=== PATIENT | female | born 1970 | race Hispanic/Latino ===

== ENCOUNTER 2016-11-26 23:21 | Emergency (ER) | payer MEDICAID ==
[2016-11-26 23:21] VITALS: BMI 26.4
[2016-11-26 23:39] VITALS: RESP 20; TEMP 98
[2016-11-27 00:55] LABS: RBC URINE 12 /hpf (0-3); URINE BILIRUBIN NEGATIVE (NEGATIVE); URINE BLOOD 2+ (NEGATIVE); URINE COLOR Amber (YELLOW); URINE GLUCOSE (UA) NORMAL (Normal); URINE KETONE NEGATIVE (NEGATIVE); URINE LEUKOCYTE ESTERASE NEG Leu/uL (Negative); URINE PROTEIN NEGATIVE (NEGATIVE); WBC URINE 2 /hpf (0-5)
--- NOTE | 2016-11-27 01:11 | C.PDOC ---
History Of Present Illness Pt c/o diffuse itchy rash. Time Seen by Provider: 11/26/16 23:53 Chief Complaint (Nursing): Abnormal Skin Integrity History Per: Patient Onset/Duration Of Symptoms: Days (about 2-3 weeks) Current Symptoms Are (Timing): Still Present Quality Of Symptoms: Itching Severity: Moderate Additional History Per: Prior Records Past Medical History Reviewed: Historical Data, Nursing Documentation, Vital Signs Vital Signs: Last Vital Signs Temp 98 F 11/26/16 23:34 Pulse 78 11/26/16 23:34 Resp 20 11/26/16 23:34 BP 128/68 11/26/16 23:34 Pulse Ox 100 11/26/16 23:34 - Medical History PMH: Anxiety, COPD (Emphysema), Depression, Emphysema, Fractures (rt foot), Hepatitis (HEP-C) Surgical History: Appendectomy (1989) Other Surgeries: Right BKA - [facility] Procedures BELOW KNEE AMPUTAT NEC (02/19/15) DETOXIFICATION SERVICES FOR SUBSTANCE ABUSE TREATMENT (08/01/16) DRAINAGE OF LEFT LOWER LEG SKIN, EXTERNAL APPROACH (09/11/16) GROUP INVESTIGATIONS CONSULTANT FOR SUBSTANCE ABUSE TREATMENT, PSYCHOEDUCATION (08/01/16) GROUP PSYCHOTHERAPY (12/16/15) IMMOBILIZ/WOUND ATTN NEC (10/07/12) INDIV PSYCHOTHERAPY FOR SUBSTANCE ABUSE TREATMENT, SUPPORT (09/11/16) INDIV PSYCHOTHERAPY FOR SUBSTANCE ABUSE, PSYCHOEDUCATION (09/11/16) INFLUENZA VACCINATION (05/13/13) NONEXCIS DEBRID OF WOUND, INFECT, OR BURN (05/13/13) PART OSTECT-METATAR/TAR (05/13/13) PARTIAL OSTECTOMY NEC (05/13/13) Family History: States: Unknown Family Hx - Social History Hx Tobacco Use: Yes Hx Alcohol Use: Yes (alcohol detox(08/01/16)) Hx Substance Use: Yes (opiate detox(08/01/16)) - Immunization History Hx Tetanus Toxoid Vaccination: Yes Hx Influenza Vaccination: No Hx Pneumococcal Vaccination: No Review Of Systems Except As Marked, All Systems Reviewed And Found Negative. Constitutional: Negative for: Fever, Weakness ENT: Negative for: Mouth Pain, Mouth Swelling, Throat Pain, Throat Swelling Respiratory: Negative for: Cough, Shortness of Breath Gastrointestinal: Negative for: Vomiting, Abdominal Pain Genitourinary: Positive for: Dysuria Musculoskeletal: Negative for: Neck Pain Skin: Positive for: Rash, Lesions Neurological: Negative for: Weakness, Numbness, Seizures, Altered Mental Status Physical Exam - Physical Exam Appears: Non-toxic, No Acute Distress Skin: Warm, Dry, Rash (dry skin with excoriations) Head: Atraumatic, Normacephalic Eye(s): bilateral: PERRL, EOMI Oral Mucosa: Moist, No Drooling, No Trismus Tongue: Normal Appearing Throat: Normal Neck: Normal ROM, Supple Lymphatic: No Adenopathy Cardiovascular: Rhythm Regular Respiratory: Normal Breath Sounds, No Accessory Muscle Use Gastrointestinal/Abdominal: Soft, No Tenderness Back: No CVA Tenderness Extremity: Normal ROM, Other (Right BKA) Neurological/Psych: Oriented x3, Normal Motor, Normal Sensation ED Course And Treatment - Laboratory Results Urine POC: Negative O2 Sat by Pulse Oximetry: 100 Pulse Ox Interpretation: Normal Reassessment Condition: Improved Disposition Counseled Patient/Family Regarding: Studies Performed, Diagnosis, Need For Followup, Rx Given - Disposition Referrals: Cuauhtemoc Noriega MD [Staff Provider] - Disposition: HOME/ ROUTINE Disposition Time: 01:11 Condition: STABLE Additional Instructions: Follow up with your doctor and with a Grounds/Maintenance Specialist for further evaluation and treatment. Return to the ER if you develop fever, mouth sores, trouble breathing , worsening of symptoms or if you have any other concerns. Prescriptions: DiphenhydrAMINE [Benadryl] 25 mg PO Q4 PRN #30 cap PRN Reason: Itching / Pruritus Mupirocin 2% Cream [Bactroban Cream] 1 applic EXT BID #1 tube Sulfamethoxazole/Trimethoprim [Bactrim DS 800 mg-160 mg] 1 tab PO BID #14 tab Instructions: Dermatitis (ED) - Clinical Impression Clinical Impression: Pruritic rash
[2016-11-27 01:32] VITALS: BP 123/81; PULSE 79; O2SAT 95
== END 2016-11-27 01:31 | disposition home or self-care (01) ==
LOC: C.ER 23:21
DX: L29.8 Other pruritus (principal)

== ENCOUNTER 2016-12-21 12:46 | Inpatient (IN) | payer MEDICAID, OTHER ==
[2016-12-21 12:55] VITALS: BMI 26.6
--- NOTE | 2016-12-21 13:10 | C.PDOC ---
History Of Present Illness Pt is here requesting detox from alcohol and opiate pain pills. Time Seen by Provider: 12/21/16 13:03 Chief Complaint (Nursing): Substance Abuse History Per: Patient Onset/Duration Of Symptoms: Days Current Symptoms Are (Timing): Still Present Suicide/Self Injury Attempted (Context): None Modifying Factor(s): Alcohol, Narcotics Severity: Moderate Associated Symptoms: denies: Suicidal Thoughts, Suicidal Plan Additional History Per: Prior Records Past Medical History Vital Signs: Last Vital Signs Temp 98.3 F 12/21/16 12:55 Pulse 82 12/21/16 12:55 Resp 18 12/21/16 12:55 BP 113/70 12/21/16 12:55 Pulse Ox 99 12/21/16 13:11 - Medical History PMH: Anxiety, COPD (Emphysema), Depression, Emphysema, Fractures (rt foot), Hepatitis (HEP-C) Surgical History: Appendectomy (1989) Other Surgeries: Right BKA - [facility] Procedures BELOW KNEE AMPUTAT NEC (02/19/15) DETOXIFICATION SERVICES FOR SUBSTANCE ABUSE TREATMENT (08/01/16) DRAINAGE OF LEFT LOWER LEG SKIN, EXTERNAL APPROACH (09/11/16) GROUP BILLET DRILLER FOR SUBSTANCE ABUSE TREATMENT, PSYCHOEDUCATION (08/01/16) GROUP PSYCHOTHERAPY (12/16/15) IMMOBILIZ/WOUND ATTN NEC (10/07/12) INDIV PSYCHOTHERAPY FOR SUBSTANCE ABUSE TREATMENT, SUPPORT (09/11/16) INDIV PSYCHOTHERAPY FOR SUBSTANCE ABUSE, PSYCHOEDUCATION (09/11/16) INFLUENZA VACCINATION (05/13/13) NONEXCIS DEBRID OF WOUND, INFECT, OR BURN (05/13/13) PART OSTECT-METATAR/TAR (05/13/13) PARTIAL OSTECTOMY NEC (05/13/13) Family History: States: Unknown Family Hx - Social History Hx Tobacco Use: Yes Hx Alcohol Use: Yes (alcohol detox(08/01/16)) Hx Substance Use: Yes (roxicodone) - Immunization History Hx Tetanus Toxoid Vaccination: Yes Hx Influenza Vaccination: No Hx Pneumococcal Vaccination: No Review Of Systems Except As Marked, All Systems Reviewed And Found Negative. Constitutional: Negative for: Fever Cardiovascular: Negative for: Chest Pain Respiratory: Negative for: Shortness of Breath Gastrointestinal: Positive for: Abdominal Pain Musculoskeletal: Negative for: Neck Pain, Back Pain Neurological: Negative for: Weakness, Numbness, Seizures, Headache Physical Exam - Physical Exam Appears: Non-toxic, No Acute Distress Skin: Normal Color, Warm, Dry Head: Atraumatic, Normacephalic Eye(s): bilateral: PERRL, EOMI Neck: Normal ROM, Supple Cardiovascular: Rhythm Regular Respiratory: Normal Breath Sounds, No Accessory Muscle Use Gastrointestinal/Abdominal: Soft, No Guarding, No Rebound Back: No CVA Tenderness Extremity: Normal ROM Neurological/Psych: Oriented x3, Normal Motor, Normal Sensation ED Course And Treatment - Laboratory Results Result Diagrams: 12/21/16 13:39 12/21/16 13:39 Interpretation Of Abnormal: Probable UTI. Urine POC: Negative O2 Sat by Pulse Oximetry: 99 Pulse Ox Interpretation: Normal Progress Note: Pt is medically stable for detox admission. I started treatment for UTI with Cipro. Please continue and f/up urine culture. Disposition Counseled Patient/Family Regarding: Studies Performed, Diagnosis, Smoking Cessation - Disposition Disposition: HOSPITALIZED Disposition Time: 15:20 Condition: STABLE - Clinical Impression Clinical Impression: Alcohol dependence, Opiate dependence, UTI (urinary tract infection) Decision To Admit - Pt Status Changed To: Hospital Disposition Of: Inpatient - Admit Certification Admit to Inpatient:: After my assessment, the patient will require hospitalization for at least two midnights. This is because of the severity of symptoms shown, intensity of services needed, and/or the medical risk in this patient being treated as an outpatient. - InPatient: Physician Admission Certification: I certify that this patient requires 2 or more midnights of care for the following reason:: Detox. - . Bed Request Type: Detox Admitting Physician: Vadim López Patient Diagnosis: Alcohol dependence, Opiate dependence
[2016-12-21 13:42] LABS: BASO % 0.7 % (0.0-2.0); EOS # 0.1 K/uL (0.0-0.7); EOS % 1.5 % (0.0-4.0); HEMATOCRIT 38.5 % (34.0-47.0); LYMPH # 1.1 K/uL (1.0-4.3); LYMPH % 22.6 % (20.0-40.0); MEAN CELL VOLUME 90.8 fL (81.0-99.0); MEAN CORPUSCULAR HGB CONC 34.1 g/dL (33.0-37.0); MEAN PLATELET VOLUME 10.1 fL (7.2-11.7); MONO # 0.4 K/uL (0.0-0.8); MONO % 7.8 % (0.0-10.0); NRBC % 0.1 % (0.0-2.0); RED CELL DISTRIBUTION WIDTH 14.7 % (11.5-14.5)
[2016-12-21 13:50] LABS: CHLORIDE 103 mmol/L (98-107); POTASSIUM 4.1 mmol/L (3.6-5.2); SODIUM 137 mmol/L (132-148)
[2016-12-21 13:52] LABS: AST/SGOT 133 U/L (14-36); CARBON DIOXIDE 22 mmol/L (22-30); GFR AFRICAN-AMERICAN > 60; TOTAL PROTEIN 8.4 g/dL (6.3-8.3)
[2016-12-21 13:53] LABS: ALB/GLOB RATIO 0.8 (1.0-2.1); ALKALINE PHOSPHATASE 58 U/L (38-126); ALT/SGPT 56 U/L (9-52); BLOOD UREA NITROGEN 13 mg/dL (7-17); CALCIUM 8.1 mg/dl (8.6-10.4); GLUCOSE,RANDOM 124 mg/dL (65-105)
[2016-12-21 13:54] LABS: ALCOHOL SERUM 118 mg/dl (0-10)
[2016-12-21 13:58] LABS: RBC URINE 30 /hpf (0-3); URINE BACTERIA MANY (<OCC); URINE BILIRUBIN NEGATIVE (NEGATIVE); URINE BLOOD 2+ (NEGATIVE); URINE CALCIUM OXALATE CRYSTALS OCC /hpf (<OCC); URINE COLOR Amber (YELLOW); URINE GLUCOSE (UA) NORMAL (Normal); URINE KETONE NEGATIVE (NEGATIVE); URINE LEUKOCYTE ESTERASE 3+ Leu/uL (Negative); URINE PROTEIN NEGATIVE (NEGATIVE); WBC URINE 10 /hpf (0-5)
[2016-12-21 17:01] VITALS: RESP 18
[2016-12-22] MEDS: Multiple Vitamins Tab PO SCH (09:19)
--- NOTE | 2016-12-22 12:56 | PCM.PSYCH ---
Initial Psychiatric Evaluation - Initial Psychiatric Evaluation Type of Admission: Voluntary Legal Status: Capacity Chief Complaint (in patient's own words): I need treatment for my substance use History of Present Illness and Precipitating Events: Patient is a 45 years old female currently unemployed on SSD and living with boyfriend, with a history of alcohol use disorder, opioid use disorder and sedative/hypnotic use disorder and medical history of right below- knee amputation presented to the ED for detox. Patient also reported that time she feels depressed with decreased sleep and decrease appetite but no weight change. Denied any suicidal homicidal ideations or suicidal attempts. Denied any psychotic manic or anxiety symptoms. Patient reported that his PCP started her on Lexapro and Prozac at different times but she stopped taking because of weight gain. Doesn't want to take any medications at this time. Reported she has been consuming increasing amount of alcohol since age of 13, but opioid pain medications and benzos for more than a year. Reported she had a compartment syndrome and had below-knee amputation last year, since then she is consuming increasing amount of opioid pain medication and benzos. Alcohol: Reported she started using alcohol at the age of 13, increased gradually, currently she was drinking 3-4 pints of vodka daily for last 3 months, last use was yesterday morning. Reported history of 2 detox and no rehabs in the past. Opiates: Patient reported she started using heroine at the age of 22 years. In the beginning she was using one bag snorting which she stopped but later she started using opiate pain medicine. Reported she was using OxyContin more than prescribed and later she started buying from [facility]. Patient also reported that she was also taking Suboxone, buying from [facility] and was taking half of it but 2 mg tablet to 3 times per week. Klonopin: Patient reported she hadn't that she was taking Klonopin for last 5 years from her PCP who was giving her Klonopin 2 mg 3 times a day but according to history patient was abusing benzos. Patient reported that yesterday she drank 3-4 pints of vodka and also she took 4 mg of Klonopin before coming to ER yesterday. She also smokes one pack of cigarettes daily and is requesting for nicotine patch. Patient was born in [place], has 10th grade of education, not working for last 14 years, on disability, lives with boyfriend, never and has 2 children 27 years old daughter and 11 years old son. Her 11-year-old son lives with his father. Her height is 5 feet 6 inches and weight is 165 pounds. Current Medications: Active Medications Generic Name Dose Route Start Last Admin Trade Name Freq PRN Reason Stop Dose Admin Ciprofloxacin 500 mg 12/22/16 10:15 12/22/16 10:47 Cipro PO 12/26/16 23:59 500 mg BID MARGARET Administration Folic Acid 1 mg 12/22/16 10:00 12/22/16 09:19 Folic Acid PO 1 mg DAILY MARGARET Administration Gabapentin 300 mg 12/22/16 14:00 Neurontin PO TID MARGARET Lorazepam 1 mg 12/21/16 16:58 12/21/16 18:33 Ativan PO 1 mg Q4H PRN Administration Symptoms of alcohol withdrawl Lorazepam 2 mg 12/21/16 17:00 12/22/16 12:41 Ativan PO 12/26/16 16:59 2 mg Q4 MARGARET Administration Taper Multivitamins 1 tab 12/22/16 10:00 12/22/16 09:19 Hexavitamin PO 1 tab DAILY MARGARET Administration Mupirocin 0 gm 12/22/16 10:15 12/22/16 10:48 Bactroban Ointment TOP 1 applic BID MARGARET Administration Nicotine 1 patch 12/22/16 10:15 12/22/16 10:47 Nicoderm Cq TD 1 patch DAILY MARGARET Administration Thiamine HCl 100 mg 12/22/16 10:00 12/22/16 09:19 Vitamin B1 Tab PO 100 mg DAILY MARGARET Administration Trazodone HCl 50 mg 12/21/16 16:58 12/21/16 22:10 Desyrel PO 50 mg HS PRN Administration Insomnia Past Psychiatric History - Past Psychiatric History Previous Treatment History: Inpatient Prior Professional Help: [facility]patient detox [facility]: [facility] History of Abuse: None reported History of ETOH/Drug Use: See HPI History of Family Illness: None reported Pertinent Medical Hx (Current Medical&Sleep Prob, Allergies): Allergies Allergy/AdvReac Type Severity Reaction Status Date / Time No Known Allergies Allergy Verified 12/21/16 12:54 Klonopin 2 mg PO TID 03/30/16 Gabapentin [Neurontin] 300 mg PO TID #90 cap 08/04/16 Oxycodone HCl [Roxicodone] 30 mg PO QID 09/10/16 Hepatitis C Review of Systems - Psychiatric Psychiatric: Depression Mental Status Examination - Personal Presentation Personal Presentation: Looks stated age - Affect Affect: Depressed - Motor Activity Motor Activity: Calm - Reliability in Providing Information Reliability in Providing Information: Fair - Speech Speech: Organized - Mood Mood: Depressed - Formal Thought Process Formal Thought Process: No Impairment - Hallucinations/Delusions Hallucinations: Other (None reported) Delusions: Other - Obsessions/Compulsions Obsessions: None Compulsions: None - Cognitive Functions Orientation: Person, Place, Situation, Time Sensorium: Alert Attention/Concentration: Attentive Abstract Thinking: [place] Estimate of Intelligence: Average Judgement: Intact, as evidence by: Insight regarding need for hospitalization Memory: Recent intact, as evidence by: 3/3 object recall, Remote intact, as evidenced by: Ability to recall historical events - Risk Risk: Withdrawal, Diminished functioning - Strength & Assets Inventory Strength & Assets Inventory: Cooperative - Limitations Limitations: Other DSM 5 DX - DSM 5 DSM 5 Diagnosis: Alcohol use disorder severe Alcohol withdrawal Opiate use disorder Anxiolytics use disorder - Recommended/Plan of Treatment Treatment Recommendations and Plan of Treatment: Patient education Supportive therapy We'll start Ativan detox protocol for alcohol withdrawal and anxiolytics withdrawal Patient reported no withdrawal symptoms from opiate, will observe, if develop any withdrawal symptoms we'll continue treatment accordingly. Other when necessary medications Projected ELOS: 4-5 days - Smoking Cessation Smoking Cessation Initiated: Yes
[2016-12-23 06:51] VITALS: O2SAT 100
[2016-12-23] MEDS: Multiple Vitamins Tab PO SCH (09:36)
[2016-12-23 11:16] VITALS: BP 122/81; PULSE 69; TEMP 97.7
--- NOTE | 2016-12-23 15:24 | PCM.PYCHDC ---
Mental Status Examination - Mental Status Examination Orientation: Person, Place, Situation, Time Memory: Intact Mood: Neutral Affect: Other (Appropriate) Speech: Soft Attention: WNL Concentration: WNL Association: WNL Fund of Knowledge: WNL Formal Thought Process: No Impairment Description of patient's judgement and insight: Poor Psychotic Thoughts and Behaviors: None Suicidal Ideation: No Current Homicidal Ideation?: No Discharge Summary - Discharge Note Reason for Hospitalization: Alcohol use disorder Alcohol withdrawal Opiate use disorder Opiate withdrawal Anxiolytics use disorder Anxiolytics withdrawal Laboratory Data: Reviewed Consultations:: List each consultation separately and include: 1. Reason for request. 2. Findings. 3. Follow-up Summary of Hospital Course include:: 1. Description of specific treatment plan utilized for patients during their course of treatmen. 2. Summarize the time- course for resolution of acute symptoms and/or regressed behaviors. 3. Describe issues identified and worked on during hospitalization. 4. Describe medication utilized. 5. Describe medical problems identified and treated. 6. Reassessment of suicide risk Summary of Hospital Course: Patient is a 45 years old female currently unemployed on SSD and living with boyfriend, with a history of alcohol use disorder, opioid use disorder and sedative/hypnotic use disorder and medical history of right below- knee amputation presented to the ED for detox. Patient also reported that time she feels depressed with decreased sleep and decrease appetite but no weight change. Denied any suicidal homicidal ideations or suicidal attempts. Denied any psychotic manic or anxiety symptoms. Patient reported that his PCP started her on Lexapro and Prozac at different times but she stopped taking because of weight gain. Doesn't want to take any medications at this time. Reported she has been consuming increasing amount of alcohol since age of 13, but opioid pain medications and benzos for more than a year. Reported she had a compartment syndrome and had below-knee amputation last year, since then she is consuming increasing amount of opioid pain medication and benzos. Alcohol: Reported she started using alcohol at the age of 13, increased gradually, currently she was drinking 3-4 pints of vodka daily for last 3 months, last use was yesterday morning. Reported history of 2 detox and no rehabs in the past. Opiates: Patient reported she started using heroine at the age of 22 years. In the beginning she was using one bag snorting which she stopped but later she started using opiate pain medicine. Reported she was using OxyContin more than prescribed and later she started buying from [facility]. Patient also reported that she was also taking Suboxone, buying from [facility] and was taking half of it but 2 mg tablet to 3 times per week. Klonopin: Patient reported she hadn't that she was taking Klonopin for last 5 years from her PCP who was giving her Klonopin 2 mg 3 times a day but according to history patient was abusing benzos. Patient reported that yesterday she drank 3-4 pints of vodka and also she took 4 mg of Klonopin before coming to ER yesterday. She also smokes one pack of cigarettes daily and is requesting for nicotine patch. Patient was born in [place], has 10th grade of education, not working for last 14 years, on disability, lives with boyfriend, never and has 2 children 27 years old daughter and 11 years old son. Her 11-year-old son lives with his father. Her height is 5 feet 6 inches and weight is 165 pounds. Patient was started on Ativan protocol, for alcohol withdrawal symptoms. Patient did not score for opiate withdrawal. Patient was also started on other when necessary medications. One urinalysis was found to have UTI. Was started on ciprofloxacin. Patient understood and agreed with above. Today patient reported she is feeling much better and wants to leave. Education provided the patient about completion of detox. Patient reported no withdrawal symptoms. Refused to stay. Patient was educated that in case of any adverse he wants including withdrawal, decompensation, overdose or even of the patient, patient will be responsible for her actions. Patient understood and agreed but still refused to stay and left the unit AMA. At the time of evaluation and discharge, patient was awake alert oriented 3, had no delusions, no auditory or visual hallucinations, no suicidal ideations or homicidal ideations. Patient was discharged in a stable condition. - Final Diagnosis (DSM 5) Condition upon Discharge: STABLE Disposition: AGAINST MEDICAL ADVICE - Smoking Cessation Smoking Cessation Medication prescribed: Yes - Antipsychotic Medications Pt discharged on 2 or more routine antipsychotic medications: No
== END 2016-12-23 09:55 | disposition left against medical advice (07) | DRG 743 ==
LOC: C.ER 12:46 → C.7D 16:01
PROC: HZ2ZZZZ Detoxification Services for Substance Abuse Treatment (ICD-10-PCS; principal; 2016-12-21)
PROC: HZ59ZZZ Individual Psychotherapy for Substance Abuse Treatment, Supportive (ICD-10-PCS; 2016-12-21)
DX: F10.230 Alcohol dependence with withdrawal, uncomplicated (principal); J43.9 Emphysema, unspecified; B19.20 Unspecified viral hepatitis C without hepatic coma; N39.0 Urinary tract infection, site not specified; F11.23 Opioid dependence with withdrawal; F13.230 Sedative, hypnotic or anxiolytic dependence with withdrawal, uncomplicated; F41.9 Anxiety disorder, unspecified; F32.9 Major depressive disorder, single episode, unspecified; Z89.519 Acquired absence of unspecified leg below knee; F17.210 Nicotine dependence, cigarettes, uncomplicated; Y90.5 Blood alcohol level of 100-119 mg/100 ml

== ENCOUNTER 2017-02-05 12:29 | Emergency (ER) | payer MEDICAID ==
[2017-02-05 12:30] VITALS: BMI 26.6
[2017-02-05 12:43] VITALS: RESP 16; TEMP 97.5
[2017-02-05] MEDS ORDERED: Sodium Chloride 0.9% 1,000 ML IV ONE (12:49)
--- NOTE | 2017-02-05 12:58 | C.PDOC ---
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 Patient states she is currently taking Antivert and was drinking when she passed out while alone at home. Patient reports she drinks everyday and smokes. Patient denies visual changes, trauma, fever, chills, nausea, vomiting or any other complaints at this time. Time Seen by Provider: 02/05/17 12:31 Chief Complaint (Nursing): Syncope History Per: Patient History/Exam Limitations: no limitations Onset/Duration Of Symptoms: Hrs Current Symptoms Are (Timing): Gone Past Medical History Reviewed: Historical Data, Nursing Documentation, Vital Signs Vital Signs: Last Vital Signs Temp 97.5 F L 02/05/17 14:05 Pulse 64 02/05/17 14:05 Resp 16 02/05/17 14:05 BP 91/50 L 02/05/17 14:05 Pulse Ox 95 02/05/17 15:19 - Medical History PMH: Anxiety, Bipolar Disorder, Depression, Emphysema, Fractures (rt foot), Hepatitis (HEP-C) Comment Only: COPD (Emphysema) Surgical History: Appendectomy (1989) - [facility] Procedures BELOW KNEE AMPUTAT NEC (02/19/15) DETOXIFICATION SERVICES FOR SUBSTANCE ABUSE TREATMENT (12/21/16) DRAINAGE OF LEFT LOWER LEG SKIN, EXTERNAL APPROACH (09/11/16) GROUP DECONTAMINATION WORKER FOR SUBSTANCE ABUSE TREATMENT, PSYCHOEDUCATION (08/01/16) GROUP PSYCHOTHERAPY (12/16/15) IMMOBILIZ/WOUND ATTN NEC (10/07/12) INDIV PSYCHOTHERAPY FOR SUBSTANCE ABUSE TREATMENT, SUPPORT (12/21/16) INDIV PSYCHOTHERAPY FOR SUBSTANCE ABUSE, PSYCHOEDUCATION (09/11/16) INFLUENZA VACCINATION (05/13/13) NONEXCIS DEBRID OF WOUND, INFECT, OR BURN (05/13/13) PART OSTECT-METATAR/TAR (05/13/13) PARTIAL OSTECTOMY NEC (05/13/13) Family History: States: Unknown Family Hx - Social History Hx Tobacco Use: Yes Hx Alcohol Use: Yes Hx Substance Use: Yes - Immunization History Hx Tetanus Toxoid Vaccination: Yes Hx Influenza Vaccination: No Hx Pneumococcal Vaccination: No Review Of Systems Except As Marked, All Systems Reviewed And Found Negative. Constitutional: Negative for: Weakness Eyes: Negative for: Vision Change Gastrointestinal: Negative for: Nausea, Vomiting, Diarrhea Neurological: Negative for: Headache, Dizziness Physical Exam - Physical Exam Appears: No Acute Distress, Other (Sleepy) Skin: Normal Color, Warm Head: Atraumatic, Normacephalic Eye(s): bilateral: Normal Inspection, PERRL Oral Mucosa: Moist Cardiovascular: Rhythm Regular, No Murmur Respiratory: Normal Breath Sounds, No Rales, No Rhonchi, No Wheezing Gastrointestinal/Abdominal: Soft, No Tenderness, No Guarding, No Rebound Extremity: Normal ROM, Capillary Refill (<2 seconds) Neurological/Psych: Oriented x3, Normal Speech, Normal Cognition, Normal Motor, Normal Sensation, Normal Reflexes ED Course And Treatment - Laboratory Results Result Diagrams: 02/05/17 13:30 02/05/17 13:30 Lab Interpretation: Normal ECG Rhythm: Sinus Rhythm Rate From EC (bpm) O2 Sat by Pulse Oximetry: 95 (RA) Pulse Ox Interpretation: Normal Progress Note: Treated with IVF NSS. On re-evaluation alert and awake in on distress, ambulating with steady gait, neuro intact. Patient requests dischage Reassessment Condition: Improved Medical Decision Making Medical Decision Making: Plan: Blood work Patient reports history of alcohol abuse and currently on antibuse. Patient states she was drinking this am and passes out Disposition Counseled Patient/Family Regarding: Studies Performed, Diagnosis, Need For Followup - Disposition Referrals: [facility] [Outside] [facility] [Outside] Disposition: HOME/ ROUTINE Disposition Time: 15:30 Condition: STABLE Additional Instructions: Follow up with your pPMD for further evaluation Stop drinking alcohol Instructions: Syncope (ED), Abuse of Alcohol (ED) - POA Present On Arrival: None - Clinical Impression Clinical Impression: Syncope, Alcohol abuse - Scribe Statement The provider has reviewed the documentation as recorded by the Hamiblana Noriega All medical record entries made by the Hamibe were at my direction and personally dictated by me. I have reviewed the chart and agree that the record accurately reflects my personal performance of the history, physical exam, medical decision making, and the department course for this patient. I have also personally directed, reviewed, and agree with the discharge instructions and disposition.
[2017-02-05] MEDS ORDERED: Sodium Chloride 0.9% 1,000 ML ONE (13:03)
[2017-02-05 13:41] LABS: ALBUMIN 3.2 g/dL (3.5-5.0)
[2017-02-05 13:43] LABS: BASO % 0.6 % (0.0-2.0); EOS # 0.1 K/uL (0.0-0.7); EOS % 1.4 % (0.0-4.0); LYMPH # 0.8 K/uL (1.0-4.3); LYMPH % 22.9 % (20.0-40.0); MEAN CELL VOLUME 90.5 fL (81.0-99.0); MEAN CORPUSCULAR HEMOGLOBIN 30.2 pg (27.0-31.0); MEAN CORPUSCULAR HGB CONC 33.4 g/dL (33.0-37.0); MEAN PLATELET VOLUME 10.2 fL (7.2-11.7); MONO # 0.3 K/uL (0.0-0.8); MONO % 8.3 % (0.0-10.0); NEUT # 2.4 K/uL (1.8-7.0); NEUT % 66.8 % (50.0-75.0); NRBC % 0.1 % (0.0-2.0); RBC 3.63 Mil/uL (3.80-5.20); RED CELL DISTRIBUTION WIDTH 14.8 % (11.5-14.5); WHITE BLOOD COUNT 3.6 K/uL (4.8-10.8)
[2017-02-05 13:44] LABS: AST/SGOT 34 U/L (14-36); GFR AFRICAN-AMERICAN > 60; GFR NON-AFRICAN AMERICAN > 60
[2017-02-05 13:45] LABS: ALB/GLOB RATIO 0.8 (1.0-2.1); ALT/SGPT 29 U/L (9-52); BLOOD UREA NITROGEN 14 mg/dL (7-17); CALCIUM 7.7 mg/dl (8.6-10.4)
[2017-02-05 14:07] VITALS: BP 91/50; PULSE 64
[2017-02-05 15:16] VITALS: O2SAT 95
[2017-02-05 15:39] LABS: SQUAMOUS EPITHIAL 15 /hpf (0-5); URINE BACTERIA RARE (<OCC); URINE BILIRUBIN NEGATIVE (NEGATIVE); URINE BLOOD 1+ (NEGATIVE); URINE CLARITY Hazy (Clear); URINE COLOR Yellow (YELLOW); URINE GLUCOSE (UA) NORMAL (Normal); URINE LEUKOCYTE ESTERASE 1+ Leu/uL (Negative); URINE NITRATE NEGATIVE (NEGATIVE); URINE PROTEIN NEGATIVE (NEGATIVE); URINE UROBILINOGEN NORMAL mg/dL (0.2-1.0)
[2017-02-05 15:55] LABS: BARBITURATES, UR NEGATIVE (NEGATIVE)
[2017-02-05 15:58] LABS: OPIATES, UR POSITIVE (NEGATIVE)
[2017-02-05 15:59] LABS: PHENCYCLIDINE, UR NEGATIVE (NEGATIVE)
[2017-02-05 16:10] LABS: BENZODIAZEPINES, UR POSITIVE (NEGATIVE)
--- NOTE | 2017-02-07 00:35 | CARD ---
APPROVED REPORT EKG Measurement Heart [id number] <Conclusion> Normal sinus rhythm Cannot rule out Anterior infarct, age undetermined Abnormal ECG
== END 2017-02-05 15:38 | disposition home or self-care (01) ==
LOC: C.ER 12:29
DX: R55 Syncope and collapse (principal); F10.10 Alcohol abuse, uncomplicated; Y90.3 Blood alcohol level of 60-79 mg/100 ml
CPT/HCPCS: 80053; 80320; 80324; 80345; 80346; 80349; 80353; 80358; 80361; 81001; 83992; 84484; 85025; 93005; 96360; 99285; J7040

== ENCOUNTER 2017-03-07 18:04 | Inpatient (IN) | payer MEDICAID ==
[2017-03-07 18:05] VITALS: BMI 26.6
--- NOTE | 2017-03-07 19:08 | C.PDOC ---
History Of Present Illness Patient presents to the emergency department with complaints of redness and tenderness to wound above the right BKA stump with purulent drainage. Patient denies fever, chills, nausea, or vomiting. Time Seen by Provider: 03/07/17 18:13 Chief Complaint (Nursing): Abnormal Skin Integrity History Per: Patient History/Exam Limitations: no limitations Onset/Duration Of Symptoms: Hrs Current Symptoms Are (Timing): Still Present Location Of Injury: Right: Leg (wound above BKA stump ) Quality Of Symptoms: Draining Severity: Moderate Pain Scale Rating Of: 4 Recent travel outside of the [place]: No Additional History Per: Prior Records Past Medical History Reviewed: Historical Data, Nursing Documentation, Vital Signs Vital Signs: Last Vital Signs Temp 98.2 F 03/07/17 18:13 Pulse 64 03/07/17 18:13 Resp 18 03/07/17 18:13 BP 131/79 03/07/17 18:13 Pulse Ox 97 03/07/17 21:34 - Medical History PMH: Anxiety, Bipolar Disorder, Depression, Emphysema, Fractures (rt foot), Hepatitis (HEP-C) Comment Only: COPD (Emphysema) Surgical History: Appendectomy (1989) - [facility] BELOW KNEE AMPUTAT NEC (02/19/15) DETOXIFICATION SERVICES FOR SUBSTANCE ABUSE TREATMENT (12/21/16) DRAINAGE OF LEFT LOWER LEG SKIN, EXTERNAL APPROACH (09/11/16) GROUP SPOT CHECKER FOR SUBSTANCE ABUSE TREATMENT, PSYCHOEDUCATION (08/01/16) GROUP PSYCHOTHERAPY (12/16/15) IMMOBILIZ/WOUND ATTN NEC (10/07/12) INDIV PSYCHOTHERAPY FOR SUBSTANCE ABUSE TREATMENT, SUPPORT (12/21/16) INDIV PSYCHOTHERAPY FOR SUBSTANCE ABUSE, PSYCHOEDUCATION (09/11/16) INFLUENZA VACCINATION (05/13/13) NONEXCIS DEBRID OF WOUND, INFECT, OR BURN (05/13/13) PART OSTECT-METATAR/TAR (05/13/13) PARTIAL OSTECTOMY NEC (05/13/13) Family History: States: Unknown Family Hx - Social History Hx Tobacco Use: Yes Hx Alcohol Use: Yes Hx Substance Use: Yes - Immunization History Hx Tetanus Toxoid Vaccination: Yes Hx Influenza Vaccination: No Hx Pneumococcal Vaccination: No Review Of Systems Constitutional: Negative for: Fever, Chills Cardiovascular: Negative for: Chest Pain, Palpitations Respiratory: Negative for: Cough, Shortness of Breath Gastrointestinal: Negative for: Nausea, Vomiting, Abdominal Pain Musculoskeletal: Positive for: Leg Pain (erythema and tenderness to area above BKA of right leg) Physical Exam - Physical Exam Appears: Non-toxic, No Acute Distress Skin: Warm, Dry Head: Normacephalic Eye(s): bilateral: Normal Inspection, PERRL, EOMI Oral Mucosa: Moist Neck: Supple Chest: Symmetrical Cardiovascular: Rhythm Regular Respiratory: No Rales, No Rhonchi, No Wheezing Back: No CVA Tenderness Extremity: Tenderness (mild tenderness to 3 x 5 cm area of erythema with no streaking above right leg BKA stump ), No Swelling Extremity: Right: Other (bka) Pulses: Left Dorsalis Pedis: Normal Neurological/Psych: Oriented x3, Normal Speech, Normal Cognition Gait: Steady ED Course And Treatment - Laboratory Results Result Diagrams: 03/07/17 19:58 03/07/17 19:58 O2 Sat by Pulse Oximetry: 97 (room air ) Pulse Ox Interpretation: Normal Disposition Discussed With DrRamón: Sruthi Harrison Comment: accepted the pt on his service qand took over the care at 9:32 PM Doctor Will See Patient In The: Hospital Counseled Patient/Family Regarding: Studies Performed, Diagnosis - Disposition Disposition: HOSPITALIZED Disposition Time: 19:08 Condition: FAIR Forms: [facility] ([place]an) - Clinical Impression Clinical Impression: Cellulitis - Scribe Statement The provider has reviewed the documentation as recorded by the Scribe Marjorie Salgado All medical record entries made by the Hamibe were at my direction and personally dictated by me. I have reviewed the chart and agree that the record accurately reflects my personal performance of the history, physical exam, medical decision making, and the department course for this patient. I have also personally directed, reviewed, and agree with the discharge instructions and disposition. Decision To Admit - Pt Status Changed To: Hospital Disposition Of: Inpatient - Admit Certification Admit to Inpatient:: After my assessment, the patient will require hospitalization for at least two midnights. This is because of the severity of symptoms shown, intensity of services needed, and/or the medical risk in this patient being treated as an outpatient. - InPatient: Physician Admission Certification: I certify that this patient requires 2 or more midnights of care for the following reason:: After my assessment, the patient will require hospitalization for at least two midnights. This is because of the severity of symptoms shown, intensity of services needed, and/or the medical risk in this patient being treated as an outpatient. - . Bed Request Type: Regular Admitting Physician: Sruthi Harrison Patient Diagnosis: Cellulitis
[2017-03-07 20:04] LABS: VENOUS BLOOD GAS BASE EXCESS 5.6 mmol/L (0.0-2.0); VENOUS BLOOD GAS PCO2 58 mmHg (40-60); VENOUS BLOOD PH 7.36 (7.32-7.43)
[2017-03-07 20:04] LABS: BASO % 0.1 % (0.0-2.0); EOS % 0.1 % (0.0-4.0); HEMATOCRIT 34.5 % (34.0-47.0); LYMPH # 0.3 K/uL (1.0-4.3); LYMPH % 7.7 % (20.0-40.0); MEAN CELL VOLUME 93.8 fL (81.0-99.0); MEAN CORPUSCULAR HEMOGLOBIN 32.5 pg (27.0-31.0); MEAN CORPUSCULAR HGB CONC 34.6 g/dL (33.0-37.0); MEAN PLATELET VOLUME 9.7 fL (7.2-11.7); MONO # 0.1 K/uL (0.0-0.8); MONO % 2.7 % (0.0-10.0); NRBC % 0.1 % (0.0-2.0); PLATELET COUNT 97 K/uL (130-400); WHITE BLOOD COUNT 4.5 K/uL (4.8-10.8)
[2017-03-07 20:10] LABS: RBC URINE 28 /hpf (0-3); URINE BILIRUBIN NEGATIVE (NEGATIVE); URINE BLOOD 2+ (NEGATIVE); URINE COLOR Yellow (YELLOW); URINE GLUCOSE (UA) NORMAL (Normal); URINE KETONE NEGATIVE (NEGATIVE); URINE LEUKOCYTE ESTERASE NEG Leu/uL (Negative); URINE PROTEIN NEGATIVE (NEGATIVE); WBC URINE < 1 /hpf (0-5)
[2017-03-07 20:12] LABS: INR 1.1
[2017-03-07 20:15] LABS: CHLORIDE 100 mmol/L (98-107)
[2017-03-07 20:16] LABS: POTASSIUM 5.1 mmol/L (3.6-5.2); SODIUM 135 mmol/L (132-148)
[2017-03-07 20:19] LABS: ALB/GLOB RATIO 0.8 (1.0-2.1); ALKALINE PHOSPHATASE 55 U/L (38-126); ALT/SGPT 39 U/L (9-52); AST/SGOT 59 U/L (14-36); BLOOD UREA NITROGEN 9 mg/dL (7-17); CALCIUM 8.4 mg/dl (8.6-10.4); CARBON DIOXIDE 27 mmol/L (22-30); GFR AFRICAN-AMERICAN > 60; GLUCOSE,RANDOM 144 mg/dL (65-105)
[2017-03-07] MEDS ORDERED: Vancomycin 1 GM 1 GM/250 ML BAG IVPB ONE (21:45)
[2017-03-07 21:47] LABS: NEUTROPHIL 89 % (50-75); TOTAL CELLS COUNTED 100
[2017-03-07] MEDS ORDERED: ceFAZolin 1 gm FROZEN Premix 1 GM/50 ML ML IVPB ONE (23:28)
[2017-03-08] MEDS ORDERED: Vancomycin 1 gm/NS 200 ml 1 GM/200 ML BAG IVPB ONE
[2017-03-08] MEDS: oxyCODONE 30 mg Immediate Release Tab PO PRN ×3 (00:41→12:51)
[2017-03-08] MEDS: Piperacill/Tazo 3.375gm in Dex 3.375 GM/50 ML BAG IVPB SCH ×3 (06:02→21:16)
[2017-03-08] MEDS: Enoxaparin 40 mg Syringe SC SCH (09:23)
[2017-03-08] MEDS: Pantoprazole 40 mg EC Tab PO SCH ×2 (09:23→09:24)
[2017-03-08] MEDS ORDERED: oxyCODONE 30 mg Immediate Release Tab PO SCH (10:00)
--- NOTE | 2017-03-08 11:30 | CP.PCM.HP ---
Past Patient History - Infectious Disease Hx of Infectious Diseases: None - Past Medical History & Family History Past Medical History?: Yes - Past Social History Smoking Status: Heavy Smoker > 10 Cigarettes Daily - CARDIAC Hx Cardiac Disorders: No - PULMONARY Hx Respiratory Disorders: Yes Hx Chronic Obstructive Pulmonary Disease (COPD): Yes (Emphysema) Hx Emphysema: Yes - NEUROLOGICAL Hx Neurological Disorder: No - HEENT Hx HEENT Problems: No - RENAL Hx Chronic Kidney Disease: No - ENDOCRINE/METABOLIC Hx Endocrine Disorders: No - HEMATOLOGICAL/ONCOLOGICAL Hx Blood Disorders: No - INTEGUMENTARY Hx Dermatological Problems: Yes Other/Comment: Multiple rashes on R leg and L arm - MUSCULOSKELETAL/RHEUMATOLOGICAL Hx Musculoskeletal Disorders: Yes Hx Falls: Yes Hx Fractures: Yes (rt foot) - GASTROINTESTINAL Hx Gastrointestinal Disorders: Yes Hx Liver Failure: Yes Other/Comment: Cirrhosis of the Liver - GENITOURINARY/GYNECOLOGICAL Hx Genitourinary Disorders: No - PSYCHIATRIC Hx Psychophysiologic Disorder: Yes Hx Anxiety: Yes Hx Bipolar Disorder: Yes Hx Depression: Yes Hx Substance Use: Yes - SURGICAL HISTORY Hx Surgeries: Yes Hx Appendectomy: Yes (1989) - ANESTHESIA Hx Anesthesia: Yes Hx Anesthesia Reactions: No Hx Malignant Hyperthermia: No Meds Allergies/Adverse Reactions: Allergies Allergy/AdvReac Type Severity Reaction Status Date / Time No Known Allergies Allergy Verified 03/07/17 18:16 Physical Exam - Constitutional Appears: Well - Head Exam Head Exam: ATRAUMATIC, NORMAL INSPECTION, NORMOCEPHALIC - Eye Exam Eye Exam: EOMI, Normal appearance, PERRL Pupil Exam: NORMAL ACCOMODATION, PERRL - ENT Exam ENT Exam: Mucous Membranes Moist, Normal Exam - Neck Exam Neck exam: Positive for: Normal Inspection - Respiratory Exam Respiratory Exam: Decreased Breath Sounds - Cardiovascular Exam Cardiovascular Exam: REGULAR RHYTHM, +S1, +S2 - GI/Abdominal Exam GI & Abdominal Exam: Diminished Bowel Sounds, Soft - Rectal Exam Rectal Exam: Deferred Results - Vital Signs Recent Vital Signs: Last Vital Signs Temp 97.6 F 03/08/17 09:35 Pulse 50 L 03/08/17 09:35 Resp 20 03/08/17 09:35 BP 107/64 03/08/17 09:35 Pulse Ox 98 03/08/17 09:35 - Labs Result Diagrams: 03/07/17 19:58 03/07/17 19:58 Assessment & Plan - Assessment and Plan (Free Text) Plan: ID consultations Vascular surgery consultations iv zosyn Pain medicine Follow-up with the doctors as ordered
--- NOTE | 2017-03-08 18:31 | CP.PCM.CON ---
History of Present Illness - History of Present Illness History of Present Illness: HPI: 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, presents with c/o purulent drainage from right lower extremity stump. Patient admits that about one week ago her prosthesis was bothering her and she noticed two small creases along her patellar region. patient states she went to the swimming pool because she felt the chlorine in it may make it better. Later on in the week on Wednesday 03/07 she went to see her PM&R doctor and she states she had developed redness along patellar and adductor region and was having serosanguinous discharge. According to patient physician prescibed her antibiotics. Later that day patient noticed purulent discharge coming from the wound which prompted her to come to the ED. At time of examination patient states her erythema had improved drastically from earlier in the week. However, patient states since the infection began she's been feeling bone tenderness underneath the site of drainage. Dressing were removed and wound was examined. There is yellow purulent odorless discharge coming from patellar region. Currently denies fever/chills, n/v, chest pain/ SOB. PMHx of Hepatitis C, alcoholism, arthritis, compressed lumbar disks NKDA Meds: Klonopin 2mg PO TID, Gabapentin 300mg PO TID, Oxycodone 30mg PO QID PSHx: R leg compartment syndrome -> R leg BKA (2014); appendectomy; FamHx: denies SocHx: Tobacco 0.5 ppd x30yrs Review of Systems - Review of Systems Review of Systems: 12 pt ROS carried out, unremarkable, except as stated in HPI Past Patient History - Infectious Disease Hx of Infectious Diseases: None - Past Medical History & Family History Past Medical History?: Yes - Past Social History Smoking Status: Heavy Smoker > 10 Cigarettes Daily - CARDIAC Hx Cardiac Disorders: No - PULMONARY Hx Respiratory Disorders: Yes Hx Chronic Obstructive Pulmonary Disease (COPD): Yes (Emphysema) Hx Emphysema: Yes - NEUROLOGICAL Hx Neurological Disorder: No - HEENT Hx HEENT Problems: No - RENAL Hx Chronic Kidney Disease: No - ENDOCRINE/METABOLIC Hx Endocrine Disorders: No - HEMATOLOGICAL/ONCOLOGICAL Hx Blood Disorders: No - INTEGUMENTARY Hx Dermatological Problems: Yes Other/Comment: Multiple rashes on R leg and L arm - MUSCULOSKELETAL/RHEUMATOLOGICAL Hx Musculoskeletal Disorders: Yes Hx Falls: Yes Hx Fractures: Yes (rt foot) - GASTROINTESTINAL Hx Gastrointestinal Disorders: Yes Hx Liver Failure: Yes Other/Comment: Cirrhosis of the Liver - GENITOURINARY/GYNECOLOGICAL Hx Genitourinary Disorders: No - PSYCHIATRIC Hx Psychophysiologic Disorder: Yes Hx Anxiety: Yes Hx Bipolar Disorder: Yes Hx Depression: Yes Hx Substance Use: Yes - SURGICAL HISTORY Hx Surgeries: Yes Hx Appendectomy: Yes (1989) - ANESTHESIA Hx Anesthesia: Yes Hx Anesthesia Reactions: No Hx Malignant Hyperthermia: No Meds Allergies/Adverse Reactions: Allergies Allergy/AdvReac Type Severity Reaction Status Date / Time No Known Allergies Allergy Verified 03/07/17 18:16 - Medications Medications: Current Medications Clonazepam (Klonopin) 2 mg PO TID [facility] Last Admin: 03/08/17 14:12 Dose: 2 mg Enoxaparin Sodium (Lovenox) 40 mg SC DAILY [facility] Last Admin: 03/08/17 09:23 Dose: 40 mg Hydromorphone HCl (Dilaudid) 2 mg IVP Q6H PRN PRN Reason: pain Last Admin: 03/08/17 17:05 Dose: 2 mg Piperacillin Sod/Tazobactam Sod (Zosyn 3.375 Gm Iv Premix) 3.375 gm in 50 mls @ 100 mls/hr IVPB Q8 [facility] Last Admin: 03/08/17 14:13 Dose: 100 mls/hr Pantoprazole Sodium (Protonix Ec Tab) 40 mg PO DAILY [facility] Last Admin: 03/08/17 09:24 Dose: Not Given Physical Exam - Constitutional Appears: No Acute Distress - Head Exam Head Exam: NORMOCEPHALIC - Eye Exam Eye Exam: Normal appearance - ENT Exam ENT Exam: Mucous Membranes Moist - Respiratory Exam Respiratory Exam: NORMAL BREATHING PATTERN - Cardiovascular Exam Cardiovascular Exam: +S1, +S2 - GI/Abdominal Exam GI & Abdominal Exam: Soft. absent: Tenderness - Extremities Exam Extremities exam: Positive for: tenderness Additional comments: tenderness along right patellar region Erythema - Neurological Exam Neurological exam: Alert, Oriented x3 - Psychiatric Exam Psychiatric exam: Normal Mood - Skin Skin Exam: Abrasion, Dry Results - Vital Signs Recent Vital Signs: Last Vital Signs Temp 97.5 F L 03/08/17 15:00 Pulse 50 L 03/08/17 15:00 Resp 20 03/08/17 15:00 BP 103/68 03/08/17 15:00 Pulse Ox 96 03/08/17 15:00 - Labs Result Diagrams: 03/07/17 19:58 03/07/17 19:58 Assessment & Plan - Assessment and Plan (Free Text) Assessment: 46F w/ Right stump infection -C/w Abx per ID -Right lower extremity MRI, r/o osteomyelitis -F/u cultures -Daily dressing changes -Will continue to monitor -Further recs per Dr. Aretha Cortes PGY-2
[2017-03-09] MEDS: Piperacill/Tazo 3.375gm in Dex 3.375 GM/50 ML BAG IVPB SCH ×3 (06:17→22:16)
--- NOTE | 2017-03-09 09:28 | CP.PCM.PN ---
Subjective - Date & Time of Evaluation Date of Evaluation: 03/09/17 Time of Evaluation: 07:35 - Subjective Subjective: Patient seen and examined. Dressings changed. Purulent drainage noted on dressing. No active purulent drainage coming from patellar region. Serosanguinous output noted. No acute events over night. Erythema improving. Objective - Vital Signs/Intake and Output Vital Signs (last 24 hours): Temp Pulse Resp BP Pulse Ox 97 F L 51 L 20 94/54 L 98 03/09/17 08:57 03/09/17 08:57 03/09/17 08:57 03/09/17 08:57 03/09/17 08:57 Intake and Output: 03/09/17 03/09/17 06:59 18:59 Intake Total 640 Output Total 500 Balance 140 - Medications Medications: Current Medications Clonazepam (Klonopin) 2 mg PO TID [facility] Last Admin: 03/08/17 18:46 Dose: Not Given Enoxaparin Sodium (Lovenox) 40 mg SC DAILY [facility] Last Admin: 03/08/17 09:23 Dose: 40 mg Hydromorphone HCl (Dilaudid) 2 mg IVP Q6H PRN PRN Reason: pain Last Admin: 03/09/17 06:17 Dose: 2 mg Piperacillin Sod/Tazobactam Sod (Zosyn 3.375 Gm Iv Premix) 3.375 gm in 50 mls @ 100 mls/hr IVPB Q8 [facility] Last Admin: 03/09/17 06:17 Dose: 100 mls/hr Pantoprazole Sodium (Protonix Ec Tab) 40 mg PO DAILY [facility] Last Admin: 03/08/17 09:24 Dose: Not Given - Labs Labs: PT 12.6 SECONDS (9.7-12.2) H 03/07/17 19:58 INR 1.1 03/07/17 19:58 APTT 33 SECONDS (21-34) 03/07/17 19:58 - Constitutional Appears: No Acute Distress - Head Exam Head Exam: NORMOCEPHALIC - Eye Exam Eye Exam: Normal appearance - ENT Exam ENT Exam: Mucous Membranes Moist - Respiratory Exam Respiratory Exam: NORMAL BREATHING PATTERN - Cardiovascular Exam Cardiovascular Exam: +S1, +S2 - GI/Abdominal Exam GI & Abdominal Exam: Soft - Extremities Exam Extremities Exam: absent: Pedal Edema - Neurological Exam Neurological Exam: Alert, Awake, Oriented x3 - Psychiatric Exam Psychiatric exam: Normal Mood - Skin Skin Exam: Dry, Intact, Warm Assessment and Plan - Assessment and Plan (Free Text) Assessment: 46F w/ Right stump infection -C/w Abx per ID -Right lower extremity MRI, r/o osteomyelitis -F/u cultures -Daily dressing changes -Will continue to monitor -Further recs per Dr. Aretha Cortes PGY-2
--- NOTE | 2017-03-09 09:49 | CP.PCM.PN ---
Subjective - Date & Time of Evaluation Date of Evaluation: 03/09/17 Time of Evaluation: 08:20 - Subjective Subjective: clinically same Objective - Vital Signs/Intake and Output Vital Signs (last 24 hours): Temp Pulse Resp BP Pulse Ox 97 F L 51 L 20 94/54 L 98 03/09/17 08:57 03/09/17 08:57 03/09/17 08:57 03/09/17 08:57 03/09/17 08:57 Intake and Output: 03/09/17 03/09/17 06:59 18:59 Intake Total 640 Output Total 500 Balance 140 - Medications Medications: Current Medications Clonazepam (Klonopin) 2 mg PO TID [facility] Last Admin: 03/08/17 18:46 Dose: Not Given Enoxaparin Sodium (Lovenox) 40 mg SC DAILY [facility] Last Admin: 03/08/17 09:23 Dose: 40 mg Hydromorphone HCl (Dilaudid) 2 mg IVP Q6H PRN PRN Reason: pain Last Admin: 03/09/17 06:17 Dose: 2 mg Piperacillin Sod/Tazobactam Sod (Zosyn 3.375 Gm Iv Premix) 3.375 gm in 50 mls @ 100 mls/hr IVPB Q8 [facility] Last Admin: 03/09/17 06:17 Dose: 100 mls/hr Pantoprazole Sodium (Protonix Ec Tab) 40 mg PO DAILY [facility] Last Admin: 03/08/17 09:24 Dose: Not Given - Labs Labs: PT 12.6 SECONDS (9.7-12.2) H 03/07/17 19:58 INR 1.1 03/07/17 19:58 APTT 33 SECONDS (21-34) 03/07/17 19:58 - Constitutional Appears: Well - Head Exam Head Exam: ATRAUMATIC, NORMAL INSPECTION, NORMOCEPHALIC - Eye Exam Eye Exam: EOMI, Normal appearance, PERRL Pupil Exam: NORMAL ACCOMODATION, PERRL - ENT Exam ENT Exam: Mucous Membranes Moist, Normal Exam - Neck Exam Neck Exam: Full ROM, Normal Inspection. absent: Lymphadenopathy - Respiratory Exam Respiratory Exam: Decreased Breath Sounds - Cardiovascular Exam Cardiovascular Exam: REGULAR RHYTHM, +S1, +S2 - GI/Abdominal Exam GI & Abdominal Exam: Soft, Diminished Bowel Sounds - Rectal Exam Rectal Exam: Deferred
[2017-03-09] MEDS: Pantoprazole 40 mg EC Tab PO SCH (11:11)
[2017-03-09] MEDS: Enoxaparin 40 mg Syringe SC SCH (11:11)
--- NOTE | 2017-03-09 14:07 | CP.PCM.CON ---
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 Patient admits that about one week ago her prosthesis was bothering her and she noticed two small creases along her patellar region. . 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 absent: Chills, Fever - EENT Eyes: absent: As Per HPI, Blind Spots, Blurred Vision, Change in Vision, Decreased Night Vision, Diplopia, Discharge, Dry Eye, Exophthalmos, Floaters, Irritation, Itchy Eyes, Loss of Peripheral Vision, Pain, Photophobia, Requires Corrective Lenses, Sees Flashes, Spots in Vision, Tunnel Vision, Other Visual Disturbances, Loss of Vision, Other Ears: absent: As Per HPI, Decreased Hearing, Ear Discharge, Ear Pain, Tinnitus, Abnormal Hearing, Disequilibrium, Dizziness, Other Nose/Mouth/Throat: absent: As Per HPI, Epistaxis, Nasal Congestion, Nasal Discharge, Nasal Obstruction, Nasal Trauma, Nose Pain, Post Nasal Drip, Sinus Pain, Sinus Pressure, Bleeding Gums, Change in Voice, Dental Pain, Dry Mouth, Dysphagia, Halitosis, Hoarsness, Lip Swelling, Mouth Lesions, Mouth Pain, Odynophagia, Sore Throat, Throat Swelling, Tongue Swelling, Facial Pain, Neck Pain, Neck Mass, Other - Breasts Breasts: absent: As Per HPI, Change in Shape, Mass, Pain, Nipple Discharge, Nipple Inversion, Skin Changes, Swelling, Other - Cardiovascular Cardiovascular: absent: As Per HPI, Acrocyanosis, Chest Pain, Chest Pain at Rest , Chest Pain with Activity, Claudication, Diaphoresis, Dyspnea, Dyspnea on Exertion, Edema, Irregular Heart Rhythm, Pain Radiating to Arm/Neck/Jaw, Leg Edema, Leg Ulcers, Lightheadedness, Orthopnea, Palpitations, Paroxysmal Nocturnal Dyspnea, Pedal Edema, Radiating Pain, Rapid Heart Rate, Slow Heart Rate, Syncope, Other - Respiratory Respiratory: absent: As Per HPI, Cough, Dyspnea, Hemoptysis, Dyspnea on Exertion , Wheezing, Snoring, Stridor, Pain on Inspiration, Chest Congestion, Excessive Mucous Production, Change in Mucous Color, Pain with Coughing, Other - Gastrointestinal Gastrointestinal: absent: As Per HPI, Abdominal Pain, Belching, Bloating, Change in Bowel Habits, Change in Stool Character, Coffee Ground Emesis, Constipation, Cramping, Diarrhea, Dyspepsia, Dysphagia, Early Satiety, Excessive Flatus, Fecal Incontinence, Heartburn, Hematemesis, Hematochezia, Loose Stools, Melena, Nausea, Odynophagia, Temesmus, Vomiting, Other - Genitourinary Genitourinary: absent: As Per HPI, Change in Urinary Stream, Difficulty Urinating, Dysuria, Flank Pain, Hematuria, Pyuria, Nocturia, Urinary Incontinence, Urinary Frequency, Urinary Hesitance, Urinary Urgency, Voiding Freq/Small Amts, Freq UTI, Hx Renal/Bladder Calculi, Hx /Renal Surgery, Bladder Distension, Other - Reproductive: Female Reproductive:Female: absent: As Per HPI, Amenorrhea, Amenorrhea/ Control, Currently Menstual, Cycle <21 Days, Cycle >35 Days, Cycle Variable, Menses 1-7 Days, Menses >/= 8 Days, Menses Variable, Cycle > 4 Weeks Between, No Menses for 6 Months, Heavy Menses, Light Menses, Normal Menses, Spotting Between Cycles , S/P Hysterectomy, Menopausal, Post Menopausal, Premenarche, Abnormal Vaginal Bleeding, Dysmenorrhea, Dyspareunia, Genital Lesions, Genital Pruritis, Pelvic Pain, Prolapse Symptoms, Sexual Dysfunction, Vaginal Discharge, Vaginal Dryness , Vaginal Odor, Vaginal Pruritis, Other - Menstruation Menstruation: absent: As Per HPI, Amenorrhea, Amenorrhea/ Control, Currently Menstual, Cycle <21 Days, Cycle >35 Days, Cycle Variable, Menses 1-7 Days, Menses >/= 8 Days, Menses Variable, Cycle > 4 Weeks Between, No Menses for 6 Months, Heavy Menses, Light Menses, Normal Menses, Spotting Between Cycles , S/P Hysterectomy, Menopausal, Post Menopausal, Premenarche, Abnormal Vaginal Bleeding, Dysmenorrhea, Other - Musculoskeletal Musculoskeletal: As Per HPI - Integumentary Integumentary: As Per HPI, Skin Pain, Wounds - Neurological Neurological: absent: As Per HPI, Abnormal Gait, Abnormal Hearing, Abnormal Movements, Abnormal Speech, Behavioral Changes, Burning Sensations, Confusion, Convulsions, Disequilibrium, Dizziness, Numbness, Focal Weakness, Frequent Falls , Headaches, Lack of Coordination, Loss of Vision, Memory Loss, Paresthesias, Radicular Pain, Restless Legs, Sensory Deficit, Syncope, Tingling, Tremor, Vertigo, Weakness, Other Visual Disturbances, Other - Psychiatric Psychiatric: absent: As Per HPI, Abnormal Sleep Pattern, Anhedonia, Anxiety, Auditory Hallucinations, Behavioral Changes, Change in Appetite, Change in Libido, Confusion, Depression, Difficulty Concentrating, Hallucinations, Homicidal Ideation, Hopelessness, Irritability, Memory Loss, Mood Swings, Panic Attacks, Paranoia, Suicidal Ideation, Visual Hallucinations, Tactile Hallucinations, Other - Endocrine Endocrine: absent: As Per HPI, Change in Body Appearance, Change in Libido, Cold Intolorance, Deepening of Voice, Excessive Sweating, Fatigue, Flushing, Heat Intolorance, Increase in Ring/Shoe/Hat Size, Palpitations, Polydipsia, Polyphagia, Polyuria, Other - Hematologic/Lymphatic Hematologic: absent: As Per HPI, Easy Bleeding, Easy Bruising, Lymphadenopathy, Other Past Patient History - Infectious Disease Hx of Infectious Diseases: None - Past Medical History & Family History Past Medical History?: Yes - Past Social History Smoking Status: Heavy Smoker > 10 Cigarettes Daily - CARDIAC Hx Cardiac Disorders: No - PULMONARY Hx Respiratory Disorders: Yes Hx Chronic Obstructive Pulmonary Disease (COPD): Yes (Emphysema) Hx Emphysema: Yes - NEUROLOGICAL Hx Neurological Disorder: No - HEENT Hx HEENT Problems: No - RENAL Hx Chronic Kidney Disease: No - ENDOCRINE/METABOLIC Hx Endocrine Disorders: No - HEMATOLOGICAL/ONCOLOGICAL Hx Blood Disorders: No - INTEGUMENTARY Hx Dermatological Problems: Yes Other/Comment: Multiple rashes on R leg and L arm - MUSCULOSKELETAL/RHEUMATOLOGICAL Hx Musculoskeletal Disorders: Yes Hx Falls: Yes Hx Fractures: Yes (rt foot) - GASTROINTESTINAL Hx Gastrointestinal Disorders: Yes Hx Liver Failure: Yes Other/Comment: Cirrhosis of the Liver - GENITOURINARY/GYNECOLOGICAL Hx Genitourinary Disorders: No - PSYCHIATRIC Hx Psychophysiologic Disorder: Yes Hx Anxiety: Yes Hx Bipolar Disorder: Yes Hx Depression: Yes Hx Substance Use: Yes - SURGICAL HISTORY Hx Surgeries: Yes Hx Appendectomy: Yes (1989) - ANESTHESIA Hx Anesthesia: Yes Hx Anesthesia Reactions: No Hx Malignant Hyperthermia: No Meds Allergies/Adverse Reactions: Allergies Allergy/AdvReac Type Severity Reaction Status Date / Time No Known Allergies Allergy Verified 03/07/17 18:16 - Medications Medications: Current Medications Clonazepam (Klonopin) 2 mg PO TID [facility] Last Admin: 03/09/17 11:10 Dose: 2 mg Enoxaparin Sodium (Lovenox) 40 mg SC DAILY [facility] Last Admin: 03/09/17 11:11 Dose: 40 mg Hydromorphone HCl (Dilaudid) 2 mg IVP Q6H PRN PRN Reason: pain Last Admin: 03/09/17 12:28 Dose: 2 mg Piperacillin Sod/Tazobactam Sod (Zosyn 3.375 Gm Iv Premix) 3.375 gm in 50 mls @ 100 mls/hr IVPB Q8 [facility] Last Admin: 03/09/17 06:17 Dose: 100 mls/hr Pantoprazole Sodium (Protonix Ec Tab) 40 mg PO DAILY [facility] Last Admin: 03/09/17 11:11 Dose: 40 mg Physical Exam - Constitutional Appears: Non-toxic, Chronically Ill - Head Exam Head Exam: NORMOCEPHALIC - Eye Exam Eye Exam: absent: Scleral icterus - ENT Exam ENT Exam: Mucous Membranes Dry, Normal External Ear Exam - Neck Exam Neck exam: Negative for: Lymphadenopathy - Respiratory Exam Respiratory Exam: Decreased Breath Sounds - Cardiovascular Exam Cardiovascular Exam: REGULAR RHYTHM - GI/Abdominal Exam GI & Abdominal Exam: Diminished Bowel Sounds - Rectal Exam Rectal Exam: Deferred - Exam Exam: NORMAL INSPECTION - Extremities Exam Extremities exam: Negative for: pedal edema Additional comments: ulcer on ant aspect right BKA stump with cellulitis - Back Exam Back exam: absent: CVA tenderness (L), CVA tenderness (R) - Neurological Exam Neurological exam: Alert, CN II-XII Intact, Oriented x3, Reflexes Normal - Psychiatric Exam Psychiatric exam: Anxious - Skin Skin Exam: Erythema Results - Vital Signs Recent Vital Signs: Last Vital Signs Temp 98.3 F 03/09/17 11:30 Pulse 51 L 03/09/17 11:30 Resp 20 03/09/17 11:30 BP 127/70 03/09/17 11:30 Pulse Ox 97 03/09/17 11:30 - Labs Result Diagrams: 03/07/17 19:58 03/07/17 19:58 Assessment & Plan (1) BKA stump complication Status: Acute (2) Right BKA infection Status: Acute (3) Right BKA infection Status: Acute (4) Hx of BKA Status: Acute (5) Hx of BKA Status: Acute (6) Cellulitis Status: Acute (7) Alcohol abuse Status: Acute - Assessment and Plan (Free Text) Assessment: cont wound care and iv antibiotics
[2017-03-10] MEDS: Piperacill/Tazo 3.375gm in Dex 3.375 GM/50 ML BAG IVPB SCH ×3 (05:55→21:31)
--- NOTE | 2017-03-10 09:48 | CP.PCM.CON ---
History of Present Illness - History of Present Illness History of Present Illness: 46 year old female called for presycope. No cp, sob, nausea,leg infected staph dehydrated probably source of symptoms. No ventricular tachycardia or arrhythmias. Review of Systems - Review of Systems Systems not reviewed;Unavailable: Acuity of Condition - Constitutional Constitutional: Malaise - EENT Eyes: absent: Change in Vision Ears: absent: Ear Discharge Nose/Mouth/Throat: absent: Nasal Discharge - Cardiovascular Cardiovascular: absent: Chest Pain - Respiratory Respiratory: Dyspnea - Gastrointestinal Gastrointestinal: absent: Abdominal Pain - Genitourinary Genitourinary: absent: Dysuria - Musculoskeletal Musculoskeletal: absent: Back Pain - Integumentary Integumentary: Dry Skin (leg cellulitis) - Neurological Neurological: absent: Abnormal Movements - Psychiatric Psychiatric: absent: Anxiety - Endocrine Endocrine: Fatigue - Hematologic/Lymphatic Hematologic: absent: Easy Bruising Past Patient History - Infectious Disease Hx of Infectious Diseases: None - Past Medical History & Family History Past Medical History?: Yes - Past Social History Smoking Status: Heavy Smoker > 10 Cigarettes Daily - CARDIAC Hx Cardiac Disorders: No - PULMONARY Hx Respiratory Disorders: Yes Hx Chronic Obstructive Pulmonary Disease (COPD): Yes (Emphysema) Hx Emphysema: Yes - NEUROLOGICAL Hx Neurological Disorder: No - HEENT Hx HEENT Problems: No - RENAL Hx Chronic Kidney Disease: No - ENDOCRINE/METABOLIC Hx Endocrine Disorders: No - HEMATOLOGICAL/ONCOLOGICAL Hx Blood Disorders: No - INTEGUMENTARY Hx Dermatological Problems: Yes Other/Comment: Multiple rashes on R leg and L arm - MUSCULOSKELETAL/RHEUMATOLOGICAL Hx Musculoskeletal Disorders: Yes Hx Falls: Yes Hx Fractures: Yes (rt foot) - GASTROINTESTINAL Hx Gastrointestinal Disorders: Yes Hx Liver Failure: Yes Other/Comment: Cirrhosis of the Liver - GENITOURINARY/GYNECOLOGICAL Hx Genitourinary Disorders: No - PSYCHIATRIC Hx Psychophysiologic Disorder: Yes Hx Anxiety: Yes Hx Bipolar Disorder: Yes Hx Depression: Yes Hx Substance Use: Yes - SURGICAL HISTORY Hx Surgeries: Yes Hx Appendectomy: Yes (1989) - ANESTHESIA Hx Anesthesia: Yes Hx Anesthesia Reactions: No Hx Malignant Hyperthermia: No Meds Home Medications: Home Medication List Medication Instructions Recorded Confirmed Type Clindamycin [Cleocin] 300 mg PO QID #20 cap 03/14/17 Rx Allergies/Adverse Reactions: Allergies Allergy/AdvReac Type Severity Reaction Status Date / Time No Known Allergies Allergy Verified 03/07/17 18:16 - Medications Medications: Current Medications Clonazepam (Klonopin) 2 mg PO TID [facility] Last Admin: 03/09/17 18:26 Dose: 2 mg Enoxaparin Sodium (Lovenox) 40 mg SC DAILY [facility] Last Admin: 03/09/17 11:11 Dose: 40 mg Hydromorphone HCl (Dilaudid) 2 mg IM Q6H PRN PRN Reason: pain Last Admin: 03/10/17 08:39 Dose: 2 mg Piperacillin Sod/Tazobactam Sod (Zosyn 3.375 Gm Iv Premix) 3.375 gm in 50 mls @ 100 mls/hr IVPB Q8 [facility] Last Admin: 03/10/17 05:55 Dose: 100 mls/hr Nicotine (Nicoderm Cq) 1 patch TD Q24H [facility] Last Admin: 03/09/17 18:26 Dose: 1 patch Pantoprazole Sodium (Protonix Ec Tab) 40 mg PO DAILY [facility] Last Admin: 03/09/17 11:11 Dose: 40 mg Physical Exam - Constitutional Appears: Non-toxic - Head Exam Head Exam: ATRAUMATIC - Eye Exam Eye Exam: Normal appearance - ENT Exam ENT Exam: Mucous Membranes Moist - Respiratory Exam Respiratory Exam: Clear to Auscultation Bilateral - Cardiovascular Exam Cardiovascular Exam: REGULAR RHYTHM - GI/Abdominal Exam GI & Abdominal Exam: Normal Bowel Sounds - Extremities Exam Extremities exam: Positive for: pedal edema - Back Exam Back exam: absent: muscle spasm - Neurological Exam Neurological exam: Alert - Psychiatric Exam Psychiatric exam: Normal Mood - Skin Skin Exam: Erythema Results - Vital Signs Recent Vital Signs: Last Vital Signs Temp 98.5 F 03/10/17 08:00 Pulse 58 L 03/10/17 08:00 Resp 20 03/10/17 08:00 BP 131/84 03/10/17 08:00 Pulse Ox 98 03/10/17 08:00 - Labs Result Diagrams: 03/14/17 07:23 03/14/17 07:23 Assessment & Plan (1) Syncope Assessment and Plan: Pt should have echo to evaluate ejection fraction continue antibiotics as per ID encourage IV fluids Status: Acute
--- NOTE | 2017-03-10 09:59 | CP.PCM.PN ---
Subjective - Date & Time of Evaluation Date of Evaluation: 03/10/17 Time of Evaluation: 07:00 - Subjective Subjective: Vascular Surgery- Dr. Carias Pt S&E at bedside this AM. 1x1 erythema around wound w/ little purulent drainage noted. Denies N/V CP/SOB [facility] Objective - Vital Signs/Intake and Output Vital Signs (last 24 hours): Temp Pulse Resp BP Pulse Ox 98.5 F 58 L 20 131/84 98 03/10/17 08:00 03/10/17 08:00 03/10/17 08:00 03/10/17 08:00 03/10/17 08:00 Intake and Output: 03/10/17 03/10/17 06:59 18:59 Intake Total 1020 Output Total 0 Balance 1020 - Medications Medications: Current Medications Clonazepam (Klonopin) 2 mg PO TID [facility] Last Admin: 03/09/17 18:26 Dose: 2 mg Enoxaparin Sodium (Lovenox) 40 mg SC DAILY [facility] Last Admin: 03/09/17 11:11 Dose: 40 mg Hydromorphone HCl (Dilaudid) 2 mg IM Q6H PRN PRN Reason: pain Last Admin: 03/10/17 08:39 Dose: 2 mg Piperacillin Sod/Tazobactam Sod (Zosyn 3.375 Gm Iv Premix) 3.375 gm in 50 mls @ 100 mls/hr IVPB Q8 [facility] Last Admin: 03/10/17 05:55 Dose: 100 mls/hr Nicotine (Nicoderm Cq) 1 patch TD Q24H [facility] Last Admin: 03/09/17 18:26 Dose: 1 patch Pantoprazole Sodium (Protonix Ec Tab) 40 mg PO DAILY [facility] Last Admin: 03/09/17 11:11 Dose: 40 mg - Labs Labs: PT 12.6 SECONDS (9.7-12.2) H 03/07/17 19:58 INR 1.1 03/07/17 19:58 APTT 33 SECONDS (21-34) 03/07/17 19:58 - Constitutional Appears: No Acute Distress - Head Exam Head Exam: ATRAUMATIC - ENT Exam ENT Exam: Mucous Membranes Moist - Respiratory Exam Respiratory Exam: NORMAL BREATHING PATTERN. absent: Accessory Muscle Use, Rhonchi, Wheezes - Cardiovascular Exam Cardiovascular Exam: +S1, +S2 - GI/Abdominal Exam GI & Abdominal Exam: Soft. absent: Distended, Tenderness, Mass - Extremities Exam Additional comments: R. BKA. 1x1cm wound. not actively draining - Neurological Exam Neurological Exam: Alert, Awake, Oriented x3 - Skin Skin Exam: Normal Color Assessment and Plan - Assessment and Plan (Free Text) Assessment: 46F hx R. BKA; w/ right stump infection Plan: - MRI today r/o Osteomyelitis - c/w Abx per ID - qD dressing changes - shailesh recs per Dr. Aretha Yoon PGY1
--- NOTE | 2017-03-10 10:23 | CP.PCM.PN ---
Subjective - Date & Time of Evaluation Date of Evaluation: 03/10/17 Time of Evaluation: 09:00 - Subjective Subjective: c/s + staph- await ID and sens denies fever Objective - Vital Signs/Intake and Output Vital Signs (last 24 hours): Temp Pulse Resp BP Pulse Ox 98.5 F 58 L 20 131/84 98 03/10/17 08:00 03/10/17 08:00 03/10/17 08:00 03/10/17 08:00 03/10/17 08:00 Intake and Output: 03/10/17 03/10/17 06:59 18:59 Intake Total 1020 Output Total 0 Balance 1020 - Medications Medications: Current Medications Clonazepam (Klonopin) 2 mg PO TID [facility] Last Admin: 03/09/17 18:26 Dose: 2 mg Enoxaparin Sodium (Lovenox) 40 mg SC DAILY [facility] Last Admin: 03/09/17 11:11 Dose: 40 mg Hydromorphone HCl (Dilaudid) 2 mg IM Q6H PRN PRN Reason: pain Last Admin: 03/10/17 08:39 Dose: 2 mg Piperacillin Sod/Tazobactam Sod (Zosyn 3.375 Gm Iv Premix) 3.375 gm in 50 mls @ 100 mls/hr IVPB Q8 [facility] Last Admin: 03/10/17 05:55 Dose: 100 mls/hr Nicotine (Nicoderm Cq) 1 patch TD Q24H [facility] Last Admin: 03/09/17 18:26 Dose: 1 patch Pantoprazole Sodium (Protonix Ec Tab) 40 mg PO DAILY [facility] Last Admin: 03/09/17 11:11 Dose: 40 mg - Labs Labs: PT 12.6 SECONDS (9.7-12.2) H 03/07/17 19:58 INR 1.1 03/07/17 19:58 APTT 33 SECONDS (21-34) 03/07/17 19:58 - Constitutional Appears: Non-toxic, Chronically Ill - Head Exam Head Exam: NORMOCEPHALIC - Eye Exam Eye Exam: PERRL - ENT Exam ENT Exam: Mucous Membranes Dry - Neck Exam Neck Exam: absent: Lymphadenopathy - Respiratory Exam Respiratory Exam: Decreased Breath Sounds Assessment and Plan (1) BKA stump complication Status: Acute (2) Right BKA infection Status: Acute (3) Right BKA infection Status: Acute (4) Hx of BKA Status: Acute (5) Hx of BKA Status: Acute (6) Cellulitis Status: Acute (7) Alcohol abuse Status: Acute
[2017-03-10] MEDS: Pantoprazole 40 mg EC Tab PO SCH (12:23)
[2017-03-10] MEDS: Enoxaparin 40 mg Syringe SC SCH (12:24)
--- NOTE | 2017-03-10 12:54 | CP.PCM.PN ---
Subjective - Date & Time of Evaluation Date of Evaluation: 03/10/17 Time of Evaluation: 08:00 - Subjective Subjective: clinically same Objective - Vital Signs/Intake and Output Vital Signs (last 24 hours): Temp Pulse Resp BP Pulse Ox 98.5 F 58 L 20 131/84 98 03/10/17 08:00 03/10/17 08:00 03/10/17 08:00 03/10/17 08:00 03/10/17 08:00 Intake and Output: 03/10/17 03/10/17 06:59 18:59 Intake Total 1020 Output Total 0 Balance 1020 - Medications Medications: Current Medications Clonazepam (Klonopin) 2 mg PO TID [facility] Last Admin: 03/10/17 12:23 Dose: 2 mg Enoxaparin Sodium (Lovenox) 40 mg SC DAILY [facility] Last Admin: 03/10/17 12:24 Dose: 40 mg Hydromorphone HCl (Dilaudid) 2 mg IVP Q6H PRN PRN Reason: pain Piperacillin Sod/Tazobactam Sod (Zosyn 3.375 Gm Iv Premix) 3.375 gm in 50 mls @ 100 mls/hr IVPB Q8 [facility] Last Admin: 03/10/17 05:55 Dose: 100 mls/hr Nicotine (Nicoderm Cq) 1 patch TD Q24H [facility] Last Admin: 03/09/17 18:26 Dose: 1 patch Pantoprazole Sodium (Protonix Ec Tab) 40 mg PO DAILY [facility] Last Admin: 03/10/17 12:23 Dose: 40 mg - Labs Labs: PT 12.6 SECONDS (9.7-12.2) H 03/07/17 19:58 INR 1.1 03/07/17 19:58 APTT 33 SECONDS (21-34) 03/07/17 19:58 - Constitutional Appears: Well - Head Exam Head Exam: ATRAUMATIC, NORMAL INSPECTION, NORMOCEPHALIC - Eye Exam Eye Exam: EOMI, Normal appearance, PERRL Pupil Exam: NORMAL ACCOMODATION, PERRL - ENT Exam ENT Exam: Mucous Membranes Moist, Normal Exam - Neck Exam Neck Exam: Full ROM, Normal Inspection. absent: Lymphadenopathy - Respiratory Exam Respiratory Exam: Decreased Breath Sounds - Cardiovascular Exam Cardiovascular Exam: REGULAR RHYTHM, +S1, +S2 - GI/Abdominal Exam GI & Abdominal Exam: Soft, Diminished Bowel Sounds - Rectal Exam Rectal Exam: Deferred
--- NOTE | 2017-03-10 14:35 | CP.PCM.PN ---
<Kwaku Curry - Last Filed: 03/10/17 14:27> Subjective - Date & Time of Evaluation Date of Evaluation: 03/10/17 Time of Evaluation: 07:55 - Subjective Subjective: Medicine note- Dr. Harrison's service Patient was seen and examined at bedside. Patient reports she has some pain in her right leg stump, which is still draining fluid. Patient reports no acute complaints otherwise. No events overnight, per nursing. Objective - Vital Signs/Intake and Output Vital Signs (last 24 hours): Temp Pulse Resp BP Pulse Ox 98.5 F 58 L 20 131/84 98 03/10/17 08:00 03/10/17 08:00 03/10/17 08:00 03/10/17 08:00 03/10/17 08:00 Intake and Output: 03/10/17 03/10/17 06:59 18:59 Intake Total 1020 Output Total 0 Balance 1020 - Medications Medications: Current Medications Clonazepam (Klonopin) 2 mg PO TID [facility] Last Admin: 03/10/17 12:23 Dose: 2 mg Enoxaparin Sodium (Lovenox) 40 mg SC DAILY [facility] Last Admin: 03/10/17 12:24 Dose: 40 mg Hydromorphone HCl (Dilaudid) 2 mg IVP Q6H PRN PRN Reason: pain Piperacillin Sod/Tazobactam Sod (Zosyn 3.375 Gm Iv Premix) 3.375 gm in 50 mls @ 100 mls/hr IVPB Q8 [facility] Last Admin: 03/10/17 05:55 Dose: 100 mls/hr Nicotine (Nicoderm Cq) 1 patch TD Q24H [facility] Last Admin: 03/09/17 18:26 Dose: 1 patch Pantoprazole Sodium (Protonix Ec Tab) 40 mg PO DAILY [facility] Last Admin: 03/10/17 12:23 Dose: 40 mg - Labs Labs: PT 12.6 SECONDS (9.7-12.2) H 03/07/17 19:58 INR 1.1 03/07/17 19:58 APTT 33 SECONDS (21-34) 03/07/17 19:58 - Constitutional Appears: Non-toxic, No Acute Distress - Head Exam Head Exam: ATRAUMATIC, NORMAL INSPECTION, NORMOCEPHALIC - Eye Exam Pupil Exam: NORMAL ACCOMODATION - ENT Exam ENT Exam: Mucous Membranes Moist - Respiratory Exam Respiratory Exam: Clear to Ausculation Bilateral, NORMAL BREATHING PATTERN. absent: Prolonged Expiratory Phase, Rales, Rhonchi, Wheezes - Cardiovascular Exam Cardiovascular Exam: REGULAR RHYTHM, +S1, +S2 - Extremities Exam Extremities Exam: Normal Capillary Refill Additional comments: R leg stump has erythema and ulceration ~ 1cm diameter. - Neurological Exam Neurological Exam: Alert, Awake, Oriented x3 - Psychiatric Exam Psychiatric exam: Normal Affect, Normal Mood - Skin Skin Exam: Dry, Intact, Normal Color, Warm Assessment and Plan - Assessment and Plan (Free Text) Assessment: Cellulitis of R BKA Consult Gen Surg- Dr. Carias Consult ID- Dr. Anders WBC 4.5 Afebrile f/u MRI of lower extremity to rule out osteomyelitis Continue Zosyn 3.375gm IVPB Q8h Continue Dilaudid 2mg IVP Q6h PRN for pain Depression Klonopin 2mg PO TID [facility] Smoking cessation Nicoderm 1 patch TD Q24h Prophylactic Measure Protonix 40mg PO Daily Lovenox 40mg SC Daily <Sruthi Harrison S - Last Filed: 03/10/17 20:21> Objective - Vital Signs/Intake and Output Vital Signs (last 24 hours): Temp Pulse Resp BP Pulse Ox 98.5 F 58 L 20 131/84 98 03/10/17 08:00 03/10/17 08:00 03/10/17 08:00 03/10/17 08:00 03/10/17 08:00 - Medications Medications: Current Medications Clonazepam (Klonopin) 2 mg PO TID [facility] Last Admin: 03/10/17 18:02 Dose: 2 mg Enoxaparin Sodium (Lovenox) 40 mg SC DAILY [facility] Last Admin: 03/10/17 12:24 Dose: 40 mg Hydromorphone HCl (Dilaudid) 2 mg IVP Q6H PRN PRN Reason: pain Last Admin: 03/10/17 14:30 Dose: 2 mg Piperacillin Sod/Tazobactam Sod (Zosyn 3.375 Gm Iv Premix) 3.375 gm in 50 mls @ 100 mls/hr IVPB Q8 [facility] Last Admin: 03/10/17 14:23 Dose: Not Given Nicotine (Nicoderm Cq) 1 patch TD Q24H [facility] Last Admin: 03/10/17 17:41 Dose: 1 patch Oxycodone HCl (Oxycodone Immediate Release Tab) 30 mg PO Q8H PRN PRN Reason: Pain, severe (8-10) Last Admin: 03/10/17 17:36 Dose: 30 mg Pantoprazole Sodium (Protonix Ec Tab) 40 mg PO DAILY [facility] Last Admin: 03/10/17 12:23 Dose: 40 mg - Labs Labs: PT 12.6 SECONDS (9.7-12.2) H 03/07/17 19:58 INR 1.1 03/07/17 19:58 APTT 33 SECONDS (21-34) 03/07/17 19:58 Assessment and Plan - Assessment and Plan (Free Text) Plan: Case seen and discussed with the staff for the discharge waiting for the MRI once the MRI is done to rule out osteomyelitis will discharge follow-up with Dr. Ramos Follow-up with ID continue as ordered
--- NOTE | 2017-03-10 15:08 | MRI ---
PROCEDURE: MRI Right Knee HISTORY: Pain and swelling in the anterior aspect of the right knee. Evaluate for osteomyelitis. COMPARISON: Comparison is made with the previous x-ray of the right tibia and fibula dated 02/19/2015. TECHNIQUE: Multiecho multiplanar sequences were performed through the right knee. FINDINGS: ANTERIOR CRUCIATE LIGAMENT:: There is abnormal signal and mild widening of the anterior or cruciate ligaments suggestive of [id number] grade 2 sprain POSTERIOR CRUCIATE LIGAMENT:: Intact. MEDIAL MENISCUS:: Intact. LATERAL MENISCUS:: Intact. MEDIAL COLLATERAL LIGAMENT:: Intact. LATERAL COLLATERAL LIGAMENT COMPLEX:: Intact. QUADRICEPS TENDON:: Intact. PATELLAR TENDON:: Intact. CARTILAGE:: Intact. JOINT FLUID:: Intact. OSSEOUS STRUCTURES:: The patient is status post amputation through the proximal right tibia and fibula. There is no evidence of osteomyelitis or acute pathology in the osseous structures. OTHER FINDINGS: There is a subcutaneous inflammatory changes and stranding seen anterior to the patella. There is a small fluid collection measures approximately 3.9 centimeter in the transverse diameter and 0.4 centimeter in the AP diameter. The possibility of abscess is not totally excluded. IMPRESSION: Subcutaneous inflammatory changes at the anterior aspect of the right knee anterior to the patella. Well defined fluid collection measures 3.9 x 0.4 centimeter also seen anterior to the patella. The possibility of abscess formation cannot be totally excluded. The assessment is suboptimal without IV contrast administration. Otherwise no evidence of acute pathology at the right knee.
[2017-03-10] MEDS: oxyCODONE 30 mg Immediate Release Tab PO PRN (17:36)
[2017-03-11] MEDS: oxyCODONE 30 mg Immediate Release Tab PO PRN ×3 (01:25→22:04)
[2017-03-11] MEDS: Piperacill/Tazo 3.375gm in Dex 3.375 GM/50 ML BAG IVPB SCH ×4 (05:00→22:03)
[2017-03-11 08:11] LABS: BASO % 0.5 % (0.0-2.0); EOS # 0.1 K/uL (0.0-0.7); LYMPH # 0.7 K/uL (1.0-4.3); LYMPH % 31.2 % (20.0-40.0); MEAN CELL VOLUME 92.8 fL (81.0-99.0); MEAN CORPUSCULAR HEMOGLOBIN 31.9 pg (27.0-31.0); MEAN CORPUSCULAR HGB CONC 34.4 g/dL (33.0-37.0); MEAN PLATELET VOLUME 9.3 fL (7.2-11.7); MONO # 0.2 K/uL (0.0-0.8); NRBC % 0.2 % (0.0-2.0); RED CELL DISTRIBUTION WIDTH 15.7 % (11.5-14.5); WHITE BLOOD COUNT 2.4 K/uL (4.8-10.8)
[2017-03-11 08:27] LABS: CHLORIDE 99 mmol/L (98-107); POTASSIUM 3.6 mmol/L (3.6-5.2); SODIUM 134 mmol/L (132-148)
[2017-03-11 08:29] LABS: GFR AFRICAN-AMERICAN > 60
[2017-03-11 08:30] LABS: ALB/GLOB RATIO 0.9 (1.0-2.1); ALKALINE PHOSPHATASE 43 U/L (38-126); ALT/SGPT 32 U/L (9-52); AST/SGOT 29 U/L (14-36); BILIRUBIN,TOTAL 0.6 mg/dL (0.2-1.3); BLOOD UREA NITROGEN 16 mg/dL (7-17); CARBON DIOXIDE 27 mmol/L (22-30); GLUCOSE,RANDOM 81 mg/dL (65-105); TOTAL PROTEIN 6.2 g/dL (6.3-8.3)
--- NOTE | 2017-03-11 08:35 | CP.PCM.PN ---
Subjective - Date & Time of Evaluation Date of Evaluation: 03/11/17 Time of Evaluation: 07:00 - Subjective Subjective: General Surgery Note Patient was seen and examined at bedside in no acute distress. Patient denies fever, chills, nausea, vomiting, abdominal pain, diarrhea or urinary symptoms but does admits to very mild intermittent SOB and moderate pain at the right stump. Objective - Vital Signs/Intake and Output Vital Signs (last 24 hours): Temp Pulse Resp BP Pulse Ox 97.7 F 60 20 129/79 98 03/11/17 08:00 03/11/17 08:00 03/11/17 08:00 03/11/17 08:00 03/11/17 08:00 Intake and Output: 03/11/17 03/11/17 06:59 18:59 Intake Total 740 Output Total 0 Balance 740 - Medications Medications: Current Medications Clonazepam (Klonopin) 2 mg PO TID [facility] Last Admin: 03/10/17 18:02 Dose: 2 mg Enoxaparin Sodium (Lovenox) 40 mg SC DAILY [facility] Last Admin: 03/10/17 12:24 Dose: 40 mg Hydromorphone HCl (Dilaudid) 2 mg IVP Q6H PRN PRN Reason: pain Last Admin: 03/11/17 04:51 Dose: 2 mg Piperacillin Sod/Tazobactam Sod (Zosyn 3.375 Gm Iv Premix) 3.375 gm in 50 mls @ 100 mls/hr IVPB Q8 [facility] Last Admin: 03/11/17 05:00 Dose: 100 mls/hr Nicotine (Nicoderm Cq) 1 patch TD Q24H [facility] Last Admin: 03/10/17 17:41 Dose: 1 patch Oxycodone HCl (Oxycodone Immediate Release Tab) 30 mg PO Q8H PRN PRN Reason: Pain, severe (8-10) Last Admin: 03/11/17 01:25 Dose: 30 mg Pantoprazole Sodium (Protonix Ec Tab) 40 mg PO DAILY [facility] Last Admin: 03/10/17 12:23 Dose: 40 mg - Labs Labs: 03/11/17 07:58 03/11/17 07:58 PT 12.6 SECONDS (9.7-12.2) H 03/07/17 19:58 INR 1.1 03/07/17 19:58 APTT 33 SECONDS (21-34) 03/07/17 19:58 - Constitutional Appears: Well, No Acute Distress - Head Exam Head Exam: ATRAUMATIC, NORMAL INSPECTION - Eye Exam Eye Exam: EOMI, Normal appearance - ENT Exam ENT Exam: Mucous Membranes Moist, Normal Exam - Respiratory Exam Respiratory Exam: Clear to Ausculation Bilateral, NORMAL BREATHING PATTERN - Cardiovascular Exam Cardiovascular Exam: REGULAR RHYTHM, +S1, +S2 - GI/Abdominal Exam GI & Abdominal Exam: Soft, Normal Bowel Sounds - Extremities Exam Additional comments: Right BKA. Erythema and warm to touch around the right stump with little purulent drainage noted Wound above the right BKA dressed with adhesive island dressing - Neurological Exam Neurological Exam: Alert, Awake, Oriented x3 - Psychiatric Exam Psychiatric exam: Normal Affect, Normal Mood - Skin Skin Exam: Dry, Normal Color, Warm Assessment and Plan - Assessment and Plan (Free Text) Assessment: 46F with history of right BKA; w/ right stump infection with MRI ruling out Osteomyelitis Plan: - No surgical intervention at this time - Continue antibiotics regimen as per ID - Continue daily dressing changes - Continue pain control -Further recommendation as per Dr. Carias
[2017-03-11] MEDS: Pantoprazole 40 mg EC Tab PO SCH (09:10)
[2017-03-11] MEDS: Enoxaparin 40 mg Syringe SC SCH (09:12)
--- NOTE | 2017-03-11 09:19 | CP.PCM.PN ---
Subjective - Date & Time of Evaluation Date of Evaluation: 03/11/17 Time of Evaluation: 09:19 - Subjective Subjective: Medicine Note for Dr. Harrison's Service Pt seen and examined at bedside. She complains of tolerable pain in the RLE stump, the site of infection. She states that the pain is controlled by her current pain medications. She reports no acute events overnight. The remaining ROS were discussed with her and she denies all acute changes. Objective - Vital Signs/Intake and Output Vital Signs (last 24 hours): Temp Pulse Resp BP Pulse Ox 97.7 F 60 20 129/79 98 03/11/17 08:00 03/11/17 08:00 03/11/17 08:00 03/11/17 08:00 03/11/17 08:00 Intake and Output: 03/11/17 03/11/17 06:59 18:59 Intake Total 740 Output Total 0 Balance 740 - Medications Medications: Current Medications Clonazepam (Klonopin) 2 mg PO TID [facility] Last Admin: 03/11/17 09:10 Dose: 2 mg Enoxaparin Sodium (Lovenox) 40 mg SC DAILY [facility] Last Admin: 03/11/17 09:12 Dose: 40 mg Hydromorphone HCl (Dilaudid) 2 mg IVP Q6H PRN PRN Reason: pain Last Admin: 03/11/17 04:51 Dose: 2 mg Piperacillin Sod/Tazobactam Sod (Zosyn 3.375 Gm Iv Premix) 3.375 gm in 50 mls @ 100 mls/hr IVPB Q8 [facility] Last Admin: 03/11/17 05:00 Dose: 100 mls/hr Nicotine (Nicoderm Cq) 1 patch TD Q24H [facility] Last Admin: 03/10/17 17:41 Dose: 1 patch Oxycodone HCl (Oxycodone Immediate Release Tab) 30 mg PO Q8H PRN PRN Reason: Pain, severe (8-10) Last Admin: 03/11/17 09:10 Dose: 30 mg Pantoprazole Sodium (Protonix Ec Tab) 40 mg PO DAILY [facility] Last Admin: 03/11/17 09:10 Dose: 40 mg - Labs Labs: 03/11/17 07:58 03/11/17 07:58 PT 12.6 SECONDS (9.7-12.2) H 03/07/17 19:58 INR 1.1 03/07/17 19:58 APTT 33 SECONDS (21-34) 03/07/17 19:58 - Constitutional Appears: No Acute Distress - Head Exam Head Exam: ATRAUMATIC, NORMAL INSPECTION - Eye Exam Eye Exam: EOMI, Normal appearance - ENT Exam ENT Exam: Mucous Membranes Moist - Respiratory Exam Respiratory Exam: Clear to Ausculation Bilateral, NORMAL BREATHING PATTERN - Cardiovascular Exam Cardiovascular Exam: REGULAR RHYTHM - GI/Abdominal Exam GI & Abdominal Exam: Soft. absent: Distended, Tenderness - Extremities Exam Additional comments: RLE stump has bandage over wound site that appears C/D/I Removing the bandage and observing the wound, serous discharge and mild erythema at this site can be appreciated - Neurological Exam Neurological Exam: Alert, Awake, Oriented x3 Assessment and Plan - Assessment and Plan (Free Text) Plan: Cellulitis of R BKA Consult Gen Surg- Dr. Carias; recs appreciated No surgical intervention at this time Consult ID- Dr. Anders; recs appreciated awaiting cx sensitivities to re-evaluate abx choice WBC 2.4 Afebrile Wound cx 03/07 MRSA Blood cx 03/07 NGTD MRI of RLE 03/10- no osteomyelitis, +subcutaneous inflammatory changes Continue Zosyn 3.375gm IVPB Q8h Pain control: Dilaudid 2mg IVP Q6h PRN for pain Oxycodone 30mg PO q8hrs prn Depression Klonopin 2mg PO TID [facility] Smoking cessation Nicoderm 1 patch TD Q24h Prophylactic Measure Protonix 40mg PO Daily Lovenox 40mg SC Daily Case discussed with Dr. Harrison. All management as per Dr. Harrison
--- NOTE | 2017-03-11 09:29 | CP.PCM.PN ---
<WAGNER MALIK - Last Filed: 03/11/17 17:34> Subjective - Date & Time of Evaluation Date of Evaluation: 03/11/17 Time of Evaluation: 09:26 - Subjective Subjective: Wagner Malik, PGY1, Progress Note for Dr. Liriano: Pt seen and examined at bedside. No acute events overnight. Pt c/o pain at the right patellar region, better controlled with pain medications. Denies f/c/n/v/d , cp, dizziness, syncope, diaphoresis, palpitations, abdominal pain, dysuria/ frequency/urgency. Objective - Vital Signs/Intake and Output Vital Signs (last 24 hours): Temp Pulse Resp BP Pulse Ox 97.7 F 60 20 129/79 98 03/11/17 08:00 03/11/17 08:00 03/11/17 08:00 03/11/17 08:00 03/11/17 08:00 Intake and Output: 03/11/17 03/11/17 06:59 18:59 Intake Total 740 Output Total 0 Balance 740 - Medications Medications: Current Medications Clonazepam (Klonopin) 2 mg PO TID [facility] Last Admin: 03/11/17 09:10 Dose: 2 mg Enoxaparin Sodium (Lovenox) 40 mg SC DAILY [facility] Last Admin: 03/11/17 09:12 Dose: 40 mg Hydromorphone HCl (Dilaudid) 2 mg IVP Q6H PRN PRN Reason: pain Last Admin: 03/11/17 04:51 Dose: 2 mg Piperacillin Sod/Tazobactam Sod (Zosyn 3.375 Gm Iv Premix) 3.375 gm in 50 mls @ 100 mls/hr IVPB Q8 [facility] Last Admin: 03/11/17 05:00 Dose: 100 mls/hr Nicotine (Nicoderm Cq) 1 patch TD Q24H [facility] Last Admin: 03/10/17 17:41 Dose: 1 patch Oxycodone HCl (Oxycodone Immediate Release Tab) 30 mg PO Q8H PRN PRN Reason: Pain, severe (8-10) Last Admin: 03/11/17 09:10 Dose: 30 mg Pantoprazole Sodium (Protonix Ec Tab) 40 mg PO DAILY [facility] Last Admin: 03/11/17 09:10 Dose: 40 mg - Labs Labs: 03/11/17 07:58 03/11/17 07:58 PT 12.6 SECONDS (9.7-12.2) H 03/07/17 19:58 INR 1.1 03/07/17 19:58 APTT 33 SECONDS (21-34) 03/07/17 19:58 - Constitutional Appears: No Acute Distress - Head Exam Head Exam: ATRAUMATIC, NORMOCEPHALIC - Eye Exam Eye Exam: PERRL - ENT Exam ENT Exam: Mucous Membranes Moist - Respiratory Exam Respiratory Exam: Clear to Ausculation Bilateral - Cardiovascular Exam Cardiovascular Exam: RRR, +S1, +S2. absent: Murmur - GI/Abdominal Exam GI & Abdominal Exam: Soft, Normal Bowel Sounds. absent: Distended, Tenderness - Extremities Exam Extremities Exam: absent: Calf Tenderness, Pedal Edema - Neurological Exam Neurological Exam: Alert, Awake - Psychiatric Exam Psychiatric exam: Normal Mood - Skin Skin Exam: Intact, Warm Additional comments: R patella region covered in dressing, clean, mild drainage noted, no erythema, swelling at the site. Assessment and Plan - Assessment and Plan (Free Text) Assessment: 46F with PMH COPD, R BKA for compartment syndrome, hep C, presents for R anterior patellar cellulitis, currently on IV abx, found to be MRSA. Cardiology consulted for asymptomatic bradycardia, HR in 50's. Plan: Bradycardia: - No hx of HTN, afib, HLD or cardiac dz. - HR 50-57 on admission, Denies syncope, dizziness, sob, cp, diaphoresis. - Currently HR 60-70, denies any cardiac symptoms. - Not on any BB, CCB. - No EKG this admission. EKG 02/05/17 shows HR 64, NSR. - No intervention from cardiology at this time. Please reconsult if symptomatic or worsening bradycardia. R anterior patellar cellulitis: - afebrile, leukopenic since admission - MRI LE 03/10 shows no osteomyelitis. + fluid collection 3.9x0.4 cm anterior to patella, cannot rule out abscess formation. subcut inflmmation anterior patella. - blood cultures 2/2 NTD. Wound culture R knee 03/07 MRSA, S to Vanco, Bactrim and Clinda - Please switch to appropriate IV abx, currently on IV zosyn. received 1 dose of IV Vanco in ED. - Proceed with management as per Primary team and ID. Will discuss with attending, Dr. Liriano. Wagner Malik, PGY1 <Kristian Liriano - Last Filed: 03/13/17 07:50> Objective - Vital Signs/Intake and Output Vital Signs (last 24 hours): Temp Pulse Resp BP Pulse Ox 97.4 F L 58 L 20 101/66 96 03/13/17 00:00 03/13/17 00:00 03/13/17 00:00 03/13/17 00:00 03/13/17 00:00 Intake and Output: 03/13/17 03/13/17 06:59 18:59 Intake Total 0 Balance 0 - Medications Medications: Current Medications Clindamycin HCl (Cleocin) 300 mg PO QID [facility] Last Admin: 03/12/17 21:16 Dose: 300 mg Clonazepam (Klonopin) 2 mg PO TID [facility] Last Admin: 03/12/17 18:02 Dose: 2 mg Enoxaparin Sodium (Lovenox) 40 mg SC DAILY [facility] Last Admin: 03/12/17 10:33 Dose: 40 mg Hydromorphone HCl (Dilaudid) 1 mg IVP Q4H PRN PRN Reason: pain Last Admin: 03/13/17 07:06 Dose: 1 mg Nicotine (Nicoderm Cq) 1 patch TD Q24H [facility] Last Admin: 03/12/17 17:20 Dose: 1 patch Oxycodone HCl (Oxycodone Immediate Release Tab) 30 mg PO Q8H PRN PRN Reason: Pain, severe (8-10) Last Admin: 03/12/17 23:46 Dose: 30 mg Pantoprazole Sodium (Protonix Ec Tab) 40 mg PO DAILY [facility] Last Admin: 03/12/17 12:39 Dose: Not Given - Labs Labs: 03/13/17 05:43 03/13/17 05:43 PT 12.6 SECONDS (9.7-12.2) H 03/07/17 19:58 INR 1.1 03/07/17 19:58 APTT 33 SECONDS (21-34) 03/07/17 19:58 Attending/Attestation - Attestation I have personally seen and examined this patient.: Yes I have fully participated in the care of the patient.: Yes I have reviewed all pertinent clinical information, including history, physical exam and plan: Yes Notes (Text): 03/13/17 07:48 at present no cardiac isues will sign off Thank you
--- NOTE | 2017-03-11 16:44 | CP.PCM.PN ---
Subjective - Date & Time of Evaluation Date of Evaluation: 03/11/17 Time of Evaluation: 07:40 - Subjective Subjective: clinically same Objective - Vital Signs/Intake and Output Vital Signs (last 24 hours): Temp Pulse Resp BP Pulse Ox 98 F 59 L 20 100/63 96 03/11/17 15:59 03/11/17 15:59 03/11/17 15:59 03/11/17 15:59 03/11/17 15:59 Intake and Output: 03/11/17 03/11/17 06:59 18:59 Intake Total 740 Output Total 0 Balance 740 - Medications Medications: Current Medications Clonazepam (Klonopin) 2 mg PO TID [facility] Last Admin: 03/11/17 14:33 Dose: 2 mg Enoxaparin Sodium (Lovenox) 40 mg SC DAILY [facility] Last Admin: 03/11/17 09:12 Dose: 40 mg Hydromorphone HCl (Dilaudid) 1 mg IVP Q4H PRN PRN Reason: pain Last Admin: 03/11/17 16:05 Dose: 1 mg Piperacillin Sod/Tazobactam Sod (Zosyn 3.375 Gm Iv Premix) 3.375 gm in 50 mls @ 100 mls/hr IVPB Q8 [facility] Last Admin: 03/11/17 14:31 Dose: 100 mls/hr Nicotine (Nicoderm Cq) 1 patch TD Q24H [facility] Last Admin: 03/10/17 17:41 Dose: 1 patch Oxycodone HCl (Oxycodone Immediate Release Tab) 30 mg PO Q8H PRN PRN Reason: Pain, severe (8-10) Pantoprazole Sodium (Protonix Ec Tab) 40 mg PO DAILY [facility] Last Admin: 03/11/17 09:10 Dose: 40 mg - Labs Labs: 03/11/17 07:58 03/11/17 07:58 PT 12.6 SECONDS (9.7-12.2) H 03/07/17 19:58 INR 1.1 03/07/17 19:58 APTT 33 SECONDS (21-34) 03/07/17 19:58 - Constitutional Appears: Well - Head Exam Head Exam: ATRAUMATIC, NORMAL INSPECTION, NORMOCEPHALIC - Eye Exam Eye Exam: EOMI, Normal appearance, PERRL Pupil Exam: NORMAL ACCOMODATION, PERRL - ENT Exam ENT Exam: Mucous Membranes Moist, Normal Exam - Neck Exam Neck Exam: Full ROM, Normal Inspection. absent: Lymphadenopathy - Respiratory Exam Respiratory Exam: Decreased Breath Sounds - Cardiovascular Exam Cardiovascular Exam: REGULAR RHYTHM, +S1, +S2 - GI/Abdominal Exam GI & Abdominal Exam: Soft, Diminished Bowel Sounds - Rectal Exam Rectal Exam: Deferred
[2017-03-12] MEDS: HYDROmorphone 1 mg/ml ISec IVP PRN ×6 (00:15→21:17)
[2017-03-12] MEDS: oxyCODONE 30 mg Immediate Release Tab PO PRN ×3 (06:28→23:46)
[2017-03-12] MEDS: Piperacill/Tazo 3.375gm in Dex 3.375 GM/50 ML BAG IVPB SCH ×2 (06:29→13:55)
[2017-03-12 06:45] LABS: ALB/GLOB RATIO 0.8 (1.0-2.1); ALKALINE PHOSPHATASE 45 U/L (38-126); ALT/SGPT 35 U/L (9-52); AST/SGOT 38 U/L (14-36); BILIRUBIN,TOTAL 0.4 mg/dL (0.2-1.3); BLOOD UREA NITROGEN 20 mg/dL (7-17); CALCIUM 8.7 mg/dl (8.6-10.4); CARBON DIOXIDE 27 mmol/L (22-30); CHLORIDE 102 mmol/L (98-107); GFR AFRICAN-AMERICAN > 60; GLUCOSE,RANDOM 83 mg/dL (65-105); POTASSIUM 4.3 mmol/L (3.6-5.2); SODIUM 135 mmol/L (132-148); TOTAL PROTEIN 6.5 g/dL (6.3-8.3)
[2017-03-12 07:20] LABS: BASO % 0.7 % (0.0-2.0); EOS # 0.1 K/uL (0.0-0.7); EOS % 2.7 % (0.0-4.0); HEMATOCRIT 34.9 % (34.0-47.0); LYMPH # 0.8 K/uL (1.0-4.3); LYMPH % 27.6 % (20.0-40.0); MEAN CORPUSCULAR HEMOGLOBIN 31.3 pg (27.0-31.0); MEAN PLATELET VOLUME 8.7 fL (7.2-11.7); MONO # 0.3 K/uL (0.0-0.8); MONO % 9.9 % (0.0-10.0); NRBC % 0.1 % (0.0-2.0); RED CELL DISTRIBUTION WIDTH 15.7 % (11.5-14.5); WHITE BLOOD COUNT 2.9 K/uL (4.8-10.8)
--- NOTE | 2017-03-12 09:47 | CP.PCM.PN ---
Subjective - Date & Time of Evaluation Date of Evaluation: 03/12/17 Time of Evaluation: 07:00 - Subjective Subjective: General Surgery Note Patient was seen and examined at bedside in no acute distress. Patient was resting comfortably in her bed. Patient admits to moderate pain in a right leg stump but denies fever, chills, nausea, vomiting, chest pain, sob and palpitations. Objective - Vital Signs/Intake and Output Vital Signs (last 24 hours): Temp Pulse Resp BP Pulse Ox 98.0 F 52 L 20 133/89 99 03/12/17 08:13 03/12/17 08:13 03/12/17 08:13 03/12/17 08:13 03/12/17 08:13 - Medications Medications: Current Medications Clonazepam (Klonopin) 2 mg PO TID [facility] Last Admin: 03/11/17 18:02 Dose: 2 mg Enoxaparin Sodium (Lovenox) 40 mg SC DAILY [facility] Last Admin: 03/11/17 09:12 Dose: 40 mg Hydromorphone HCl (Dilaudid) 1 mg IVP Q4H PRN PRN Reason: pain Last Admin: 03/12/17 08:25 Dose: 1 mg Piperacillin Sod/Tazobactam Sod (Zosyn 3.375 Gm Iv Premix) 3.375 gm in 50 mls @ 100 mls/hr IVPB Q8 [facility] Last Admin: 03/12/17 06:29 Dose: 100 mls/hr Nicotine (Nicoderm Cq) 1 patch TD Q24H [facility] Last Admin: 03/11/17 18:02 Dose: 1 patch Oxycodone HCl (Oxycodone Immediate Release Tab) 30 mg PO Q8H PRN PRN Reason: Pain, severe (8-10) Last Admin: 03/12/17 06:28 Dose: 30 mg Pantoprazole Sodium (Protonix Ec Tab) 40 mg PO DAILY [facility] Last Admin: 03/11/17 09:10 Dose: 40 mg - Labs Labs: 03/12/17 06:22 03/12/17 06:22 PT 12.6 SECONDS (9.7-12.2) H 03/07/17 19:58 INR 1.1 03/07/17 19:58 APTT 33 SECONDS (21-34) 03/07/17 19:58 - Constitutional Appears: Well, No Acute Distress - Head Exam Head Exam: ATRAUMATIC, NORMAL INSPECTION - Eye Exam Eye Exam: EOMI, Normal appearance - ENT Exam ENT Exam: Mucous Membranes Moist, Normal Exam - Respiratory Exam Respiratory Exam: Clear to Ausculation Bilateral, NORMAL BREATHING PATTERN - Cardiovascular Exam Cardiovascular Exam: REGULAR RHYTHM, +S1, +S2 - GI/Abdominal Exam GI & Abdominal Exam: Soft, Normal Bowel Sounds - Extremities Exam Additional comments: Right BKA. Soft, Erythema, mildly warm to touch, and possible fluid collection around the right stump with very little purulent drainage noted Right stump wound dressed is an adhesive island dressing - Neurological Exam Neurological Exam: Alert, Awake, Oriented x3 - Psychiatric Exam Psychiatric exam: Normal Affect, Normal Mood - Skin Skin Exam: Dry, Normal Color, Warm Assessment and Plan - Assessment and Plan (Free Text) Assessment: 46F with history of right BKA; w/ right stump infection with MRI ruling out Osteomyelitis Plan: -Plan for incision and drainage of right leg stump wound tomorrow -Application of warm compress on the right leg stump wound -Continue antibiotics regimen as per ID -Continue daily dressing changes -Continue pain control -Further recommendation as per Dr. Aretha Emmanuel, PGY-1
[2017-03-12] MEDS: Pantoprazole 40 mg EC Tab PO SCH ×2 (10:32→12:39)
[2017-03-12] MEDS: Enoxaparin 40 mg Syringe SC SCH (10:33)
--- NOTE | 2017-03-12 12:18 | CP.PCM.PN ---
Subjective - Date & Time of Evaluation Date of Evaluation: 03/12/17 Time of Evaluation: 07:35 - Subjective Subjective: PGY-[address] Harrison Patient seen and examined at bedside. No reported acute events overnight. Patient report her pain is managed well with medications. She denies headache, fever, chills, shortness of breath, chest pain, nausea, vomiting, or diarrhea. Objective - Vital Signs/Intake and Output Vital Signs (last 24 hours): Temp Pulse Resp BP Pulse Ox 98.0 F 52 L 20 133/89 99 03/12/17 08:13 03/12/17 08:13 03/12/17 08:13 03/12/17 08:13 03/12/17 08:13 - Medications Medications: Current Medications Clonazepam (Klonopin) 2 mg PO TID [facility] Last Admin: 03/12/17 10:33 Dose: 2 mg Enoxaparin Sodium (Lovenox) 40 mg SC DAILY [facility] Last Admin: 03/12/17 10:33 Dose: 40 mg Hydromorphone HCl (Dilaudid) 1 mg IVP Q4H PRN PRN Reason: pain Last Admin: 03/12/17 08:25 Dose: 1 mg Piperacillin Sod/Tazobactam Sod (Zosyn 3.375 Gm Iv Premix) 3.375 gm in 50 mls @ 100 mls/hr IVPB Q8 [facility] Last Admin: 03/12/17 06:29 Dose: 100 mls/hr Nicotine (Nicoderm Cq) 1 patch TD Q24H [facility] Last Admin: 03/11/17 18:02 Dose: 1 patch Oxycodone HCl (Oxycodone Immediate Release Tab) 30 mg PO Q8H PRN PRN Reason: Pain, severe (8-10) Last Admin: 03/12/17 06:28 Dose: 30 mg Pantoprazole Sodium (Protonix Ec Tab) 40 mg PO DAILY [facility] Last Admin: 03/12/17 10:32 Dose: 40 mg - Labs Labs: 03/12/17 06:22 03/12/17 06:22 PT 12.6 SECONDS (9.7-12.2) H 03/07/17 19:58 INR 1.1 03/07/17 19:58 APTT 33 SECONDS (21-34) 03/07/17 19:58 - Constitutional Appears: Non-toxic, No Acute Distress - Head Exam Head Exam: ATRAUMATIC, NORMAL INSPECTION - Eye Exam Eye Exam: EOMI, Normal appearance - ENT Exam ENT Exam: Mucous Membranes Moist - Respiratory Exam Respiratory Exam: Clear to Ausculation Bilateral, NORMAL BREATHING PATTERN. absent: Respiratory Distress - Cardiovascular Exam Cardiovascular Exam: REGULAR RHYTHM, +S1, +S2. absent: Murmur - GI/Abdominal Exam GI & Abdominal Exam: Soft, Normal Bowel Sounds. absent: Tenderness - Extremities Exam Additional comments: RLE stump has bandage over wound site that appears C/D/I Removing the bandage and observing the wound, serous discharge and mild erythema at this site can be appreciated - Neurological Exam Neurological Exam: Alert, Awake, Oriented x3 - Psychiatric Exam Psychiatric exam: Normal Affect, Normal Mood Assessment and Plan - Assessment and Plan (Free Text) Assessment: Cellulitis of R BKA Consult Gen Surg- Dr. Carias; recs appreciated Schedule for I&D tomorrow in the OR, NPO after midnight Consult ID- Dr. Anders; recs appreciated culture positive for MRSA, will need clindamycin 300mg QID for 7 days WBC 2.9 today Afebrile Wound cx 03/07 MRSA Blood cx 811 NGTD MRI of RLE 03/10- no osteomyelitis, +subcutaneous inflammatory changes Pain control: Dilaudid 2mg IVP Q6h PRN for pain Oxycodone 30mg PO q8hrs prn Depression Klonopin 2mg PO TID [facility] Smoking cessation Nicoderm 1 patch TD Q24h Prophylactic Measure Protonix 40mg PO Daily Lovenox 40mg SC Daily Case discussed with Dr. Harrison. All management as per Dr. Harrison
--- NOTE | 2017-03-12 13:27 | CP.PCM.PN ---
Subjective - Date & Time of Evaluation Date of Evaluation: 03/12/17 Time of Evaluation: 07:20 - Subjective Subjective: clinically same Objective - Vital Signs/Intake and Output Vital Signs (last 24 hours): Temp Pulse Resp BP Pulse Ox 98.0 F 52 L 20 133/89 99 03/12/17 08:13 03/12/17 08:13 03/12/17 08:13 03/12/17 08:13 03/12/17 08:13 - Medications Medications: Current Medications Clonazepam (Klonopin) 2 mg PO TID [facility] Last Admin: 03/12/17 10:39 Dose: Not Given Enoxaparin Sodium (Lovenox) 40 mg SC DAILY [facility] Last Admin: 03/12/17 10:33 Dose: 40 mg Hydromorphone HCl (Dilaudid) 1 mg IVP Q4H PRN PRN Reason: pain Last Admin: 03/12/17 12:32 Dose: 1 mg Piperacillin Sod/Tazobactam Sod (Zosyn 3.375 Gm Iv Premix) 3.375 gm in 50 mls @ 100 mls/hr IVPB Q8 [facility] Last Admin: 03/12/17 06:29 Dose: 100 mls/hr Nicotine (Nicoderm Cq) 1 patch TD Q24H [facility] Last Admin: 03/11/17 18:02 Dose: 1 patch Oxycodone HCl (Oxycodone Immediate Release Tab) 30 mg PO Q8H PRN PRN Reason: Pain, severe (8-10) Last Admin: 03/12/17 06:28 Dose: 30 mg Pantoprazole Sodium (Protonix Ec Tab) 40 mg PO DAILY [facility] Last Admin: 03/12/17 12:39 Dose: Not Given - Labs Labs: 03/12/17 06:22 03/12/17 06:22 PT 12.6 SECONDS (9.7-12.2) H 03/07/17 19:58 INR 1.1 03/07/17 19:58 APTT 33 SECONDS (21-34) 03/07/17 19:58 - Constitutional Appears: Well - Head Exam Head Exam: ATRAUMATIC, NORMAL INSPECTION, NORMOCEPHALIC - Eye Exam Eye Exam: EOMI, Normal appearance, PERRL Pupil Exam: NORMAL ACCOMODATION, PERRL - ENT Exam ENT Exam: Mucous Membranes Moist, Normal Exam - Neck Exam Neck Exam: Full ROM, Normal Inspection. absent: Lymphadenopathy - Respiratory Exam Respiratory Exam: Decreased Breath Sounds - Cardiovascular Exam Cardiovascular Exam: REGULAR RHYTHM, +S1, +S2 - GI/Abdominal Exam GI & Abdominal Exam: Soft, Diminished Bowel Sounds - Rectal Exam Rectal Exam: Deferred
--- NOTE | 2017-03-12 18:55 | CP.PCM.PN ---
Subjective - Date & Time of Evaluation Date of Evaluation: 03/12/17 Time of Evaluation: 09:00 - Subjective Subjective: + MRSA cont rx Objective - Vital Signs/Intake and Output Vital Signs (last 24 hours): Temp Pulse Resp BP Pulse Ox 98 F 63 20 119/72 99 03/12/17 15:00 03/12/17 15:00 03/12/17 15:00 03/12/17 15:00 03/12/17 15:00 - Medications Medications: Current Medications Clindamycin HCl (Cleocin) 300 mg PO QID [facility] Clonazepam (Klonopin) 2 mg PO TID [facility] Last Admin: 03/12/17 18:02 Dose: 2 mg Enoxaparin Sodium (Lovenox) 40 mg SC DAILY [facility] Last Admin: 03/12/17 10:33 Dose: 40 mg Hydromorphone HCl (Dilaudid) 1 mg IVP Q4H PRN PRN Reason: pain Last Admin: 03/12/17 17:14 Dose: 1 mg Nicotine (Nicoderm Cq) 1 patch TD Q24H [facility] Last Admin: 03/12/17 17:20 Dose: 1 patch Oxycodone HCl (Oxycodone Immediate Release Tab) 30 mg PO Q8H PRN PRN Reason: Pain, severe (8-10) Last Admin: 03/12/17 15:09 Dose: 30 mg Pantoprazole Sodium (Protonix Ec Tab) 40 mg PO DAILY [facility] Last Admin: 03/12/17 12:39 Dose: Not Given - Labs Labs: 03/12/17 06:22 03/12/17 06:22 PT 12.6 SECONDS (9.7-12.2) H 03/07/17 19:58 INR 1.1 03/07/17 19:58 APTT 33 SECONDS (21-34) 03/07/17 19:58 Assessment and Plan (1) BKA stump complication Status: Acute (2) Right BKA infection Status: Acute (3) Right BKA infection Status: Acute (4) Hx of BKA Status: Acute (5) Hx of BKA Status: Acute (6) Cellulitis Status: Acute (7) Alcohol abuse Status: Acute
[2017-03-13] MEDS: HYDROmorphone 1 mg/ml ISec IVP PRN ×5 (02:22→20:59)
[2017-03-13 05:52] LABS: BASO % 0.8 % (0.0-2.0); EOS # 0.1 K/uL (0.0-0.7); EOS % 2.7 % (0.0-4.0); HEMATOCRIT 36.2 % (34.0-47.0); LYMPH # 1.1 K/uL (1.0-4.3); MEAN CORPUSCULAR HEMOGLOBIN 32.1 pg (27.0-31.0); MEAN CORPUSCULAR HGB CONC 34.5 g/dL (33.0-37.0); MEAN PLATELET VOLUME 8.7 fL (7.2-11.7); MONO # 0.4 K/uL (0.0-0.8); MONO % 11.1 % (0.0-10.0); NRBC % 0.1 % (0.0-2.0); RED CELL DISTRIBUTION WIDTH 15.9 % (11.5-14.5); WHITE BLOOD COUNT 3.8 K/uL (4.8-10.8)
[2017-03-13 06:02] LABS: CHLORIDE 103 mmol/L (98-107); SODIUM 141 mmol/L (132-148)
[2017-03-13 06:03] LABS: POTASSIUM 4.5 mmol/L (3.6-5.2)
[2017-03-13 06:05] LABS: ALB/GLOB RATIO 0.8 (1.0-2.1); ALKALINE PHOSPHATASE 50 U/L (38-126); ALT/SGPT 31 U/L (9-52); AST/SGOT 37 U/L (14-36); BILIRUBIN,TOTAL 0.5 mg/dL (0.2-1.3); BLOOD UREA NITROGEN 21 mg/dL (7-17); CARBON DIOXIDE 27 mmol/L (22-30); GFR AFRICAN-AMERICAN > 60; TOTAL PROTEIN 7.2 g/dL (6.3-8.3)
[2017-03-13 06:06] LABS: GLUCOSE,RANDOM 84 mg/dL (65-105)
--- NOTE | 2017-03-13 09:13 | CP.PCM.PN ---
<Quincy Lacey S - Last Filed: 03/13/17 14:37> Subjective - Date & Time of Evaluation Date of Evaluation: 03/13/17 Time of Evaluation: 09:11 - Subjective Subjective: Medicine Note for Dr. Harrison's Service Pt seen and examined at bedside. She has been prepped for the OR today and will be going for I+D at 10am today. She states that the changes I made in her pain medications 2 days ago has been helpful and she reports that her pain is much better controlled. The remaining ROS were discussed with her and she denies all acute changes. She is requesting discharge upon completion of her I+D today. Objective - Vital Signs/Intake and Output Vital Signs (last 24 hours): Temp Pulse Resp BP Pulse Ox 97.7 F 50 L 20 115/71 100 03/13/17 07:52 03/13/17 07:52 03/13/17 07:52 03/13/17 07:52 03/13/17 07:52 Intake and Output: 03/13/17 03/13/17 06:59 18:59 Intake Total 0 Balance 0 - Medications Medications: Current Medications Clindamycin HCl (Cleocin) 300 mg PO QID [facility] Last Admin: 03/12/17 21:16 Dose: 300 mg Clonazepam (Klonopin) 2 mg PO TID [facility] Last Admin: 03/12/17 18:02 Dose: 2 mg Enoxaparin Sodium (Lovenox) 40 mg SC DAILY [facility] Last Admin: 03/12/17 10:33 Dose: 40 mg Hydromorphone HCl (Dilaudid) 1 mg IVP Q4H PRN PRN Reason: pain Last Admin: 03/13/17 07:06 Dose: 1 mg Nicotine (Nicoderm Cq) 1 patch TD Q24H [facility] Last Admin: 03/12/17 17:20 Dose: 1 patch Oxycodone HCl (Oxycodone Immediate Release Tab) 30 mg PO Q8H PRN PRN Reason: Pain, severe (8-10) Last Admin: 03/12/17 23:46 Dose: 30 mg Pantoprazole Sodium (Protonix Ec Tab) 40 mg PO DAILY [facility] Last Admin: 03/12/17 12:39 Dose: Not Given - Labs Labs: 03/13/17 05:43 03/13/17 05:43 PT 12.6 SECONDS (9.7-12.2) H 03/07/17 19:58 INR 1.1 03/07/17 19:58 APTT 33 SECONDS (21-34) 03/07/17 19:58 - Constitutional Appears: No Acute Distress - Head Exam Head Exam: ATRAUMATIC, NORMAL INSPECTION - Eye Exam Eye Exam: EOMI, Normal appearance - ENT Exam ENT Exam: Mucous Membranes Moist - Respiratory Exam Respiratory Exam: Clear to Ausculation Bilateral - Cardiovascular Exam Cardiovascular Exam: REGULAR RHYTHM, +S1, +S2 - GI/Abdominal Exam GI & Abdominal Exam: Soft. absent: Tenderness - Neurological Exam Neurological Exam: Alert, Awake, Oriented x3 Assessment and Plan - Assessment and Plan (Free Text) Plan: Cellulitis of R BKA Consult Gen Surg- Dr. Carias; recs appreciated Scheduled for I&D today Follow up surgery recommendations Consult ID- Dr. Anders; recs appreciated culture positive for MRSA, will need clindamycin 300mg QID for 7 days WBC 3.8 today Afebrile Wound cx 03/07 MRSA Blood cx 03/07 NGTD MRI of RLE 03/10- no osteomyelitis, +subcutaneous inflammatory changes Pain control: Dilaudid 2mg IVP Q4h PRN for pain Oxycodone 30mg PO q8hrs prn Depression Klonopin 2mg PO TID [facility] Smoking cessation Nicoderm 1 patch TD Q24h Prophylactic Measure Protonix 40mg PO Daily Lovenox 40mg SC Daily discharge pending surgical clearance to go home and ID recommendation of oral antibiotics for discharge. Case discussed with Dr. Harrison. All management as per Dr. Harrison <Sruthi Harrison - Last Filed: 03/13/17 19:38> Objective - Vital Signs/Intake and Output Vital Signs (last 24 hours): Temp Pulse Resp BP Pulse Ox 98.3 F 61 20 107/63 96 03/13/17 15:00 03/13/17 15:00 03/13/17 15:00 03/13/17 15:00 03/13/17 15:00 - Medications Medications: Current Medications Clindamycin HCl (Cleocin) 300 mg PO QID [facility] Last Admin: 03/13/17 17:54 Dose: 300 mg Clonazepam (Klonopin) 2 mg PO TID [facility] Last Admin: 03/13/17 17:54 Dose: 2 mg Enoxaparin Sodium (Lovenox) 40 mg SC DAILY [facility] Last Admin: 03/12/17 10:33 Dose: 40 mg Hydromorphone HCl (Dilaudid) 1 mg IVP Q4H PRN PRN Reason: pain Last Admin: 03/13/17 17:01 Dose: 1 mg Hydromorphone HCl (Dilaudid) 0.5 mg IVP Q10M PRN PRN Reason: Pain, moderate (4-7) Last Admin: 03/13/17 11:15 Dose: 0.5 mg Nicotine (Nicoderm Cq) 1 patch TD Q24H [facility] Last Admin: 03/12/17 17:20 Dose: 1 patch Ondansetron HCl (Zofran Inj) 4 mg IVP Q4 PRN PRN Reason: Nausea/Vomiting Oxycodone HCl (Oxycodone Immediate Release Tab) 30 mg PO Q8H PRN PRN Reason: Pain, severe (8-10) Last Admin: 03/13/17 14:45 Dose: 30 mg Pantoprazole Sodium (Protonix Ec Tab) 40 mg PO DAILY [facility] Last Admin: 03/13/17 10:37 Dose: Not Given - Labs Labs: 03/13/17 05:43 03/13/17 05:43 PT 12.6 SECONDS (9.7-12.2) H 03/07/17 19:58 INR 1.1 03/07/17 19:58 APTT 33 SECONDS (21-34) 03/07/17 19:58 Attending/Attestation - Attestation I have personally seen and examined this patient.: Yes I have fully participated in the care of the patient.: Yes I have reviewed all pertinent clinical information, including history, physical exam and plan: Yes Notes (Text): case seen and dicussed [facility] staff
[2017-03-13] MEDS ORDERED: Lactated Ringer's 1,000 ML IV ONE (10:00)
[2017-03-13] MEDS ORDERED: Midazolam 2 MG/2 ML VIAL ONE ×2 (10:21→10:25)
[2017-03-13] MEDS ORDERED: Propofol 10 mg/ml Inj (20 ML) ONE (10:30)
[2017-03-13] MEDS: Pantoprazole 40 mg EC Tab PO SCH (10:37)
--- NOTE | 2017-03-13 10:53 | PCM.SURG1 ---
Surgeon's Initial Post Op Note - Surgeon's Notes Surgeon: Dr. Carias Dancing Teacher: PGY1, Thaddeus OMS3 Pre-Operative Diagnosis: Abscess of the right Operative Findings: serous fluid. no purulance Post-Operative Diagnosis: same Operation Performed: incision and drainage of right patella abscess Specimen/Specimens Removed: none Estimated Blood Loss: EBL {In ML}: 5 Date of Surgery/Procedure: 03/13/17 Time of Surgery/Procedure: 10:20
[2017-03-13] MEDS ORDERED: HYDROmorphone 0.5 mg/0.5 ml ISec ONE (10:59)
[2017-03-13] MEDS: HYDROmorphone 0.5 mg/0.5 ml ISec IVP PRN ×2 (11:00→11:15)
[2017-03-13 12:21] VITALS: RESP 20
[2017-03-13] MEDS: oxyCODONE 30 mg Immediate Release Tab PO PRN (14:45)
--- NOTE | 2017-03-13 16:27 | CP.PCM.PN ---
Subjective - Date & Time of Evaluation Date of Evaluation: 03/13/17 Time of Evaluation: 07:20 - Subjective Subjective: clinically same Objective - Vital Signs/Intake and Output Vital Signs (last 24 hours): Temp Pulse Resp BP Pulse Ox 97.4 F L 59 L 20 105/63 97 03/13/17 11:45 03/13/17 11:45 03/13/17 11:45 03/13/17 11:45 03/13/17 11:45 Intake and Output: 03/13/17 03/13/17 06:59 18:59 Intake Total 0 Balance 0 - Medications Medications: Current Medications Clindamycin HCl (Cleocin) 300 mg PO QID [facility] Last Admin: 03/13/17 14:15 Dose: 300 mg Clonazepam (Klonopin) 2 mg PO TID [facility] Last Admin: 03/13/17 14:15 Dose: 2 mg Enoxaparin Sodium (Lovenox) 40 mg SC DAILY [facility] Last Admin: 03/12/17 10:33 Dose: 40 mg Hydromorphone HCl (Dilaudid) 1 mg IVP Q4H PRN PRN Reason: pain Last Admin: 03/13/17 12:44 Dose: 1 mg Hydromorphone HCl (Dilaudid) 0.5 mg IVP Q10M PRN PRN Reason: Pain, moderate (4-7) Last Admin: 03/13/17 11:15 Dose: 0.5 mg Nicotine (Nicoderm Cq) 1 patch TD Q24H [facility] Last Admin: 03/12/17 17:20 Dose: 1 patch Ondansetron HCl (Zofran Inj) 4 mg IVP Q4 PRN PRN Reason: Nausea/Vomiting Oxycodone HCl (Oxycodone Immediate Release Tab) 30 mg PO Q8H PRN PRN Reason: Pain, severe (8-10) Last Admin: 03/13/17 14:45 Dose: 30 mg Pantoprazole Sodium (Protonix Ec Tab) 40 mg PO DAILY [facility] Last Admin: 03/13/17 10:37 Dose: Not Given - Labs Labs: 03/13/17 05:43 03/13/17 05:43 PT 12.6 SECONDS (9.7-12.2) H 03/07/17 19:58 INR 1.1 03/07/17 19:58 APTT 33 SECONDS (21-34) 03/07/17 19:58 - Constitutional Appears: Well - Head Exam Head Exam: ATRAUMATIC, NORMAL INSPECTION, NORMOCEPHALIC - Eye Exam Eye Exam: EOMI, Normal appearance, PERRL Pupil Exam: NORMAL ACCOMODATION, PERRL - ENT Exam ENT Exam: Mucous Membranes Moist, Normal Exam - Neck Exam Neck Exam: Full ROM, Normal Inspection. absent: Lymphadenopathy - Respiratory Exam Respiratory Exam: Decreased Breath Sounds - Cardiovascular Exam Cardiovascular Exam: REGULAR RHYTHM, +S1, +S2 - GI/Abdominal Exam GI & Abdominal Exam: Soft, Diminished Bowel Sounds - Rectal Exam Rectal Exam: Deferred
--- NOTE | 2017-03-13 21:06 | OP ---
PROCEDURE DATE: 03/13/2017 PREOPERATIVE DIAGNOSIS: Abscess, right knee. POSTOPERATIVE DIAGNOSIS: Abscess, right knee. PROCEDURE: Incision and drainage of abscess, right knee. SURGEON: Dr. Carias. LOG CHAIN WORKER: Dr. Yoon. ANESTHESIOLOGIST: Dr. Bourgeois. ESTIMATED BLOOD LOSS: 10 mL. INDICATIONS: The patient is a middle-aged woman with history of right below-knee amputation, stump not at the incision on the right side, but over the patella. Preoperatively, we did ultrasound imaging demonstrating that there was indeed a cavity. OPERATIVE FINDINGS: There was no pus, but there was slightly serous fluid, slightly cloudy that was cultured. The wound was intact to opening. Compressive dressing applied. Foreign Carias Jr., MD
[2017-03-14] MEDS: HYDROmorphone 1 mg/ml ISec IVP PRN ×3 (00:53→10:21)
[2017-03-14 07:42] LABS: BASO % 0.5 % (0.0-2.0); EOS # 0.1 K/uL (0.0-0.7); EOS % 3.1 % (0.0-4.0); HEMATOCRIT 37.6 % (34.0-47.0); LYMPH # 0.9 K/uL (1.0-4.3); LYMPH % 27.2 % (20.0-40.0); MEAN CORPUSCULAR HEMOGLOBIN 31.3 pg (27.0-31.0); MEAN CORPUSCULAR HGB CONC 33.6 g/dL (33.0-37.0); MEAN PLATELET VOLUME 9.2 fL (7.2-11.7); MONO # 0.5 K/uL (0.0-0.8); MONO % 14.2 % (0.0-10.0); NRBC % 0.1 % (0.0-2.0); RED CELL DISTRIBUTION WIDTH 15.6 % (11.5-14.5); WHITE BLOOD COUNT 3.4 K/uL (4.8-10.8)
[2017-03-14 08:00] VITALS: BP 103/48; PULSE 64; TEMP 98.3; O2SAT 95
[2017-03-14 08:07] LABS: CHLORIDE 102 mmol/L (98-107); POTASSIUM 4.1 mmol/L (3.6-5.2); SODIUM 136 mmol/L (132-148)
[2017-03-14 08:09] LABS: AST/SGOT 41 U/L (14-36); BILIRUBIN,TOTAL 0.7 mg/dL (0.2-1.3); CARBON DIOXIDE 27 mmol/L (22-30); GFR AFRICAN-AMERICAN > 60
[2017-03-14 08:10] LABS: ALB/GLOB RATIO 0.8 (1.0-2.1); ALKALINE PHOSPHATASE 47 U/L (38-126); ALT/SGPT 38 U/L (9-52); BLOOD UREA NITROGEN 15 mg/dL (7-17); CALCIUM 8.9 mg/dl (8.6-10.4); GLUCOSE,RANDOM 92 mg/dL (65-105); TOTAL PROTEIN 7.1 g/dL (6.3-8.3)
[2017-03-14] MEDS: oxyCODONE 30 mg Immediate Release Tab PO PRN (08:10)
[2017-03-14] MEDS: Pantoprazole 40 mg EC Tab PO SCH (09:35)
--- NOTE | 2017-03-14 10:36 | CP.PCM.PN ---
Subjective - Date & Time of Evaluation Date of Evaluation: 03/14/17 Time of Evaluation: 07:20 - Subjective Subjective: General Surgery Note Patient was seen and examined at bedside in no acute distress. Patient reports that she is doing well. Patient denies fever, chills, nausea, vomiting but admits to very mild pain at the right stump. Patient has no new complaints. Objective - Vital Signs/Intake and Output Vital Signs (last 24 hours): Temp Pulse Resp BP Pulse Ox 98.3 F 64 20 103/48 L 95 03/14/17 07:58 03/14/17 07:58 03/14/17 07:58 03/14/17 07:58 03/14/17 07:58 Intake and Output: 03/14/17 03/14/17 06:59 18:59 Intake Total 240 Balance 240 - Medications Medications: Current Medications Clindamycin HCl (Cleocin) 300 mg PO QID [facility] Last Admin: 03/14/17 09:35 Dose: 300 mg Clonazepam (Klonopin) 2 mg PO TID [facility] Last Admin: 03/14/17 09:35 Dose: 2 mg Enoxaparin Sodium (Lovenox) 40 mg SC DAILY [facility] Last Admin: 03/12/17 10:33 Dose: 40 mg Hydromorphone HCl (Dilaudid) 1 mg IVP Q4H PRN PRN Reason: pain Last Admin: 03/14/17 10:21 Dose: 1 mg Hydromorphone HCl (Dilaudid) 0.5 mg IVP Q10M PRN PRN Reason: Pain, moderate (4-7) Last Admin: 03/13/17 11:15 Dose: 0.5 mg Nicotine (Nicoderm Cq) 1 patch TD Q24H [facility] Last Admin: 03/13/17 17:00 Dose: 1 patch Ondansetron HCl (Zofran Inj) 4 mg IVP Q4 PRN PRN Reason: Nausea/Vomiting Oxycodone HCl (Oxycodone Immediate Release Tab) 30 mg PO Q8H PRN PRN Reason: Pain, severe (8-10) Last Admin: 03/14/17 08:10 Dose: 30 mg Pantoprazole Sodium (Protonix Ec Tab) 40 mg PO DAILY [facility] Last Admin: 03/14/17 09:35 Dose: 40 mg - Labs Labs: 03/14/17 07:23 08/18/17 07:23 PT 12.6 SECONDS (9.7-12.2) H 03/07/17 19:58 INR 1.1 03/07/17 19:58 APTT 33 SECONDS (21-34) 03/07/17 19:58 - Constitutional Appears: Well, No Acute Distress - Head Exam Head Exam: ATRAUMATIC, NORMAL INSPECTION - Eye Exam Eye Exam: EOMI, Normal appearance - Respiratory Exam Respiratory Exam: Clear to Ausculation Bilateral, NORMAL BREATHING PATTERN - Cardiovascular Exam Cardiovascular Exam: REGULAR RHYTHM, +S1, +S2 - GI/Abdominal Exam GI & Abdominal Exam: Soft, Normal Bowel Sounds - Extremities Exam Additional comments: Right BKA. S/P incision and drainage Dressing clean, intact and dry - Neurological Exam Neurological Exam: Alert, Awake, Oriented x3 - Psychiatric Exam Psychiatric exam: Normal Affect, Normal Mood - Skin Skin Exam: Dry, Normal Color, Warm Assessment and Plan - Assessment and Plan (Free Text) Assessment: 46F with history of right BKA; w/ right stump infection with MRI ruling out Osteomyelitis, Incision and Drainage POD #1 Plan: -Continue with PO antibiotics -Dressing changed -Discussed with patient how to remove and change dressing at home -Stable to be discharge home from surgical standpoint Plans discussed with Dr. Aretha Emmanuel, PGY-1
--- NOTE | 2017-03-14 11:43 | CP.PCM.PN ---
Subjective - Date & Time of Evaluation Date of Evaluation: 03/14/17 Time of Evaluation: 11:00 - Subjective Subjective: PGY-[address] Harrison Patient seen and examined at bedside. No reported acute events overnight. Patient is not complaining of pain. Patient states the surgery team came by and changed her surgery dressing. Patient denies headache, fever, chills, shortness of breath, nausea, vomiting, or diarrhea. Objective - Vital Signs/Intake and Output Vital Signs (last 24 hours): Temp Pulse Resp BP Pulse Ox 98.3 F 64 20 103/48 L 95 03/14/17 07:58 03/14/17 07:58 03/14/17 07:58 03/14/17 07:58 03/14/17 07:58 Intake and Output: 03/14/17 03/14/17 06:59 18:59 Intake Total 240 Balance 240 - Medications Medications: Current Medications Clindamycin HCl (Cleocin) 300 mg PO QID [facility] Last Admin: 03/14/17 09:35 Dose: 300 mg Clonazepam (Klonopin) 2 mg PO TID [facility] Last Admin: 03/14/17 09:35 Dose: 2 mg Enoxaparin Sodium (Lovenox) 40 mg SC DAILY [facility] Last Admin: 03/12/17 10:33 Dose: 40 mg Hydromorphone HCl (Dilaudid) 1 mg IVP Q4H PRN PRN Reason: pain Last Admin: 03/14/17 10:21 Dose: 1 mg Hydromorphone HCl (Dilaudid) 0.5 mg IVP Q10M PRN PRN Reason: Pain, moderate (4-7) Last Admin: 03/13/17 11:15 Dose: 0.5 mg Nicotine (Nicoderm Cq) 1 patch TD Q24H [facility] Last Admin: 03/13/17 17:00 Dose: 1 patch Ondansetron HCl (Zofran Inj) 4 mg IVP Q4 PRN PRN Reason: Nausea/Vomiting Oxycodone HCl (Oxycodone Immediate Release Tab) 30 mg PO Q8H PRN PRN Reason: Pain, severe (8-10) Last Admin: 03/14/17 08:10 Dose: 30 mg Pantoprazole Sodium (Protonix Ec Tab) 40 mg PO DAILY [facility] Last Admin: 03/14/17 09:35 Dose: 40 mg - Labs Labs: 03/14/17 07:23 03/14/17 07:23 PT 12.6 SECONDS (9.7-12.2) H 03/07/17 19:58 INR 1.1 03/07/17 19:58 APTT 33 SECONDS (21-34) 03/07/17 19:58 - Constitutional Appears: Non-toxic, No Acute Distress - Head Exam Head Exam: ATRAUMATIC, NORMAL INSPECTION - Eye Exam Eye Exam: Normal appearance - ENT Exam ENT Exam: Mucous Membranes Moist - Neck Exam Neck Exam: Normal Inspection - Respiratory Exam Respiratory Exam: Clear to Ausculation Bilateral, NORMAL BREATHING PATTERN. absent: Respiratory Distress - Cardiovascular Exam Cardiovascular Exam: REGULAR RHYTHM, +S1, +S2. absent: Murmur - GI/Abdominal Exam GI & Abdominal Exam: Soft, Normal Bowel Sounds. absent: Tenderness - Extremities Exam Additional comments: Right LE stump dressing clean, dry, and intact. No active drainage appreciated. - Neurological Exam Neurological Exam: Alert, Awake, Oriented x3 - Psychiatric Exam Psychiatric exam: Normal Affect, Normal Mood - Skin Skin Exam: Normal Color, Warm Assessment and Plan - Assessment and Plan (Free Text) Assessment: Cellulitis of R BKA Consult Gen Surg- Dr. Carias; recs appreciated s/p I&D POD# 1 Cleared to be discharged by surgery team Consult ID- Dr. Anders; recs appreciated culture positive for MRSA, will need clindamycin 300mg QID for 5 more days Afebrile, no leukocytosis Wound cx 8/ MRSA Blood cx /11 NGTD MRI of RLE 03/10- no osteomyelitis, +subcutaneous inflammatory changes Pain control: Dilaudid 2mg IVP Q4h PRN for pain Oxycodone 30mg PO q8hrs prn Depression Klonopin 2mg PO TID [facility] Smoking cessation Nicoderm 1 patch TD Q24h Prophylactic Measure Protonix 40mg PO Daily Lovenox 40mg SC Daily Discharge home and ID recommendation of oral antibiotics for discharge. Case discussed with Dr. Harrison. All management as per Dr. Harrison
== END 2017-03-14 12:15 | disposition home or self-care (01) | DRG 249 ==
LOC: C.ER 18:04 → C.9E 21:57 → C.3T 22:52
PROVIDERS: ADMIT Internal Medicine Nephrology; ATTEND Internal Medicine Nephrology
PROC: 0H9KXZX Drainage of Right Lower Leg Skin, External Approach, Diagnostic (ICD-10-PCS; principal; 2017-03-13 09:30)
DX: T87.43 Infection of amputation stump, right lower extremity (principal); L03.115 Cellulitis of right lower limb; J44.9 Chronic obstructive pulmonary disease, unspecified; F31.9 Bipolar disorder, unspecified; F10.10 Alcohol abuse, uncomplicated; Z86.14 Personal history of Methicillin resistant Staphylococcus aureus infection; Z89.511 Acquired absence of right leg below knee; F17.210 Nicotine dependence, cigarettes, uncomplicated

== ENCOUNTER 2017-03-27 19:21 | Emergency (ER) | payer MEDICAID, OTHER ==
[2017-03-27 19:21] VITALS: BMI 25.8
[2017-03-27 19:36] VITALS: TEMP 98
--- NOTE | 2017-03-27 20:29 | C.PDOC ---
History Of Present Illness 46 year old female with a Hx of right BKA who presents to the ER with pain and swelling to the right knee. Patient was admitted on 03/07 for cellulitis and had an I&D of the right knee; she was placed on a course of antibiotics which she completed. Patient reports minimal drainage to the area; denies fever or chills. Time Seen by Provider: 03/27/17 19:50 Chief Complaint (Nursing): Lower Extremity Problem/Injury History Per: Patient History/Exam Limitations: no limitations Onset/Duration Of Symptoms: Days Current Symptoms Are (Timing): Still Present Recent travel outside of the [place]: No Past Medical History Reviewed: Historical Data, Nursing Documentation, Vital Signs Vital Signs: Last Vital Signs Temp 98 F 03/27/17 19:33 Pulse 72 03/27/17 20:40 Resp 18 03/27/17 20:40 BP 102/66 03/27/17 20:40 Pulse Ox 97 03/28/17 02:23 - Medical History PMH: Anxiety, Bipolar Disorder, COPD (Emphysema), Depression, Emphysema, Fractures (rt foot), Hepatitis (HEP-C) Surgical History: Appendectomy (1989) - [facility] BELOW KNEE AMPUTAT NEC (02/19/15) DETOXIFICATION SERVICES FOR SUBSTANCE ABUSE TREATMENT (12/21/16) DRAINAGE OF LEFT LOWER LEG SKIN, EXTERNAL APPROACH (09/11/16) DRAINAGE OF RIGHT LOWER LEG SKIN, EXTERNAL APPROACH, DIAGN (03/07/17) 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 FOR SUBSTANCE ABUSE TREATMENT, PSYCHOEDUCATION (08/01/16) GROUP PSYCHOTHERAPY (12/16/15) IMMOBILIZ/WOUND ATTN NEC (10/07/12) INDIV PSYCHOTHERAPY FOR SUBSTANCE ABUSE TREATMENT, SUPPORT (12/21/16) INDIV PSYCHOTHERAPY FOR SUBSTANCE ABUSE, PSYCHOEDUCATION (09/11/16) INFLUENZA VACCINATION (05/13/13) NONEXCIS DEBRID OF WOUND, INFECT, OR BURN (05/13/13) PART OSTECT-METATAR/TAR (05/13/13) PARTIAL OSTECTOMY NEC (05/13/13) Family History: States: Unknown Family Hx - Social History Hx Tobacco Use: Yes Hx Alcohol Use: Yes Hx Substance Use: Yes - Immunization History Hx Tetanus Toxoid Vaccination: Yes Hx Influenza Vaccination: No Hx Pneumococcal Vaccination: No Review Of Systems Constitutional: Negative for: Fever, Chills Musculoskeletal: Positive for: Leg Pain Skin: Positive for: Other (Swelling) Physical Exam - Physical Exam Appears: Non-toxic Skin: Warm, Dry Head: Atraumatic, Normacephalic Oral Mucosa: Moist Extremity: Normal ROM (All extremities), No Tenderness, Other (Rt BKA, Localized area of dry irritated skin to right knee with small healing incision at center, no fluctuance, draining or warmth, right stump otherwise appears well. ) Pulses: Left Dorsalis Pedis: Normal Neurological/Psych: Oriented x3, Normal Speech, Normal Cognition ED Course And Treatment O2 Sat by Pulse Oximetry: 97 (Room air) Pulse Ox Interpretation: Normal Progress Note: Patient advised to continuing using crutches, stay off the prosthetic leg, and to follow up with PMD or Dr Urbina for wound check. Wound care instructions were given. Return precautions were discussed and understood by pt Reassessment Condition: Improved Disposition Counseled Patient/Family Regarding: Diagnosis, Need For Followup - Disposition Disposition: HOME/ ROUTINE Disposition Time: 20:25 Condition: STABLE Additional Instructions: Please follow up with PMD Arm compress to knee Apply bacitracin oint Take abx prescribed Return to ER if worse Prescriptions: Clindamycin [Cleocin] 300 mg PO Q6 #20 cap Instructions: Chronic Wound Care (ED) Forms: [facility] (Maltese), Work Excuse - Clinical Impression Clinical Impression: Visit for wound check, Hx of BKA - Scribe Statement The provider has reviewed the documentation as recorded by the Scriblana Davis All medical record entries made by the Hamiblana were at my direction and personally dictated by me. I have reviewed the chart and agree that the record accurately reflects my personal performance of the history, physical exam, medical decision making, and the department course for this patient. I have also personally directed, reviewed, and agree with the discharge instructions and disposition.
[2017-03-27 21:09] VITALS: BP 102/66; PULSE 72; RESP 18
[2017-03-28 00:57] VITALS: O2SAT 97
== END 2017-03-27 21:09 | disposition home or self-care (01) ==
LOC: C.ER 19:21
DX: Z48.01 Encounter for change or removal of surgical wound dressing (principal); Z89.511 Acquired absence of right leg below knee

== ENCOUNTER 2017-04-16 21:18 | Emergency (ER) | payer MEDICAID ==
[2017-04-16 21:19] VITALS: BMI 25.8
== END 2017-04-16 22:22 | disposition left against medical advice (07) ==
LOC: C.ER 21:18
DX: Z02.89 Encounter for other administrative examinations (principal); F41.9 Anxiety disorder, unspecified

== ENCOUNTER 2017-06-19 18:19 | Emergency (ER) | payer MEDICAID ==
[2017-06-19 18:19] VITALS: BMI 25.8
[2017-06-19 18:31] VITALS: BP 122/86; PULSE 72; RESP 16; TEMP 97.8; O2SAT 100
--- NOTE | 2017-06-19 18:43 | C.PDOC ---
History Of Present Illness sp accid od [employer]. found UNRESPONSIVE BY FAMILY, S/P NARCAN 2 GM [employer] BY EMS. Hx ETOH AND HEROIN abuse, COPD, Hepatitis C, depression and a right BKA. DENIES SUICIDE ATTEMPT. REQUESTING DETOX EXAM NAD PSYCH CALM COOPERATIVE NO ACUTE OVERDOSE. NO SI/SA NO ACUTE PSYCHOSIS Time Seen by Provider: 06/19/17 18:24 Chief Complaint (Nursing): Substance Abuse History Per: Patient, Family History/Exam Limitations: no limitations Onset/Duration Of Symptoms: Sudden Onset ([employer]) Suicide/Self Injury Attempted (Context): None Past Medical History Reviewed: Historical Data, Nursing Documentation, Vital Signs Vital Signs: Last Vital Signs Temp 97.8 F 06/19/17 18:30 Pulse 72 06/19/17 18:30 Resp 16 06/19/17 18:30 BP 122/86 06/19/17 18:30 Pulse Ox 100 06/19/17 18:30 - Medical History PMH: Anxiety, Bipolar Disorder, COPD (Emphysema), Depression, Emphysema, Fractures (rt foot), Hepatitis (HEP-C) Surgical History: Appendectomy (1989) - [facility] Procedures BELOW KNEE AMPUTAT NEC (02/19/15) DETOXIFICATION SERVICES FOR SUBSTANCE ABUSE TREATMENT (12/21/16) DRAINAGE OF LEFT LOWER LEG SKIN, EXTERNAL APPROACH (09/11/16) DRAINAGE OF RIGHT LOWER LEG SKIN, EXTERNAL APPROACH, DIAGN (03/07/17) 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 OPERATOR GAS METAL ARC FOR SUBSTANCE ABUSE TREATMENT, PSYCHOEDUCATION (08/01/16) GROUP PSYCHOTHERAPY (12/16/15) IMMOBILIZ/WOUND ATTN NEC (10/07/12) INDIV PSYCHOTHERAPY FOR SUBSTANCE ABUSE TREATMENT, SUPPORT (12/21/16) INDIV PSYCHOTHERAPY FOR SUBSTANCE ABUSE, PSYCHOEDUCATION (09/11/16) INFLUENZA VACCINATION (05/13/13) NONEXCIS DEBRID OF WOUND, INFECT, OR BURN (05/13/13) PART OSTECT-METATAR/TAR (05/13/13) PARTIAL OSTECTOMY NEC (05/13/13) Family History: States: No Known Family Hx - Social History Hx Tobacco Use: Yes Hx Alcohol Use: Yes Hx Substance Use: Yes - Immunization History Hx Tetanus Toxoid Vaccination: Yes Hx Influenza Vaccination: No Hx Pneumococcal Vaccination: Yes (up tod ate) Review Of Systems Except As Marked, All Systems Reviewed And Found Negative. Cardiovascular: Negative for: Chest Pain Respiratory: Negative for: Shortness of Breath Psych: Negative for: Suicidal ideation Physical Exam - Physical Exam Appears: Non-toxic, No Acute Distress Skin: Warm, Dry, No Rash Head: Atraumatic, Normacephalic Cardiovascular: Rhythm Regular, No Murmur Respiratory: Normal Breath Sounds, No Rales, No Rhonchi, No Stridor, No Wheezing Extremity: Normal ROM, No Swelling Neurological/Psych: Oriented x3, Normal Speech, Other (Calm. Cooperative. No acute overdose. No SI/SA. No acute phychosis.) ED Course And Treatment - Laboratory Results Result Diagrams: 06/19/17 18:58 06/19/17 18:58 Progress - Re-Evaluation Re-evaluation Note: 06/19/17 19:26 VSS NAD EXAM UNCH FROM PRIOR MED CLEAR FOR DETOX. NO REPORTED UTI SX. RECOMMEND FU UCX, MED CONSULT PRN. CRISIS NOTIFIED 06/19/17 19:39 ADVISED BY RN DENISE MATTSON. RN STATES IV WAS REMOVED - Data Reviewed Data Reviewed: Lab, Diagnostic imaging, Old records Medical Decision Making Medical Decision Making: PLAN: * Alcohol Serum * Drug Screen * CBC * CMP * Urinalysis Disposition - Disposition Disposition: ELOPEMENT - ER ONLY Disposition Time: 19:39 Condition: UNKNOWN Forms: [facility] (Bhutanese) - Clinical Impression Clinical Impression: Alcohol abuse, Opiate overdose - Scribe Statement The provider has reviewed the documentation as recorded by the Juliann Kendall Provider Attestation: All medical record entries made by the Hamiblana were at my direction and personally dictated by me. I have reviewed the chart and agree that the record accurately reflects my personal performance of the history, physical exam, medical decision making, and the department course for this patient. I have also personally directed, reviewed, and agree with the discharge instructions and disposition.
[2017-06-19 19:01] LABS: BASO % 0.9 % (0.0-2.0); EOS # 0.1 K/uL (0.0-0.7); HEMATOCRIT 36.8 % (34.0-47.0); LYMPH # 1.2 K/uL (1.0-4.3); LYMPH % 32.7 % (20.0-40.0); MEAN CELL VOLUME 91.7 fL (81.0-99.0); MEAN CORPUSCULAR HEMOGLOBIN 30.6 pg (27.0-31.0); MEAN CORPUSCULAR HGB CONC 33.4 g/dL (33.0-37.0); MEAN PLATELET VOLUME 8.6 fL (7.2-11.7); MONO # 0.2 K/uL (0.0-0.8); MONO % 5.1 % (0.0-10.0); NRBC % 0.1 % (0.0-2.0); RED CELL DISTRIBUTION WIDTH 15.1 % (11.5-14.5); WHITE BLOOD COUNT 3.7 K/uL (4.8-10.8)
[2017-06-19 19:08] LABS: RBC URINE 13 /hpf (0-3); URINE BACTERIA OCC (<OCC); URINE BILIRUBIN NEGATIVE (NEGATIVE); URINE BLOOD 2+ (NEGATIVE); URINE COLOR Straw (YELLOW); URINE GLUCOSE (UA) NORMAL (Normal); URINE KETONE NEGATIVE (NEGATIVE); URINE LEUKOCYTE ESTERASE 2+ Leu/uL (Negative); URINE PROTEIN NEGATIVE (NEGATIVE); URINE UROBILINOGEN NORMAL mg/dL (0.2-1.0); WBC URINE 14 /hpf (0-5)
[2017-06-19 19:14] LABS: ALB/GLOB RATIO 1.2 (1.0-2.1); ALCOHOL SERUM 153 mg/dl (0-10); ALKALINE PHOSPHATASE 54 U/L (38-126); ALT/SGPT 55 U/L (9-52); AST/SGOT 59 U/L (14-36); BILIRUBIN,TOTAL 0.8 mg/dL (0.2-1.3); BLOOD UREA NITROGEN 27 mg/dL (7-17); CALCIUM 7.9 mg/dl (8.6-10.4); CARBON DIOXIDE 27 mmol/L (22-30); CHLORIDE 105 mmol/L (98-107); GFR AFRICAN-AMERICAN > 60; GLUCOSE,RANDOM 86 mg/dL (65-105); POTASSIUM 4.1 mmol/L (3.6-5.2); SODIUM 142 mmol/L (132-148); TOTAL PROTEIN 7.4 g/dL (6.3-8.3)
== END 2017-06-19 19:02 | disposition left against medical advice (07) ==
LOC: C.ER 18:19
DX: T40.1X4A Poisoning by heroin, undetermined, initial encounter (principal); Y92.89 Other specified places as the place of occurrence of the external cause; F10.10 Alcohol abuse, uncomplicated; Y90.6 Blood alcohol level of 120-199 mg/100 ml

== ENCOUNTER 2017-06-21 15:54 | Inpatient (IN) | payer MEDICAID ==
[2017-06-21 15:55] VITALS: BMI 25.8
[2017-06-21 17:41] LABS: BASO % 0.6 % (0.0-2.0); EOS # 0.1 K/uL (0.0-0.7); EOS % 2.5 % (0.0-4.0); HEMATOCRIT 40.3 % (34.0-47.0); LYMPH % 34.9 % (20.0-40.0); MEAN CORPUSCULAR HGB CONC 34.1 g/dL (33.0-37.0); MEAN PLATELET VOLUME 9.2 fL (7.2-11.7); MONO # 0.3 K/uL (0.0-0.8); NRBC % 0.1 % (0.0-2.0); RED CELL DISTRIBUTION WIDTH 15.1 % (11.5-14.5); WHITE BLOOD COUNT 5.7 K/uL (4.8-10.8)
[2017-06-21 17:46] LABS: RBC URINE 4 /hpf (0-3); URINE BILIRUBIN NEGATIVE (NEGATIVE); URINE BLOOD 2+ (NEGATIVE); URINE COLOR Yellow (YELLOW); URINE GLUCOSE (UA) NORMAL (Normal); URINE KETONE NEGATIVE (NEGATIVE); URINE LEUKOCYTE ESTERASE NEG Leu/uL (Negative); URINE PROTEIN NEGATIVE (NEGATIVE); URINE UROBILINOGEN NORMAL mg/dL (0.2-1.0); WBC URINE 1 /hpf (0-5)
[2017-06-21 17:55] LABS: ALB/GLOB RATIO 1.2 (1.0-2.1); CALCIUM 8.4 mg/dl (8.6-10.4); POTASSIUM 3.8 mmol/L (3.6-5.2)
--- NOTE | 2017-06-21 19:03 | C.PDOC ---
History Of Present Illness Pt is here requesting detox from alcohol and heroin. Time Seen by Provider: 06/21/17 16:55 Chief Complaint (Nursing): Substance Abuse History Per: Patient Onset/Duration Of Symptoms: Days Current Symptoms Are (Timing): Still Present Suicide/Self Injury Attempted (Context): None Modifying Factor(s): Alcohol, Narcotics Severity: Moderate Associated Symptoms: denies: Suicidal Thoughts, Suicidal Plan Additional History Per: Prior Records Past Medical History Reviewed: Historical Data, Nursing Documentation, Vital Signs Vital Signs: Last Vital Signs Temp 98.6 F 06/21/17 19:38 Pulse 80 06/21/17 19:38 Resp 20 06/21/17 19:38 BP 101/57 L 06/21/17 19:38 Pulse Ox 95 06/21/17 19:38 - Medical History PMH: Anxiety, Bipolar Disorder, COPD (Emphysema), Depression, Emphysema, Fractures (rt foot) Surgical History: Appendectomy (1989) Other Surgeries: BKA - [facility] Procedures BELOW KNEE AMPUTAT NEC (02/19/15) DETOXIFICATION SERVICES FOR SUBSTANCE ABUSE TREATMENT (12/21/16) DRAINAGE OF LEFT LOWER LEG SKIN, EXTERNAL APPROACH (09/11/16) DRAINAGE OF RIGHT LOWER LEG SKIN, EXTERNAL APPROACH, DIAGN (03/07/17) GROUP COMIC WRITER FOR SUBSTANCE ABUSE TREATMENT, PSYCHOEDUCATION (08/01/16) GROUP PSYCHOTHERAPY (12/16/15) IMMOBILIZ/WOUND ATTN NEC (10/07/12) INDIV PSYCHOTHERAPY FOR SUBSTANCE ABUSE TREATMENT, SUPPORT (12/21/16) INDIV PSYCHOTHERAPY FOR SUBSTANCE ABUSE, PSYCHOEDUCATION (09/11/16) INFLUENZA VACCINATION (05/13/13) NONEXCIS DEBRID OF WOUND, INFECT, OR BURN (05/13/13) PART OSTECT-METATAR/TAR (05/13/13) PARTIAL OSTECTOMY NEC (05/13/13) Family History: States: Unknown Family Hx - Social History Hx Tobacco Use: Yes Hx Alcohol Use: Yes Hx Substance Use: Yes (IVDU Heroin) - Immunization History Hx Tetanus Toxoid Vaccination: Yes Hx Influenza Vaccination: No Hx Pneumococcal Vaccination: Yes Review Of Systems Except As Marked, All Systems Reviewed And Found Negative. Constitutional: Negative for: Fever, Weakness Cardiovascular: Negative for: Chest Pain Respiratory: Negative for: Shortness of Breath Gastrointestinal: Negative for: Vomiting, Abdominal Pain Musculoskeletal: Negative for: Neck Pain Neurological: Negative for: Weakness, Numbness Physical Exam - Physical Exam Appears: Non-toxic, No Acute Distress Skin: Normal Color, Warm, Dry Head: Atraumatic, Normacephalic Eye(s): bilateral: PERRL, EOMI Neck: Normal ROM, Supple Cardiovascular: Rhythm Regular Respiratory: Normal Breath Sounds, No Accessory Muscle Use Gastrointestinal/Abdominal: Soft, No Tenderness Extremity: Normal ROM Neurological/Psych: Oriented x3, Normal Motor, Normal Sensation ED Course And Treatment - Laboratory Results Result Diagrams: 06/21/17 17:36 06/21/17 17:36 O2 Sat by Pulse Oximetry: 96 Pulse Ox Interpretation: Normal Progress Note: Pt is medically stable for detox admission. Disposition Counseled Patient/Family Regarding: Studies Performed, Diagnosis - Disposition Disposition: HOSPITALIZED Disposition Time: 21:40 Condition: STABLE - Clinical Impression Clinical Impression: Alcohol dependence, Opioid abuse Decision To Admit - Pt Status Changed To: Hospital Disposition Of: Inpatient - Admit Certification Admit to Inpatient:: After my assessment, the patient will require hospitalization for at least two midnights. This is because of the severity of symptoms shown, intensity of services needed, and/or the medical risk in this patient being treated as an outpatient. - InPatient: Physician Admission Certification: I certify that this patient requires 2 or more midnights of care for the following reason:: Detox. - . Bed Request Type: Detox Admitting Physician: Jodi Mathis Patient Diagnosis: Alcohol dependence, Opioid abuse
--- NOTE | 2017-06-21 22:19 | PCM.BM ---
<Sera Pugh - Last Filed: 06/21/17 22:18> Treatment Plan Problems - Problems identified on initial assessmt potiential for opiate withdrawal Date Initiated: 06/21/17 Time Initiated: 22:18 Assessment reference: NA Status: Active potiential for autonomic instability related to alcohol abuse Date Initiated: 06/21/17 Time Initiated: 22:19 Assessment reference: NA Status: Active Treatment assets and liabiliti Patient Assests: cooperative, cognitively intact Patient Liabilities: substance abuse, medical problems - Milieu Protocol Maintain good personal hygiene: daily Encourage regular showers, daily Remind patient to perform daily oral care, daily Assist patient to perform ADL's Maintain personal safety: every shift Educate patient to report safety concerns to staff, every shift Monitor environment for contraband/sharps Medication safety: Monitor for expected outcome, potential side effects: every shift, Assess barriers to learning: every shift, Assess readiness for medication education: every shift <Jodi Mathis - Last Filed: 06/22/17 11:22> - Diagnosis (1) Alcohol dependence Status: Acute Interventions: 06/22/17 11:22 * Assess 7x/week regarding severity of withdrawal * Educate regarding risks, benefits, side effects and alternatives of medications * Use Motivational Interviewing for abstinence * Use CBT for relapse prevention * Medication management for withdrawal symptoms * Encourage medication assisted treatment * (2) Opiate dependence Status: Acute Interventions: 06/22/17 11:22 * Assess 7x/week regarding severity of withdrawal * Educate regarding risks, benefits, side effects and alternatives of medications * Use Motivational Interviewing for abstinence * Use CBT for relapse prevention * Medication management for withdrawal symptoms * Encourage medication assisted treatment *
[2017-06-21] MEDS ORDERED: Buprenorphine Hydrochloride 2 mg SL ONE (22:42)
[2017-06-22] MEDS ORDERED: Buprenorphine Hydrochloride 2 mg SL ONE (00:10)
[2017-06-22] MEDS: Multiple Vitamins Tab PO SCH (10:17)
[2017-06-22] MEDS: Buprenorphine Hydrochloride 2 mg SL SCH (10:18)
--- NOTE | 2017-06-22 12:59 | PCM.PSYCH ---
Initial Psychiatric Evaluation - Initial Psychiatric Evaluation Type of Admission: Voluntary Legal Status: Capacity Chief Complaint (in patient's own words): 'I came here to get help.' History of Present Illness and Precipitating Events: Patient is a 47 y/o CF, with history of opioid dependence and alcohol dependence came to the to get help in detox. Pt is well known to . She has been here multiple times. As per the ED notes, she was just seen in [facility] 2 days ago secondary to an overdose. Patient was brought in via EMS and was given Narcan in the field. Patient admits that after she went home she picked up the very next day. When asked why she wants to detox today patient stated, I' m killing myself.' Patient reported the recent passing of her grandmother whom she identifies as her rock. Patient stated 'I need to be a rock.' Patient reports she is drinking 10-12 airline shots a day, last abuse was yesterday, when she abused 10 shots. She also reports of injecting 2-10 bags of heroin, last abused 2 bags yesterday. Patient also admits to seldom cocaine use reporting she smoked 2 days ago. Patient denies any other substance use and reports her drug of choice is alcohol. Patient reports depressed and irritable mood, and reports withdrawal symptoms including nausea, shakes, anxiety, diarrhea, vomiting, headache, and joint pains. However, she denies any AVH or any psychotic symptoms. Patient reports being diagnosed with anxiety and depression in the past and is prescribed Zoloft and Klonopin. Patient is non-compliant with her meds. Patient denies SI/ HI. PMH: h/o Hep C, Left leg BKA (use prosthesis) Current Medications: Active Medications Generic Name Dose Route Start Last Admin Trade Name Freq PRN Reason Stop Dose Admin Buprenorphine HCl 8 mg 06/22/17 10:00 06/22/17 10:18 Subutex SL 06/26/17 09:59 Not Given DAILY MARGARET Taper Chlordiazepoxide 25 mg 06/22/17 00:00 06/22/17 12:38 Librium PO 06/25/17 23:59 25 mg Q6 MARGARET Administration Taper Chlordiazepoxide 25 mg 06/21/17 22:44 06/22/17 10:21 Librium PO 25 mg Q4H PRN Administration Alcohol Withdrawal Folic Acid 1 mg 06/22/17 10:00 06/22/17 10:17 Folic Acid PO 1 mg DAILY MARGARET Administration Multivitamins 1 tab 06/22/17 10:00 06/22/17 10:17 Hexavitamin PO 1 tab DAILY MARGARET Administration Pneumococcal Polyvalent Vaccine 0.5 ml 06/24/17 10:00 Pneumovax 23 Vaccine IM 06/24/17 10:01 .ONCE ONE Thiamine HCl 100 mg 06/22/17 10:00 06/22/17 10:17 Vitamin B1 Tab PO 100 mg DAILY MARGARET Administration Trazodone HCl 50 mg 06/21/17 22:43 06/22/17 00:01 Desyrel PO 50 mg HS PRN Administration insomnia Past Psychiatric History - Past Psychiatric History Previous Treatment History: Inpatient Pertinent Medical Hx (Current Medical&Sleep Prob, Allergies): Allergies Allergy/AdvReac Type Severity Reaction Status Date / Time No Known Allergies Allergy Verified 06/21/17 16:17 No Known Home Med 06/19/17 Review of Systems - Review of Systems All systems: reviewed and no additional remarkable complaints except - Psychiatric Psychiatric: Anxiety, Irritability Mental Status Examination - Personal Presentation Personal Presentation: Looks stated age - Affect Affect: Constricted - Motor Activity Motor Activity: Calm - Reliability in Providing Information Reliability in Providing Information: Good - Speech Speech: Organized - Mood Mood: Anxious - Formal Thought Process Formal Thought Process: No Impairment - Obsessions/Compulsions Obsessions: No Compulsions: No - Cognitive Functions Orientation: Person, Place, Situation, Time Sensorium: Alert Attention/Concentration: Attentive Abstract Thinking: [place] Estimate of Intelligence: Below average Judgement: Imparied, as evidence by: Poor judgement, Intact, as evidence by: Insight regarding need for hospitalization - Risk Risk: Withdrawal, Diminished functioning DSM 5 DX - DSM 5 DSM 5 Diagnosis: Opioid use disorder severe Opioid withdrawal Alcohol use disorder severe Alcohol withdrawal uncomplicated Cocaine use disorder severe - Recommended/Plan of Treatment Treatment Recommendations and Plan of Treatment: Opioid use disorder severe CBT Psychoeducation Supportive therapy, individual therapy Use [place] for abstinence Opioid withdrawal CBT Psychoeducation Supportive therapy, individual therapy Clonidine when necessary Subutax taper PRN meds Alcohol use disorder severe CBT Psychoeducation Supportive therapy, individual therapy Use [place] for abstinence Alcohol withdrawal uncomplicated CBT Psychoeducation Supportive therapy, individual therapy Librium when necessary Librium taper Folic acid/thiamine/multivitamin Cocaine use disorder severe Monitor signs and symptoms Use [place] for abstinence - Smoking Cessation Smoking Cessation Initiated: No
[2017-06-23] MEDS: Multiple Vitamins Tab PO SCH (10:01)
[2017-06-23] MEDS: Buprenorphine Hydrochloride 2 mg SL SCH (10:03)
--- NOTE | 2017-06-23 14:34 | PCM.PYCHPN ---
Psychiatric Progress Note - Psychiatric Progress Note Patient seen today, length of contact: 18 min Patient Chief Complaint: I'm feeling okay" Problems Identified/Issues Discussed: The pt is seen, chart reviewed, case discussed with staff. Pt states that she is feeling okay and "detox is going good" Pt has a positive mindset and is interested in an IOP Her past IOP, [facility], closed unexpectedly so she is interested in [facility] The pt is compliant with medications and reports no side-effects. Symptoms are improving but needs more time to stabilize. After care discussed, support and psychoeducation given. Medication Change: Yes (Subutex Taper) Medical Record Reviewed: Yes Mental Status Examination - Cognitive Function Orientation: Person, Place, Situation, Time Memory: Intact Attention: WNL Concentration: WNL Association: WNL Fund of Knowledge: WNL - Mood Mood: Neutral - Affect Affect: Constricted - Speech Speech: Appropriate - Formal Thought Process Formal Thought Process: No Impairment - Suicidal Ideation Suicidal Ideation: No - Homicidal Ideation Homicidal Ideation: No Goal/Treatment Plan - Goal/Treatment Plan Need for Continued Stay: Discharge may exacerbated symptoms, Severe functional impairment Progress Toward Problem(s) and Goals/Treatment Plan: Subutex detox Librium detox Gabapentin for augmentation As needed medications Attend groups and activities Supportive therapy and psychoeducation [place] for abstinence CBT for relapse prevention Encourage MAT Refer to rehab or IOP, and self-help groups Discuss [facility] or other IOP
[2017-06-23 20:15] VITALS: O2SAT 96
[2017-06-24 06:11] VITALS: RESP 18
[2017-06-24 09:33] VITALS: BP 114/73; PULSE 61; TEMP 97.7
[2017-06-24] MEDS ORDERED: Pneumococcal 23-Valent Vaccine IM ONE (10:00)
--- NOTE | 2017-06-24 10:31 | PCM.PYCHDC ---
Mental Status Examination - Mental Status Examination Orientation: Person, Place, Situation, Time Memory: Intact Mood: Neutral Affect: Constricted Speech: Soft Attention: WNL Concentration: WNL Association: WNL Fund of Knowledge: WNL Formal Thought Process: No Impairment Description of patient's judgement and insight: good, fair Psychotic Thoughts and Behaviors: denies any AVH Suicidal Ideation: No Current Homicidal Ideation?: No Discharge Summary - Discharge Note Reason for Hospitalization: Patient is a 47 y/o CF, with history of opioid dependence and alcohol dependence came to the to get help in detox. Pt is well known to . She has been here multiple times. As per the ED notes, she was just seen in [facility] 2 days ago secondary to an overdose. Patient was brought in via EMS and was given Narcan in the field. Patient admits that after she went home she picked up the very next day. When asked why she wants to detox today patient stated, I' m killing myself.' Patient reported the recent passing of her grandmother whom she identifies as her rock. Patient stated 'I need to be a rock.' Patient reports she is drinking 10-12 airline shots a day, last abuse was yesterday, when she abused 10 shots. She also reports of injecting 2-10 bags of heroin, last abused 2 bags yesterday. Patient also admits to seldom cocaine use reporting she smoked 2 days ago. Patient denies any other substance use and reports her drug of choice is alcohol. Patient reports depressed and irritable mood, and reports withdrawal symptoms including nausea, shakes, anxiety, diarrhea, vomiting, headache, and joint pains. However, she denies any AVH or any psychotic symptoms. Patient reports being diagnosed with anxiety and depression in the past and is prescribed Zoloft and Klonopin. Patient is non-compliant with her meds. Patient denies SI/ HI. Consultations:: List each consultation separately and include: 1. Reason for request. 2. Findings. 3. Follow-up Summary of Hospital Course include:: 1. Description of specific treatment plan utilized for patients during their course of treatmen. 2. Summarize the time- course for resolution of acute symptoms and/or regressed behaviors. 3. Describe issues identified and worked on during hospitalization. 4. Describe medication utilized. 5. Describe medical problems identified and treated. 6. Reassessment of suicide risk Summary of Hospital Course: Patient is a 47 y/o CF, with history of opioid dependence and alcohol dependence came to the to get help in detox. Pt is well known to . She has been here multiple times. As per the ED notes, she was just seen in [facility] 2 days ago secondary to an overdose. Patient was brought in via EMS and was given Narcan in the field. Patient admits that after she went home she picked up the very next day. When asked why she wants to detox today patient stated, I' m killing myself.' Patient reported the recent passing of her grandmother whom she identifies as her rock. Patient stated 'I need to be a rock.' Patient reports she is drinking 10-12 airline shots a day, last abuse was yesterday, when she abused 10 shots. She also reports of injecting 2-10 bags of heroin, last abused 2 bags yesterday. Patient also admits to seldom cocaine use reporting she smoked 2 days ago. Patient denies any other substance use and reports her drug of choice is alcohol. Patient reports depressed and irritable mood, and reports withdrawal symptoms including nausea, shakes, anxiety, diarrhea, vomiting, headache, and joint pains. However, she denies any AVH or any psychotic symptoms. Patient reports being diagnosed with anxiety and depression in the past and is prescribed Zoloft and Klonopin. Patient is non-compliant with her meds. Patient denies SI/ HI. PMH: h/o Hep C, Left leg BKA (use prosthesis) - Final Diagnosis (DSM 5) Condition upon Discharge: STABLE DSM 5: Opioid use disorder severe Opioid withdrawal Alcohol use disorder severe Alcohol withdrawal uncomplicated Cocaine use disorder severe Disposition: HOME/ ROUTINE Follow-up Treatment Plan: Opioid use disorder severe CBT Psychoeducation Supportive therapy, individual therapy Use [place] for abstinence Opioid withdrawal CBT Psychoeducation Supportive therapy, individual therapy Clonidine when necessary Subutax taper PRN meds Alcohol use disorder severe CBT Psychoeducation Supportive therapy, individual therapy Use [place] for abstinence Alcohol withdrawal uncomplicated CBT Psychoeducation Supportive therapy, individual therapy Librium when necessary Librium taper Folic acid/thiamine/multivitamin Cocaine use disorder severe Monitor signs and symptoms Use [place] for abstinence - Smoking Cessation Smoking Cessation Medication prescribed: No - Antipsychotic Medications Pt discharged on 2 or more routine antipsychotic medications: No
[2017-06-24] MEDS: Multiple Vitamins Tab PO SCH (10:34)
[2017-06-24] MEDS: Buprenorphine Hydrochloride 2 mg SL SCH (10:34)
== END 2017-06-24 10:45 | disposition home or self-care (01) | DRG 745 ==
LOC: C.ER 15:54 → C.7D 21:42
PROVIDERS: ADMIT Psychiatry & Neurology Psychiatry; ATTEND Psychiatry & Neurology Psychiatry
PROC: HZ2ZZZZ Detoxification Services for Substance Abuse Treatment (ICD-10-PCS; principal; 2017-06-21)
PROC: GZ56ZZZ Individual Psychotherapy, Supportive (ICD-10-PCS; 2017-06-21)
DX: F11.23 Opioid dependence with withdrawal (principal); F10.120 Alcohol abuse with intoxication, uncomplicated; F14.10 Cocaine abuse, uncomplicated; F41.9 Anxiety disorder, unspecified; Z91.14 Patient's other noncompliance with medication regimen; Z87.891 Personal history of nicotine dependence; Y90.8 Blood alcohol level of 240 mg/100 ml or more

== ENCOUNTER 2017-07-16 14:11 | Inpatient (IN) | payer MEDICAID ==
[2017-07-16 14:12] VITALS: BMI 25.8
--- NOTE | 2017-07-16 15:34 | C.PDOC ---
History Of Present Illness A 47 year old female presents to the ED for evaluation of redness, swelling, purulent discharge to right stump for 3-4 days. Patient reports TM of 102. Patient states she picked on the skin, expressed purulent discharge. Patient has history if right [id number] due to compartment syndrome, MRSA 2014 Dr. Quezada. REDNESS, SWELLING, PURULENT DC R STUMP X 3-4 DAYS. TM 102. DENIES TRAUMA. PS PICKED ON SKIN, +PURULENT DRAINAGE. HO R BKA DUE TO COMPARTMENT SYNDROME, MRSA 2014 DR QUEZADA. STATES LAST OPIATE ETOH USE 2 WEEKS AGO. EXAM NAD NONTOXIC SKIN +CELLULITIS OVER ANTERIOR R KNEE EXTENDING DISTAL ANTERIOR THIGH AND INTO PROX ANTERIOR TIB/FIB. EXT R LE: R BKA. AROM WO DIFF. NONTEND. +MILD SWELL ANT R KNEE. PSYCH CALM COOPERATIVE NO ACUTE INTOX OR WITHDRAWAL REMAINDER NEG Time Seen by Provider: 07/16/17 14:32 Chief Complaint (Nursing): Lower Extremity Problem/Injury History Per: Patient History/Exam Limitations: no limitations Onset/Duration Of Symptoms: Days (3-4) Current Symptoms Are (Timing): Still Present Additional History Per: Patient Past Medical History Reviewed: Historical Data, Nursing Documentation, Vital Signs Vital Signs: Last Vital Signs Temp 97.6 F 07/16/17 17:30 Pulse 65 07/16/17 17:30 Resp 18 07/16/17 17:30 BP 90/55 L 07/16/17 17:30 Pulse Ox 95 07/16/17 17:30 - Medical History PMH: Anxiety, Bipolar Disorder, COPD (Emphysema), Depression, Emphysema, Fractures (rt foot) Denies: Diabetes, Hepatitis, HIV, HTN, Chronic Kidney Disease, Seizures, Sexually Transmitted Disease Surgical History: Appendectomy (1989) - [facility] Procedures BELOW KNEE AMPUTAT NEC (02/19/15) DETOXIFICATION SERVICES FOR SUBSTANCE ABUSE TREATMENT (06/21/17) DRAINAGE OF LEFT LOWER LEG SKIN, EXTERNAL APPROACH (09/11/16) DRAINAGE OF RIGHT LOWER LEG SKIN, EXTERNAL APPROACH, DIAGN (03/07/17) GROUP MASTER OCEAN YACHT FOR SUBSTANCE ABUSE TREATMENT, PSYCHOEDUCATION (08/01/16) GROUP PSYCHOTHERAPY (12/16/15) IMMOBILIZ/WOUND ATTN NEC (10/07/12) INDIV PSYCHOTHERAPY FOR SUBSTANCE ABUSE TREATMENT, SUPPORT (12/21/16) INDIV PSYCHOTHERAPY FOR SUBSTANCE ABUSE, PSYCHOEDUCATION (09/11/16) INDIVIDUAL PSYCHOTHERAPY, SUPPORTIVE (06/21/17) INFLUENZA VACCINATION (05/13/13) NONEXCIS DEBRID OF WOUND, INFECT, OR BURN (05/13/13) PART OSTECT-METATAR/TAR (05/13/13) PARTIAL OSTECTOMY NEC (05/13/13) Family History: States: Unknown Family Hx - Social History Hx Tobacco Use: Yes Hx Alcohol Use: Yes Hx Substance Use: No - Immunization History Hx Tetanus Toxoid Vaccination: No Hx Influenza Vaccination: No Hx Pneumococcal Vaccination: Yes Review Of Systems Skin: Positive for: Other (redness, swelling and purulent discharge to right stump ) Physical Exam - Physical Exam Appears: Non-toxic, No Acute Distress Skin: Warm, Dry, Other (cellulitis over anterior right knee, extending to distal anterior thigh and into proximal anterior tib/fib) Extremity: Normal ROM, No Tenderness, Capillary Refill (less than 2 seconds ), Swelling (mild to anterior aspect of right knee ), Other (right below-knee- amputation ) Neurological/Psych: Oriented x3, Normal Speech, Normal Cognition, Other (calm, cooperative. no acut eintoxication or withdrawal ) Gait: Steady ED Course And Treatment - Laboratory Results Result Diagrams: 07/16/17 16:56 O2 Sat by Pulse Oximetry: 98 (on RA) Pulse Ox Interpretation: Normal Progress Note: Bloodwork and CXR ordered and reviewed. Vancomycin IVP and Toradol IVP administered. Progress - Re-Evaluation Re-evaluation Note: 07/16/17 15:38 D/W DR MITCHELL WILL NOTIFY DR QUEZADA PENDING CALLBACK DR Юлия HARRISON 07/16/17 16:14 D/W DR Юлия HARRISON C/F PMD WILL ADMIT - Data Reviewed Data Reviewed: Lab, Diagnostic imaging, Old records - Continuity of Care Discussed patient case with:: Patient, Covering for PMD Discussed pt. case with talent consultant/specialty: General Surgery Disposition Counseled Patient/Family Regarding: Studies Performed - Disposition Disposition: HOSPITALIZED Disposition Time: 16:14 Condition: STABLE - POA Present On Arrival: None - Clinical Impression Clinical Impression: Cellulitis - Scribe Statement The provider has reviewed the documentation as recorded by the Scribe (Apryl Harrison) Provider Attestation: All medical record entries made by the Scribe were at my direction and personally dictated by me. I have reviewed the chart and agree that the record accurately reflects my personal performance of the history, physical exam, medical decision making, and the department course for this patient. I have also personally directed, reviewed, and agree with the discharge instructions and disposition. Decision To Admit - Pt Status Changed To: Hospital Disposition Of: Inpatient - Admit Certification Admit to Inpatient:: After my assessment, the patient will require hospitalization for at least two midnights. This is because of the severity of symptoms shown, intensity of services needed, and/or the medical risk in this patient being treated as an outpatient. - InPatient: Physician Admission Certification: I certify that this patient requires 2 or more midnights of care for the following reason:: SEE NOTE - . Bed Request Type: Regular Admitting Physician: Sruthi Harrison Patient Diagnosis: Cellulitis
[2017-07-16] MEDS ORDERED: Vancomycin 1 gm/NS 200 ml 1 GM/200 ML BAG IVPB STA (15:42)
[2017-07-16] MEDS ORDERED: ceFAZolin 1 gm FROZEN Premix 1 GM/50 ML ML IVPB ONE (16:28)
--- NOTE | 2017-07-16 16:29 | CP.PCM.CON ---
History of Present Illness - History of Present Illness History of Present Illness: Surgical Consult Note: 47 year old female with past medical history of below the right knee amputation presents to the ED for right knee swelling. She states the swelling began 4 days ago but it began to drain white pus and blood today. She states she had a fever yesterday although she was not able to quantify. She also had chills and night sweats. She states her pain is burning and it is currently a 10/10. Her pain medications she takes daily does help alleviate her pain and her leg prosthesis makes the pain worse. She denies radiation of her pain. However she has been able to wear her prosthesis as she states sometimes she just needs to so she can get around. She also states she had water fill up in her knee a few months ago and she had it drained. She denies any other complaints at this time. PMD: Dr. Posadas Pain Management: unknown - she states she currently does not want him involved in her care during this admission Past Medical History: Denies Past Surgical History: BKA of right knee in 2014; Medications: 40mg Oxycontin QID; Clonipin 20mg TID; Gabapentin 300mg TID; Zoloft 40mg daily; Diclofenac Allergies: NKDA Social History: 4 shots of vodka daily (denies tremors, seizures or withdrawal symptoms); Smokes 1/2 pack per day for 20 years; denies illicit drug use Review of Systems - Constitutional Constitutional: Chills, Fever, Night Sweats. absent: Headache - Cardiovascular Cardiovascular: absent: Chest Pain, Dyspnea, Palpitations - Respiratory Respiratory: absent: Dyspnea - Gastrointestinal Gastrointestinal: absent: Constipation, Diarrhea, Nausea, Vomiting - Genitourinary Genitourinary: absent: Dysuria - Musculoskeletal Musculoskeletal: Joint Swelling Additional comments: Pain and burning in her right knee Past Patient History - Infectious Disease Hx of Infectious Diseases: None - Past Medical History & Family History Past Medical History?: Yes - Past Social History Smoking Status: Light Smoker < 10 Cigarettes Daily - CARDIAC Hx Hypertension: No - PULMONARY Hx Chronic Obstructive Pulmonary Disease (COPD): Yes (Emphysema) Hx Emphysema: Yes - NEUROLOGICAL Hx Seizures: No - HEENT Hx HEENT Problems: No - RENAL Hx Chronic Kidney Disease: No - ENDOCRINE/METABOLIC Hx Endocrine Disorders: No - HEMATOLOGICAL/ONCOLOGICAL Hx Human Immunodeficiency Virus (HIV): No - INTEGUMENTARY Hx Dermatological Problems: Yes Other/Comment: Multiple rashes on R leg and L arm - MUSCULOSKELETAL/RHEUMATOLOGICAL Hx Fractures: Yes (rt foot) - GASTROINTESTINAL Hx Gastrointestinal Disorders: Yes Hx Liver Failure: Yes Other/Comment: Cirrhosis of the Liver - GENITOURINARY/GYNECOLOGICAL Hx Sexually Transmitted Disorders: No - PSYCHIATRIC Hx Anxiety: Yes Hx Bipolar Disorder: Yes Hx Depression: Yes Hx Substance Use: No - SURGICAL HISTORY Hx Appendectomy: Yes (1989) - ANESTHESIA Hx Anesthesia: Yes Hx Anesthesia Reactions: No Hx Malignant Hyperthermia: No Meds Allergies/Adverse Reactions: Allergies Allergy/AdvReac Type Severity Reaction Status Date / Time No Known Allergies Allergy Verified 07/16/17 14:28 - Medications Medications: Current Medications Vancomycin/Sodium Chloride (Vancomycin 1 Gm/Ns 200 Ml) 1 gm in 200 mls @ 133.333 mls/hr IVPB STAT STA Stop: 07/16/17 17:11 Physical Exam - Constitutional Appears: No Acute Distress - Head Exam Head Exam: ATRAUMATIC, NORMAL INSPECTION - Eye Exam Eye Exam: EOMI, Normal appearance - ENT Exam ENT Exam: Mucous Membranes Moist - Respiratory Exam Respiratory Exam: Clear to Auscultation Bilateral, NORMAL BREATHING PATTERN - Cardiovascular Exam Cardiovascular Exam: REGULAR RHYTHM, +S1, +S2 - GI/Abdominal Exam GI & Abdominal Exam: Normal Bowel Sounds, Soft. absent: Tenderness - Extremities Exam Extremities exam: Positive for: joint swelling (right knee), tenderness (right knee) - Neurological Exam Neurological exam: Alert, Oriented x3 - Psychiatric Exam Psychiatric exam: Normal Affect, Normal Mood - Skin Skin Exam: Erythema (right knee ) Results - Vital Signs Recent Vital Signs: Last Vital Signs Temp 97.4 F L 07/16/17 14:24 Pulse 71 07/16/17 14:24 Resp 18 07/16/17 14:24 BP 94/63 L 07/16/17 14:24 Pulse Ox 98 07/16/17 16:14 Assessment & Plan - Assessment and Plan (Free Text) Assessment: 47 year old female with past medical history of below the right knee amputation presents to the ED for right knee swelling. 1.) Right knee swelling secondary to abscess vs. septic knee joint - Cefazolin 500mg q8h - Vancomycin 1g q24h - Continue warm compress - Possible I & D tomorrow Case discussed with Dr. Aretha Hardy PGY-1
[2017-07-16 16:59] LABS: BASO % 0.9 % (0.0-2.0); EOS # 0.1 K/uL (0.0-0.7); EOS % 2.3 % (0.0-4.0); HEMATOCRIT 33.2 % (34.0-47.0); LYMPH # 0.8 K/uL (1.0-4.3); LYMPH % 17.1 % (20.0-40.0); MEAN CELL VOLUME 92.1 fL (81.0-99.0); MEAN CORPUSCULAR HEMOGLOBIN 32.5 pg (27.0-31.0); MEAN CORPUSCULAR HGB CONC 35.3 g/dL (33.0-37.0); MEAN PLATELET VOLUME 10.2 fL (7.2-11.7); MONO # 0.3 K/uL (0.0-0.8); NRBC % 0.3 % (0.0-2.0); RED CELL DISTRIBUTION WIDTH 16.6 % (11.5-14.5); WHITE BLOOD COUNT 4.8 K/uL (4.8-10.8)
--- NOTE | 2017-07-16 17:06 | RAD ---
PROCEDURE: CHEST RADIOGRAPH, 1 VIEW HISTORY: MED CLEAR COMPARISON: 02/27/2015 FINDINGS: LUNGS: Clear. PLEURA: No pneumothorax or pleural fluid seen. CARDIOVASCULAR: Normal. OSSEOUS STRUCTURES: No significant abnormalities. VISUALIZED UPPER ABDOMEN: Normal. OTHER FINDINGS: Prior PICC line removed IMPRESSION: No interval pathology noted
[2017-07-16 17:36] LABS: ALCOHOL SERUM 163 mg/dl (0-10); BLOOD UREA NITROGEN 16 mg/dL (7-17); CALCIUM 7.6 mg/dl (8.6-10.4); CARBON DIOXIDE 22 mmol/L (22-30); CHLORIDE 104 mmol/L (98-107); GFR AFRICAN-AMERICAN > 60; GLUCOSE,RANDOM 113 mg/dL (65-105); POTASSIUM 4.1 mmol/L (3.6-5.2); SODIUM 135 mmol/L (132-148)
[2017-07-16] MEDS ORDERED: HYDROmorphone 1 mg/ml ISec IVP PRN (19:01)
[2017-07-16] MEDS ORDERED: HYDROmorphone 0.5 mg/0.5 ml ISec ONE (19:07)
--- NOTE | 2017-07-16 20:20 | CP.PCM.HP ---
Past Patient History - Infectious Disease Hx of Infectious Diseases: None - Past Medical History & Family History Past Medical History?: Yes - Past Social History Smoking Status: Light Smoker < 10 Cigarettes Daily - CARDIAC Hx Hypertension: No - PULMONARY Hx Chronic Obstructive Pulmonary Disease (COPD): Yes (Emphysema) Hx Emphysema: Yes - NEUROLOGICAL Hx Seizures: No - HEENT Hx HEENT Problems: No - RENAL Hx Chronic Kidney Disease: No - ENDOCRINE/METABOLIC Hx Endocrine Disorders: No - HEMATOLOGICAL/ONCOLOGICAL Hx Human Immunodeficiency Virus (HIV): No - INTEGUMENTARY Hx Dermatological Problems: Yes Other/Comment: Multiple rashes on R leg and L arm - MUSCULOSKELETAL/RHEUMATOLOGICAL Hx Fractures: Yes (rt foot) - GASTROINTESTINAL Hx Gastrointestinal Disorders: Yes Hx Liver Failure: Yes Other/Comment: Cirrhosis of the Liver - GENITOURINARY/GYNECOLOGICAL Hx Sexually Transmitted Disorders: No - PSYCHIATRIC Hx Anxiety: Yes Hx Bipolar Disorder: Yes Hx Depression: Yes Hx Substance Use: No - SURGICAL HISTORY Hx Appendectomy: Yes (1989) - ANESTHESIA Hx Anesthesia: Yes Hx Anesthesia Reactions: No Hx Malignant Hyperthermia: No Meds Allergies/Adverse Reactions: Allergies Allergy/AdvReac Type Severity Reaction Status Date / Time No Known Allergies Allergy Verified 07/16/17 14:28 Physical Exam - Constitutional Appears: Well - Head Exam Head Exam: ATRAUMATIC, NORMAL INSPECTION, NORMOCEPHALIC - Eye Exam Eye Exam: EOMI, Normal appearance, PERRL Pupil Exam: NORMAL ACCOMODATION, PERRL - ENT Exam ENT Exam: Mucous Membranes Moist, Normal Exam - Neck Exam Neck exam: Positive for: Normal Inspection - Respiratory Exam Respiratory Exam: Decreased Breath Sounds - Cardiovascular Exam Cardiovascular Exam: REGULAR RHYTHM, +S1, +S2 - GI/Abdominal Exam GI & Abdominal Exam: Diminished Bowel Sounds, Soft - Rectal Exam Rectal Exam: Deferred Results - Vital Signs Recent Vital Signs: Last Vital Signs Temp 97.8 F 07/16/17 19:04 Pulse 64 07/16/17 19:04 Resp 18 07/16/17 19:04 BP 108/78 07/16/17 19:13 Pulse Ox 99 07/16/17 19:04 - Labs Result Diagrams: 07/16/17 16:56 07/16/17 16:56 Labs: Laboratory Results - last 24 hr 07/16/17 07/16/17 16:56 16:56 WBC 4.8 RBC 3.61 L Hgb 11.7 D Hct 33.2 L MCV 92.1 MCH 32.5 H MCHC 35.3 RDW 16.6 H Plt Count 69 L D MPV 10.2 Neut % (Auto) 72.7 Lymph % (Auto) 17.1 L Norton % (Auto) 7.0 Eos % (Auto) 2.3 Baso % (Auto) 0.9 Neut # 3.5 Lymph # 0.8 L Norton # 0.3 Eos # 0.1 Baso # 0.0 Differential Comment Sodium 135 Potassium 4.1 Chloride 104 Carbon Dioxide 22 Anion Gap 13 BUN 16 Creatinine 0.8 Est GFR ( Amer) > 60 Est GFR (Non-Af Amer) > 60 Random Glucose 113 H Calcium 7.6 L Alcohol, Quantitative 163 H
[2017-07-16] MEDS ORDERED: oxyCODONE 30 mg Immediate Release Tab ONE (23:35)
[2017-07-16] MEDS: oxyCODONE 30 mg Immediate Release Tab PO SCH (23:36)
[2017-07-17] MEDS: Vancomycin 1 gm/NS 200 ml 1 GM/200 ML BAG IVPB SCH (05:59)
[2017-07-17] MEDS: Pantoprazole 40 mg EC Tab PO SCH (09:27)
--- NOTE | 2017-07-17 09:27 | CP.PCM.PN ---
Subjective - Date & Time of Evaluation Date of Evaluation: 07/17/17 Time of Evaluation: 06:30 - Subjective Subjective: General Surgery Dr. Carias Pt S&E @bedside. NAEO. Pt reports improved pain, swelling, erythema of R knee. Pt denies pain at stump. Pt denies F/C, N/V. tolerating diet. Objective - Vital Signs/Intake and Output Vital Signs (last 24 hours): Temp Pulse Resp BP Pulse Ox 98.8 F 61 18 99/61 L 97 07/17/17 07:30 07/17/17 07:30 07/17/17 07:30 07/17/17 07:30 07/17/17 07:30 Intake and Output: 07/17/17 07/17/17 06:59 18:59 Intake Total 900 Balance 900 - Medications Medications: Current Medications Clonazepam (Klonopin) 2 mg PO TID [facility] Enoxaparin Sodium (Lovenox) 40 mg SC DAILY [facility] Gabapentin (Neurontin) 300 mg PO TID [facility] Hydromorphone HCl (Dilaudid) 0.5 mg SC Q3 PRN PRN Reason: Pain, moderate (4-7) Hydromorphone HCl (Dilaudid) 1 mg IVP Q3 PRN PRN Reason: Pain, severe (8-10) Last Admin: 07/17/17 08:58 Dose: 1 mg Cefazolin Sodium 500 mg/ (Sodium Chloride) 100 mls @ 100 mls/hr IVPB Q8H [facility] Last Admin: 07/17/17 02:03 Dose: 100 mls/hr Vancomycin/Sodium Chloride (Vancomycin 1 Gm/Ns 200 Ml) 1 gm in 200 mls @ 133 mls/hr IVPB Q24H [facility] Stop: 07/22/17 06:01 Last Admin: 07/17/17 05:59 Dose: 133 mls/hr Oxycodone HCl (Oxycodone Immediate Release Tab) 30 mg PO QID [facility] Last Admin: 07/16/17 23:36 Dose: 30 mg Pantoprazole Sodium (Protonix Ec Tab) 40 mg PO DAILY [facility] Pneumococcal Polyvalent Vaccine (Pneumovax 23 Vaccine) 0.5 ml IM .ONCE ONE Stop: 07/20/17 10:01 Sertraline HCl (Zoloft) 50 mg PO DAILY [facility] - Labs Labs: 07/16/17 16:56 07/16/17 16:56 - Constitutional Appears: Non-toxic, No Acute Distress - Head Exam Head Exam: NORMAL INSPECTION - Eye Exam Eye Exam: Normal appearance - ENT Exam ENT Exam: Mucous Membranes Moist - Respiratory Exam Respiratory Exam: NORMAL BREATHING PATTERN. absent: Accessory Muscle Use, Respiratory Distress - Cardiovascular Exam Cardiovascular Exam: absent: Bradycardia, Tachycardia - Extremities Exam Additional comments: TTP R knee and joint (+) erythema, warmth, minimal fluctuance no induration - Neurological Exam Neurological Exam: Alert, Awake, Oriented x3 - Psychiatric Exam Psychiatric exam: Normal Affect, Normal Mood - Skin Skin Exam: Dry, Warm Assessment and Plan - Assessment and Plan (Free Text) Assessment: 47 y/o F R knee pain s/p R BKA - septic joint vs abscess - cont IV Abx - warm compress Q1 - pain management - I&D if collection forms - cont medical management Pt discussed w/Dr. Aretha Crawford DO PGY2
[2017-07-17] MEDS: Enoxaparin 40 mg Syringe SC SCH (09:28)
[2017-07-17] MEDS: oxyCODONE 30 mg Immediate Release Tab PO SCH ×4 (10:15→22:16)
--- NOTE | 2017-07-17 10:51 | CP.PCM.PN ---
Subjective - Date & Time of Evaluation Date of Evaluation: 07/17/17 Time of Evaluation: 10:47 - Subjective Subjective: Progress Note for Dr. Harrison's Service This is a 47 y/o F w/ pmhx of BKA on the right. She presented to the ED for right knee swelling that began 4 days ago. She noted purulent drainage with blood mixed into it. She admits to subjective fevers and chills at home prior to admission. Pt was seen and examined at bedside this morning. She continues to have pain in this extremity but states that the pain medications are taking the edge off. She denies any fevers or chills since admission. No CP/SOB/N/V/D/C. The surgical team saw her this morning and collected a wound cx. PMD: Dr. Posadas Pain Management: unknown - she states she currently does not want him involved in her care during this admission Past Medical History: Denies Past Surgical History: BKA of right knee in 2014; Medications: 40mg Oxycontin QID; Clonipin 20mg TID; Gabapentin 300mg TID; Zoloft 40mg daily; Diclofenac Allergies: NKDA Social History: 4 shots of vodka daily (denies tremors, seizures or withdrawal symptoms); Smokes 1/2 pack per day for 20 years; denies illicit drug use Objective - Vital Signs/Intake and Output Vital Signs (last 24 hours): Temp Pulse Resp BP Pulse Ox 98.8 F 61 18 99/61 L 97 07/17/17 07:30 07/17/17 07:30 07/17/17 07:30 07/17/17 07:30 07/17/17 07:30 Intake and Output: 07/17/17 07/17/17 06:59 18:59 Intake Total 900 Balance 900 - Medications Medications: Current Medications Clonazepam (Klonopin) 2 mg PO TID [facility] Last Admin: 07/17/17 09:27 Dose: 2 mg Enoxaparin Sodium (Lovenox) 40 mg SC DAILY [facility] Last Admin: 07/17/17 09:28 Dose: 40 mg Gabapentin (Neurontin) 300 mg PO TID [facility] Last Admin: 07/17/17 09:27 Dose: 300 mg Hydromorphone HCl (Dilaudid) 0.5 mg SC Q3 PRN PRN Reason: Pain, moderate (4-7) Hydromorphone HCl (Dilaudid) 1 mg IVP Q3 PRN PRN Reason: Pain, severe (8-10) Last Admin: 07/17/17 08:58 Dose: 1 mg Cefazolin Sodium 500 mg/ (Sodium Chloride) 100 mls @ 100 mls/hr IVPB Q8H [facility] Last Admin: 07/17/17 09:28 Dose: 100 mls/hr Vancomycin/Sodium Chloride (Vancomycin 1 Gm/Ns 200 Ml) 1 gm in 200 mls @ 133 mls/hr IVPB Q24H [facility] Stop: 07/22/17 06:01 Last Admin: 07/17/17 05:59 Dose: 133 mls/hr Oxycodone HCl (Oxycodone Immediate Release Tab) 30 mg PO QID [facility] Last Admin: 07/17/17 10:15 Dose: 30 mg Pantoprazole Sodium (Protonix Ec Tab) 40 mg PO DAILY [facility] Last Admin: 07/17/17 09:27 Dose: 40 mg Pneumococcal Polyvalent Vaccine (Pneumovax 23 Vaccine) 0.5 ml IM .ONCE ONE Stop: 07/20/17 10:01 Sertraline HCl (Zoloft) 50 mg PO DAILY [facility] Last Admin: 07/17/17 09:27 Dose: 50 mg - Labs Labs: 07/16/17 16:56 07/16/17 16:56 - Constitutional Appears: No Acute Distress - Head Exam Head Exam: ATRAUMATIC, NORMAL INSPECTION - Eye Exam Eye Exam: EOMI - ENT Exam ENT Exam: Mucous Membranes Moist - Respiratory Exam Respiratory Exam: Clear to Ausculation Bilateral, NORMAL BREATHING PATTERN - Cardiovascular Exam Cardiovascular Exam: REGULAR RHYTHM, +S1, +S2 - GI/Abdominal Exam GI & Abdominal Exam: Soft. absent: Tenderness - Extremities Exam Additional comments: s/p BKA on the right. Serosanguineous discharge with minimal purulence. Mild erythema and swelling of stump. - Neurological Exam Neurological Exam: Alert, Awake, Oriented x3 - Skin Skin Exam: Intact Additional comments: as noted in extremity Assessment and Plan - Assessment and Plan (Free Text) Plan: Cellulitis of R BKA Consult Gen Surg- Dr. Carias; recs appreciated Wound cx collected- follow up results Follow up surgery recommendations Consult ID- Dr. Anders; recs appreciated Cefazolin- 500mg IV q8hrs Vancomycin- 1g IV daily Gabapentin- 300mg PO TID WBC 4.8 today Afebrile currently; Tmax overnight was 101.1 Previous admission wound cx (03/07/17) MRSA Pain control: Dilaudid 1mg IVP Q3h PRN for pain Oxycodone 30mg PO q6hrs for pain PT ordered Depression Klonopin 2mg PO TID [facility] Zoloft 50 mg PO daily Smoking cessation Nicoderm 1 patch TD Q24h Prophylactic Measure Protonix 40mg PO Daily Lovenox 40mg SC Daily Case discussed with Dr. Harrison All management as per Dr. Harrison
--- NOTE | 2017-07-17 16:54 | CP.PCM.PN ---
Subjective - Date & Time of Evaluation Date of Evaluation: 07/17/17 Time of Evaluation: 10:20 - Subjective Subjective: clinically same Objective - Vital Signs/Intake and Output Vital Signs (last 24 hours): Temp Pulse Resp BP Pulse Ox 98.8 F 62 18 105/67 96 07/17/17 16:14 07/17/17 16:14 07/17/17 16:14 07/17/17 16:14 07/17/17 16:14 Intake and Output: 07/17/17 07/17/17 06:59 18:59 Intake Total 900 Balance 900 - Medications Medications: Current Medications Clonazepam (Klonopin) 2 mg PO TID [facility] Last Admin: 07/17/17 14:46 Dose: 2 mg Enoxaparin Sodium (Lovenox) 40 mg SC DAILY [facility] Last Admin: 07/17/17 09:28 Dose: 40 mg Gabapentin (Neurontin) 300 mg PO TID [facility] Last Admin: 07/17/17 14:47 Dose: 300 mg Hydromorphone HCl (Dilaudid) 0.5 mg SC Q3 PRN PRN Reason: Pain, moderate (4-7) Hydromorphone HCl (Dilaudid) 1 mg IVP Q3 PRN PRN Reason: Pain, severe (8-10) Last Admin: 07/17/17 16:33 Dose: 1 mg Cefazolin Sodium 500 mg/ (Sodium Chloride) 100 mls @ 100 mls/hr IVPB Q8H [facility] Last Admin: 07/17/17 09:28 Dose: 100 mls/hr Vancomycin/Sodium Chloride (Vancomycin 1 Gm/Ns 200 Ml) 1 gm in 200 mls @ 133 mls/hr IVPB Q24H [facility] Stop: 07/22/17 06:01 Last Admin: 07/17/17 05:59 Dose: 133 mls/hr Nicotine (Nicoderm Cq) 1 patch TD DAILY [facility] Oxycodone HCl (Oxycodone Immediate Release Tab) 30 mg PO QID [facility] Last Admin: 07/17/17 14:01 Dose: Not Given Pantoprazole Sodium (Protonix Ec Tab) 40 mg PO DAILY [facility] Last Admin: 07/17/17 09:27 Dose: 40 mg Pneumococcal Polyvalent Vaccine (Pneumovax 23 Vaccine) 0.5 ml IM .ONCE ONE Stop: 07/20/17 10:01 Sertraline HCl (Zoloft) 50 mg PO DAILY [facility] Last Admin: 07/17/17 09:27 Dose: 50 mg - Labs Labs: 07/16/17 16:56 07/16/17 16:56 - Constitutional Appears: Well - Head Exam Head Exam: ATRAUMATIC, NORMAL INSPECTION, NORMOCEPHALIC - Eye Exam Eye Exam: EOMI, Normal appearance, PERRL Pupil Exam: NORMAL ACCOMODATION, PERRL - ENT Exam ENT Exam: Mucous Membranes Moist, Normal Exam - Neck Exam Neck Exam: Full ROM, Normal Inspection. absent: Lymphadenopathy - Respiratory Exam Respiratory Exam: Decreased Breath Sounds - Cardiovascular Exam Cardiovascular Exam: REGULAR RHYTHM, +S1, +S2 - GI/Abdominal Exam GI & Abdominal Exam: Soft, Diminished Bowel Sounds - Rectal Exam Rectal Exam: Deferred
--- NOTE | 2017-07-17 19:10 | CP.PCM.CON ---
History of Present Illness - History of Present Illness History of Present Illness: 47 year old female presents to the ED for right knee swelling. She states the swelling began 4 days ago but it began to drain white pus and blood today. She states she had a fever yesterday although she was not able to quantify. She also had chills and night sweats. She has multiple stump infections in the past BKA over 1 yr ago Past Medical History: COPD, HepC ? 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, Past Surgical History: BKA of right knee in 2015; Medications: 40mg Oxycontin QID; Clonipin 20mg TID; Gabapentin 300mg TID; Zoloft 40mg daily; Diclofenac Allergies: NKDA Social History: 4 shots of vodka daily (denies tremors, seizures or withdrawal symptoms); Smokes 1/2 pack per day for 20 years; denies illicit drug use Review of Systems - Review of Systems All systems: reviewed and no additional remarkable complaints except - Constitutional Constitutional: As Per HPI - EENT Eyes: absent: As Per HPI, Blind Spots, Blurred Vision, Change in Vision, Decreased Night Vision, Diplopia, Discharge, Dry Eye, Exophthalmos, Floaters, Irritation, Itchy Eyes, Loss of Peripheral Vision, Pain, Photophobia, Requires Corrective Lenses, Sees Flashes, Spots in Vision, Tunnel Vision, Other Visual Disturbances, Loss of Vision, Other Ears: absent: As Per HPI, Decreased Hearing, Ear Discharge, Ear Pain, Tinnitus, Abnormal Hearing, Disequilibrium, Dizziness, Other Nose/Mouth/Throat: absent: As Per HPI, Epistaxis, Nasal Congestion, Nasal Discharge, Nasal Obstruction, Nasal Trauma, Nose Pain, Post Nasal Drip, Sinus Pain, Sinus Pressure, Bleeding Gums, Change in Voice, Dental Pain, Dry Mouth, Dysphagia, Halitosis, Hoarsness, Lip Swelling, Mouth Lesions, Mouth Pain, Odynophagia, Sore Throat, Throat Swelling, Tongue Swelling, Facial Pain, Neck Pain, Neck Mass, Other - Breasts Breasts: absent: As Per HPI, Change in Shape, Mass, Pain, Nipple Discharge, Nipple Inversion, Skin Changes, Swelling, Other - Cardiovascular Cardiovascular: absent: As Per HPI, Acrocyanosis, Chest Pain, Chest Pain at Rest , Chest Pain with Activity, Claudication, Diaphoresis, Dyspnea, Dyspnea on Exertion, Edema, Irregular Heart Rhythm, Pain Radiating to Arm/Neck/Jaw, Leg Edema, Leg Ulcers, Lightheadedness, Orthopnea, Palpitations, Paroxysmal Nocturnal Dyspnea, Pedal Edema, Radiating Pain, Rapid Heart Rate, Slow Heart Rate, Syncope, Other - Respiratory Respiratory: As Per HPI - Gastrointestinal Gastrointestinal: absent: As Per HPI, Abdominal Pain, Belching, Bloating, Change in Bowel Habits, Change in Stool Character, Coffee Ground Emesis, Constipation, Cramping, Diarrhea, Dyspepsia, Dysphagia, Early Satiety, Excessive Flatus, Fecal Incontinence, Heartburn, Hematemesis, Hematochezia, Loose Stools, Melena, Nausea, Odynophagia, Temesmus, Vomiting, Other - Genitourinary Genitourinary: absent: As Per HPI, Change in Urinary Stream, Difficulty Urinating, Dysuria, Flank Pain, Hematuria, Pyuria, Nocturia, Urinary Incontinence, Urinary Frequency, Urinary Hesitance, Urinary Urgency, Voiding Freq/Small Amts, Freq UTI, Hx Renal/Bladder Calculi, Hx /Renal Surgery, Bladder Distension, Other - Reproductive: Female Reproductive:Female: absent: As Per HPI, Amenorrhea, Amenorrhea/ Control, Currently Menstual, Cycle <21 Days, Cycle >35 Days, Cycle Variable, Menses 1-7 Days, Menses >/= 8 Days, Menses Variable, Cycle > 4 Weeks Between, No Menses for 6 Months, Heavy Menses, Light Menses, Normal Menses, Spotting Between Cycles , S/P Hysterectomy, Menopausal, Post Menopausal, Premenarche, Abnormal Vaginal Bleeding, Dysmenorrhea, Dyspareunia, Genital Lesions, Genital Pruritis, Pelvic Pain, Prolapse Symptoms, Sexual Dysfunction, Vaginal Discharge, Vaginal Dryness , Vaginal Odor, Vaginal Pruritis, Other - Menstruation Menstruation: absent: As Per HPI, Amenorrhea, Amenorrhea/ Control, Currently Menstual, Cycle <21 Days, Cycle >35 Days, Cycle Variable, Menses 1-7 Days, Menses >/= 8 Days, Menses Variable, Cycle > 4 Weeks Between, No Menses for 6 Months, Heavy Menses, Light Menses, Normal Menses, Spotting Between Cycles , S/P Hysterectomy, Menopausal, Post Menopausal, Premenarche, Abnormal Vaginal Bleeding, Dysmenorrhea, Other - Musculoskeletal Musculoskeletal: As Per HPI - Integumentary Integumentary: As Per HPI - Neurological Neurological: As Per HPI - Psychiatric Psychiatric: absent: As Per HPI, Abnormal Sleep Pattern, Anhedonia, Anxiety, Auditory Hallucinations, Behavioral Changes, Change in Appetite, Change in Libido, Confusion, Depression, Difficulty Concentrating, Hallucinations, Homicidal Ideation, Hopelessness, Irritability, Memory Loss, Mood Swings, Panic Attacks, Paranoia, Suicidal Ideation, Visual Hallucinations, Tactile Hallucinations, Other - Endocrine Endocrine: absent: As Per HPI, Change in Body Appearance, Change in Libido, Cold Intolorance, Deepening of Voice, Excessive Sweating, Fatigue, Flushing, Heat Intolorance, Increase in Ring/Shoe/Hat Size, Palpitations, Polydipsia, Polyphagia, Polyuria, Other - Hematologic/Lymphatic Hematologic: absent: As Per HPI, Easy Bleeding, Easy Bruising, Lymphadenopathy, Other Past Patient History - Infectious Disease Hx of Infectious Diseases: None - Past Medical History & Family History Past Medical History?: Yes - Past Social History Smoking Status: Light Smoker < 10 Cigarettes Daily - CARDIAC Hx Cardiac Disorders: No Hx Hypertension: No - PULMONARY Hx Chronic Obstructive Pulmonary Disease (COPD): Yes (Emphysema) - NEUROLOGICAL Hx Neurological Disorder: No Hx Seizures: No - HEENT Hx HEENT Problems: No - RENAL Hx Chronic Kidney Disease: No - ENDOCRINE/METABOLIC Hx Endocrine Disorders: No - HEMATOLOGICAL/ONCOLOGICAL Hx Blood Disorders: No Hx Human Immunodeficiency Virus (HIV): No - INTEGUMENTARY Hx Dermatological Problems: No - MUSCULOSKELETAL/RHEUMATOLOGICAL Hx Musculoskeletal Disorders: Yes Hx Falls: No Hx Fractures: Yes (rt foot) - GASTROINTESTINAL Hx Gastrointestinal Disorders: Yes Hx Liver Failure: Yes Other/Comment: Cirrhosis of the Liver - GENITOURINARY/GYNECOLOGICAL Hx Genitourinary Disorders: No Hx Sexually Transmitted Disorders: No - PSYCHIATRIC Hx Psychophysiologic Disorder: Yes Hx Anxiety: Yes Hx Bipolar Disorder: Yes Hx Depression: Yes Hx Substance Use: No - SURGICAL HISTORY Hx Surgeries: Yes Hx Amputation: Yes (February 2016, R BKA) Hx Appendectomy: Yes (1989) - ANESTHESIA Hx Anesthesia: Yes Hx Anesthesia Reactions: No Hx Malignant Hyperthermia: No Meds Allergies/Adverse Reactions: Allergies Allergy/AdvReac Type Severity Reaction Status Date / Time No Known Allergies Allergy Verified 07/16/17 14:28 - Medications Medications: Current Medications Clonazepam (Klonopin) 2 mg PO TID [facility] Last Admin: 07/17/17 18:13 Dose: 2 mg Enoxaparin Sodium (Lovenox) 40 mg SC DAILY [facility] Last Admin: 07/17/17 09:28 Dose: 40 mg Gabapentin (Neurontin) 300 mg PO TID [facility] Last Admin: 07/17/17 18:13 Dose: 300 mg Hydromorphone HCl (Dilaudid) 0.5 mg SC Q3 PRN PRN Reason: Pain, moderate (4-7) Hydromorphone HCl (Dilaudid) 1 mg IVP Q3 PRN PRN Reason: Pain, severe (8-10) Last Admin: 07/17/17 16:33 Dose: 1 mg Cefazolin Sodium 500 mg/ (Sodium Chloride) 100 mls @ 100 mls/hr IVPB Q8H [facility] Last Admin: 07/17/17 18:11 Dose: 100 mls/hr Vancomycin/Sodium Chloride (Vancomycin 1 Gm/Ns 200 Ml) 1 gm in 200 mls @ 133 mls/hr IVPB Q24H [facility] Stop: 07/22/17 06:01 Last Admin: 07/17/17 05:59 Dose: 133 mls/hr Nicotine (Nicoderm Cq) 1 patch TD DAILY [facility] Oxycodone HCl (Oxycodone Immediate Release Tab) 30 mg PO QID [facility] Last Admin: 07/17/17 18:13 Dose: 30 mg Pantoprazole Sodium (Protonix Ec Tab) 40 mg PO DAILY [facility] Last Admin: 07/17/17 09:27 Dose: 40 mg Pneumococcal Polyvalent Vaccine (Pneumovax 23 Vaccine) 0.5 ml IM .ONCE ONE Stop: 07/20/17 10:01 Sertraline HCl (Zoloft) 50 mg PO DAILY [facility] Last Admin: 07/17/17 09:27 Dose: 50 mg Physical Exam - Constitutional Appears: Non-toxic, Chronically Ill - Head Exam Head Exam: NORMOCEPHALIC - Eye Exam Eye Exam: PERRL. absent: Scleral icterus - ENT Exam ENT Exam: Mucous Membranes Dry, Normal External Ear Exam, Normal Oropharynx - Neck Exam Neck exam: Negative for: Lymphadenopathy, Thyromegaly - Respiratory Exam Respiratory Exam: Decreased Breath Sounds, Rhonchi - Cardiovascular Exam Cardiovascular Exam: REGULAR RHYTHM, +S1, +S2 - GI/Abdominal Exam GI & Abdominal Exam: Diminished Bowel Sounds, Distended, Soft. absent: Tenderness - Rectal Exam Rectal Exam: Deferred - Exam Exam: NORMAL INSPECTION - Extremities Exam Extremities exam: Negative for: calf tenderness, pedal edema Additional comments: awelling right BKA stump anteriorly drainage right BKA stump - Back Exam Back exam: absent: CVA tenderness (L), CVA tenderness (R) - Neurological Exam Neurological exam: Alert, CN II-XII Intact, Oriented x3, Reflexes Normal - Psychiatric Exam Psychiatric exam: Depressed - Skin Skin Exam: Dry Results - Vital Signs Recent Vital Signs: Last Vital Signs Temp 98.8 F 07/17/17 16:14 Pulse 62 07/17/17 16:14 Resp 18 07/17/17 16:14 BP 105/67 07/17/17 16:14 Pulse Ox 96 07/17/17 16:14 - Labs Result Diagrams: 07/16/17 16:56 07/16/17 16:56 Labs: Laboratory Results - last 24 hr 07/16/17 16:56 Differential Comment Assessment & Plan (1) Cellulitis Status: Acute (2) BKA stump complication Status: Acute (3) Cellulitis Status: Acute - Assessment and Plan (Free Text) Assessment: consider MRI stump to r/o OM cont IV Vanco wound care
[2017-07-18 04:57] LABS: EOS % 2.5 % (0.0-4.0); HEMATOCRIT 31.2 % (34.0-47.0); LYMPH # 0.5 K/uL (1.0-4.3); LYMPH % 29.5 % (20.0-40.0); MEAN CORPUSCULAR HEMOGLOBIN 32.4 pg (27.0-31.0); MEAN CORPUSCULAR HGB CONC 35.2 g/dL (33.0-37.0); MEAN PLATELET VOLUME 9.2 fL (7.2-11.7); MONO # 0.2 K/uL (0.0-0.8); MONO % 11.3 % (0.0-10.0); NRBC % 0.3 % (0.0-2.0); RED CELL DISTRIBUTION WIDTH 16.6 % (11.5-14.5)
[2017-07-18 04:59] LABS: WHITE BLOOD COUNT 1.8 K/uL (4.8-10.8)
[2017-07-18] MEDS: Vancomycin 1 gm/NS 200 ml 1 GM/200 ML BAG IVPB SCH (06:37)
[2017-07-18 06:58] LABS: ALB/GLOB RATIO 0.7 (1.0-2.1); ALKALINE PHOSPHATASE 84 U/L (38-126); ALT/SGPT 34 U/L (9-52); AST/SGOT 52 U/L (14-36); BILIRUBIN,TOTAL 0.6 mg/dL (0.2-1.3); BLOOD UREA NITROGEN 14 mg/dL (7-17); CALCIUM 7.9 mg/dl (8.6-10.4); CARBON DIOXIDE 29 mmol/L (22-30); CHLORIDE 103 mmol/L (98-107); GFR AFRICAN-AMERICAN > 60; GLUCOSE,RANDOM 110 mg/dL (65-105); POTASSIUM 4.3 mmol/L (3.6-5.2); SODIUM 134 mmol/L (132-148); TOTAL PROTEIN 7.5 g/dL (6.3-8.3)
--- NOTE | 2017-07-18 08:00 | CP.PCM.PN ---
Subjective - Date & Time of Evaluation Date of Evaluation: 07/18/17 Time of Evaluation: 07:58 - Subjective Subjective: Surgery Progress note. Dr. Carias Pt seen and examined at bedside. No acute events overnight. No F/C. Pain tolerable. No new complaints. Objective - Vital Signs/Intake and Output Vital Signs (last 24 hours): Temp Pulse Resp BP Pulse Ox 97.8 F 56 L 20 123/79 98 07/17/17 23:05 07/17/17 23:05 07/17/17 23:05 07/17/17 23:05 07/17/17 23:05 Intake and Output: 07/18/17 07/18/17 06:59 18:59 Intake Total 620 Output Total 400 Balance 220 - Medications Medications: Current Medications Clonazepam (Klonopin) 2 mg PO TID [facility] Last Admin: 07/17/17 18:13 Dose: 2 mg Enoxaparin Sodium (Lovenox) 40 mg SC DAILY [facility] Last Admin: 07/17/17 09:28 Dose: 40 mg Gabapentin (Neurontin) 300 mg PO TID [facility] Last Admin: 07/17/17 18:13 Dose: 300 mg Hydromorphone HCl (Dilaudid) 0.5 mg SC Q3 PRN PRN Reason: Pain, moderate (4-7) Hydromorphone HCl (Dilaudid) 1 mg IVP Q3 PRN PRN Reason: Pain, severe (8-10) Last Admin: 07/18/17 04:16 Dose: 1 mg Cefazolin Sodium 500 mg/ (Sodium Chloride) 100 mls @ 100 mls/hr IVPB Q8H [facility] Last Admin: 07/18/17 01:16 Dose: 100 mls/hr Vancomycin/Sodium Chloride (Vancomycin 1 Gm/Ns 200 Ml) 1 gm in 200 mls @ 133 mls/hr IVPB Q24H [facility] Stop: 07/22/17 06:01 Last Admin: 07/18/17 06:37 Dose: 133 mls/hr Nicotine (Nicoderm Cq) 1 patch TD DAILY [facility] Last Admin: 07/17/17 16:00 Dose: 1 patch Oxycodone HCl (Oxycodone Immediate Release Tab) 30 mg PO QID [facility] Last Admin: 07/17/17 22:16 Dose: 30 mg Pantoprazole Sodium (Protonix Ec Tab) 40 mg PO DAILY [facility] Last Admin: 07/17/17 09:27 Dose: 40 mg Pneumococcal Polyvalent Vaccine (Pneumovax 23 Vaccine) 0.5 ml IM .ONCE ONE Stop: 07/20/17 10:01 Sertraline HCl (Zoloft) 50 mg PO DAILY [facility] Last Admin: 07/17/17 09:27 Dose: 50 mg - Labs Labs: 07/18/17 04:51 07/18/17 04:51 - Constitutional Appears: Well, Non-toxic, No Acute Distress - Head Exam Head Exam: ATRAUMATIC, NORMAL INSPECTION, NORMOCEPHALIC - Eye Exam Eye Exam: EOMI - ENT Exam ENT Exam: Mucous Membranes Moist - Respiratory Exam Respiratory Exam: NORMAL BREATHING PATTERN. absent: Accessory Muscle Use, Respiratory Distress - Cardiovascular Exam Cardiovascular Exam: absent: JVD - GI/Abdominal Exam GI & Abdominal Exam: Soft. absent: Guarding, Rigid, Tenderness - Extremities Exam Additional comments: Right Knee erythema improving. Swelling improving. BKA incision site scar intact with no discharge or erythema. - Neurological Exam Neurological Exam: Alert, Awake, Oriented x3 Assessment and Plan - Assessment and Plan (Free Text) Assessment: 47yo F with Right Knee pain s/p R BKA - Continue Abx as per ID. f/u ID recs - Continue warm compresses - Pain management - f/u R knee aspirate Culture Further recs as per Dr. Aretha Nagy PGY1 surgery pager: [phone]
--- NOTE | 2017-07-18 09:48 | CP.PCM.PN ---
Subjective - Date & Time of Evaluation Date of Evaluation: 07/18/17 Time of Evaluation: 09:47 - Subjective Subjective: PGY2 medicine progress note for Dr. Harrison's service Patient seen and examined. Patient reports that right knee swelling is slightly improved compared to yesterday and that the joint feels less warm. She denies further drainage from the knee. She reports poor appetite but denies nausea or vomiting. Objective - Vital Signs/Intake and Output Vital Signs (last 24 hours): Temp Pulse Resp BP Pulse Ox 98.3 F 57 L 18 123/73 95 07/18/17 07:35 07/18/17 07:35 07/18/17 07:35 07/18/17 07:35 07/18/17 07:35 Intake and Output: 07/18/17 07/18/17 06:59 18:59 Intake Total 620 Output Total 400 Balance 220 - Medications Medications: Current Medications Clonazepam (Klonopin) 2 mg PO TID [facility] Last Admin: 07/17/17 18:13 Dose: 2 mg Enoxaparin Sodium (Lovenox) 40 mg SC DAILY [facility] Last Admin: 07/17/17 09:28 Dose: 40 mg Gabapentin (Neurontin) 300 mg PO TID [facility] Last Admin: 07/17/17 18:13 Dose: 300 mg Hydromorphone HCl (Dilaudid) 0.5 mg SC Q3 PRN PRN Reason: Pain, moderate (4-7) Hydromorphone HCl (Dilaudid) 1 mg IVP Q3 PRN PRN Reason: Pain, severe (8-10) Last Admin: 07/18/17 08:50 Dose: 1 mg Cefazolin Sodium 500 mg/ (Sodium Chloride) 100 mls @ 100 mls/hr IVPB Q8H [facility] Last Admin: 07/18/17 01:16 Dose: 100 mls/hr Vancomycin/Sodium Chloride (Vancomycin 1 Gm/Ns 200 Ml) 1 gm in 200 mls @ 133 mls/hr IVPB Q24H [facility] Stop: 07/22/17 06:01 Last Admin: 07/18/17 06:37 Dose: 133 mls/hr Nicotine (Nicoderm Cq) 1 patch TD DAILY [facility] Last Admin: 07/17/17 16:00 Dose: 1 patch Oxycodone HCl (Oxycodone Immediate Release Tab) 30 mg PO QID [facility] Last Admin: 07/17/17 22:16 Dose: 30 mg Pantoprazole Sodium (Protonix Ec Tab) 40 mg PO DAILY [facility] Last Admin: 07/17/17 09:27 Dose: 40 mg Pneumococcal Polyvalent Vaccine (Pneumovax 23 Vaccine) 0.5 ml IM .ONCE ONE Stop: 07/20/17 10:01 Sertraline HCl (Zoloft) 50 mg PO DAILY [facility] Last Admin: 07/17/17 09:27 Dose: 50 mg - Labs Labs: 07/18/17 04:51 07/18/17 04:51 - Constitutional Appears: No Acute Distress - Head Exam Head Exam: ATRAUMATIC, NORMOCEPHALIC - Eye Exam Eye Exam: EOMI - ENT Exam ENT Exam: Mucous Membranes Moist - Respiratory Exam Respiratory Exam: Clear to Ausculation Bilateral - Cardiovascular Exam Cardiovascular Exam: +S1, +S2 - GI/Abdominal Exam GI & Abdominal Exam: Soft, Normal Bowel Sounds. absent: Tenderness - Extremities Exam Additional comments: Right BKA, right knee warm to touch, mildly erythematous, pre-patellar swelling - Neurological Exam Neurological Exam: Alert, Awake - Psychiatric Exam Psychiatric exam: Normal Affect - Skin Skin Exam: Warm Assessment and Plan - Assessment and Plan (Free Text) Assessment: Cellulitis of R Knee history right BKA Consult Gen Surg- Dr. Cairas; recs appreciated Wound cx collected- gram stain with many PMNs, no organisms; culture pending Follow up surgery recommendations Consult ID- Dr. Anders; rec MRI to r/o osteomyelitis- ordered today Cefazolin- 500mg IV q8hrs Vancomycin- 1g IV daily Gabapentin- 300mg PO TID WBC 1.8 today Afebrile 24h Previous admission wound cx (03/07/17) MRSA Pain control: Dilaudid 1mg IVP Q3h PRN for pain Oxycodone 30mg PO q6hrs for pain PT ordered Leukopenia WBC count 1.8, Platelet count 65 Dr. Malone, heme-onc consulted, help appreciated Depression Klonopin 2mg PO TID [facility] Zoloft 50 mg PO daily Smoking cessation Nicoderm 1 patch TD Q24h Prophylactic Measure Protonix 40mg PO Daily Lovenox 40mg SC Daily Case discussed with Dr. Harrison All management as per Dr. Harrison
[2017-07-18] MEDS: Enoxaparin 40 mg Syringe SC SCH (10:54)
[2017-07-18] MEDS: Pantoprazole 40 mg EC Tab PO SCH (10:55)
[2017-07-18] MEDS: oxyCODONE 30 mg Immediate Release Tab PO SCH ×4 (10:55→21:12)
--- NOTE | 2017-07-18 21:29 | CP.PCM.PN ---
Subjective - Date & Time of Evaluation Date of Evaluation: 07/18/17 Time of Evaluation: 10:40 - Subjective Subjective: clinically same Objective - Vital Signs/Intake and Output Vital Signs (last 24 hours): Temp Pulse Resp BP Pulse Ox 97.9 F 63 18 95/61 L 97 07/18/17 15:17 07/18/17 15:17 07/18/17 15:17 07/18/17 15:17 07/18/17 15:17 Intake and Output: 07/18/17 07/19/17 18:59 06:59 Intake Total 700 Output Total 400 Balance 300 - Medications Medications: Current Medications Clonazepam (Klonopin) 2 mg PO TID [facility] Last Admin: 07/18/17 17:47 Dose: 2 mg Enoxaparin Sodium (Lovenox) 40 mg SC DAILY [facility] Last Admin: 07/18/17 10:54 Dose: 40 mg Gabapentin (Neurontin) 300 mg PO TID [facility] Last Admin: 07/18/17 19:00 Dose: 300 mg Hydromorphone HCl (Dilaudid) 0.5 mg SC Q3 PRN PRN Reason: Pain, moderate (4-7) Hydromorphone HCl (Dilaudid) 1 mg IVP Q3 PRN PRN Reason: Pain, severe (8-10) Last Admin: 07/18/17 19:26 Dose: 1 mg Cefazolin Sodium 500 mg/ (Sodium Chloride) 100 mls @ 100 mls/hr IVPB Q8H [facility] Last Admin: 07/18/17 17:47 Dose: 100 mls/hr Vancomycin HCl 1,000 mg/ (Sodium Chloride) 250 mls @ 166.6 mls/hr IVPB Q12H [facility] Last Admin: 07/18/17 19:36 Dose: 166.6 mls/hr Nicotine (Nicoderm Cq) 1 patch TD DAILY [facility] Last Admin: 07/18/17 10:55 Dose: 1 patch Oxycodone HCl (Oxycodone Immediate Release Tab) 30 mg PO QID [facility] Last Admin: 07/18/17 21:12 Dose: 30 mg Pantoprazole Sodium (Protonix Ec Tab) 40 mg PO DAILY [facility] Last Admin: 07/18/17 10:55 Dose: 40 mg Pneumococcal Polyvalent Vaccine (Pneumovax 23 Vaccine) 0.5 ml IM .ONCE ONE Stop: 07/20/17 10:01 Sertraline HCl (Zoloft) 50 mg PO DAILY [facility] Last Admin: 07/18/17 10:57 Dose: 50 mg - Labs Labs: 07/18/17 04:51 07/18/17 04:51
[2017-07-19 01:46] VITALS: RESP 20
--- NOTE | 2017-07-19 06:39 | CP.PCM.PN ---
Subjective - Date & Time of Evaluation Date of Evaluation: 07/19/17 Time of Evaluation: 06:38 - Subjective Subjective: General Surgery Dr. Carias Pt S&E @bedside. Pt sleeping on rounds. NAEO. Per nursing, pt medicated for pain overnight but otherwise no issues. Tolerating regular diet. Objective - Vital Signs/Intake and Output Vital Signs (last 24 hours): Temp Pulse Resp BP Pulse Ox 97.4 F L 57 L 20 102/66 97 07/18/17 23:05 07/18/17 23:05 07/18/17 23:05 07/18/17 23:05 07/18/17 23:05 Intake and Output: 07/18/17 07/19/17 18:59 06:59 Intake Total 700 Output Total 400 Balance 300 - Medications Medications: Current Medications Clonazepam (Klonopin) 2 mg PO TID [facility] Last Admin: 07/18/17 17:47 Dose: 2 mg Enoxaparin Sodium (Lovenox) 40 mg SC DAILY [facility] Last Admin: 07/18/17 10:54 Dose: 40 mg Gabapentin (Neurontin) 300 mg PO TID [facility] Last Admin: 07/18/17 19:00 Dose: 300 mg Hydromorphone HCl (Dilaudid) 0.5 mg SC Q3 PRN PRN Reason: Pain, moderate (4-7) Hydromorphone HCl (Dilaudid) 1 mg IVP Q3 PRN PRN Reason: Pain, severe (8-10) Last Admin: 07/19/17 04:30 Dose: 1 mg Cefazolin Sodium 500 mg/ (Sodium Chloride) 100 mls @ 100 mls/hr IVPB Q8H [facility] Last Admin: 07/19/17 01:36 Dose: 100 mls/hr Vancomycin HCl 1,000 mg/ (Sodium Chloride) 250 mls @ 166.6 mls/hr IVPB Q12H [facility] Last Admin: 07/18/17 19:36 Dose: 166.6 mls/hr Nicotine (Nicoderm Cq) 1 patch TD DAILY [facility] Last Admin: 07/18/17 10:55 Dose: 1 patch Oxycodone HCl (Oxycodone Immediate Release Tab) 30 mg PO QID [facility] Last Admin: 07/18/17 21:12 Dose: 30 mg Pantoprazole Sodium (Protonix Ec Tab) 40 mg PO DAILY [facility] Last Admin: 07/18/17 10:55 Dose: 40 mg Pneumococcal Polyvalent Vaccine (Pneumovax 23 Vaccine) 0.5 ml IM .ONCE ONE Stop: 07/20/17 10:01 Sertraline HCl (Zoloft) 50 mg PO DAILY [facility] Last Admin: 07/18/17 10:57 Dose: 50 mg - Labs Labs: 07/18/17 04:51 07/18/17 04:51 - Constitutional Appears: Non-toxic, No Acute Distress - Head Exam Head Exam: NORMAL INSPECTION - ENT Exam ENT Exam: Mucous Membranes Moist - Respiratory Exam Respiratory Exam: NORMAL BREATHING PATTERN. absent: Accessory Muscle Use, Respiratory Distress - Cardiovascular Exam Cardiovascular Exam: absent: Bradycardia, Tachycardia - Extremities Exam Extremities Exam: Joint Swelling (R knee) Additional comments: R BKA - Neurological Exam Neurological Exam: absent: Awake (sleeping) - Skin Skin Exam: Dry, Intact, Warm Assessment and Plan - Assessment and Plan (Free Text) Assessment: 47 y/o F w/ R knee swelling 2/2 bursitis vs septic joint - wound Cx growing Staph, awaiting sensitivities - cont IV ABx per ID - f/u MRI results - cont pain management - No surgical intervention at this time Pt discussed w/ Dr. Aretha Crawford DO PGY2
[2017-07-19 08:25] LABS: BASO % 0.5 % (0.0-2.0); EOS # 0.1 K/uL (0.0-0.7); EOS % 2.5 % (0.0-4.0); HEMATOCRIT 35.1 % (34.0-47.0); LYMPH # 0.8 K/uL (1.0-4.3); LYMPH % 33.8 % (20.0-40.0); MEAN CELL VOLUME 92.2 fL (81.0-99.0); MEAN CORPUSCULAR HEMOGLOBIN 32.2 pg (27.0-31.0); MEAN PLATELET VOLUME 9.1 fL (7.2-11.7); MONO # 0.2 K/uL (0.0-0.8); MONO % 10.7 % (0.0-10.0); NRBC % 0.2 % (0.0-2.0); RED CELL DISTRIBUTION WIDTH 16.8 % (11.5-14.5); WHITE BLOOD COUNT 2.3 K/uL (4.8-10.8)
[2017-07-19 09:48] LABS: ALB/GLOB RATIO 0.7 (1.0-2.1); ALKALINE PHOSPHATASE 96 U/L (38-126); ALT/SGPT 31 U/L (9-52); AST/SGOT 47 U/L (14-36); BILIRUBIN,TOTAL 0.7 mg/dL (0.2-1.3); BLOOD UREA NITROGEN 12 mg/dL (7-17); CALCIUM 8.5 mg/dl (8.6-10.4); CARBON DIOXIDE 28 mmol/L (22-30); CHLORIDE 101 mmol/L (98-107); GFR AFRICAN-AMERICAN > 60; GLUCOSE,RANDOM 106 mg/dL (65-105); POTASSIUM 4.8 mmol/L (3.6-5.2); SODIUM 134 mmol/L (132-148); TOTAL PROTEIN 8.5 g/dL (6.3-8.3)
[2017-07-19] MEDS ORDERED: Influenza Vaccine 60 mcg/0.5 mL SYR (4YR UP) IM ONE (10:00)
[2017-07-19] MEDS ORDERED: Gadodiamide 287 MG/ML VIAL (15ML) IV ONE (10:24)
[2017-07-19] MEDS: Pantoprazole 40 mg EC Tab PO SCH (11:08)
[2017-07-19] MEDS: Enoxaparin 40 mg Syringe SC SCH (11:08)
[2017-07-19] MEDS: oxyCODONE 30 mg Immediate Release Tab PO SCH ×4 (12:03→22:41)
--- NOTE | 2017-07-19 15:40 | CP.PCM.PN ---
Subjective - Date & Time of Evaluation Date of Evaluation: 07/19/17 Time of Evaluation: 11:20 - Subjective Subjective: clinically same Objective - Vital Signs/Intake and Output Vital Signs (last 24 hours): Temp Pulse Resp BP Pulse Ox 98.0 F 80 20 120/66 96 07/19/17 09:37 07/19/17 09:37 07/19/17 09:37 07/19/17 09:37 07/19/17 09:37 Intake and Output: 07/19/17 07/19/17 06:59 18:59 Intake Total 200 Output Total 400 Balance -200 - Medications Medications: Current Medications Clonazepam (Klonopin) 2 mg PO TID [facility] Last Admin: 07/19/17 14:00 Dose: 2 mg Enoxaparin Sodium (Lovenox) 40 mg SC DAILY [facility] Last Admin: 07/19/17 11:08 Dose: 40 mg Gabapentin (Neurontin) 300 mg PO TID [facility] Last Admin: 07/19/17 14:00 Dose: 300 mg Hydromorphone HCl (Dilaudid) 0.5 mg SC Q3 PRN PRN Reason: Pain, moderate (4-7) Hydromorphone HCl (Dilaudid) 1 mg IVP Q3 PRN PRN Reason: Pain, severe (8-10) Last Admin: 07/19/17 14:00 Dose: 1 mg Cefazolin Sodium 500 mg/ (Sodium Chloride) 100 mls @ 100 mls/hr IVPB Q8H [facility] Last Admin: 07/19/17 13:08 Dose: 100 mls/hr Vancomycin HCl 1,000 mg/ (Sodium Chloride) 250 mls @ 166.6 mls/hr IVPB Q12H [facility] Last Admin: 07/19/17 09:12 Dose: 166.6 mls/hr Nicotine (Nicoderm Cq) 1 patch TD DAILY [facility] Last Admin: 07/19/17 11:08 Dose: 1 patch Oxycodone HCl (Oxycodone Immediate Release Tab) 30 mg PO QID [facility] Last Admin: 07/19/17 14:58 Dose: 30 mg Pantoprazole Sodium (Protonix Ec Tab) 40 mg PO DAILY [facility] Last Admin: 07/19/17 11:08 Dose: 40 mg Pneumococcal Polyvalent Vaccine (Pneumovax 23 Vaccine) 0.5 ml IM .ONCE ONE Stop: 07/20/17 10:01 Sertraline HCl (Zoloft) 50 mg PO DAILY [facility] Last Admin: 07/19/17 11:08 Dose: 50 mg - Labs Labs: 07/19/17 08:13 07/19/17 08:13 - Constitutional Appears: Well - Head Exam Head Exam: ATRAUMATIC, NORMAL INSPECTION, NORMOCEPHALIC - Eye Exam Eye Exam: EOMI, Normal appearance, PERRL Pupil Exam: NORMAL ACCOMODATION, PERRL - ENT Exam ENT Exam: Mucous Membranes Moist, Normal Exam - Neck Exam Neck Exam: Full ROM, Normal Inspection. absent: Lymphadenopathy - Respiratory Exam Respiratory Exam: Decreased Breath Sounds - Cardiovascular Exam Cardiovascular Exam: REGULAR RHYTHM, +S1, +S2 - GI/Abdominal Exam GI & Abdominal Exam: Soft, Diminished Bowel Sounds - Rectal Exam Rectal Exam: Deferred
--- NOTE | 2017-07-19 20:10 | CP.PCM.CON ---
History of Present Illness - History of Present Illness History of Present Illness: 47 year old female with a history of tobacco abuse, COPD/emphysema, chronic pain , admitted with left knee/stump infection, with pancytopenia. The patient notes to swelling and pus drainage for about 4 days which prompted her to come to the ER. She is s/p drainage and antibitiocs and reports to feeling better. She is unaware of having blood problems in the past. She denies abnormal bleeding and bruising. She does admit to 6 daily "air plane" bottles of vodka. Past medical history: tobacco, abuse, COPD/emphysema, chronic pain. Past surgical history: Right BKA, , appendectomy Family history: Father had bone cancer Social history: 1/2ppd, 6 airplane bottle of vodka daily, denies illicit drug use. Allergies: NKA Review of systems: All remaining review of systems including HEENT, cardiovascular, respiratory, gastrointestinal, genitourinary, musculoskeletal, dermatologic, neurologic, and psychiatric are negative unless mentioned in the HPI. Past Patient History - Infectious Disease Hx of Infectious Diseases: None - Past Medical History & Family History Past Medical History?: Yes - Past Social History Smoking Status: Light Smoker < 10 Cigarettes Daily - CARDIAC Hx Cardiac Disorders: No Hx Hypertension: No - PULMONARY Hx Chronic Obstructive Pulmonary Disease (COPD): Yes (Emphysema) - NEUROLOGICAL Hx Neurological Disorder: No Hx Seizures: No - HEENT Hx HEENT Problems: No - RENAL Hx Chronic Kidney Disease: No - ENDOCRINE/METABOLIC Hx Endocrine Disorders: No - HEMATOLOGICAL/ONCOLOGICAL Hx Blood Disorders: No Hx Human Immunodeficiency Virus (HIV): No - INTEGUMENTARY Hx Dermatological Problems: No - MUSCULOSKELETAL/RHEUMATOLOGICAL Hx Musculoskeletal Disorders: Yes Hx Falls: No Hx Fractures: Yes (rt foot) - GASTROINTESTINAL Hx Gastrointestinal Disorders: Yes Hx Liver Failure: Yes Other/Comment: Cirrhosis of the Liver - GENITOURINARY/GYNECOLOGICAL Hx Genitourinary Disorders: No Hx Sexually Transmitted Disorders: No - PSYCHIATRIC Hx Psychophysiologic Disorder: Yes Hx Anxiety: Yes Hx Bipolar Disorder: Yes Hx Depression: Yes Hx Substance Use: No - SURGICAL HISTORY Hx Surgeries: Yes Hx Amputation: Yes (February 2016, R BKA) Hx Appendectomy: Yes (1989) - ANESTHESIA Hx Anesthesia: Yes Hx Anesthesia Reactions: No Hx Malignant Hyperthermia: No Meds Allergies/Adverse Reactions: Allergies Allergy/AdvReac Type Severity Reaction Status Date / Time No Known Allergies Allergy Verified 07/16/17 14:28 - Medications Medications: Current Medications Clonazepam (Klonopin) 2 mg PO TID [facility] Last Admin: 07/19/17 17:05 Dose: 2 mg Gabapentin (Neurontin) 300 mg PO TID [facility] Last Admin: 07/19/17 17:05 Dose: 300 mg Hydromorphone HCl (Dilaudid) 0.5 mg SC Q3 PRN PRN Reason: Pain, moderate (4-7) Hydromorphone HCl (Dilaudid) 1 mg IVP Q3 PRN PRN Reason: Pain, severe (8-10) Last Admin: 07/19/17 17:05 Dose: 1 mg Cefazolin Sodium 500 mg/ (Sodium Chloride) 100 mls @ 100 mls/hr IVPB Q8H [facility] Last Admin: 07/19/17 17:05 Dose: 100 mls/hr Vancomycin HCl 1,000 mg/ (Sodium Chloride) 250 mls @ 166.6 mls/hr IVPB Q12H [facility] Last Admin: 07/19/17 19:32 Dose: 166.6 mls/hr Nicotine (Nicoderm Cq) 1 patch TD DAILY [facility] Last Admin: 07/19/17 11:08 Dose: 1 patch Oxycodone HCl (Oxycodone Immediate Release Tab) 30 mg PO QID [facility] Last Admin: 07/19/17 18:36 Dose: 30 mg Pantoprazole Sodium (Protonix Ec Tab) 40 mg PO DAILY [facility] Last Admin: 07/19/17 11:08 Dose: 40 mg Pneumococcal Polyvalent Vaccine (Pneumovax 23 Vaccine) 0.5 ml IM .ONCE ONE Stop: 07/20/17 10:01 Sertraline HCl (Zoloft) 50 mg PO DAILY [facility] Last Admin: 07/19/17 11:08 Dose: 50 mg Physical Exam - Head Exam Head Exam: ATRAUMATIC - Eye Exam Eye Exam: Normal appearance - ENT Exam ENT Exam: Mucous Membranes Dry - Respiratory Exam Respiratory Exam: NORMAL BREATHING PATTERN - Cardiovascular Exam Cardiovascular Exam: +S1, +S2 - GI/Abdominal Exam GI & Abdominal Exam: Normal Bowel Sounds - Extremities Exam Additional comments: Right BKA - Neurological Exam Neurological exam: Oriented x3 - Psychiatric Exam Psychiatric exam: Normal Affect, Normal Mood - Skin Skin Exam: Warm Results - Vital Signs Recent Vital Signs: Last Vital Signs Temp 98.1 F 07/19/17 15:00 Pulse 60 07/19/17 15:00 Resp 20 07/19/17 15:00 BP 103/61 07/19/17 15:00 Pulse Ox 95 07/19/17 15:00 - Labs Result Diagrams: 07/19/17 08:13 07/19/17 08:13 Labs: Laboratory Results - last 24 hr 07/19/17 07/19/17 07/19/17 08:13 08:13 08:13 WBC 2.3 L RBC 3.81 Hgb 12.3 Hct 35.1 MCV 92.2 MCH 32.2 H MCHC 35.0 RDW 16.8 H Plt Count 93 L D MPV 9.1 Neut % (Auto) 52.5 Lymph % (Auto) 33.8 Braxton % (Auto) 10.7 H Eos % (Auto) 2.5 Baso % (Auto) 0.5 Neut # 1.2 L Lymph # 0.8 L Braxton # 0.2 Eos # 0.1 Baso # 0.0 Sodium 134 Potassium 4.8 Chloride 101 Carbon Dioxide 28 Anion Gap 10 BUN 12 Creatinine 0.7 Est GFR ( Amer) > 60 Est GFR (Non-Af Amer) > 60 Random Glucose 106 H Calcium 8.5 L Total Bilirubin 0.7 AST 47 H ALT 31 Alkaline Phosphatase 96 Total Protein 8.5 H Albumin 3.4 L Globulin 5.0 H Albumin/Globulin Ratio 0.7 L Vancomycin Trough 10.0 Assessment & Plan (1) Pancytopenia Assessment and Plan: suspect alcohol related bone marrow suppression will check HIVm hepatitis panel, iron, b12, folate stores Status: Acute (2) Elevated serum globulin level Assessment and Plan: rule out monoclonal gammopathy Thank you for this interesting consult. Status: Acute
--- NOTE | 2017-07-20 07:29 | CP.PCM.PN ---
Subjective - Date & Time of Evaluation Date of Evaluation: 07/20/17 Time of Evaluation: 07:27 - Subjective Subjective: Gen Sx: Dr Carias PT S&E. NAEbO. Knee appears to be improving. Cultures returned MRSA +. Pt states her pain has improved and she wants to go home for lino. Explained that may not be possible due to her cultures. Objective - Vital Signs/Intake and Output Vital Signs (last 24 hours): Temp Pulse Resp BP Pulse Ox 97.5 F L 54 L 20 135/86 95 07/19/17 23:00 07/20/17 06:57 07/19/17 23:00 07/20/17 06:57 07/19/17 23:00 Intake and Output: 07/20/17 07/20/17 06:59 18:59 Intake Total 850 Balance 850 - Medications Medications: Current Medications Clonazepam (Klonopin) 2 mg PO TID [facility] Last Admin: 07/19/17 17:05 Dose: 2 mg Gabapentin (Neurontin) 300 mg PO TID [facility] Last Admin: 07/19/17 17:05 Dose: 300 mg Hydromorphone HCl (Dilaudid) 0.5 mg SC Q3 PRN PRN Reason: Pain, moderate (4-7) Hydromorphone HCl (Dilaudid) 1 mg IVP Q3 PRN PRN Reason: Pain, severe (8-10) Last Admin: 07/20/17 06:58 Dose: 1 mg Cefazolin Sodium 500 mg/ (Sodium Chloride) 100 mls @ 100 mls/hr IVPB Q8H [facility] Last Admin: 07/20/17 01:44 Dose: 100 mls/hr Vancomycin HCl 1,000 mg/ (Sodium Chloride) 250 mls @ 166.6 mls/hr IVPB Q12H [facility] Last Admin: 07/19/17 19:32 Dose: 166.6 mls/hr Nicotine (Nicoderm Cq) 1 patch TD DAILY [facility] Last Admin: 07/19/17 11:08 Dose: 1 patch Oxycodone HCl (Oxycodone Immediate Release Tab) 30 mg PO QID [facility] Last Admin: 07/19/17 22:41 Dose: 30 mg Pantoprazole Sodium (Protonix Ec Tab) 40 mg PO DAILY [facility] Last Admin: 07/19/17 11:08 Dose: 40 mg Pneumococcal Polyvalent Vaccine (Pneumovax 23 Vaccine) 0.5 ml IM .ONCE ONE Stop: 07/20/17 10:01 Sertraline HCl (Zoloft) 50 mg PO DAILY [facility] Last Admin: 07/19/17 11:08 Dose: 50 mg - Labs Labs: 07/19/17 08:13 07/19/17 08:13 - Constitutional Appears: Non-toxic, No Acute Distress - Head Exam Head Exam: NORMOCEPHALIC - ENT Exam ENT Exam: Mucous Membranes Moist - Respiratory Exam Respiratory Exam: absent: Respiratory Distress - Cardiovascular Exam Cardiovascular Exam: REGULAR RHYTHM - Extremities Exam Additional comments: right knee still with mild edema, no erythema, no warmth, no signs of septic arthritis Assessment and Plan - Assessment and Plan (Free Text) Assessment: 46F with right knee bursitis; + MRSA infection Plan: cont abx per primary no surgical intervention planned d/w Dr Aretha Diaz, PGY3
[2017-07-20 08:52] VITALS: BP 110/74; PULSE 73; TEMP 97.9; O2SAT 99
[2017-07-20 09:10] LABS: BASO % 0.6 % (0.0-2.0); EOS # 0.1 K/uL (0.0-0.7); EOS % 2.2 % (0.0-4.0); HEMATOCRIT 32.3 % (34.0-47.0); LYMPH # 0.6 K/uL (1.0-4.3); LYMPH % 26.7 % (20.0-40.0); MEAN CELL VOLUME 92.5 fL (81.0-99.0); MEAN CORPUSCULAR HEMOGLOBIN 31.8 pg (27.0-31.0); MEAN CORPUSCULAR HGB CONC 34.4 g/dL (33.0-37.0); MEAN PLATELET VOLUME 9.4 fL (7.2-11.7); MONO # 0.3 K/uL (0.0-0.8); MONO % 14.1 % (0.0-10.0); RED CELL DISTRIBUTION WIDTH 16.6 % (11.5-14.5); WHITE BLOOD COUNT 2.4 K/uL (4.8-10.8)
[2017-07-20 09:17] LABS: NRBC % 0.1 % (0.0-2.0)
[2017-07-20] MEDS: Pantoprazole 40 mg EC Tab PO SCH (09:20)
[2017-07-20] MEDS: oxyCODONE 30 mg Immediate Release Tab PO SCH ×2 (09:20→13:02)
[2017-07-20 09:31] LABS: ALB/GLOB RATIO 0.8 (1.0-2.1); ALKALINE PHOSPHATASE 79 U/L (38-126); ALT/SGPT 36 U/L (9-52); AST/SGOT 39 U/L (14-36); BILIRUBIN,TOTAL 0.4 mg/dL (0.2-1.3); BLOOD UREA NITROGEN 17 mg/dL (7-17); CARBON DIOXIDE 29 mmol/L (22-30); CHLORIDE 102 mmol/L (98-107); GFR AFRICAN-AMERICAN > 60; GLUCOSE,RANDOM 93 mg/dL (65-105); POTASSIUM 4.3 mmol/L (3.6-5.2); SODIUM 134 mmol/L (132-148); TOTAL PROTEIN 6.7 g/dL (6.3-8.3)
[2017-07-20] MEDS ORDERED: Pneumococcal 23-Valent Vaccine IM ONE (10:00)
[2017-07-20 10:16] LABS: FOLATE 9.8 ng/mL
--- NOTE | 2017-07-20 13:07 | CP.PCM.PN ---
Subjective - Date & Time of Evaluation Date of Evaluation: 07/20/17 Time of Evaluation: 08:00 - Subjective Subjective: less drainage MRSA positive need to cont rx consider MRI stump Objective - Vital Signs/Intake and Output Vital Signs (last 24 hours): Temp Pulse Resp BP Pulse Ox 97.9 F 73 20 110/74 99 07/20/17 08:51 07/20/17 08:51 07/20/17 08:51 07/20/17 08:51 07/20/17 08:51 Intake and Output: 07/20/17 07/20/17 06:59 18:59 Intake Total 850 Balance 850 - Medications Medications: Current Medications Clonazepam (Klonopin) 2 mg PO TID [facility] Last Admin: 07/20/17 13:01 Dose: Not Given Gabapentin (Neurontin) 300 mg PO TID [facility] Last Admin: 07/20/17 13:01 Dose: Not Given Hydromorphone HCl (Dilaudid) 0.5 mg SC Q3 PRN PRN Reason: Pain, moderate (4-7) Hydromorphone HCl (Dilaudid) 1 mg IVP Q3 PRN PRN Reason: Pain, severe (8-10) Last Admin: 07/20/17 10:48 Dose: 1 mg Cefazolin Sodium 500 mg/ (Sodium Chloride) 100 mls @ 100 mls/hr IVPB Q8H [facility] Last Admin: 07/20/17 10:50 Dose: 100 mls/hr Vancomycin HCl 1,000 mg/ (Sodium Chloride) 250 mls @ 166.6 mls/hr IVPB Q12H [facility] Last Admin: 07/20/17 09:00 Dose: 166.6 mls/hr Nicotine (Nicoderm Cq) 1 patch TD DAILY [facility] Last Admin: 07/20/17 09:21 Dose: 1 patch Oxycodone HCl (Oxycodone Immediate Release Tab) 30 mg PO QID [facility] Last Admin: 07/20/17 13:02 Dose: Not Given Pantoprazole Sodium (Protonix Ec Tab) 40 mg PO DAILY [facility] Last Admin: 07/20/17 09:20 Dose: 40 mg Sertraline HCl (Zoloft) 50 mg PO DAILY [facility] Last Admin: 07/20/17 09:20 Dose: 50 mg - Labs Labs: 07/20/17 08:24 07/20/17 08:24 - Constitutional Appears: Non-toxic, Chronically Ill - Head Exam Head Exam: NORMOCEPHALIC - Eye Exam Eye Exam: PERRL - ENT Exam ENT Exam: Mucous Membranes Dry - Neck Exam Neck Exam: absent: Lymphadenopathy - Respiratory Exam Respiratory Exam: Decreased Breath Sounds - Cardiovascular Exam Cardiovascular Exam: REGULAR RHYTHM - GI/Abdominal Exam GI & Abdominal Exam: Distended, Soft Assessment and Plan (1) Cellulitis Status: Acute (2) BKA stump complication Status: Acute (3) Cellulitis Status: Acute
--- NOTE | 2017-07-20 15:14 | MRI ---
PROCEDURE: MRI Right Knee HISTORY: Status post below-knee amputation. Evaluate for osteomyelitis. Swollen and erythematous changes in the right knee. COMPARISON: Comparison is made to previous x-ray dated 06/05/2017 TECHNIQUE: Multiecho multiplanar sequences were performed through the right knee. FINDINGS: ANTERIOR CRUCIATE LIGAMENT:: There is high grade sprain and partial-thickness in the anterior cruciate ligament. POSTERIOR CRUCIATE LIGAMENT:: Intact. MEDIAL MENISCUS:: No evidence of significant tear. LATERAL MENISCUS:: There is a small tear involving the posterior horn of the lateral meniscus P MEDIAL COLLATERAL LIGAMENT:: Moderate to high-grade sprain of the medial collateral ligament. LATERAL COLLATERAL LIGAMENT COMPLEX:: Moderate to high-grade sprain of the lateral collateral ligaments. QUADRICEPS TENDON:: Intact. PATELLAR TENDON:: There is focal increased signal at the proximal patella since then consistent with moderate to severe tendinopathy. CARTILAGE:: Diffuse thinning and large defects noted in the articular cartilage of the right knee. JOINT FLUID:: There is a small joint effusion noted. OSSEOUS STRUCTURES:: There is mild bone marrow edema at the anterior aspect of the patella may represent reactive bone marrow changes due to adjacent subcutaneous abscess formation anterior to the patella. The possibility of osteomyelitis is less likely. Soft OTHER FINDINGS: There is a fluid collection with enhancing wall anterior to the patella suspicious for abscess formation measures 2.2 centimeter in the largest longitudinal diameter and 1 centimeter in the AP diameter. IMPRESSION: Subcutaneous abscess formation anterior to the patella. Mild bone marrow edema at the anterior aspect of the patella may represent reactive bone marrow changes. The possibility of osteomyelitis is less likely. Moderate degenerative changes at the right knee. High grade sprain and partial-thickness tear of the anterior cruciate ligament. Small joint effusion.
[2017-07-21 06:11] LABS: TOTAL PROTEIN, SERUM 6.5 g/dL (6.1-8.1)
== END 2017-07-20 13:14 | disposition home or self-care (01) | DRG 249 ==
LOC: C.ER 14:11 → C.9E 16:14 → C.6T 07-17 00:55
PROVIDERS: ADMIT Internal Medicine Nephrology; ATTEND Internal Medicine Nephrology
DX: T87.43 Infection of amputation stump, right lower extremity (principal); J43.9 Emphysema, unspecified; K74.60 Unspecified cirrhosis of liver; L03.115 Cellulitis of right lower limb; Y83.5 Amputation of limb(s) as the cause of abnormal reaction of the patient, or of later complication, without mention of misadventure at the time of the procedure; B95.62 Methicillin resistant Staphylococcus aureus infection as the cause of diseases classified elsewhere; D72.819 Decreased white blood cell count, unspecified; M70.51 Other bursitis of knee, right knee; Z79.899 Other long term (current) drug therapy; Z86.14 Personal history of Methicillin resistant Staphylococcus aureus infection; Z90.49 Acquired absence of other specified parts of digestive tract; F17.210 Nicotine dependence, cigarettes, uncomplicated; F32.9 Major depressive disorder, single episode, unspecified

== ENCOUNTER 2017-07-21 14:46 | Inpatient (IN) | payer MEDICAID ==
[2017-07-21 14:46] VITALS: BMI 25.8
[2017-07-21] MEDS ORDERED: Vancomycin 1 gm/NS 200 ml 1 GM/200 ML BAG IVPB STA (15:30)
[2017-07-21] MEDS ORDERED: HYDROmorphone 0.5 mg/0.5 ml ISec IVP STA (15:32)
--- NOTE | 2017-07-21 15:36 | C.PDOC ---
History Of Present Illness 47 y/o F c PMHx R leg BKA presents for cellulitis over the knee. Patient was admitted here for 5 days on IV antibiotics, signed out AMA yesterday but returns today for continued treatment. Denies new fever, cough, dyspnea, vomiting. Time Seen by Provider: 07/21/17 15:06 Chief Complaint (Nursing): Abnormal Skin Integrity Past Medical History Vital Signs: Last Vital Signs Temp 98.2 F 07/21/17 17:45 Pulse 72 07/21/17 17:45 Resp 20 07/21/17 17:45 BP 107/69 07/21/17 17:45 Pulse Ox 94 L 07/21/17 17:45 - Medical History PMH: Anxiety, Bipolar Disorder, COPD (Emphysema), Depression, Emphysema, Fractures (rt foot) Denies: Diabetes, Hepatitis, HIV, HTN, Chronic Kidney Disease, Seizures, Sexually Transmitted Disease Surgical History: Appendectomy (1989) - [facility] Procedures BELOW KNEE AMPUTAT NEC (02/19/15) DETOXIFICATION SERVICES FOR SUBSTANCE ABUSE TREATMENT (06/21/17) DRAINAGE OF LEFT LOWER LEG SKIN, EXTERNAL APPROACH (09/11/16) DRAINAGE OF RIGHT LOWER LEG SKIN, EXTERNAL APPROACH, DIAGN (03/07/17) GROUP REHAB LIAISON FOR SUBSTANCE ABUSE TREATMENT, PSYCHOEDUCATION (08/01/16) GROUP PSYCHOTHERAPY (12/16/15) IMMOBILIZ/WOUND ATTN NEC (10/07/12) INDIV PSYCHOTHERAPY FOR SUBSTANCE ABUSE TREATMENT, SUPPORT (12/21/16) INDIV PSYCHOTHERAPY FOR SUBSTANCE ABUSE, PSYCHOEDUCATION (09/11/16) INDIVIDUAL PSYCHOTHERAPY, SUPPORTIVE (06/21/17) INFLUENZA VACCINATION (05/13/13) NONEXCIS DEBRID OF WOUND, INFECT, OR BURN (05/13/13) PART OSTECT-METATAR/TAR (05/13/13) PARTIAL OSTECTOMY NEC (05/13/13) Family History: States: Unknown Family Hx - Social History Hx Tobacco Use: Yes Hx Alcohol Use: Yes Hx Substance Use: No - Immunization History Hx Tetanus Toxoid Vaccination: No Hx Influenza Vaccination: No Hx Pneumococcal Vaccination: Yes Review Of Systems Except As Marked, All Systems Reviewed And Found Negative. Constitutional: Negative for: Fever Cardiovascular: Negative for: Chest Pain Physical Exam - Physical Exam Additional Physical Exam Comments: Gen: No acute distress. Head: Normocephalic, atraumatic. Eyes: PERRL. ENT: Moist mucous membranes. Neck: Supple. Chest: No tenderness. CV: Regular rate. Radial pulses 2+ bilaterally. Resp: Clear to auscultation bilaterally. Abd: Soft, nontender, nondistended. Extremities: R BKA. Erythematous, blanching, warm rash to patella. Able to range knee. Skin: As above. Neuro: Alert, no focal deficit. ED Course And Treatment - Laboratory Results Result Diagrams: 07/21/17 17:03 07/21/17 15:55 O2 Sat by Pulse Oximetry: 96 Medical Decision Making Medical Decision Making: Will start back on vancomycin and pain control as before with dilaudid. CXR no acute disease. Will admit patient back to Dr. Юлия Harrison. Disposition - Disposition Disposition: HOSPITALIZED Disposition Time: 16:42 Condition: FAIR - Clinical Impression Clinical Impression: Cellulitis
--- NOTE | 2017-07-21 15:54 | RAD ---
HISTORY: cellulitis COMPARISON: 07/16/2017. FINDINGS: LUNGS: The lungs are well inflated and clear. PLEURA: No significant pleural effusion identified, no pneumothorax apparent. CARDIOVASCULAR: Normal. OSSEOUS STRUCTURES: No significant abnormalities. VISUALIZED UPPER ABDOMEN: Normal. OTHER FINDINGS: None. IMPRESSION: No active pulmonary disease.
[2017-07-21 16:34] LABS: ALB/GLOB RATIO 0.8 (1.0-2.1); ALBUMIN 3.6 g/dL (3.5-5.0); ALT/SGPT 10 U/L (9-52); AST/SGOT 67 U/L (14-36); BLOOD UREA NITROGEN 21 mg/dL (7-17); CALCIUM 7.7 mg/dl (8.6-10.4); GFR AFRICAN-AMERICAN > 60; GFR NON-AFRICAN AMERICAN > 60
--- NOTE | 2017-07-21 16:53 | CP.PCM.HP ---
Past Patient History - Infectious Disease Hx of Infectious Diseases: None - Past Medical History & Family History Past Medical History?: Yes - Past Social History Smoking Status: Light Smoker < 10 Cigarettes Daily - CARDIAC Hx Hypertension: No - PULMONARY Hx Chronic Obstructive Pulmonary Disease (COPD): Yes (Emphysema) Hx Emphysema: Yes - NEUROLOGICAL Hx Seizures: No - HEENT Hx HEENT Problems: No - RENAL Hx Chronic Kidney Disease: No - ENDOCRINE/METABOLIC Hx Endocrine Disorders: No - HEMATOLOGICAL/ONCOLOGICAL Hx Human Immunodeficiency Virus (HIV): No - INTEGUMENTARY Hx Dermatological Problems: No - MUSCULOSKELETAL/RHEUMATOLOGICAL Hx Fractures: Yes (rt foot) - GASTROINTESTINAL Hx Gastrointestinal Disorders: Yes Hx Liver Failure: Yes Other/Comment: Cirrhosis of the Liver - GENITOURINARY/GYNECOLOGICAL Hx Sexually Transmitted Disorders: No - PSYCHIATRIC Hx Anxiety: Yes Hx Bipolar Disorder: Yes Hx Depression: Yes Hx Substance Use: No - SURGICAL HISTORY Hx Appendectomy: Yes (1989) - ANESTHESIA Hx Anesthesia: Yes Hx Anesthesia Reactions: No Hx Malignant Hyperthermia: No Meds Allergies/Adverse Reactions: Allergies Allergy/AdvReac Type Severity Reaction Status Date / Time No Known Allergies Allergy Verified 07/21/17 14:51 Results - Vital Signs Recent Vital Signs: Last Vital Signs Temp 97.4 F L 07/21/17 14:52 Pulse 76 07/21/17 14:52 Resp 20 07/21/17 14:52 BP 93/62 L 07/21/17 14:52 Pulse Ox 96 07/21/17 15:38 - Labs Result Diagrams: 07/21/17 15:55 Labs: Laboratory Results - last 24 hr 07/21/17 15:55 Sodium 138 Potassium 4.9 Chloride 107 Carbon Dioxide 24 Anion Gap 12 BUN 21 H Creatinine 0.7 Est GFR ( Amer) > 60 Est GFR (Non-Af Amer) > 60 Random Glucose 95 Calcium 7.7 L Total Bilirubin 1.6 H AST 67 H D ALT 10 Alkaline Phosphatase 74 Total Protein 7.9 Albumin 3.6 Globulin 4.3 H Albumin/Globulin Ratio 0.8 L
[2017-07-21 17:09] LABS: BASO % 0.6 % (0.0-2.0); EOS # 0.1 K/uL (0.0-0.7); EOS % 2.6 % (0.0-4.0); HEMOGLOBIN 11.4 g/dL (11.0-16.0); LYMPH # 1.3 K/uL (1.0-4.3); LYMPH % 37.3 % (20.0-40.0); MEAN CELL VOLUME 92.5 fL (81.0-99.0); MEAN CORPUSCULAR HEMOGLOBIN 31.9 pg (27.0-31.0); MEAN CORPUSCULAR HGB CONC 34.5 g/dL (33.0-37.0); MONO # 0.4 K/uL (0.0-0.8); MONO % 11.2 % (0.0-10.0); NEUT # 1.7 K/uL (1.8-7.0); NEUT % 48.3 % (50.0-75.0); NRBC % 0.1 % (0.0-2.0); RBC 3.57 Mil/uL (3.80-5.20); RED CELL DISTRIBUTION WIDTH 16.5 % (11.5-14.5); WHITE BLOOD COUNT 3.6 K/uL (4.8-10.8)
[2017-07-21] MEDS: oxyCODONE 30 mg Immediate Release Tab PO SCH ×2 (17:26→22:00)
[2017-07-22 07:51] VITALS: RESP 20
[2017-07-22] MEDS ORDERED: Vancomycin 1 GM in Sodium Chloride 0.9% 200 ML IVPB SCH (09:15)
--- NOTE | 2017-07-22 09:15 | CP.PCM.PN ---
Subjective - Date & Time of Evaluation Date of Evaluation: 07/22/17 Time of Evaluation: 09:11 - Subjective Subjective: Progress Note for Dr. Harrison's Service This is a 47 y/o F w/ pmhx of BKA on the right. She presented to the ED 2016 for right knee swelling that began 4 days prior. She noted purulent drainage with blood mixed into it. She admits to subjective fevers and chills at home prior to admission. Patient left the hospital AMA 07/21/17 for [place] , despite having wound cx that were MRSA positive. She presented for readmission after [facility]. Pt was seen and examined at bedside this morning. She continues to have pain in this extremity but pain medications are providing relief. She denies any fevers or chills since admission. No CP/SOB/N/V/D/C. PMD: Dr. Posadas Pain Management: unknown - she states she currently does not want him involved in her care during this admission Past Medical History: Denies Past Surgical History: BKA of right knee in 2014; Medications: 40mg Oxycontin QID; Clonipin 20mg TID; Gabapentin 300mg TID; Zoloft 40mg daily; Diclofenac Allergies: NKDA Social History: 4 shots of vodka daily (denies tremors, seizures or withdrawal symptoms); Smokes 1/2 pack per day for 20 years; denies illicit drug use Objective - Vital Signs/Intake and Output Vital Signs (last 24 hours): Temp Pulse Resp BP Pulse Ox 97.9 F 66 20 100/64 97 07/22/17 07:48 07/22/17 07:48 07/22/17 07:48 07/22/17 07:48 07/22/17 07:48 - Medications Medications: Current Medications Clonazepam (Klonopin) 2 mg PO TID [facility] Last Admin: 07/21/17 17:26 Dose: 2 mg Enoxaparin Sodium (Lovenox) 40 mg SC DAILY [facility] Gabapentin (Neurontin) 300 mg PO TID [facility] Last Admin: 07/21/17 17:26 Dose: 300 mg Hydromorphone HCl (Dilaudid) 1 mg IVP Q3H PRN PRN Reason: Pain, moderate (4-7) Last Admin: 07/22/17 06:37 Dose: 1 mg Vancomycin HCl 1 gm/ Sodium (Chloride) 200 mls @ 166.7 mls/hr IVPB Q24H [facility] Oxycodone HCl (Oxycodone Immediate Release Tab) 30 mg PO QID [facility] Last Admin: 07/21/17 22:00 Dose: 30 mg Pantoprazole Sodium (Protonix Ec Tab) 40 mg PO DAILY [facility] Sertraline HCl (Zoloft) 50 mg PO DAILY [facility] - Labs Labs: 07/21/17 17:03 07/21/17 15:55 - Constitutional Appears: No Acute Distress - Head Exam Head Exam: ATRAUMATIC, NORMAL INSPECTION - Eye Exam Eye Exam: EOMI, Normal appearance - ENT Exam ENT Exam: Mucous Membranes Moist - Respiratory Exam Respiratory Exam: Clear to Ausculation Bilateral, NORMAL BREATHING PATTERN - Cardiovascular Exam Cardiovascular Exam: REGULAR RHYTHM, +S1, +S2 - GI/Abdominal Exam GI & Abdominal Exam: Soft. absent: Tenderness - Extremities Exam Additional comments: right stump is erythematous with mild swelling; no drainage noted - Neurological Exam Neurological Exam: Alert, Awake, Oriented x3 - Skin Skin Exam: Warm Assessment and Plan - Assessment and Plan (Free Text) Plan: Cellulitis of R Knee history right BKA Consult placed to Gen Surg- Dr. Carias; recs appreciated Wound cx collected- MRSA (+) 07/17 Previous admission wound cx (03/07/17) MRSA Follow up surgery recommendations Consult place to ID- Dr. Anders MRI lower extremity- subcutaneous abscess; osteomyelitis less likely 07/18 Vancomycin- 1g IV daily (restarted 07/22) Gabapentin- 300mg PO TID WBC 3.6 on re-admission Afebrile 24h Pain control: Dilaudid 1mg IVP Q4h PRN for pain Oxycodone 30mg PO q6hrs for pain PT ordered Leukopenia WBC count 3.6, Platelet count 121 Dr. Malone, heme-onc consulted, help appreciated suspect alcohol related bone marrow suppression Will evaluate labs: HIVm hepatitis C- reactive iron b12- 583 folate- 9.8 Elevated serum Gamma Globulin Dr. Malone, heme-onc consulted, help appreciated Depression Klonopin 2mg PO TID [facility] Zoloft 50 mg PO daily Smoking cessation Nicoderm 1 patch TD Q24h Prophylactic Measure Protonix 40mg PO Daily Lovenox 40mg SC Daily Case discussed with Dr. Harrison All management as per Dr. Harrison
[2017-07-22] MEDS: Pantoprazole 40 mg EC Tab PO SCH (09:21)
[2017-07-22] MEDS: oxyCODONE 30 mg Immediate Release Tab PO SCH ×4 (09:22→22:06)
[2017-07-22] MEDS: Enoxaparin 40 mg Syringe SC SCH (10:48)
--- NOTE | 2017-07-22 12:01 | CP.PCM.CON ---
History of Present Illness - History of Present Illness History of Present Illness: Surgical Consult Note: 47 year old female with past medical history of below the right knee amputation returned to the hospital to complete her course of IV antibiotics. She states her right knee has improved. She continues to have burning pain about an 8/10 which is constant. She states she is wearing her prosthesis which does make the pain worse. She states nothing makes the pain better. She denies fever, chills , nausea, vomiting, diarrhea or constipation. PMD: Dr. Posadas Past Medical History: Denies Past Surgical History: BKA of right knee in 2014; Medications: 40mg Oxycontin QID; Clonipin 20mg TID; Gabapentin 300mg TID; Zoloft 40mg daily; Diclofenac Allergies: NKDA Social History: 4 shots of vodka daily (denies tremors, seizures or withdrawal symptoms); Smokes 1/2 pack per day for 20 years; denies illicit drug use Review of Systems - Constitutional Constitutional: absent: Chills, Fever, Headache, Weakness - Cardiovascular Cardiovascular: absent: Chest Pain, Dyspnea - Respiratory Respiratory: absent: Dyspnea - Gastrointestinal Gastrointestinal: absent: Constipation, Diarrhea, Nausea, Vomiting - Genitourinary Genitourinary: absent: Dysuria - Musculoskeletal Musculoskeletal: Other (right knee pain ). absent: Numbness, Tingling Past Patient History - Infectious Disease Hx of Infectious Diseases: None - Past Medical History & Family History Past Medical History?: Yes - Past Social History Smoking Status: Light Smoker < 10 Cigarettes Daily - CARDIAC Hx Hypertension: No - PULMONARY Hx Chronic Obstructive Pulmonary Disease (COPD): Yes (Emphysema) Hx Emphysema: Yes - NEUROLOGICAL Hx Seizures: No - HEENT Hx HEENT Problems: No - RENAL Hx Chronic Kidney Disease: No - ENDOCRINE/METABOLIC Hx Endocrine Disorders: No - HEMATOLOGICAL/ONCOLOGICAL Hx Human Immunodeficiency Virus (HIV): No - INTEGUMENTARY Hx Dermatological Problems: No - MUSCULOSKELETAL/RHEUMATOLOGICAL Hx Fractures: Yes (rt foot) - GASTROINTESTINAL Hx Gastrointestinal Disorders: Yes Hx Liver Failure: Yes Other/Comment: Cirrhosis of the Liver - GENITOURINARY/GYNECOLOGICAL Hx Sexually Transmitted Disorders: No - PSYCHIATRIC Hx Anxiety: Yes Hx Bipolar Disorder: Yes Hx Depression: Yes Hx Substance Use: No - SURGICAL HISTORY Hx Appendectomy: Yes (1989) - ANESTHESIA Hx Anesthesia: Yes Hx Anesthesia Reactions: No Hx Malignant Hyperthermia: No Meds Allergies/Adverse Reactions: Allergies Allergy/AdvReac Type Severity Reaction Status Date / Time No Known Allergies Allergy Verified 07/21/17 14:51 - Medications Medications: Current Medications Clonazepam (Klonopin) 2 mg PO TID [facility] Last Admin: 07/22/17 09:21 Dose: 2 mg Enoxaparin Sodium (Lovenox) 40 mg SC DAILY [facility] Last Admin: 07/22/17 10:48 Dose: 40 mg Gabapentin (Neurontin) 300 mg PO TID [facility] Last Admin: 07/22/17 09:21 Dose: 300 mg Hydromorphone HCl (Dilaudid) 1 mg IVP Q3H PRN PRN Reason: Pain, moderate (4-7) Last Admin: 07/22/17 11:00 Dose: 1 mg Vancomycin HCl 1 gm/ Sodium (Chloride) 200 mls @ 166.7 mls/hr IVPB Q24H [facility] Last Admin: 07/22/17 10:00 Dose: 166.7 mls/hr Oxycodone HCl (Oxycodone Immediate Release Tab) 30 mg PO QID [facility] Last Admin: 07/22/17 09:22 Dose: 30 mg Pantoprazole Sodium (Protonix Ec Tab) 40 mg PO DAILY [facility] Last Admin: 07/22/17 09:21 Dose: 40 mg Sertraline HCl (Zoloft) 50 mg PO DAILY [facility] Last Admin: 07/22/17 09:23 Dose: 50 mg Physical Exam - Constitutional Appears: No Acute Distress - Head Exam Head Exam: ATRAUMATIC, NORMAL INSPECTION - Eye Exam Eye Exam: EOMI, Normal appearance - ENT Exam ENT Exam: Mucous Membranes Moist - Respiratory Exam Respiratory Exam: Clear to Auscultation Bilateral, NORMAL BREATHING PATTERN - Cardiovascular Exam Cardiovascular Exam: REGULAR RHYTHM, +S1, +S2 - GI/Abdominal Exam GI & Abdominal Exam: Normal Bowel Sounds, Soft. absent: Tenderness - Extremities Exam Extremities exam: Negative for: pedal edema, tenderness - Neurological Exam Neurological exam: Alert, Oriented x3 - Psychiatric Exam Psychiatric exam: Normal Affect, Normal Mood - Skin Skin Exam: Dry, Intact, Normal Color, Warm Results - Vital Signs Recent Vital Signs: Last Vital Signs Temp 97.9 F 07/22/17 07:48 Pulse 66 07/22/17 07:48 Resp 20 07/22/17 07:48 BP 100/64 07/22/17 07:48 Pulse Ox 97 07/22/17 07:48 - Labs Result Diagrams: 07/21/17 17:03 07/21/17 15:55 Labs: Laboratory Results - last 24 hr 07/21/17 07/21/17 15:55 17:03 WBC 3.6 L RBC 3.57 L Hgb 11.4 Hct 33.0 L MCV 92.5 MCH 31.9 H MCHC 34.5 RDW 16.5 H Plt Count 121 L D MPV 9.0 Neut % (Auto) 48.3 L Lymph % (Auto) 37.3 [place] % (Auto) 11.2 H Eos % (Auto) 2.6 Baso % (Auto) 0.6 Neut # 1.7 L Lymph # 1.3 [place] # 0.4 Eos # 0.1 Baso # 0.0 Sodium 138 Potassium 4.9 Chloride 107 Carbon Dioxide 24 Anion Gap 12 BUN 21 H Creatinine 0.7 Est GFR ( Amer) > 60 Est GFR (Non-Af Amer) > 60 Random Glucose 95 Calcium 7.7 L Total Bilirubin 1.6 H AST 67 H D ALT 10 Alkaline Phosphatase 74 Total Protein 7.9 Albumin 3.6 Globulin 4.3 H Albumin/Globulin Ratio 0.8 L Assessment & Plan - Assessment and Plan (Free Text) Assessment: 47 year old female with past medical history of below the right knee amputation returned to the hospital to complete her course of IV antibiotics. Continue antibiotics as per primary team No surgical intervention planned Michell Hardy PGY-1
--- NOTE | 2017-07-22 17:10 | CP.PCM.CON ---
History of Present Illness - History of Present Illness History of Present Illness: 47 y/o F c PMHx R leg BKA presents for cellulitis over the knee. Patient was admitted here for 5 days on IV antibiotics, signed out AMA yesterday but returns today for continued treatment. Denies new fever, cough, dyspnea, vomiting. concern for OM - Medical History PMH: Anxiety, Bipolar Disorder, COPD (Emphysema), Depression, Emphysema, Fractures (rt foot) Denies: Diabetes, Hepatitis, HIV, HTN, Chronic Kidney Disease, Seizures, Sexually Transmitted Disease Surgical History: Appendectomy (1989) - [facility] Procedures BELOW KNEE AMPUTAT NEC (02/19/15) DETOXIFICATION SERVICES FOR SUBSTANCE ABUSE TREATMENT (06/21/17) DRAINAGE OF LEFT LOWER LEG SKIN, EXTERNAL APPROACH (09/11/16) DRAINAGE OF RIGHT LOWER LEG SKIN, EXTERNAL APPROACH, DIAGN (03/07/17) GROUP TITLE ATTORNEY FOR SUBSTANCE ABUSE TREATMENT, PSYCHOEDUCATION (08/01/16) GROUP PSYCHOTHERAPY (12/16/15) IMMOBILIZ/WOUND ATTN NEC (10/07/12) INDIV PSYCHOTHERAPY FOR SUBSTANCE ABUSE TREATMENT, SUPPORT (12/21/16) INDIV PSYCHOTHERAPY FOR SUBSTANCE ABUSE, PSYCHOEDUCATION (09/11/16) INDIVIDUAL PSYCHOTHERAPY, SUPPORTIVE (06/21/17) INFLUENZA VACCINATION (05/13/13) NONEXCIS DEBRID OF WOUND, INFECT, OR BURN (05/13/13) PART OSTECT-METATAR/TAR (05/13/13) PARTIAL OSTECTOMY NEC (05/13/13) Review of Systems - Review of Systems All systems: reviewed and no additional remarkable complaints except - Constitutional Constitutional: As Per HPI - EENT Eyes: absent: As Per HPI, Blind Spots, Blurred Vision, Change in Vision, Decreased Night Vision, Diplopia, Discharge, Dry Eye, Exophthalmos, Floaters, Irritation, Itchy Eyes, Loss of Peripheral Vision, Pain, Photophobia, Requires Corrective Lenses, Sees Flashes, Spots in Vision, Tunnel Vision, Other Visual Disturbances, Loss of Vision, Other Ears: absent: As Per HPI, Decreased Hearing, Ear Discharge, Ear Pain, Tinnitus, Abnormal Hearing, Disequilibrium, Dizziness, Other Nose/Mouth/Throat: absent: As Per HPI, Epistaxis, Nasal Congestion, Nasal Discharge, Nasal Obstruction, Nasal Trauma, Nose Pain, Post Nasal Drip, Sinus Pain, Sinus Pressure, Bleeding Gums, Change in Voice, Dental Pain, Dry Mouth, Dysphagia, Halitosis, Hoarsness, Lip Swelling, Mouth Lesions, Mouth Pain, Odynophagia, Sore Throat, Throat Swelling, Tongue Swelling, Facial Pain, Neck Pain, Neck Mass, Other - Breasts Breasts: absent: As Per HPI, Change in Shape, Mass, Pain, Nipple Discharge, Nipple Inversion, Skin Changes, Swelling, Other - Cardiovascular Cardiovascular: absent: As Per HPI, Acrocyanosis, Chest Pain, Chest Pain at Rest , Chest Pain with Activity, Claudication, Diaphoresis, Dyspnea, Dyspnea on Exertion, Edema, Irregular Heart Rhythm, Pain Radiating to Arm/Neck/Jaw, Leg Edema, Leg Ulcers, Lightheadedness, Orthopnea, Palpitations, Paroxysmal Nocturnal Dyspnea, Pedal Edema, Radiating Pain, Rapid Heart Rate, Slow Heart Rate, Syncope, Other - Respiratory Respiratory: absent: As Per HPI, Cough, Dyspnea, Hemoptysis, Dyspnea on Exertion , Wheezing, Snoring, Stridor, Pain on Inspiration, Chest Congestion, Excessive Mucous Production, Change in Mucous Color, Pain with Coughing, Other - Gastrointestinal Gastrointestinal: absent: As Per HPI, Abdominal Pain, Belching, Bloating, Change in Bowel Habits, Change in Stool Character, Coffee Ground Emesis, Constipation, Cramping, Diarrhea, Dyspepsia, Dysphagia, Early Satiety, Excessive Flatus, Fecal Incontinence, Heartburn, Hematemesis, Hematochezia, Loose Stools, Melena, Nausea, Odynophagia, Temesmus, Vomiting, Other - Genitourinary Genitourinary: absent: As Per HPI, Change in Urinary Stream, Difficulty Urinating, Dysuria, Flank Pain, Hematuria, Pyuria, Nocturia, Urinary Incontinence, Urinary Frequency, Urinary Hesitance, Urinary Urgency, Voiding Freq/Small Amts, Freq UTI, Hx Renal/Bladder Calculi, Hx /Renal Surgery, Bladder Distension, Other - Reproductive: Female Reproductive:Female: absent: As Per HPI, Amenorrhea, Amenorrhea/ Control, Currently Menstual, Cycle <21 Days, Cycle >35 Days, Cycle Variable, Menses 1-7 Days, Menses >/= 8 Days, Menses Variable, Cycle > 4 Weeks Between, No Menses for 6 Months, Heavy Menses, Light Menses, Normal Menses, Spotting Between Cycles , S/P Hysterectomy, Menopausal, Post Menopausal, Premenarche, Abnormal Vaginal Bleeding, Dysmenorrhea, Dyspareunia, Genital Lesions, Genital Pruritis, Pelvic Pain, Prolapse Symptoms, Sexual Dysfunction, Vaginal Discharge, Vaginal Dryness , Vaginal Odor, Vaginal Pruritis, Other - Menstruation Menstruation: absent: As Per HPI, Amenorrhea, Amenorrhea/ Control, Currently Menstual, Cycle <21 Days, Cycle >35 Days, Cycle Variable, Menses 1-7 Days, Menses >/= 8 Days, Menses Variable, Cycle > 4 Weeks Between, No Menses for 6 Months, Heavy Menses, Light Menses, Normal Menses, Spotting Between Cycles , S/P Hysterectomy, Menopausal, Post Menopausal, Premenarche, Abnormal Vaginal Bleeding, Dysmenorrhea, Other - Integumentary Integumentary: As Per HPI - Neurological Neurological: absent: As Per HPI, Abnormal Gait, Abnormal Hearing, Abnormal Movements, Abnormal Speech, Behavioral Changes, Burning Sensations, Confusion, Convulsions, Disequilibrium, Dizziness, Numbness, Focal Weakness, Frequent Falls , Headaches, Lack of Coordination, Loss of Vision, Memory Loss, Paresthesias, Radicular Pain, Restless Legs, Sensory Deficit, Syncope, Tingling, Tremor, Vertigo, Weakness, Other Visual Disturbances, Other - Psychiatric Psychiatric: absent: As Per HPI, Abnormal Sleep Pattern, Anhedonia, Anxiety, Auditory Hallucinations, Behavioral Changes, Change in Appetite, Change in Libido, Confusion, Depression, Difficulty Concentrating, Hallucinations, Homicidal Ideation, Hopelessness, Irritability, Memory Loss, Mood Swings, Panic Attacks, Paranoia, Suicidal Ideation, Visual Hallucinations, Tactile Hallucinations, Other - Endocrine Endocrine: absent: As Per HPI, Change in Body Appearance, Change in Libido, Cold Intolorance, Deepening of Voice, Excessive Sweating, Fatigue, Flushing, Heat Intolorance, Increase in Ring/Shoe/Hat Size, Palpitations, Polydipsia, Polyphagia, Polyuria, Other - Hematologic/Lymphatic Hematologic: absent: As Per HPI, Easy Bleeding, Easy Bruising, Lymphadenopathy, Other Past Patient History - Infectious Disease Hx of Infectious Diseases: None - Past Medical History & Family History Past Medical History?: Yes - Past Social History Smoking Status: Light Smoker < 10 Cigarettes Daily - CARDIAC Hx Hypertension: No - PULMONARY Hx Chronic Obstructive Pulmonary Disease (COPD): Yes (Emphysema) Hx Emphysema: Yes - NEUROLOGICAL Hx Seizures: No - HEENT Hx HEENT Problems: No - RENAL Hx Chronic Kidney Disease: No - ENDOCRINE/METABOLIC Hx Endocrine Disorders: No - HEMATOLOGICAL/ONCOLOGICAL Hx Human Immunodeficiency Virus (HIV): No - INTEGUMENTARY Hx Dermatological Problems: No - MUSCULOSKELETAL/RHEUMATOLOGICAL Hx Fractures: Yes (rt foot) - GASTROINTESTINAL Hx Gastrointestinal Disorders: Yes Hx Liver Failure: Yes Other/Comment: Cirrhosis of the Liver - GENITOURINARY/GYNECOLOGICAL Hx Sexually Transmitted Disorders: No - PSYCHIATRIC Hx Anxiety: Yes Hx Bipolar Disorder: Yes Hx Depression: Yes Hx Substance Use: No - SURGICAL HISTORY Hx Appendectomy: Yes (1989) - ANESTHESIA Hx Anesthesia: Yes Hx Anesthesia Reactions: No Hx Malignant Hyperthermia: No Meds Allergies/Adverse Reactions: Allergies Allergy/AdvReac Type Severity Reaction Status Date / Time No Known Allergies Allergy Verified 07/21/17 14:51 - Medications Medications: Current Medications Clonazepam (Klonopin) 2 mg PO TID [facility] Last Admin: 07/22/17 13:20 Dose: 2 mg Enoxaparin Sodium (Lovenox) 40 mg SC DAILY [facility] Last Admin: 07/22/17 10:48 Dose: 40 mg Gabapentin (Neurontin) 300 mg PO TID [facility] Last Admin: 07/22/17 13:21 Dose: 300 mg Hydromorphone HCl (Dilaudid) 1 mg IVP Q3H PRN PRN Reason: Pain, moderate (4-7) Last Admin: 07/22/17 14:25 Dose: 1 mg Vancomycin HCl 1 gm/ Sodium (Chloride) 200 mls @ 166.7 mls/hr IVPB Q24H [facility] Last Admin: 07/22/17 10:00 Dose: 166.7 mls/hr Oxycodone HCl (Oxycodone Immediate Release Tab) 30 mg PO QID [facility] Last Admin: 07/22/17 13:21 Dose: 30 mg Pantoprazole Sodium (Protonix Ec Tab) 40 mg PO DAILY [facility] Last Admin: 07/22/17 09:21 Dose: 40 mg Sertraline HCl (Zoloft) 50 mg PO DAILY [facility] Last Admin: 07/22/17 09:23 Dose: 50 mg Physical Exam - Constitutional Appears: Non-toxic, Chronically Ill - Head Exam Head Exam: NORMOCEPHALIC - Eye Exam Eye Exam: PERRL - ENT Exam ENT Exam: Mucous Membranes Dry - Neck Exam Neck exam: Negative for: Lymphadenopathy - Respiratory Exam Respiratory Exam: Decreased Breath Sounds - Cardiovascular Exam Cardiovascular Exam: REGULAR RHYTHM - GI/Abdominal Exam GI & Abdominal Exam: Diminished Bowel Sounds - Rectal Exam Rectal Exam: Deferred - Exam Exam: NORMAL INSPECTION - Extremities Exam Extremities exam: Negative for: calf tenderness Additional comments: right bka with swelling above knee - Back Exam Back exam: absent: CVA tenderness (L), CVA tenderness (R) - Neurological Exam Neurological exam: Alert, CN II-XII Intact, Oriented x3 - Psychiatric Exam Psychiatric exam: Depressed, Normal Mood - Skin Skin Exam: Dry Results - Vital Signs Recent Vital Signs: Last Vital Signs Temp 98.2 F 07/22/17 15:00 Pulse 61 07/22/17 15:00 Resp 20 07/22/17 15:00 BP 115/74 07/22/17 15:00 Pulse Ox 96 07/22/17 15:00 - Labs Result Diagrams: 07/23/17 06:08 07/23/17 06:08 Labs: Laboratory Results - last 24 hr 07/21/17 17:03 WBC 3.6 L RBC 3.57 L Hgb 11.4 Hct 33.0 L MCV 92.5 MCH 31.9 H MCHC 34.5 RDW 16.5 H Plt Count 121 L D MPV 9.0 Neut % (Auto) 48.3 L Lymph % (Auto) 37.3 [place] % (Auto) 11.2 H Eos % (Auto) 2.6 Baso % (Auto) 0.6 Neut # 1.7 L Lymph # 1.3 [place] # 0.4 Eos # 0.1 Baso # 0.0 Assessment & Plan (1) Cellulitis Status: Acute (2) Alcohol abuse Status: Acute (3) BKA stump complication Status: Acute
--- NOTE | 2017-07-22 17:38 | CP.PCM.PN ---
Subjective - Date & Time of Evaluation Date of Evaluation: 07/22/17 Time of Evaluation: 08:20 - Subjective Subjective: clinically same Objective - Vital Signs/Intake and Output Vital Signs (last 24 hours): Temp Pulse Resp BP Pulse Ox 98.2 F 61 20 115/74 96 07/22/17 15:00 07/22/17 15:00 07/22/17 15:00 07/22/17 15:00 07/22/17 15:00 - Medications Medications: Current Medications Clonazepam (Klonopin) 2 mg PO TID [facility] Last Admin: 07/22/17 17:36 Dose: 2 mg Enoxaparin Sodium (Lovenox) 40 mg SC DAILY [facility] Last Admin: 07/22/17 10:48 Dose: 40 mg Gabapentin (Neurontin) 300 mg PO TID [facility] Last Admin: 07/22/17 17:36 Dose: 300 mg Hydromorphone HCl (Dilaudid) 1 mg IVP Q3H PRN PRN Reason: Pain, moderate (4-7) Last Admin: 07/22/17 14:25 Dose: 1 mg Vancomycin HCl 1 gm/ Sodium (Chloride) 200 mls @ 133 mls/hr IVPB Q12H [facility] Oxycodone HCl (Oxycodone Immediate Release Tab) 30 mg PO QID [facility] Last Admin: 07/22/17 13:21 Dose: 30 mg Pantoprazole Sodium (Protonix Ec Tab) 40 mg PO DAILY [facility] Last Admin: 07/22/17 09:21 Dose: 40 mg Sertraline HCl (Zoloft) 50 mg PO DAILY [facility] Last Admin: 07/22/17 09:23 Dose: 50 mg - Labs Labs: 07/21/17 17:03 07/21/17 15:55 - Constitutional Appears: Well - Head Exam Head Exam: ATRAUMATIC, NORMAL INSPECTION, NORMOCEPHALIC - Eye Exam Eye Exam: EOMI, Normal appearance, PERRL Pupil Exam: NORMAL ACCOMODATION, PERRL - ENT Exam ENT Exam: Mucous Membranes Moist, Normal Exam - Neck Exam Neck Exam: Full ROM, Normal Inspection. absent: Lymphadenopathy - Respiratory Exam Respiratory Exam: Decreased Breath Sounds - Cardiovascular Exam Cardiovascular Exam: REGULAR RHYTHM, +S1, +S2 - GI/Abdominal Exam GI & Abdominal Exam: Soft, Diminished Bowel Sounds - Rectal Exam Rectal Exam: Deferred
[2017-07-22] MEDS: Vancomycin 1 GM in Sodium Chloride 0.9% 200 ML IVPB SCH (18:00)
--- NOTE | 2017-07-22 18:28 | CP.PCM.CON ---
History of Present Illness - History of Present Illness History of Present Illness: 47 year old female with a history of tobacco abuse, COPD/emphysema, chronic pain , admitted with left knee/stump infection, on antibiotics, recently signed out AMA but returned to resume antibiotics. She was being seen by me for pancytopenia which was felt to be related to alcohol induced bone marrow suppression She does admit to 6 daily "air plane" bottles of vodka. Past medical history: tobacco, abuse, COPD/emphysema, chronic pain. Past surgical history: Right BKA, , appendectomy Family history: Father had bone cancer Social history: 1/2ppd, 6 airplane bottle of vodka daily, denies illicit drug use. Allergies: NKA Review of systems: All remaining review of systems including HEENT, cardiovascular, respiratory, gastrointestinal, genitourinary, musculoskeletal, dermatologic, neurologic, and psychiatric are negative unless mentioned in the HPI. Past Patient History - Infectious Disease Hx of Infectious Diseases: None - Past Medical History & Family History Past Medical History?: Yes - Past Social History Smoking Status: Light Smoker < 10 Cigarettes Daily - CARDIAC Hx Hypertension: No - PULMONARY Hx Chronic Obstructive Pulmonary Disease (COPD): Yes (Emphysema) Hx Emphysema: Yes - NEUROLOGICAL Hx Seizures: No - HEENT Hx HEENT Problems: No - RENAL Hx Chronic Kidney Disease: No - ENDOCRINE/METABOLIC Hx Endocrine Disorders: No - HEMATOLOGICAL/ONCOLOGICAL Hx Human Immunodeficiency Virus (HIV): No - INTEGUMENTARY Hx Dermatological Problems: No - MUSCULOSKELETAL/RHEUMATOLOGICAL Hx Fractures: Yes (rt foot) - GASTROINTESTINAL Hx Gastrointestinal Disorders: Yes Hx Liver Failure: Yes Other/Comment: Cirrhosis of the Liver - GENITOURINARY/GYNECOLOGICAL Hx Sexually Transmitted Disorders: No - PSYCHIATRIC Hx Anxiety: Yes Hx Bipolar Disorder: Yes Hx Depression: Yes Hx Substance Use: No - SURGICAL HISTORY Hx Appendectomy: Yes (1989) - ANESTHESIA Hx Anesthesia: Yes Hx Anesthesia Reactions: No Hx Malignant Hyperthermia: No Meds Allergies/Adverse Reactions: Allergies Allergy/AdvReac Type Severity Reaction Status Date / Time No Known Allergies Allergy Verified 07/21/17 14:51 - Medications Medications: Current Medications Clonazepam (Klonopin) 2 mg PO TID [facility] Last Admin: 07/22/17 17:36 Dose: 2 mg Enoxaparin Sodium (Lovenox) 40 mg SC DAILY [facility] Last Admin: 07/22/17 10:48 Dose: 40 mg Gabapentin (Neurontin) 300 mg PO TID [facility] Last Admin: 07/22/17 17:36 Dose: 300 mg Hydromorphone HCl (Dilaudid) 1 mg IVP Q3H PRN PRN Reason: Pain, moderate (4-7) Last Admin: 07/22/17 17:44 Dose: 1 mg Vancomycin HCl 1 gm/ Sodium (Chloride) 200 mls @ 133 mls/hr IVPB Q12H [facility] Oxycodone HCl (Oxycodone Immediate Release Tab) 30 mg PO QID [facility] Last Admin: 07/22/17 17:37 Dose: 30 mg Pantoprazole Sodium (Protonix Ec Tab) 40 mg PO DAILY [facility] Last Admin: 07/22/17 09:21 Dose: 40 mg Sertraline HCl (Zoloft) 50 mg PO DAILY [facility] Last Admin: 07/22/17 09:23 Dose: 50 mg Physical Exam - Head Exam Head Exam: ATRAUMATIC - Eye Exam Eye Exam: Normal appearance - ENT Exam ENT Exam: Mucous Membranes Dry - Respiratory Exam Respiratory Exam: NORMAL BREATHING PATTERN - Cardiovascular Exam Cardiovascular Exam: +S1, +S2 - GI/Abdominal Exam GI & Abdominal Exam: Normal Bowel Sounds - Extremities Exam Additional comments: Right BKA Results - Vital Signs Recent Vital Signs: Last Vital Signs Temp 98.2 F 07/22/17 15:00 Pulse 61 07/22/17 15:00 Resp 20 07/22/17 15:00 BP 115/74 07/22/17 15:00 Pulse Ox 96 07/22/17 15:00 - Labs Result Diagrams: 07/21/17 17:03 07/21/17 15:55 Assessment & Plan (1) Pancytopenia Assessment and Plan: alcohol induced bone marrow suppression counts improved hep C positive ? liver disease Status: Acute (2) Elevated serum globulin level Assessment and Plan: monoclonal protein w/u sent ? hep C related Thank you for this interesting consult. Status: Acute
[2017-07-23] MEDS: Vancomycin 1 GM in Sodium Chloride 0.9% 200 ML IVPB SCH ×2 (05:43→17:39)
[2017-07-23 06:19] LABS: BASO % 1.1 % (0.0-2.0); EOS # 0.1 K/uL (0.0-0.7); EOS % 3.3 % (0.0-4.0); HEMOGLOBIN 11.2 g/dL (11.0-16.0); LYMPH # 0.7 K/uL (1.0-4.3); LYMPH % 31.4 % (20.0-40.0); MEAN CELL VOLUME 93.4 fL (81.0-99.0); MEAN CORPUSCULAR HEMOGLOBIN 31.5 pg (27.0-31.0); MEAN CORPUSCULAR HGB CONC 33.7 g/dL (33.0-37.0); MEAN PLATELET VOLUME 8.9 fL (7.2-11.7); MONO # 0.3 K/uL (0.0-0.8); MONO % 11.3 % (0.0-10.0); NEUT # 1.3 K/uL (1.8-7.0); NEUT % 52.9 % (50.0-75.0); NRBC % 0.1 % (0.0-2.0); RBC 3.56 Mil/uL (3.80-5.20); RED CELL DISTRIBUTION WIDTH 16.5 % (11.5-14.5); WHITE BLOOD COUNT 2.4 K/uL (4.8-10.8)
[2017-07-23 08:26] LABS: ALB/GLOB RATIO 0.8 (1.0-2.1); ALBUMIN 3.2 g/dL (3.5-5.0); ALT/SGPT 29 U/L (9-52); AST/SGOT 31 U/L (14-36); BLOOD UREA NITROGEN 22 mg/dL (7-17); CALCIUM 7.9 mg/dl (8.6-10.4); GFR AFRICAN-AMERICAN > 60; GFR NON-AFRICAN AMERICAN > 60
--- NOTE | 2017-07-23 09:29 | CP.PCM.PN ---
Subjective - Date & Time of Evaluation Date of Evaluation: 07/23/17 Time of Evaluation: : - Subjective Subjective: PGY2 medicine progress note for Dr. Harrison's service Patient seen and examined. Patient states her knee and BKA stump is sore. Patient denies fever and chills. Objective - Vital Signs/Intake and Output Vital Signs (last 24 hours): Temp Pulse Resp BP Pulse Ox 97.8 F 60 20 127/84 96 07/23/17 07:44 07/23/17 07:44 07/23/17 07:44 07/23/17 07:44 07/23/17 07:44 Intake and Output: 07/23/17 07/23/17 06:59 18:59 Intake Total 440 Balance 440 - Medications Medications: Current Medications Clonazepam (Klonopin) 2 mg PO TID [facility] Last Admin: 07/22/17 17:36 Dose: 2 mg Enoxaparin Sodium (Lovenox) 40 mg SC DAILY [facility] Last Admin: 07/22/17 10:48 Dose: 40 mg Gabapentin (Neurontin) 300 mg PO TID [facility] Last Admin: 07/22/17 17:36 Dose: 300 mg Hydromorphone HCl (Dilaudid) 1 mg IVP Q3H PRN PRN Reason: Pain, moderate (4-7) Last Admin: 07/23/17 08:43 Dose: 1 mg Vancomycin HCl 1 gm/ Sodium (Chloride) 200 mls @ 133 mls/hr IVPB Q12H [facility] Last Admin: 07/23/17 05:43 Dose: 133 mls/hr Oxycodone HCl (Oxycodone Immediate Release Tab) 30 mg PO QID [facility] Last Admin: 07/22/17 22:06 Dose: 30 mg Pantoprazole Sodium (Protonix Ec Tab) 40 mg PO DAILY [facility] Last Admin: 07/22/17 09:21 Dose: 40 mg Sertraline HCl (Zoloft) 50 mg PO DAILY [facility] Last Admin: 07/22/17 09:23 Dose: 50 mg - Labs Labs: 07/23/17 06:08 07/23/17 06:08 - Constitutional Appears: Non-toxic, No Acute Distress - Head Exam Head Exam: ATRAUMATIC, NORMOCEPHALIC - Eye Exam Eye Exam: EOMI - ENT Exam ENT Exam: Mucous Membranes Moist - Respiratory Exam Respiratory Exam: Clear to Ausculation Bilateral - Cardiovascular Exam Cardiovascular Exam: +S1, +S2 - GI/Abdominal Exam GI & Abdominal Exam: Soft. absent: Tenderness - Extremities Exam Additional comments: right knee with erythema, warmth, swelling but no fluctuance, mildly tender - Neurological Exam Neurological Exam: Alert, Awake - Psychiatric Exam Psychiatric exam: Normal Affect - Skin Skin Exam: Warm Assessment and Plan - Assessment and Plan (Free Text) Assessment: Cellulitis of R Knee history right BKA Consult placed to Gen Surg- Dr. Carias; recs appreciated suspect likely inflamed pre-patellar bursa rather than subcutaneous abscess Wound cx collected- MRSA (+) 07/17 Previous admission wound cx (03/07/17) MRSA Consult place to ID- Dr. Anders MRI lower extremity 07/18/17- subcutaneous abscess anterior patella; osteomyelitis less likely Vancomycin- 1g IV q12h (restarted 07/22) Gabapentin- 300mg PO TID WBC 2.4 Afebrile Pain control: Dilaudid 1mg IVP Q4h PRN for pain Oxycodone 30mg PO q6hrs for pain PT ordered Leukopenia WBC count 2.4, Platelet count 92 Dr. Malone, heme-onc consulted, help appreciated suspect alcohol related bone marrow suppression Will evaluate labs: HIVm hepatitis C- reactive iron b12- 583 folate- 9.8 Elevated serum Gamma Globulin Dr. Malone, heme-onc consulted, help appreciated monoclonal work up sent Depression/ Anxiety Klonopin 2mg PO TID [facility] Zoloft 50 mg PO daily Smoking cessation Nicoderm 1 patch TD Q24h Prophylactic Measure Protonix 40mg PO Daily Lovenox 40mg SC Daily Case discussed with Dr. Harrison All management as per Dr. Harrison
[2017-07-23] MEDS: oxyCODONE 30 mg Immediate Release Tab PO SCH ×4 (10:20→21:31)
[2017-07-23] MEDS: Pantoprazole 40 mg EC Tab PO SCH (10:21)
[2017-07-23] MEDS: Enoxaparin 40 mg Syringe SC SCH (10:21)
--- NOTE | 2017-07-23 17:57 | CP.PCM.PN ---
Subjective - Date & Time of Evaluation Date of Evaluation: 07/23/17 Time of Evaluation: 08:00 - Subjective Subjective: vanco level hi dose adjusted cont rx cellulitis await mri Objective - Vital Signs/Intake and Output Vital Signs (last 24 hours): Temp Pulse Resp BP Pulse Ox 97.6 F 64 20 101/61 96 07/23/17 15:00 07/23/17 15:00 07/23/17 15:00 07/23/17 15:00 07/23/17 15:00 Intake and Output: 07/23/17 07/23/17 06:59 18:59 Intake Total 440 605 Balance 440 605 - Medications Medications: Current Medications Clonazepam (Klonopin) 2 mg PO TID [facility] Last Admin: 07/23/17 17:39 Dose: 2 mg Enoxaparin Sodium (Lovenox) 40 mg SC DAILY [facility] Last Admin: 07/23/17 10:21 Dose: 40 mg Gabapentin (Neurontin) 300 mg PO TID [facility] Last Admin: 07/23/17 17:39 Dose: 300 mg Hydromorphone HCl (Dilaudid) 1 mg IVP Q3H PRN PRN Reason: Pain, moderate (4-7) Last Admin: 07/23/17 14:51 Dose: 1 mg Vancomycin HCl 1 gm/ Sodium (Chloride) 200 mls @ 133 mls/hr IVPB Q12H [facility] Last Admin: 07/23/17 17:39 Dose: 133 mls/hr Oxycodone HCl (Oxycodone Immediate Release Tab) 30 mg PO QID [facility] Last Admin: 07/23/17 17:39 Dose: 30 mg Pantoprazole Sodium (Protonix Ec Tab) 40 mg PO DAILY [facility] Last Admin: 07/23/17 10:21 Dose: 40 mg Sertraline HCl (Zoloft) 50 mg PO DAILY [facility] Last Admin: 07/23/17 10:21 Dose: 50 mg - Labs Labs: 07/23/17 06:08 07/23/17 06:08 - Constitutional Appears: Non-toxic, Chronically Ill - Head Exam Head Exam: NORMOCEPHALIC - Eye Exam Eye Exam: PERRL - ENT Exam ENT Exam: Mucous Membranes Dry - Neck Exam Neck Exam: absent: Lymphadenopathy - Respiratory Exam Respiratory Exam: Decreased Breath Sounds - Cardiovascular Exam Cardiovascular Exam: REGULAR RHYTHM - GI/Abdominal Exam GI & Abdominal Exam: Distended - Rectal Exam Rectal Exam: Deferred - Exam Exam: NORMAL INSPECTION - Extremities Exam Extremities Exam: absent: Pedal Edema - Back Exam Back Exam: absent: CVA tenderness (L), CVA tenderness (R) - Neurological Exam Neurological Exam: Alert, Awake Assessment and Plan - Assessment and Plan (Free Text) Plan: cellulitis right stump await ortho opinion jazmyn lozano
--- NOTE | 2017-07-23 19:47 | CP.PCM.PN ---
Subjective - Date & Time of Evaluation Date of Evaluation: 07/23/17 Time of Evaluation: 07:40 - Subjective Subjective: clinically same Objective - Vital Signs/Intake and Output Vital Signs (last 24 hours): Temp Pulse Resp BP Pulse Ox 97.6 F 64 20 101/61 96 07/23/17 15:00 07/23/17 15:00 07/23/17 15:00 07/23/17 15:00 07/23/17 15:00 Intake and Output: 07/23/17 07/24/17 18:59 06:59 Intake Total 605 Balance 605 - Medications Medications: Current Medications Clonazepam (Klonopin) 2 mg PO TID [facility] Last Admin: 07/23/17 17:39 Dose: 2 mg Enoxaparin Sodium (Lovenox) 40 mg SC DAILY [facility] Last Admin: 07/23/17 10:21 Dose: 40 mg Gabapentin (Neurontin) 300 mg PO TID [facility] Last Admin: 07/23/17 17:39 Dose: 300 mg Hydromorphone HCl (Dilaudid) 1 mg IVP Q3H PRN PRN Reason: Pain, moderate (4-7) Last Admin: 07/23/17 18:09 Dose: 1 mg Vancomycin HCl 1 gm/ Sodium (Chloride) 200 mls @ 133 mls/hr IVPB Q12H [facility] Last Admin: 07/23/17 17:39 Dose: 133 mls/hr Oxycodone HCl (Oxycodone Immediate Release Tab) 30 mg PO QID [facility] Last Admin: 07/23/17 17:39 Dose: 30 mg Pantoprazole Sodium (Protonix Ec Tab) 40 mg PO DAILY [facility] Last Admin: 07/23/17 10:21 Dose: 40 mg Sertraline HCl (Zoloft) 50 mg PO DAILY [facility] Last Admin: 07/23/17 10:21 Dose: 50 mg - Labs Labs: 07/23/17 06:08 07/23/17 06:08 - Constitutional Appears: Well - Head Exam Head Exam: ATRAUMATIC, NORMAL INSPECTION, NORMOCEPHALIC - Eye Exam Eye Exam: EOMI, Normal appearance, PERRL Pupil Exam: NORMAL ACCOMODATION, PERRL - ENT Exam ENT Exam: Mucous Membranes Moist, Normal Exam - Neck Exam Neck Exam: Full ROM, Normal Inspection. absent: Lymphadenopathy - Respiratory Exam Respiratory Exam: Decreased Breath Sounds - Cardiovascular Exam Cardiovascular Exam: REGULAR RHYTHM, +S1, +S2 - GI/Abdominal Exam GI & Abdominal Exam: Soft, Diminished Bowel Sounds - Rectal Exam Rectal Exam: Deferred
[2017-07-24 07:51] LABS: BASO % 0.8 % (0.0-2.0); EOS # 0.1 K/uL (0.0-0.7); EOS % 2.3 % (0.0-4.0); HEMOGLOBIN 11.3 g/dL (11.0-16.0); LYMPH # 0.7 K/uL (1.0-4.3); LYMPH % 34.1 % (20.0-40.0); MEAN CELL VOLUME 93.5 fL (81.0-99.0); MEAN CORPUSCULAR HEMOGLOBIN 32.1 pg (27.0-31.0); MEAN CORPUSCULAR HGB CONC 34.3 g/dL (33.0-37.0); MEAN PLATELET VOLUME 9.1 fL (7.2-11.7); MONO # 0.2 K/uL (0.0-0.8); NEUT # 1.1 K/uL (1.8-7.0); NEUT % 51.8 % (50.0-75.0); NRBC % 0.1 % (0.0-2.0); RBC 3.52 Mil/uL (3.80-5.20); RED CELL DISTRIBUTION WIDTH 16.8 % (11.5-14.5); WHITE BLOOD COUNT 2.1 K/uL (4.8-10.8)
[2017-07-24 08:56] LABS: ALBUMIN 3.3 g/dL (3.5-5.0); ALT/SGPT 27 U/L (9-52); AST/SGOT 34 U/L (14-36); BLOOD UREA NITROGEN 19 mg/dL (7-17); CALCIUM 7.7 mg/dl (8.6-10.4); GFR AFRICAN-AMERICAN > 60; GFR NON-AFRICAN AMERICAN > 60
[2017-07-24 09:00] LABS: ALB/GLOB RATIO 0.8 (1.0-2.1)
--- NOTE | 2017-07-24 09:00 | CP.PCM.PN ---
Subjective - Date & Time of Evaluation Date of Evaluation: 07/24/17 Time of Evaluation: 08:57 - Subjective Subjective: Progress Note for Dr. Harrison's Service Patient seen and examined. She has pain in her BKA stump but states that the medications do provide relief. Patient denies fever and chills. No acute events overnight as per nursing. Her vancomycin was help yesterday due to supratherapeutic vanc troph level. Objective - Vital Signs/Intake and Output Vital Signs (last 24 hours): Temp Pulse Resp BP Pulse Ox 97.6 F 60 20 129/78 98 07/24/17 08:00 07/24/17 08:00 07/24/17 08:00 07/24/17 08:00 07/24/17 08:00 Intake and Output: 07/24/17 07/24/17 06:59 18:59 Intake Total 900 250 Balance 900 250 - Medications Medications: Current Medications Clonazepam (Klonopin) 2 mg PO TID [facility] Last Admin: 07/23/17 17:39 Dose: 2 mg Enoxaparin Sodium (Lovenox) 40 mg SC DAILY [facility] Last Admin: 07/23/17 10:21 Dose: 40 mg Gabapentin (Neurontin) 300 mg PO TID [facility] Last Admin: 07/23/17 17:39 Dose: 300 mg Hydromorphone HCl (Dilaudid) 1 mg IVP Q3H PRN PRN Reason: Pain, moderate (4-7) Last Admin: 07/24/17 08:36 Dose: 1 mg Vancomycin HCl 1 gm/ Sodium (Chloride) 200 mls @ 133 mls/hr IVPB Q12H [facility] Last Admin: 07/23/17 17:39 Dose: Not Given Oxycodone HCl (Oxycodone Immediate Release Tab) 30 mg PO QID [facility] Last Admin: 07/23/17 21:31 Dose: 30 mg Pantoprazole Sodium (Protonix Ec Tab) 40 mg PO DAILY [facility] Last Admin: 07/23/17 10:21 Dose: 40 mg Sertraline HCl (Zoloft) 50 mg PO DAILY [facility] Last Admin: 07/23/17 10:21 Dose: 50 mg - Labs Labs: 07/24/17 07:29 07/24/17 07:29 - Head Exam Head Exam: ATRAUMATIC, NORMOCEPHALIC - Eye Exam Eye Exam: EOMI, Normal appearance Pupil Exam: PERRL - ENT Exam ENT Exam: Mucous Membranes Moist - Respiratory Exam Respiratory Exam: Clear to Ausculation Bilateral, NORMAL BREATHING PATTERN - Cardiovascular Exam Cardiovascular Exam: REGULAR RHYTHM, +S1, +S2 - GI/Abdominal Exam GI & Abdominal Exam: Soft. absent: Distended, Tenderness - Extremities Exam Additional comments: Right BKA- mild swelling, tender to palpation, no discharge/draining, mild erythema - Neurological Exam Neurological Exam: Alert, Awake, Oriented x3 - Psychiatric Exam Psychiatric exam: Normal Affect, Normal Mood - Skin Skin Exam: Dry, Warm Assessment and Plan - Assessment and Plan (Free Text) Plan: Cellulitis of R Knee history right BKA Consult placed to Gen Surg- Dr. Carias; recs appreciated Suspect likely inflamed pre-patellar bursa rather than subcutaneous abscess MRI results below No surgical intervention at this time- surgery has signed off case Wound cx collected- MRSA (+) 07/17 Previous admission wound cx (03/07/17) MRSA Consult place to ID- Dr. Anders MRI lower extremity 07/18/17- subcutaneous abscess anterior patella; osteomyelitis less likely Vancomycin- 1g IV q12h (restarted 07/22) Dose held on 07/23/17 for supratherapeutic vanc troph Follow up recs Gabapentin- 300mg PO TID WBC 2.1 Afebrile Pain control: Dilaudid 1mg IVP Q3h PRN for pain Oxycodone 30mg PO q6hrs for pain PT ordered Leukopenia WBC count 2.1 Dr. Malone, heme-onc consulted, help appreciated suspect alcohol related bone marrow suppression Will evaluate labs: HIV- negative hepatitis C- reactive Ferritin- 81 b12- 583 folate- 9.8 Elevated serum Gamma Globulin Dr. Malone, heme-onc consulted, help appreciated monoclonal work up sent Depression/ Anxiety Klonopin 2mg PO TID [facility] Zoloft 50 mg PO daily Smoking cessation Nicoderm 1 patch TD Q24h Prophylactic Measure Protonix 40mg PO Daily Lovenox 40mg SC Daily Case discussed with Dr. Harrison All management as per Dr. Harrison
[2017-07-24] MEDS: Enoxaparin 40 mg Syringe SC SCH (09:55)
[2017-07-24] MEDS: Pantoprazole 40 mg EC Tab PO SCH (09:55)
[2017-07-24] MEDS: oxyCODONE 30 mg Immediate Release Tab PO SCH ×4 (09:55→21:14)
--- NOTE | 2017-07-24 13:34 | CP.PCM.PN ---
Subjective - Date & Time of Evaluation Date of Evaluation: 07/23/17 Time of Evaluation: 12:00 - Subjective Subjective: No complaints. Objective - Vital Signs/Intake and Output Vital Signs (last 24 hours): Temp Pulse Resp BP Pulse Ox 97.6 F 60 20 129/78 98 07/24/17 08:00 07/24/17 08:00 07/24/17 08:00 07/24/17 08:00 07/24/17 08:00 Intake and Output: 07/24/17 07/24/17 06:59 18:59 Intake Total 900 250 Balance 900 250 - Medications Medications: Current Medications Clonazepam (Klonopin) 2 mg PO TID [facility] Last Admin: 07/24/17 09:56 Dose: 2 mg Enoxaparin Sodium (Lovenox) 40 mg SC DAILY [facility] Last Admin: 07/24/17 09:55 Dose: 40 mg Gabapentin (Neurontin) 300 mg PO TID [facility] Last Admin: 07/24/17 09:55 Dose: 300 mg Hydromorphone HCl (Dilaudid) 1 mg IVP Q3H PRN PRN Reason: Pain, moderate (4-7) Last Admin: 07/24/17 11:18 Dose: 1 mg Vancomycin HCl 1 gm/ Sodium (Chloride) 200 mls @ 133 mls/hr IVPB Q12H [facility] Last Admin: 07/23/17 17:39 Dose: Not Given Oxycodone HCl (Oxycodone Immediate Release Tab) 30 mg PO QID [facility] Last Admin: 07/24/17 09:55 Dose: 30 mg Pantoprazole Sodium (Protonix Ec Tab) 40 mg PO DAILY [facility] Last Admin: 07/24/17 09:55 Dose: 40 mg Sertraline HCl (Zoloft) 50 mg PO DAILY [facility] Last Admin: 07/24/17 09:55 Dose: 50 mg - Labs Labs: 07/24/17 07:29 07/24/17 07:29 - Head Exam Head Exam: ATRAUMATIC - Eye Exam Eye Exam: Normal appearance - ENT Exam ENT Exam: Mucous Membranes Dry - Respiratory Exam Respiratory Exam: NORMAL BREATHING PATTERN - Cardiovascular Exam Cardiovascular Exam: +S1, +S2 - GI/Abdominal Exam GI & Abdominal Exam: Normal Bowel Sounds Assessment and Plan (1) Pancytopenia Assessment & Plan: alcohol bone marrow suppression ? underlying liver disease Status: Acute (2) Elevated serum globulin level Assessment & Plan: monoclonal protein w/u sent Status: Acute
--- NOTE | 2017-07-24 13:36 | CP.PCM.PN ---
Subjective - Date & Time of Evaluation Date of Evaluation: 07/24/17 Time of Evaluation: 13:00 - Subjective Subjective: No complaints. Objective - Vital Signs/Intake and Output Vital Signs (last 24 hours): Temp Pulse Resp BP Pulse Ox 97.6 F 60 20 129/78 98 07/24/17 08:00 07/24/17 08:00 07/24/17 08:00 07/24/17 08:00 07/24/17 08:00 Intake and Output: 07/24/17 07/24/17 06:59 18:59 Intake Total 900 250 Balance 900 250 - Medications Medications: Current Medications Clonazepam (Klonopin) 2 mg PO TID [facility] Last Admin: 07/24/17 09:56 Dose: 2 mg Enoxaparin Sodium (Lovenox) 40 mg SC DAILY [facility] Last Admin: 07/24/17 09:55 Dose: 40 mg Gabapentin (Neurontin) 300 mg PO TID [facility] Last Admin: 07/24/17 09:55 Dose: 300 mg Hydromorphone HCl (Dilaudid) 1 mg IVP Q3H PRN PRN Reason: Pain, moderate (4-7) Last Admin: 07/24/17 11:18 Dose: 1 mg Vancomycin HCl 1 gm/ Sodium (Chloride) 200 mls @ 133 mls/hr IVPB Q12H [facility] Last Admin: 07/23/17 17:39 Dose: Not Given Oxycodone HCl (Oxycodone Immediate Release Tab) 30 mg PO QID [facility] Last Admin: 07/24/17 09:55 Dose: 30 mg Pantoprazole Sodium (Protonix Ec Tab) 40 mg PO DAILY [facility] Last Admin: 07/24/17 09:55 Dose: 40 mg Sertraline HCl (Zoloft) 50 mg PO DAILY [facility] Last Admin: 07/24/17 09:55 Dose: 50 mg - Labs Labs: 07/24/17 07:29 07/24/17 07:29 - Head Exam Head Exam: ATRAUMATIC - Eye Exam Eye Exam: Normal appearance - ENT Exam ENT Exam: Mucous Membranes Dry - Respiratory Exam Respiratory Exam: NORMAL BREATHING PATTERN - Cardiovascular Exam Cardiovascular Exam: +S1, +S2 - GI/Abdominal Exam GI & Abdominal Exam: Normal Bowel Sounds Assessment and Plan (1) Pancytopenia Assessment & Plan: alcohol induce bone marrow suppression ?underlying liver disease Status: Acute (2) Elevated serum globulin level Assessment & Plan: monoclonal protein w/u sent Status: Acute
--- NOTE | 2017-07-24 17:24 | CP.PCM.PN ---
Subjective - Date & Time of Evaluation Date of Evaluation: 07/24/17 Time of Evaluation: 07:40 - Subjective Subjective: clinically same Objective - Vital Signs/Intake and Output Vital Signs (last 24 hours): Temp Pulse Resp BP Pulse Ox 98.2 F 58 L 20 116/71 96 07/24/17 15:00 07/24/17 15:00 07/24/17 15:00 07/24/17 15:00 07/24/17 15:00 Intake and Output: 07/24/17 07/24/17 06:59 18:59 Intake Total 900 530 Balance 900 530 - Medications Medications: Current Medications Clonazepam (Klonopin) 2 mg PO TID [facility] Last Admin: 07/24/17 13:53 Dose: 2 mg Enoxaparin Sodium (Lovenox) 40 mg SC DAILY [facility] Last Admin: 07/24/17 09:55 Dose: 40 mg Gabapentin (Neurontin) 300 mg PO TID [facility] Last Admin: 07/24/17 13:53 Dose: 300 mg Hydromorphone HCl (Dilaudid) 1 mg IVP Q3H PRN PRN Reason: Pain, moderate (4-7) Last Admin: 07/24/17 14:29 Dose: 1 mg Vancomycin HCl 1 gm/ Sodium (Chloride) 200 mls @ 133 mls/hr IVPB Q12H [facility] Last Admin: 07/23/17 17:39 Dose: Not Given Oxycodone HCl (Oxycodone Immediate Release Tab) 30 mg PO QID [facility] Last Admin: 07/24/17 13:53 Dose: 30 mg Pantoprazole Sodium (Protonix Ec Tab) 40 mg PO DAILY [facility] Last Admin: 07/24/17 09:55 Dose: 40 mg Sertraline HCl (Zoloft) 50 mg PO DAILY [facility] Last Admin: 07/24/17 09:55 Dose: 50 mg - Labs Labs: 07/24/17 07:29 07/24/17 07:29 - Constitutional Appears: Well - Head Exam Head Exam: ATRAUMATIC, NORMAL INSPECTION, NORMOCEPHALIC - Eye Exam Eye Exam: EOMI, Normal appearance, PERRL Pupil Exam: NORMAL ACCOMODATION, PERRL - ENT Exam ENT Exam: Mucous Membranes Moist, Normal Exam - Neck Exam Neck Exam: Full ROM, Normal Inspection. absent: Lymphadenopathy - Respiratory Exam Respiratory Exam: Decreased Breath Sounds - Cardiovascular Exam Cardiovascular Exam: REGULAR RHYTHM, +S1, +S2 - GI/Abdominal Exam GI & Abdominal Exam: Soft, Diminished Bowel Sounds - Rectal Exam Rectal Exam: Deferred
[2017-07-24] MEDS: Vancomycin 1 GM in Sodium Chloride 0.9% 200 ML IVPB SCH (23:36)
[2017-07-25] MEDS: Vancomycin 1 GM in Sodium Chloride 0.9% 200 ML IVPB SCH (05:20)
[2017-07-25 07:57] LABS: ALB/GLOB RATIO 0.8 (1.0-2.1); ALBUMIN 2.9 g/dL (3.5-5.0); ALT/SGPT 23 U/L (9-52); AST/SGOT 35 U/L (14-36); BLOOD UREA NITROGEN 19 mg/dL (7-17); CALCIUM 7.7 mg/dl (8.6-10.4); GFR AFRICAN-AMERICAN > 60; GFR NON-AFRICAN AMERICAN > 60
[2017-07-25 08:09] LABS: BASO % 0.7 % (0.0-2.0); EOS # 0.1 K/uL (0.0-0.7); HEMOGLOBIN 11.5 g/dL (11.0-16.0); LYMPH # 0.7 K/uL (1.0-4.3); LYMPH % 33.6 % (20.0-40.0); MEAN CORPUSCULAR HEMOGLOBIN 32.4 pg (27.0-31.0); MEAN CORPUSCULAR HGB CONC 34.9 g/dL (33.0-37.0); MEAN PLATELET VOLUME 9.3 fL (7.2-11.7); MONO # 0.3 K/uL (0.0-0.8); MONO % 11.6 % (0.0-10.0); NEUT # 1.1 K/uL (1.8-7.0); NEUT % 51.1 % (50.0-75.0); NRBC % 0.5 % (0.0-2.0); RBC 3.55 Mil/uL (3.80-5.20); RED CELL DISTRIBUTION WIDTH 16.3 % (11.5-14.5); WHITE BLOOD COUNT 2.2 K/uL (4.8-10.8)
[2017-07-25] MEDS ORDERED: DALBAVANCIN HCL 1,500 MG in Dextrose 5% In Water 250 ML IV ONE (09:27)
--- NOTE | 2017-07-25 09:28 | CP.PCM.PN ---
Subjective - Date & Time of Evaluation Date of Evaluation: 07/25/17 Time of Evaluation: 09:23 - Subjective Subjective: PGY2 medicine progress note for Dr. Harrison's service Patient seen and examined. Patient complains of mild soreness to BKA. Patient states warmth and swelling has decreased. Objective - Vital Signs/Intake and Output Vital Signs (last 24 hours): Temp Pulse Resp BP Pulse Ox 97.7 F 60 20 122/73 95 07/25/17 07:44 07/25/17 07:44 07/25/17 07:44 07/25/17 07:44 07/25/17 07:44 Intake and Output: 07/25/17 07/25/17 06:59 18:59 Intake Total 1250 Balance 1250 - Medications Medications: Current Medications Clonazepam (Klonopin) 2 mg PO TID [facility] Last Admin: 07/24/17 17:43 Dose: 2 mg Enoxaparin Sodium (Lovenox) 40 mg SC DAILY [facility] Last Admin: 07/24/17 09:55 Dose: 40 mg Gabapentin (Neurontin) 300 mg PO TID [facility] Last Admin: 07/24/17 17:43 Dose: 300 mg Hydromorphone HCl (Dilaudid) 1 mg IVP Q3H PRN PRN Reason: Pain, moderate (4-7) Last Admin: 07/25/17 08:10 Dose: 1 mg Vancomycin HCl 1 gm/ Sodium (Chloride) 200 mls @ 133 mls/hr IVPB Q12H [facility] Last Admin: 07/25/17 05:20 Dose: 133 mls/hr Oxycodone HCl (Oxycodone Immediate Release Tab) 30 mg PO QID [facility] Last Admin: 07/24/17 21:14 Dose: 30 mg Pantoprazole Sodium (Protonix Ec Tab) 40 mg PO DAILY [facility] Last Admin: 07/24/17 09:55 Dose: 40 mg Sertraline HCl (Zoloft) 50 mg PO DAILY [facility] Last Admin: 07/24/17 09:55 Dose: 50 mg - Labs Labs: 07/25/17 07:14 07/25/17 07:14 - Constitutional Appears: No Acute Distress - Head Exam Head Exam: ATRAUMATIC, NORMOCEPHALIC - Eye Exam Eye Exam: EOMI - ENT Exam ENT Exam: Mucous Membranes Moist - Respiratory Exam Respiratory Exam: Clear to Ausculation Bilateral - Cardiovascular Exam Cardiovascular Exam: +S1, +S2 - GI/Abdominal Exam GI & Abdominal Exam: Soft. absent: Tenderness - Extremities Exam Additional comments: right knee with pre-patellar swelling, mild erythema, mild warmth on palpation - Neurological Exam Neurological Exam: Alert, Awake - Psychiatric Exam Psychiatric exam: Normal Affect - Skin Skin Exam: Warm Assessment and Plan - Assessment and Plan (Free Text) Assessment: Cellulitis of R Knee history right BKA Consult placed to Gen Surg- Dr. Carias; recs appreciated suspect likely inflamed pre-patellar bursa rather than subcutaneous abscess Wound cx collected- MRSA (+) 07/17 Previous admission wound cx (03/07/17) MRSA Consult place to ID- Dr. Anders MRI lower extremity 07/18/17- subcutaneous abscess anterior patella; osteomyelitis less likely Vancomycin- 1g IV q12h (restarted 07/22) Gabapentin- 300mg PO TID WBC 2.2 Afebrile Pain control: Dilaudid 1mg IVP Q3h PRN for pain Oxycodone 30mg PO q6hrs for pain PT ordered Leukopenia WBC count 2.2, Platelet count 83 Dr. Malone, heme-onc consulted, help appreciated suspect alcohol related bone marrow suppression Will evaluate labs: HIVm hepatitis C- reactive iron b12- 583 folate- 9.8 Elevated serum Gamma Globulin Dr. Malone, heme-onc consulted, help appreciated monoclonal work up sent, some results still pending decreased albumin Depression/ Anxiety Klonopin 2mg PO TID [facility] Zoloft 50 mg PO daily Smoking cessation Nicoderm 1 patch TD Q24h Prophylactic Measure Protonix 40mg PO Daily Lovenox 40mg SC Daily Case discussed with Dr. Harrison All management as per Dr. Harrison
[2017-07-25] MEDS: oxyCODONE 30 mg Immediate Release Tab PO SCH ×4 (10:18→21:20)
[2017-07-25] MEDS: Pantoprazole 40 mg EC Tab PO SCH (10:19)
[2017-07-25] MEDS: Enoxaparin 40 mg Syringe SC SCH (10:19)
[2017-07-25] MEDS: Vancomycin 1 gm/NS 200 ml 1 GM/200 ML BAG IVPB SCH (17:24)
--- NOTE | 2017-07-25 17:36 | CP.PCM.PN ---
Subjective - Date & Time of Evaluation Date of Evaluation: 07/25/17 Time of Evaluation: 10:00 - Subjective Subjective: discussed on rounds equivocal MRI on IV rx for mrsa stump Objective - Vital Signs/Intake and Output Vital Signs (last 24 hours): Temp Pulse Resp BP Pulse Ox 98.1 F 71 20 110/72 98 07/25/17 15:15 07/25/17 15:15 07/25/17 15:15 07/25/17 15:15 07/25/17 15:15 Intake and Output: 07/25/17 07/25/17 06:59 18:59 Intake Total 1250 Balance 1250 - Medications Medications: Current Medications Clonazepam (Klonopin) 2 mg PO TID [facility] Last Admin: 07/25/17 17:24 Dose: 2 mg Enoxaparin Sodium (Lovenox) 40 mg SC DAILY [facility] Last Admin: 07/25/17 10:19 Dose: 40 mg Gabapentin (Neurontin) 300 mg PO TID [facility] Last Admin: 07/25/17 17:24 Dose: 300 mg Hydromorphone HCl (Dilaudid) 1 mg IVP Q3H PRN PRN Reason: Pain, moderate (4-7) Last Admin: 07/25/17 16:42 Dose: 1 mg Vancomycin/Sodium Chloride (Vancomycin 1 Gm/Ns 200 Ml) 1 gm in 200 mls @ 133 mls/hr IVPB Q12H [facility] 234 B[facility]S [facility] Stop: 07/30/17 17:21 Last Admin: 07/25/17 17:24 Dose: 133 mls/hr Oxycodone HCl (Oxycodone Immediate Release Tab) 30 mg PO QID [facility] Last Admin: 07/25/17 17:24 Dose: 30 mg Pantoprazole Sodium (Protonix Ec Tab) 40 mg PO DAILY [facility] Last Admin: 07/25/17 10:19 Dose: 40 mg Sertraline HCl (Zoloft) 50 mg PO DAILY [facility] Last Admin: 07/25/17 10:19 Dose: 50 mg - Labs Labs: 07/25/17 07:14 07/25/17 07:14 Assessment and Plan (1) Cellulitis Status: Acute (2) Alcohol abuse Status: Acute (3) BKA stump complication Status: Acute
--- NOTE | 2017-07-25 19:30 | CP.PCM.PN ---
Subjective - Date & Time of Evaluation Date of Evaluation: 07/25/17 Time of Evaluation: 07:20 - Subjective Subjective: clinically same Objective - Vital Signs/Intake and Output Vital Signs (last 24 hours): Temp Pulse Resp BP Pulse Ox 98.1 F 71 20 110/72 98 07/25/17 15:15 07/25/17 15:15 07/25/17 15:15 07/25/17 15:15 07/25/17 15:15 - Medications Medications: Current Medications Clonazepam (Klonopin) 2 mg PO TID [facility] Last Admin: 07/25/17 17:24 Dose: 2 mg Enoxaparin Sodium (Lovenox) 40 mg SC DAILY [facility] Last Admin: 07/25/17 10:19 Dose: 40 mg Gabapentin (Neurontin) 300 mg PO TID [facility] Last Admin: 07/25/17 17:24 Dose: 300 mg Hydromorphone HCl (Dilaudid) 1 mg IVP Q3H PRN PRN Reason: Pain, moderate (4-7) Last Admin: 07/25/17 16:42 Dose: 1 mg Vancomycin/Sodium Chloride (Vancomycin 1 Gm/Ns 200 Ml) 1 gm in 200 mls @ 133 mls/hr IVPB Q12H [facility] Stop: 07/30/17 17:21 Last Admin: 07/25/17 17:24 Dose: 133 mls/hr Oxycodone HCl (Oxycodone Immediate Release Tab) 30 mg PO QID [facility] Last Admin: 07/25/17 17:24 Dose: 30 mg Pantoprazole Sodium (Protonix Ec Tab) 40 mg PO DAILY [facility] Last Admin: 07/25/17 10:19 Dose: 40 mg Sertraline HCl (Zoloft) 50 mg PO DAILY [facility] Last Admin: 07/25/17 10:19 Dose: 50 mg - Labs Labs: 07/25/17 07:14 07/25/17 07:14 - Constitutional Appears: Well - Head Exam Head Exam: ATRAUMATIC, NORMAL INSPECTION, NORMOCEPHALIC - Eye Exam Eye Exam: EOMI, Normal appearance, PERRL Pupil Exam: NORMAL ACCOMODATION, PERRL - ENT Exam ENT Exam: Mucous Membranes Moist, Normal Exam - Neck Exam Neck Exam: Full ROM, Normal Inspection. absent: Lymphadenopathy - Respiratory Exam Respiratory Exam: Decreased Breath Sounds - Cardiovascular Exam Cardiovascular Exam: REGULAR RHYTHM, +S1, +S2 - GI/Abdominal Exam GI & Abdominal Exam: Soft, Diminished Bowel Sounds - Rectal Exam Rectal Exam: Deferred
--- NOTE | 2017-07-25 22:32 | CP.PCM.PN ---
Subjective - Date & Time of Evaluation Date of Evaluation: 07/25/17 Time of Evaluation: 13:30 - Subjective Subjective: No complaints. Objective - Vital Signs/Intake and Output Vital Signs (last 24 hours): Temp Pulse Resp BP Pulse Ox 98.1 F 71 20 110/72 98 07/25/17 15:15 07/25/17 15:15 07/25/17 15:15 07/25/17 15:15 07/25/17 15:15 - Medications Medications: Current Medications Clonazepam (Klonopin) 2 mg PO TID [facility] Last Admin: 07/25/17 17:24 Dose: 2 mg Enoxaparin Sodium (Lovenox) 40 mg SC DAILY [facility] Last Admin: 07/25/17 10:19 Dose: 40 mg Gabapentin (Neurontin) 300 mg PO TID [facility] Last Admin: 07/25/17 17:24 Dose: 300 mg Hydromorphone HCl (Dilaudid) 1 mg IVP Q3H PRN PRN Reason: Pain, moderate (4-7) Last Admin: 07/25/17 19:46 Dose: 1 mg Vancomycin/Sodium Chloride (Vancomycin 1 Gm/Ns 200 Ml) 1 gm in 200 mls @ 133 mls/hr IVPB Q12H [facility] Stop: 07/30/17 17:21 Last Admin: 07/25/17 17:24 Dose: 133 mls/hr Oxycodone HCl (Oxycodone Immediate Release Tab) 30 mg PO QID [facility] Last Admin: 07/25/17 21:20 Dose: 30 mg Pantoprazole Sodium (Protonix Ec Tab) 40 mg PO DAILY [facility] Last Admin: 07/25/17 10:19 Dose: 40 mg Sertraline HCl (Zoloft) 50 mg PO DAILY [facility] Last Admin: 07/25/17 10:19 Dose: 50 mg - Labs Labs: 07/25/17 07:14 07/25/17 07:14 - Head Exam Head Exam: ATRAUMATIC - Eye Exam Eye Exam: Normal appearance - ENT Exam ENT Exam: Mucous Membranes Dry - Respiratory Exam Respiratory Exam: NORMAL BREATHING PATTERN - Cardiovascular Exam Cardiovascular Exam: +S1, +S2 - GI/Abdominal Exam GI & Abdominal Exam: Normal Bowel Sounds Assessment and Plan (1) Pancytopenia Assessment & Plan: alcohol induce bone marrow suppression ?underlying liver disease Status: Acute (2) Elevated serum globulin level Assessment & Plan: monoclonal protein w/u sent Status: Acute
[2017-07-26] MEDS: Vancomycin 1 gm/NS 200 ml 1 GM/200 ML BAG IVPB SCH ×2 (05:36→17:40)
[2017-07-26] MEDS: Pantoprazole 40 mg EC Tab PO SCH (10:51)
[2017-07-26] MEDS: oxyCODONE 30 mg Immediate Release Tab PO SCH ×4 (10:51→21:27)
[2017-07-26] MEDS: Enoxaparin 40 mg Syringe SC SCH (10:52)
[2017-07-26 11:53] LABS: BASO % 0.7 % (0.0-2.0); EOS # 0.1 K/uL (0.0-0.7); HEMOGLOBIN 11.9 g/dL (11.0-16.0); MEAN CELL VOLUME 94.1 fL (81.0-99.0); MEAN CORPUSCULAR HEMOGLOBIN 32.1 pg (27.0-31.0); MEAN CORPUSCULAR HGB CONC 34.1 g/dL (33.0-37.0); MEAN PLATELET VOLUME 9.3 fL (7.2-11.7); MONO # 0.3 K/uL (0.0-0.8); MONO % 9.6 % (0.0-10.0); NEUT # 1.7 K/uL (1.8-7.0); NEUT % 54.7 % (50.0-75.0); NRBC % 0.2 % (0.0-2.0); RBC 3.71 Mil/uL (3.80-5.20); RED CELL DISTRIBUTION WIDTH 16.9 % (11.5-14.5); WHITE BLOOD COUNT 3.2 K/uL (4.8-10.8)
--- NOTE | 2017-07-26 12:05 | CP.PCM.PN ---
Subjective - Date & Time of Evaluation Date of Evaluation: 07/26/17 Time of Evaluation: 07:00 - Subjective Subjective: clinically same Objective - Vital Signs/Intake and Output Vital Signs (last 24 hours): Temp Pulse Resp BP Pulse Ox 97.9 F 60 20 112/73 96 07/26/17 08:11 07/26/17 08:11 07/26/17 08:11 07/26/17 08:11 07/26/17 08:11 Intake and Output: 07/26/17 07/26/17 06:59 18:59 Intake Total 400 Balance 400 - Medications Medications: Current Medications Clonazepam (Klonopin) 2 mg PO TID [facility] Last Admin: 07/26/17 10:51 Dose: 2 mg Enoxaparin Sodium (Lovenox) 40 mg SC DAILY [facility] Last Admin: 07/26/17 10:52 Dose: 40 mg Gabapentin (Neurontin) 300 mg PO TID [facility] Last Admin: 07/26/17 10:51 Dose: 300 mg Hydromorphone HCl (Dilaudid) 1 mg IVP Q3H PRN PRN Reason: Pain, moderate (4-7) Last Admin: 07/26/17 09:01 Dose: 1 mg Vancomycin/Sodium Chloride (Vancomycin 1 Gm/Ns 200 Ml) 1 gm in 200 mls @ 133 mls/hr IVPB Q12H [facility] Stop: 07/30/17 17:21 Last Admin: 07/26/17 05:36 Dose: 133 mls/hr Oxycodone HCl (Oxycodone Immediate Release Tab) 30 mg PO QID [facility] Last Admin: 07/26/17 10:51 Dose: 30 mg Pantoprazole Sodium (Protonix Ec Tab) 40 mg PO DAILY [facility] Last Admin: 07/26/17 10:51 Dose: 40 mg Sertraline HCl (Zoloft) 50 mg PO DAILY [facility] Last Admin: 07/26/17 10:51 Dose: 50 mg - Labs Labs: 07/26/17 11:40 07/25/17 07:14 - Constitutional Appears: Well - Head Exam Head Exam: ATRAUMATIC, NORMAL INSPECTION, NORMOCEPHALIC - Eye Exam Eye Exam: EOMI, Normal appearance, PERRL Pupil Exam: NORMAL ACCOMODATION, PERRL - ENT Exam ENT Exam: Mucous Membranes Moist, Normal Exam - Neck Exam Neck Exam: Full ROM, Normal Inspection. absent: Lymphadenopathy - Respiratory Exam Respiratory Exam: Decreased Breath Sounds - Cardiovascular Exam Cardiovascular Exam: REGULAR RHYTHM, +S1, +S2 - GI/Abdominal Exam GI & Abdominal Exam: Soft, Diminished Bowel Sounds - Rectal Exam Rectal Exam: Deferred
[2017-07-26 12:11] LABS: ALB/GLOB RATIO 0.8 (1.0-2.1); ALBUMIN 3.3 g/dL (3.5-5.0); ALT/SGPT 30 U/L (9-52); AST/SGOT 36 U/L (14-36); BLOOD UREA NITROGEN 16 mg/dL (7-17); CALCIUM 8.1 mg/dl (8.6-10.4); GFR AFRICAN-AMERICAN > 60; GFR NON-AFRICAN AMERICAN > 60
--- NOTE | 2017-07-26 20:08 | CP.PCM.PN ---
Subjective - Date & Time of Evaluation Date of Evaluation: 07/26/17 Time of Evaluation: 19:00 - Subjective Subjective: Feeling better Objective - Vital Signs/Intake and Output Vital Signs (last 24 hours): Temp Pulse Resp BP Pulse Ox 98.4 F 62 20 94/61 L 98 07/26/17 16:05 07/26/17 16:05 07/26/17 16:05 07/26/17 16:05 07/26/17 16:05 Intake and Output: 07/26/17 07/27/17 18:59 06:59 Intake Total 480 Balance 480 - Medications Medications: Current Medications Clonazepam (Klonopin) 2 mg PO TID [facility] Last Admin: 07/26/17 15:00 Dose: 2 mg Enoxaparin Sodium (Lovenox) 40 mg SC DAILY [facility] Last Admin: 07/26/17 10:52 Dose: 40 mg Gabapentin (Neurontin) 300 mg PO TID [facility] Last Admin: 07/26/17 17:42 Dose: 300 mg Hydromorphone HCl (Dilaudid) 1 mg IVP Q3H PRN PRN Reason: Pain, moderate (4-7) Last Admin: 07/26/17 16:53 Dose: 1 mg Vancomycin/Sodium Chloride (Vancomycin 1 Gm/Ns 200 Ml) 1 gm in 200 mls @ 133 mls/hr IVPB Q12H [facility] Stop: 07/30/17 17:21 Last Admin: 07/26/17 17:40 Dose: 133 mls/hr Oxycodone HCl (Oxycodone Immediate Release Tab) 30 mg PO QID [facility] Last Admin: 07/26/17 17:42 Dose: 30 mg Pantoprazole Sodium (Protonix Ec Tab) 40 mg PO DAILY [facility] Last Admin: 07/26/17 10:51 Dose: 40 mg Sertraline HCl (Zoloft) 50 mg PO DAILY [facility] Last Admin: 07/26/17 10:51 Dose: 50 mg - Labs Labs: 07/26/17 11:40 07/26/17 11:40 - Head Exam Head Exam: ATRAUMATIC - Eye Exam Eye Exam: Normal appearance - ENT Exam ENT Exam: Mucous Membranes Dry - Respiratory Exam Respiratory Exam: NORMAL BREATHING PATTERN - Cardiovascular Exam Cardiovascular Exam: +S1, +S2 - GI/Abdominal Exam GI & Abdominal Exam: Normal Bowel Sounds Assessment and Plan (1) Pancytopenia Assessment & Plan: alcohol induce bone marrow suppression ?underlying liver disease Status: Acute (2) Elevated serum globulin level Assessment & Plan: monoclonal protein w/u in progress Status: Acute
[2017-07-27 01:31] VITALS: PULSE 60
[2017-07-27] MEDS: Vancomycin 1 gm/NS 200 ml 1 GM/200 ML BAG IVPB SCH (05:30)
[2017-07-27 09:46] VITALS: BP 125/81; TEMP 97.7; O2SAT 98
[2017-07-27] MEDS: oxyCODONE 30 mg Immediate Release Tab PO SCH ×2 (11:00→14:40)
[2017-07-27] MEDS: Enoxaparin 40 mg Syringe SC SCH (11:00)
[2017-07-27] MEDS: Pantoprazole 40 mg EC Tab PO SCH (11:00)
--- NOTE | 2017-07-27 11:47 | CP.PCM.DIS ---
Provider - Provider Date of Admission: 07/23/17 15:54 Attending physician: Gordo Harrison MD Hospital Course - Lab Results Lab Results: Most Recent Lab Values WBC 3.2 K/uL (4.8-10.8) L 07/26/17 11:40 RBC 3.71 Mil/uL (3.80-5.20) L 07/26/17 11:40 Hgb 11.9 g/dL (11.0-16.0) 07/26/17 11:40 Hct 34.9 % (34.0-47.0) 07/26/17 11:40 MCV 94.1 fL (81.0-99.0) 07/26/17 11:40 MCH 32.1 pg (27.0-31.0) H 07/26/17 11:40 MCHC 34.1 g/dL (33.0-37.0) 07/26/17 11:40 RDW 16.9 % (11.5-14.5) H 07/26/17 11:40 Plt Count 106 K/uL (130-400) L D 07/26/17 11:40 MPV 9.3 fL (7.2-11.7) 07/26/17 11:40 Neut % (Auto) 54.7 % (50.0-75.0) 07/26/17 11:40 Lymph % (Auto) 32.0 % (20.0-40.0) 07/26/17 11:40 [place] % (Auto) 9.6 % (0.0-10.0) 07/26/17 11:40 Eos % (Auto) 3.0 % (0.0-4.0) 07/26/17 11:40 Baso % (Auto) 0.7 % (0.0-2.0) 07/26/17 11:40 Neut # 1.7 K/uL (1.8-7.0) L 07/26/17 11:40 Lymph # 1.0 K/uL (1.0-4.3) 07/26/17 11:40 [place] # 0.3 K/uL (0.0-0.8) 07/26/17 11:40 Eos # 0.1 K/uL (0.0-0.7) 07/26/17 11:40 Baso # 0.0 K/uL (0.0-0.2) 07/26/17 11:40 Sodium 136 mmol/L (132-148) 07/26/17 11:40 Potassium 3.7 mmol/L (3.6-5.2) 07/26/17 11:40 Chloride 102 mmol/L (98-107) 07/26/17 11:40 Carbon Dioxide 28 mmol/L (22-30) 07/26/17 11:40 Anion Gap 9 (10-20) L 07/26/17 11:40 BUN 16 mg/dL (7-17) 07/26/17 11:40 Creatinine 0.7 mg/dL (0.7-1.2) 07/26/17 11:40 Est GFR ( Amer) > 60 07/26/17 11:40 Est GFR (Non-Af Amer) > 60 07/26/17 11:40 Random Glucose 130 mg/dL (65-105) H 07/26/17 11:40 Calcium 8.1 mg/dl (8.6-10.4) L 07/26/17 11:40 Total Bilirubin 0.7 mg/dL (0.2-1.3) 07/26/17 11:40 AST 36 U/L (14-36) 07/26/17 11:40 ALT 30 U/L (9-52) 07/26/17 11:40 Alkaline Phosphatase 65 U/L (38-126) 07/26/17 11:40 Total Protein 7.4 g/dL (6.3-8.3) 07/26/17 11:40 Albumin 3.3 g/dL (3.5-5.0) L 07/26/17 11:40 Globulin 4.1 gm/dL (2.2-3.9) H 07/26/17 11:40 Albumin/Globulin Ratio 0.8 (1.0-2.1) L 07/26/17 11:40 Vancomycin Trough 26.4 ug/mL (5.0-10.0) H 07/23/17 16:59 Random Vancomycin 9.53 ug/mL 07/24/17 07:29 Discharge Exam - Head Exam Head Exam: ATRAUMATIC Discharge Plan - Follow Up Plan Condition: FAIR Disposition: HOME/ ROUTINE
== END 2017-07-27 15:55 | disposition home or self-care (01) | DRG 249 ==
LOC: C.ER 14:46 → C.9E 15:36 → C.3T 16:24 → OBSVTOIN 07-23 15:54 → C.3T 07-24 21:36
PROVIDERS: ADMIT Internal Medicine Nephrology; ATTEND Internal Medicine Nephrology
DX: T87.43 Infection of amputation stump, right lower extremity (principal); L03.115 Cellulitis of right lower limb; D61.818 Other pancytopenia; K70.30 Alcoholic cirrhosis of liver without ascites; J43.9 Emphysema, unspecified; B18.2 Chronic viral hepatitis C; F10.10 Alcohol abuse, uncomplicated; F31.9 Bipolar disorder, unspecified; F41.9 Anxiety disorder, unspecified; Z89.511 Acquired absence of right leg below knee; Z90.49 Acquired absence of other specified parts of digestive tract; Z79.899 Other long term (current) drug therapy; Z87.81 Personal history of (healed) traumatic fracture

== ENCOUNTER 2017-08-04 06:02 | Observation (INO) | payer MEDICAID ==
[2017-08-04] MEDS ORDERED: ceFAZolin IV 2 gm in Dextrose 0 GM/0 ML BAG IVPB ONE (07:35)
[2017-08-04] MEDS ORDERED: Bacitracin Ointment 30 GM TUBE ONE (07:35)
[2017-08-04] MEDS ORDERED: Lidocaine 1% Inj (20ml) ONE (07:35)
[2017-08-04] MEDS ORDERED: Midazolam 2 MG/2 ML VIAL ONE (07:51)
[2017-08-04] MEDS ORDERED: Propofol 10 mg/ml Inj (20 ML) ONE (07:51)
[2017-08-04] MEDS ORDERED: Phenylephrine 10 mg/ml Inj ONE (07:54)
[2017-08-04] MEDS ORDERED: Lactated Ringer's 1,000 ML IV ONE (07:54)
[2017-08-04] MEDS ORDERED: ceFAZolin IV 1 gm in Dextrose 1 GM/50 ML BAG IVPB ONE (08:01)
--- NOTE | 2017-08-04 09:26 | PCM.SURG1 ---
Surgeon's Initial Post Op Note - Surgeon's Notes Surgeon: Dr. Carias Drop Forger Helper: Norma GARZAY1, Hunter GOINS Type of Anesthesia: General Mask Pre-Operative Diagnosis: R Knee bursitis Operative Findings: see operative report Post-Operative Diagnosis: R Knee bursitis Operation Performed: Removal of R knee bursa Specimen/Specimens Removed: Bursa with sac Estimated Blood Loss: EBL {In ML}: 20 Blood Products Given: N/A Drains Used: No Drains Post-Op Condition: Good Date of Surgery/Procedure: 08/04/17 Time of Surgery/Procedure: 08:00
[2017-08-04] MEDS: Oxycodone/Acetaminophen 5/325 mg Tab PO PRN ×2 (18:45→22:31)
--- NOTE | 2017-08-04 18:59 | OP ---
PROCEDURE DATE: 08/04/2017 PREOPERATIVE DIAGNOSIS: Infection, right below knee stump, patella bursa. PROCEDURE CARRIED OUT: Revision of right below knee amputation with excision of patella bursa, right side. SURGEON: Foreign Carias Jr., MD. ICU REGISTERED NURSE: . ANESTHESIOLOGIST: Mr. Peres and Greta Roman MD. 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 OPERATIVE FINDINGS: The patella bursa was completely removed and after hemostasis obtained, we closed the wound. Blood loss for the procedure was 20 mL. There were no operative complications. The entire sac was removed, which I was quite happy with. After closure of the wound with 5 nylon sutures, dressings were applied. The procedure was terminated. Operation carried out is revision of right below amputation with excision of patella bursa, right side. Foreign Carias Jr., MD
[2017-08-04] MEDS ORDERED: Clindamycin 300 MG in Sodium Chloride 0.9% 50 ML IVPB SCH (20:00)
[2017-08-04] MEDS ORDERED: Sodium Chloride 0.9% 1,000 ML IV ONE (20:08)
[2017-08-04] MEDS: Clindamycin 300 MG in Sodium Chloride 0.9% 100 ML IVPB SCH (20:09)
[2017-08-04] MEDS: Sodium Chloride 0.9% 1,000 ML IV SCH (20:33)
[2017-08-04 20:36] VITALS: RESP 20
[2017-08-05] MEDS: Clindamycin 300 MG in Sodium Chloride 0.9% 100 ML IVPB SCH (02:52)
[2017-08-05] MEDS: Oxycodone/Acetaminophen 5/325 mg Tab PO PRN (04:42)
[2017-08-05] MEDS: Sodium Chloride 0.9% 1,000 ML IV SCH (06:42)
[2017-08-05 07:31] LABS: BASO % 0.6 % (0.0-2.0); EOS # 0.1 K/uL (0.0-0.7); EOS % 3.3 % (0.0-4.0); HEMOGLOBIN 10.6 g/dL (11.0-16.0); LYMPH # 0.8 K/uL (1.0-4.3); LYMPH % 32.1 % (20.0-40.0); MEAN CELL VOLUME 94.6 fL (81.0-99.0); MEAN CORPUSCULAR HEMOGLOBIN 32.1 pg (27.0-31.0); MEAN CORPUSCULAR HGB CONC 33.9 g/dL (33.0-37.0); MONO # 0.2 K/uL (0.0-0.8); MONO % 6.6 % (0.0-10.0); NEUT # 1.4 K/uL (1.8-7.0); NEUT % 57.4 % (50.0-75.0); NRBC % 0.1 % (0.0-2.0); RBC 3.31 Mil/uL (3.80-5.20); RED CELL DISTRIBUTION WIDTH 15.9 % (11.5-14.5); WHITE BLOOD COUNT 2.4 K/uL (4.8-10.8)
[2017-08-05 09:00] LABS: ALB/GLOB RATIO 0.8 (1.0-2.1); ALT/SGPT 31 U/L (9-52); AST/SGOT 37 U/L (14-36); BLOOD UREA NITROGEN 25 mg/dL (7-17); CALCIUM 7.5 mg/dl (8.6-10.4); GFR AFRICAN-AMERICAN > 60; GFR NON-AFRICAN AMERICAN > 60
[2017-08-05] MEDS ORDERED: oxyCODONE 30 mg Immediate Release Tab PO PRN (09:39)
[2017-08-05] MEDS ORDERED: Pantoprazole 40 mg EC Tab PO SCH (10:00)
[2017-08-05 10:41] VITALS: BP 103/68; PULSE 71; TEMP 98; O2SAT 98
--- NOTE | 2017-08-05 10:49 | CP.PCM.DIS ---
Provider - Provider Date of Admission: 08/04/17 09:52 Attending physician: Foreign Carias Jr, MD Time Spent in preparation of Discharge (in minutes): 40 Hospital Course - Lab Results Lab Results: Most Recent Lab Values WBC 2.4 K/uL (4.8-10.8) L 08/05/17 07:21 RBC 3.31 Mil/uL (3.80-5.20) L 08/05/17 07:21 Hgb 10.6 g/dL (11.0-16.0) L 08/05/17 07:21 Hct 31.3 % (34.0-47.0) L 08/05/17 07:21 MCV 94.6 fL (81.0-99.0) 08/05/17 07:21 MCH 32.1 pg (27.0-31.0) H 08/05/17 07:21 MCHC 33.9 g/dL (33.0-37.0) 08/05/17 07:21 RDW 15.9 % (11.5-14.5) H 08/05/17 07:21 Plt Count 59 K/uL (130-400) L D 08/05/17 07:21 MPV 10.0 fL (7.2-11.7) 08/05/17 07:21 Neut % (Auto) 57.4 % (50.0-75.0) 08/05/17 07:21 Lymph % (Auto) 32.1 % (20.0-40.0) 08/05/17 07:21 [place] % (Auto) 6.6 % (0.0-10.0) 08/05/17 07:21 Eos % (Auto) 3.3 % (0.0-4.0) 08/05/17 07:21 Baso % (Auto) 0.6 % (0.0-2.0) 08/05/17 07:21 Neut # 1.4 K/uL (1.8-7.0) L 08/05/17 07:21 Lymph # 0.8 K/uL (1.0-4.3) L 08/05/17 07:21 [place] # 0.2 K/uL (0.0-0.8) 08/05/17 07:21 Eos # 0.1 K/uL (0.0-0.7) 08/05/17 07:21 Baso # 0.0 K/uL (0.0-0.2) 08/05/17 07:21 Sodium 134 mmol/L (132-148) 08/05/17 07:21 Potassium 4.1 mmol/L (3.6-5.2) 08/05/17 07:21 Chloride 104 mmol/L (98-107) 08/05/17 07:21 Carbon Dioxide 24 mmol/L (22-30) 08/05/17 07:21 Anion Gap 11 (10-20) 08/05/17 07:21 BUN 25 mg/dL (7-17) H 08/05/17 07:21 Creatinine 0.9 mg/dL (0.7-1.2) 08/05/17 07:21 Est GFR ( Amer) > 60 08/05/17 07:21 Est GFR (Non-Af Amer) > 60 08/05/17 07:21 Random Glucose 92 mg/dL (65-105) 08/05/17 07:21 Calcium 7.5 mg/dl (8.6-10.4) L 08/05/17 07:21 Total Bilirubin 1.3 mg/dL (0.2-1.3) 08/05/17 07:21 AST 37 U/L (14-36) H 08/05/17 07:21 ALT 31 U/L (9-52) 08/05/17 07:21 Alkaline Phosphatase 48 U/L (38-126) 08/05/17 07:21 Total Protein 6.7 g/dL (6.3-8.3) 08/05/17 07:21 Albumin 3.0 g/dL (3.5-5.0) L 08/05/17 07:21 Globulin 3.7 gm/dL (2.2-3.9) 08/05/17 07:21 Albumin/Globulin Ratio 0.8 (1.0-2.1) L 08/05/17 07:21 - Hospital Course Hospital Course: Patient underwent a removal of right knee bursa due to right knee bursitis with Dr. Carias. Patient's pain was controlled. Patient denied nausea, vomiting, diarrhea, constipation, shortness of breath, chest pain or fever. Patient stable for discharge per Dr. Carias. Patient to follow up with pain managment tomorrow 08/06/17. Patient to use crutches. Patient to change dressing as needed with 4x4 and curlex dressing. Patient to follow up with Dr. Carias in 1-2 weeks in the office. Patient to return to the emergency room if symptoms return or worsen. Discharge Exam - Head Exam Head Exam: ATRAUMATIC, NORMAL INSPECTION - Eye Exam Eye Exam: EOMI, Normal appearance - ENT Exam ENT Exam: Mucous Membranes Moist - Respiratory Exam Respiratory Exam: Clear to PA & Lateral, NORMAL BREATHING PATTERN - Cardiovascular Exam Cardiovascular Exam: +S1, +S2 - GI/Abdominal Exam GI & Abdominal Exam: Normal Bowel Sounds, Soft. absent: Tenderness - Extremities Exam Extremities exam: tenderness Additional comments: Right knee amputation - Neurological Exam Neurological exam: Alert, Oriented x3 - Skin Skin Exam: Dry, Intact, Normal Color, Warm Additional comments: right knee wound dressing clean dry and intact Discharge Plan - Follow Up Plan Condition: GOOD Disposition: HOME/ ROUTINE
[2017-08-05] MEDS ORDERED: Clindamycin 300 MG in Sodium Chloride 0.9% 100 ML IVPB SCH (12:00)
--- NOTE | 2017-08-05 12:44 | CP.PCM.PN ---
Subjective - Date & Time of Evaluation Date of Evaluation: 08/05/17 Time of Evaluation: 12:43 - Subjective Subjective: oxy 30 #5 prescribed fu with me, pmmichael parisi, and oain management Dr Fox Objective - Vital Signs/Intake and Output Vital Signs (last 24 hours): Temp Pulse Resp BP Pulse Ox 98 F 71 20 103/68 98 08/05/17 10:40 08/05/17 10:40 08/05/17 10:40 08/05/17 10:40 08/05/17 10:40 - Medications Medications: Current Medications Clonazepam (Klonopin) 2 mg PO TID [facility] Last Admin: 08/05/17 10:03 Dose: 2 mg Gabapentin (Neurontin) 300 mg PO TID [facility] Last Admin: 08/05/17 10:03 Dose: 300 mg Hydromorphone HCl (Dilaudid) 0.5 mg IVP Q3H PRN PRN Reason: Pain, severe (8-10) Last Admin: 08/05/17 06:00 Dose: 0.5 mg Sodium Chloride (Sodium Chloride 0.9%) 1,000 mls @ 110 mls/hr IV .Q9H6M [facility] Last Admin: 08/05/17 06:42 Dose: 110 mls/hr Clindamycin Phosphate 300 mg/ (Sodium Chloride) 102 mls @ 204 mls/hr IVPB Q6H [facility] Oxycodone HCl (Oxycodone Immediate Release Tab) 30 mg PO Q6H PRN PRN Reason: Pain, severe (8-10) Last Admin: 08/05/17 10:41 Dose: 30 mg Oxycodone/Acetaminophen (Percocet 5/325 Mg Tab) 1 tab PO Q4H PRN PRN Reason: Pain, moderate (4-7) Stop: 08/07/17 09:28 Last Admin: 08/05/17 04:42 Dose: 1 tab Pantoprazole Sodium (Protonix Ec Tab) 40 mg PO DAILY [facility] Last Admin: 08/05/17 10:03 Dose: 40 mg Sertraline HCl (Zoloft) 50 mg PO DAILY [facility] Last Admin: 08/05/17 10:03 Dose: 50 mg - Labs Labs: 08/05/17 07:21 08/05/17 07:21
== END 2017-08-05 13:30 | disposition home or self-care (01) ==
LOC: C.SDS 06:02 → C.9S 09:52 → C.5S 20:24
PROVIDERS: ADMIT Surgery Vascular Surgery; ATTEND Surgery Vascular Surgery
DX: T87.89 Other complications of amputation stump (principal); M70.51 Other bursitis of knee, right knee
CPT/HCPCS: 27340; 27886; 36415; 80053; 85025; 88305; 97116; 97161; G0378; G8978; G8979; G8980; J0690; J1170; J2250; J2370; J2704; J3010; J7030; J7040; J7120

== ENCOUNTER 2017-08-16 13:17 | Emergency (ER) | payer MEDICAID ==
[2017-08-16 13:18] VITALS: BMI 25.8
[2017-08-16 13:46] VITALS: BP 104/64; TEMP 98.7
--- NOTE | 2017-08-16 14:21 | C.PDOC ---
History Of Present Illness 47 y/o female with multiple medical problems, right bka, s/p surgery to knee on 08/05, seen by Dr Carias on for follow up, c/o persistent drainage from knee, pain and difficulty bearing weight since /fri, fall 2 days ago. denies fever and chills. (Sobeida Mcgrath) History Per: Patient History/Exam Limitations: no limitations Onset/Duration Of Symptoms: Days (4) Current Symptoms Are (Timing): Worse Severity: Moderate Pain Scale Rating Of: 7 - Knee Description Of Injury: Fell, Other (recent surgery) Time Seen by Provider: 08/16/17 13:51 Chief Complaint (Nursing): Lower Extremity Problem/Injury Past Medical History Reviewed: Historical Data, Nursing Documentation, Vital Signs - Medical History PMH: Anxiety, Bipolar Disorder, COPD (Emphysema), Depression, Emphysema, Fractures (rt foot) Denies: Diabetes, Hepatitis, HIV, HTN, Chronic Kidney Disease, Seizures, Sexually Transmitted Disease Surgical History: Appendectomy (1989) Family History: States: Unknown Family Hx - Social History Hx Tobacco Use: Yes Hx Alcohol Use: Yes (once a week) Hx Substance Use: Yes (heroin last year) - Immunization History Hx Tetanus Toxoid Vaccination: No Hx Influenza Vaccination: No Hx Pneumococcal Vaccination: Yes Vital Signs: Last Vital Signs Temp 98.7 F 08/16/17 13:45 Pulse 80 08/16/17 15:39 Resp 17 08/16/17 15:39 BP 104/64 08/16/17 13:45 Pulse Ox 97 08/17/17 22:58 - [facility] Procedures BELOW KNEE AMPUTAT NEC (02/19/15) DETOXIFICATION SERVICES FOR SUBSTANCE ABUSE TREATMENT (06/21/17) DRAINAGE OF LEFT LOWER LEG SKIN, EXTERNAL APPROACH (09/11/16) DRAINAGE OF RIGHT LOWER LEG SKIN, EXTERNAL APPROACH, DIAGN (03/07/17) GROUP MANAGER OF DATA FOR SUBSTANCE ABUSE TREATMENT, PSYCHOEDUCATION (08/01/16) GROUP PSYCHOTHERAPY (12/16/15) IMMOBILIZ/WOUND ATTN NEC (10/07/12) INDIV PSYCHOTHERAPY FOR SUBSTANCE ABUSE TREATMENT, SUPPORT (12/21/16) INDIV PSYCHOTHERAPY FOR SUBSTANCE ABUSE, PSYCHOEDUCATION (09/11/16) INDIVIDUAL PSYCHOTHERAPY, SUPPORTIVE (06/21/17) INFLUENZA VACCINATION (10/17/13) NONEXCIS DEBRID OF WOUND, INFECT, OR BURN (05/13/13) PART OSTECT-METATAR/TAR (05/13/13) PARTIAL OSTECTOMY NEC (05/13/13) Review Of Systems Constitutional: Negative for: Fever, Chills Skin: Positive for: Bruising, Other (drainage knee) Neurological: Negative for: Weakness, Numbness Physical Exam - Physical Exam Appears: Non-toxic, No Acute Distress Skin: Warm, Dry Head: Atraumatic, Normacephalic Neck: Supple Respiratory: No Decreased Breath Sounds, No Wheezing Gastrointestinal/Abdominal: Bowel Sounds, Soft, No Tenderness Extremity: Other (right bka, sutured surgical wound toknee with dehiscence of wound on lateral aspect, serosanguionus drainage,. mild surrounding erythema and warmth. from at knee. ) Neurological/Psych: Oriented x3, Normal Speech, Normal Cognition, Normal Motor, Normal Sensation ED Course And Treatment O2 Sat by Pulse Oximetry: 97 Medical Decision Making Medical Decision Making: discussed with Dr Carias; will d/c with bactrim and keflex, motrin and f/u Dr Carias on . Pt agrees with plan. wound culture done. pt has oxycodone at home. (Sobeida Mcgrath) recieved report from rn for postive culture. pt treated with antibiotics sensitive to organisms. (Keith Us) Disposition Counseled Patient/Family Regarding: Diagnosis, Need For Followup, Rx Given - Disposition Disposition Time: 14:53 - Disposition Referrals: Foreign Carias Jr., MD [Staff Provider] - Disposition: HOME/ ROUTINE Condition: STABLE Additional Instructions: Please take antibiotics as prescribed. Take ibuprofen as prescribed. Keep wound clean ad dry. Follow up with Dr Carias on . Return to ER if redness around wound increases, or you develop fever. Prescriptions: Cephalexin [cephalexin] 500 mg PO QID #28 cap Ibuprofen [Motrin] 600 mg PO TID #30 tab Sulfamethoxazole/Trimethoprim [Bactrim DS 800 mg-160 mg] 1 tab PO BID #14 tab Instructions: Surgical Site Infections (ED) Forms: [facility] (Ukrainian), General Discharge Instructions - Clinical Impression Clinical Impression: Wound drainage
[2017-08-16] MEDS ORDERED: Tmp-Smz 800 mg-160 mg DS Tab PO STA (14:31)
[2017-08-16] MEDS ORDERED: Tmp-Smz 800 mg-160 mg DS Tab ONE (14:44)
[2017-08-16 15:40] VITALS: PULSE 80; RESP 17
[2017-08-17 22:56] VITALS: O2SAT 97
== END 2017-08-16 15:39 | disposition home or self-care (01) ==
LOC: C.ER 13:17
DX: M96.89 Other intraoperative and postprocedural complications and disorders of the musculoskeletal system (principal); Y83.8 Other surgical procedures as the cause of abnormal reaction of the patient, or of later complication, without mention of misadventure at the time of the procedure; Y92.89 Other specified places as the place of occurrence of the external cause

== ENCOUNTER 2017-12-22 18:56 | Emergency (ER) | payer MEDICAID ==
[2017-12-22 18:56] VITALS: BMI 25.8
[2017-12-22] MEDS ORDERED: Sodium Chloride 0.9% 1,000 ML IV ONE (19:35)
--- NOTE | 2017-12-22 19:35 | C.PDOC ---
History Of Present Illness 47 year old female is brought in by EMS for evaluation. Patient was found by her friend with a needle stuck in her arm and a bag of heroin next to her. Patient's friend called 911, patient was given 2 mg intranasal Narcan after which patient was back to baseline. Patient denies SI/HI, hallucinations, fever , chills, CP, SOB. Time Seen by Provider: 12/22/17 19:34 Chief Complaint (Nursing): Substance Abuse History Per: Patient, EMS History/Exam Limitations: no limitations Onset/Duration Of Symptoms: Hrs Current Symptoms Are (Timing): Still Present Suicide/Self Injury Attempted (Context): None Modifying Factor(s): Other (heroin) Associated Symptoms: denies: Depression, Suicidal Thoughts, Suicidal Plan Involuntary Hold By: None Recent travel outside of the [place]: No Additional History Per: EMS, Friend Past Medical History Reviewed: Historical Data, Nursing Documentation, Vital Signs Vital Signs: Last Vital Signs Temp 97.4 F L 12/22/17 19:05 Pulse 68 12/22/17 19:20 Resp 14 12/22/17 19:20 BP 107/70 12/22/17 19:20 Pulse Ox 99 12/22/17 20:08 - Medical History PMH: Anxiety, Bipolar Disorder, COPD (Emphysema), Depression, Emphysema, Fractures (rt foot) Denies: Diabetes, Hepatitis, HIV, HTN, Chronic Kidney Disease, Seizures, Sexually Transmitted Disease Surgical History: Appendectomy (1989) - [facility] Procedures BELOW KNEE AMPUTAT NEC (02/19/15) DETOXIFICATION SERVICES FOR SUBSTANCE ABUSE TREATMENT (06/21/17) DRAINAGE OF LEFT LOWER LEG SKIN, EXTERNAL APPROACH (09/11/16) DRAINAGE OF RIGHT LOWER LEG SKIN, EXTERNAL APPROACH, DIAGN (03/07/17) GROUP COMPUTER NETWORK SUPPORT SPECIALIST FOR SUBSTANCE ABUSE TREATMENT, PSYCHOEDUCATION (08/01/16) GROUP PSYCHOTHERAPY (12/16/15) IMMOBILIZ/WOUND ATTN NEC (10/07/12) INDIV PSYCHOTHERAPY FOR SUBSTANCE ABUSE TREATMENT, SUPPORT (12/21/16) INDIV PSYCHOTHERAPY FOR SUBSTANCE ABUSE, PSYCHOEDUCATION (09/11/16) INDIVIDUAL PSYCHOTHERAPY, SUPPORTIVE (06/21/17) INFLUENZA VACCINATION (05/13/13) NONEXCIS DEBRID OF WOUND, INFECT, OR BURN (05/13/13) PART OSTECT-METATAR/TAR (05/13/13) PARTIAL OSTECTOMY NEC (05/13/13) Family History: States: Unknown Family Hx - Social History Hx Tobacco Use: Yes Hx Alcohol Use: Yes (once a week) Hx Substance Use: Yes (heroin last year) - Immunization History Hx Tetanus Toxoid Vaccination: No Hx Influenza Vaccination: No Hx Pneumococcal Vaccination: Yes Review Of Systems Constitutional: Negative for: Fever, Chills Cardiovascular: Negative for: Chest Pain, Palpitations Respiratory: Negative for: Shortness of Breath Gastrointestinal: Negative for: Nausea, Vomiting Neurological: Negative for: Weakness, Numbness Psych: Negative for: Depression, Suicidal ideation Physical Exam - Physical Exam Appears: Non-toxic, No Acute Distress Skin: Warm, Dry Head: Normacephalic Eye(s): bilateral: Normal Inspection Oral Mucosa: Moist Neck: Supple Chest: Symmetrical Cardiovascular: Rhythm Regular Respiratory: No Rales, No Rhonchi, No Wheezing Gastrointestinal/Abdominal: Soft, No Tenderness, No Guarding, No Rebound Extremity: Normal ROM, Capillary Refill (< 2 seconds) Extremity: Bilateral: Atraumatic, Normal Color And Temperature Pulses: Left Dorsalis Pedis: Normal, Right Dorsalis Pedis: Normal Neurological/Psych: Oriented x3, Normal Speech ED Course And Treatment - Laboratory Results Result Diagrams: 12/22/17 21:00 12/22/17 21:00 ECG: Interpreted By Me, Viewed By Me ECG Rhythm: Sinus Rhythm (69), Nonspecific Changes O2 Sat by Pulse Oximetry: 99 (ON RA) Pulse Ox Interpretation: Normal - Radiology CXR: Interpreted by Me, Viewed By Me CXR Interpretation: Yes: Infiltrates (rll). No: Pnemothorax Progress Note: Plan: - EKG. - Labs. - CXR. - IV fluids. - UA Reevaluation Time: 21:28 Reassessment Condition: Improved Disposition Counseled Patient/Family Regarding: Studies Performed, Diagnosis, Need For Followup, Rx Given - Disposition Referrals: Cuauhtemoc Noriega MD [Staff Provider] - Disposition: HOME/ ROUTINE Disposition Time: 19:35 Condition: FAIR Prescriptions: Azithromycin [Zithromax Tri-Rosendo] 500 mg PO DAILY #3 tablet Naloxone HCl [Narcan] 4 mg NS ONCE PRN #2 spray PRN Reason: Opiate Reversal Instructions: Narcotic Overdose (DC), Pneumonia, Adult (DC) Forms: [facility] (Thai) - Clinical Impression Clinical Impression: Opioid abuse, Pneumonia - Scribe Statement The provider has reviewed the documentation as recorded by the Scribe Reyes Ignacio All medical record entries made by the Scribe were at my direction and personally dictated by me. I have reviewed the chart and agree that the record accurately reflects my personal performance of the history, physical exam, medical decision making, and the department course for this patient. I have also personally directed, reviewed, and agree with the discharge instructions and disposition.
[2017-12-22] MEDS ORDERED: Sodium Chloride 0.9% 1,000 ML ONE (19:44)
[2017-12-22] MEDS ORDERED: Piperacillin/Tazobact 3.375 gm 100 ML IVPB STA (20:09)
[2017-12-22 20:53] LABS: SQUAMOUS EPITHIAL 1 /hpf (0-5); URINE BILIRUBIN NEGATIVE (NEGATIVE); URINE BLOOD NEGATIVE (NEGATIVE); URINE CLARITY Clear (Clear); URINE COLOR Straw (YELLOW); URINE GLUCOSE (UA) NORMAL (Normal); URINE LEUKOCYTE ESTERASE 2+ Leu/uL (Negative); URINE PROTEIN NEGATIVE (NEGATIVE); URINE UROBILINOGEN NORMAL mg/dL (0.2-1.0)
[2017-12-22 20:59] LABS: HCG,QUALITATIVE URINE NEGATIVE (NEGATIVE)
[2017-12-22 21:07] LABS: BARBITURATES, UR NEGATIVE (NEGATIVE); BENZODIAZEPINES, UR NEGATIVE (NEGATIVE); PHENCYCLIDINE, UR NEGATIVE (NEGATIVE)
[2017-12-22 21:08] LABS: BASO % 0.5 % (0.0-2.0); EOS # 0.1 K/uL (0.0-0.7); LYMPH # 0.9 K/uL (1.0-4.3); MEAN CORPUSCULAR HEMOGLOBIN 31.2 pg (27.0-31.0); MEAN CORPUSCULAR HGB CONC 34.5 g/dL (33.0-37.0); MEAN PLATELET VOLUME 8.9 fL (7.2-11.7); MONO # 0.1 K/uL (0.0-0.8); MONO % 4.7 % (0.0-10.0); NEUT # 2.1 K/uL (1.8-7.0); NEUT % 65.8 % (50.0-75.0); NRBC % 0.1 % (0.0-2.0); RBC 4.16 Mil/uL (3.80-5.20); RED CELL DISTRIBUTION WIDTH 14.9 % (11.5-14.5); WHITE BLOOD COUNT 3.1 K/uL (4.8-10.8)
[2017-12-22 21:10] LABS: MEAN CELL VOLUME 90.6 fL (81.0-99.0)
[2017-12-22 21:14] LABS: OPIATES, UR POSITIVE (NEGATIVE)
[2017-12-22 21:20] LABS: ALB/GLOB RATIO 0.8 (1.0-2.1); ALBUMIN 3.8 g/dL (3.5-5.0); ALT/SGPT 28 U/L (9-52); AST/SGOT 42 U/L (14-36); BLOOD UREA NITROGEN 14 mg/dL (7-17); CALCIUM 8.7 mg/dl (8.6-10.4); GFR AFRICAN-AMERICAN > 60; GFR NON-AFRICAN AMERICAN > 60
[2017-12-22 21:26] LABS: ACETAMINOPHEN < 10.0 ug/mL (10.0-30.0); SALICYLATE < 1.0 mg/dL 1
[2017-12-22 22:24] VITALS: BP 112/72; PULSE 73; RESP 20; TEMP 97.7; O2SAT 97
--- NOTE | 2017-12-23 08:12 | RAD ---
Chest x-ray single frontal view History: Overdose. Comparison: 07/16/2017 Findings: Diffuse increased interstitial lung markings which may represent edema and or infiltrate. Clinical correlation. Nodular density in the right midlung zone. Elevated right hemidiaphragm. Patchy bibasilar airspace opacities. Right hilar prominence. Heart size within normal limits. Degenerative changes in the spine. Impression: Diffuse increased interstitial lung markings which may represent edema and or infiltrate. Clinical correlation. Nodular density in the right midlung zone. Elevated right hemidiaphragm. Patchy bibasilar airspace opacities. Right hilar prominence.
--- NOTE | 2017-12-23 11:39 | CARD ---
APPROVED REPORT EKG Measurement Heart [id number] <Conclusion> Normal sinus rhythm Low voltage QRS Prolonged QT Abnormal ECG
== END 2017-12-22 22:24 | disposition home or self-care (01) ==
LOC: C.ER 18:56
DX: F11.10 Opioid abuse, uncomplicated (principal); J18.9 Pneumonia, unspecified organism
CPT/HCPCS: 71045; 80053; 80320; 80324; 80329; 80345; 80346; 80349; 80353; 80358; 80361; 81001; 83992; 84703; 85025; 87040; 93005; 96365; 99285; J2543; J7030

== ENCOUNTER 2018-01-22 03:01 | Emergency (ER) | payer MEDICAID ==
[2018-01-22 03:01] VITALS: BMI 25.8
[2018-01-22 03:49] VITALS: O2SAT 96
--- NOTE | 2018-01-22 03:53 | C.PDOC ---
History Of Present Illness 47 y/o female presents to the ED complaining of right-sided upper abdominal pain that began around 1am. Notes the episode is sharp and intermittient. Notes she has had similar episodes in the past, which she has been evaluated for. Reports issues with her gall bladder with recent MRCP done and was instructed to f/u with GI. 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 Reports having similar episodes of rash in the past, which are exacerbated by the sweat from the prosthetic leg. Denies trauma to the area. Notes "its not infected," though reports h/o infection to the area. Also requesting a treatment for her COPD. Denies any chest pain, SOB, nausea, vomiting, fever. Time Seen by Provider: 01/22/18 03:22 Chief Complaint (Nursing): Abdominal Pain History Per: Patient History/Exam Limitations: no limitations Onset/Duration Of Symptoms: Days Current Symptoms Are (Timing): Still Present Past Medical History Reviewed: Historical Data, Nursing Documentation, Vital Signs Vital Signs: Last Vital Signs Temp 98.4 F 01/22/18 06:29 Pulse 75 01/22/18 06:29 Resp 16 01/22/18 06:29 BP 113/77 01/22/18 06:29 Pulse Ox 96 01/22/18 06:45 - Medical History PMH: Anxiety, Bipolar Disorder, COPD (Emphysema), Depression, Emphysema, Fractures (rt foot) Denies: Diabetes, Hepatitis, HIV, HTN, Chronic Kidney Disease, Seizures, Sexually Transmitted Disease Surgical History: Appendectomy (1989) - [facility] Procedures BELOW KNEE AMPUTAT NEC (02/19/15) DETOXIFICATION SERVICES FOR SUBSTANCE ABUSE TREATMENT (06/21/17) DRAINAGE OF LEFT LOWER LEG SKIN, EXTERNAL APPROACH (09/11/16) DRAINAGE OF RIGHT LOWER LEG SKIN, EXTERNAL APPROACH, DIAGN (03/07/17) 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 NURSING INSTRUCTOR FOR SUBSTANCE ABUSE TREATMENT, PSYCHOEDUCATION (08/01/16) GROUP PSYCHOTHERAPY (12/16/15) IMMOBILIZ/WOUND ATTN NEC (10/07/12) INDIV PSYCHOTHERAPY FOR SUBSTANCE ABUSE TREATMENT, SUPPORT (12/21/16) INDIV PSYCHOTHERAPY FOR SUBSTANCE ABUSE, PSYCHOEDUCATION (09/11/16) INDIVIDUAL PSYCHOTHERAPY, SUPPORTIVE (06/21/17) INFLUENZA VACCINATION (05/13/13) NONEXCIS DEBRID OF WOUND, INFECT, OR BURN (05/13/13) PART OSTECT-METATAR/TAR (05/13/13) PARTIAL OSTECTOMY NEC (05/13/13) Family History: States: Unknown Family Hx - Social History Hx Tobacco Use: Yes Hx Alcohol Use: Yes (once a week) Hx Substance Use: No - Immunization History Hx Tetanus Toxoid Vaccination: No Hx Influenza Vaccination: No Hx Pneumococcal Vaccination: Yes Review Of Systems Constitutional: Negative for: Fever, Chills Cardiovascular: Negative for: Chest Pain Respiratory: Negative for: Shortness of Breath Gastrointestinal: Positive for: Abdominal Pain. Negative for: Nausea, Vomiting Skin: Positive for: Rash Physical Exam - Physical Exam Appears: Non-toxic, No Acute Distress Skin: Warm, Dry Head: Atraumatic, Normacephalic Eye(s): bilateral: Normal Inspection, EOMI Nose: Normal Oral Mucosa: Moist Neck: Normal ROM, Supple Chest: Symmetrical Cardiovascular: Rhythm Regular Respiratory: No Accessory Muscle Use, No Rales, Wheezing (scattered mildly), Other (speaking in full sentences) Gastrointestinal/Abdominal: Soft, Tenderness (to the right upper quadrant), No Guarding, No Rebound Back: No CVA Tenderness, No Vertebral Tenderness Extremity: Normal ROM (of left lower extremity), No Tenderness, Deformity ( Right leg BKA with mild erythema, no discharge noted, no open wound, no increased warm), No Swelling Neurological/Psych: Oriented x3, Normal Speech, Other (No focal deficits) ED Course And Treatment - Laboratory Results Result Diagrams: 01/22/18 04:29 01/22/18 04:29 O2 Sat by Pulse Oximetry: 96 (RA) Pulse Ox Interpretation: Normal - Other Rad obstructive series X-Ray: Interpreted by Me, Viewed By Me Interpretation: + Stool, no air fluid levels appreciated. Progress Note: Patient treated with Albuterol neb and IV Toradol in the ED. Blood work and urine sent. X-ray obstructive series taken, with no acute findings. On reevaluation patient reports improvement in symptoms. Pt notes having BM in ED which imporved the symptoms. She has no abdominal pain, is tolerating PO, and feels comfortable going home. Discussed limitations of work up and instructed to return to ER if symptoms persist or worsen. Disposition Counseled Patient/Family Regarding: Studies Performed, Diagnosis, Need For Followup, Rx Given - Disposition Disposition: HOME/ ROUTINE Disposition Time: 06:22 Condition: STABLE Additional Instructions: Follow up with your PMD and GI specialist as scheduled. Return to ER if symptoms persist or worsen. Prescriptions: Mupirocin 2% Ointment [Bactroban Ointment] 1 appl TP TID #1 tube Instructions: Acute Abdomen (Belly Pain), Adult (DC) Forms: [facility] (Greenlandic) - Clinical Impression Clinical Impression: Constipation, Abdominal pain, Rash - PA / [employer] CL[employer] / Resident Statement MD/DO has reviewed & agrees with the documentation as recorded. - Scribe Statement The provider has reviewed the documentation as recorded by the Scribe (Radha Holt) All medical record entries made by the Scribe were at my direction and personally dictated by me. I have reviewed the chart and agree that the record accurately reflects my personal performance of the history, physical exam, medical decision making, and the department course for this patient. I have also personally directed, reviewed, and agree with the discharge instructions and disposition.
[2018-01-22] MEDS ORDERED: Albuterol 0.083% Inhal Sol (2.5 mg/3 mL) UD INH STA (04:17)
[2018-01-22] MEDS ORDERED: Albuterol 0.083% Inhal Sol (2.5 mg/3 mL) UD ONE (04:26)
[2018-01-22 04:35] LABS: BASO % 0.8 % (0.0-2.0); EOS # 0.2 K/uL (0.0-0.7); EOS % 3.3 % (0.0-4.0); HEMOGLOBIN 11.6 g/dL (11.0-16.0); LYMPH % 17.4 % (20.0-40.0); MEAN CELL VOLUME 89.9 fL (81.0-99.0); MEAN CORPUSCULAR HEMOGLOBIN 30.7 pg (27.0-31.0); MEAN CORPUSCULAR HGB CONC 34.2 g/dL (33.0-37.0); MEAN PLATELET VOLUME 9.6 fL (7.2-11.7); MONO # 0.5 K/uL (0.0-0.8); MONO % 9.1 % (0.0-10.0); NEUT # 3.9 K/uL (1.8-7.0); NEUT % 69.4 % (50.0-75.0); RBC 3.77 Mil/uL (3.80-5.20); RED CELL DISTRIBUTION WIDTH 15.9 % (11.5-14.5); WHITE BLOOD COUNT 5.7 K/uL (4.8-10.8)
[2018-01-22 05:19] LABS: ALBUMIN 3.7 g/dL (3.5-5.0); ALT/SGPT 37 U/L (9-52); AMYLASE 60 U/L (30-110); AST/SGOT 75 U/L (14-36); BLOOD UREA NITROGEN 23 mg/dL (7-17); CALCIUM 8.8 mg/dl (8.6-10.4); GFR AFRICAN-AMERICAN > 60; GFR NON-AFRICAN AMERICAN > 60; LIPASE 112 U/L (23-300)
[2018-01-22 05:57] LABS: SQUAMOUS EPITHIAL 1 /hpf (0-5); URINE BILIRUBIN NEGATIVE (NEGATIVE); URINE BLOOD 1+ (NEGATIVE); URINE CLARITY Hazy (Clear); URINE COLOR Yellow (YELLOW); URINE GLUCOSE (UA) NORMAL (Normal); URINE LEUKOCYTE ESTERASE NEG Leu/uL (Negative); URINE PROTEIN NEGATIVE (NEGATIVE); URINE UROBILINOGEN NORMAL mg/dL (0.2-1.0)
[2018-01-22 06:10] LABS: BARBITURATES, UR NEGATIVE (NEGATIVE); BENZODIAZEPINES, UR NEGATIVE (NEGATIVE); PHENCYCLIDINE, UR NEGATIVE (NEGATIVE)
[2018-01-22 06:16] LABS: OPIATES, UR POSITIVE (NEGATIVE)
[2018-01-22 06:30] VITALS: BP 113/77; PULSE 75; RESP 16; TEMP 98.4
--- NOTE | 2018-01-22 08:20 | RAD ---
PROCEDURE: Radiographs of the chest and abdomen (obstructive series) HISTORY: Abd Pain COMPARISON: No prior. TECHNIQUE: AP radiograph of the chest, with upright and supine radiographs of the abdomen. FINDINGS: CHEST: Lungs: Clear. Cardiovascular: Normal size heart. No pulmonary vascular congestion. Pleura: No pleural fluid. No pneumothorax. Other findings: None. ABDOMEN AND PELVIS: Bowel: Stool retention. No evidence of mechanical obstruction. Free air: None. Bones: Unremarkable. Other findings: None. IMPRESSION: No infiltrate No evidence of mechanical bowel obstruction.. Stool retention.
== END 2018-01-22 06:57 | disposition home or self-care (01) ==
LOC: C.ER 03:01
DX: K59.00 Constipation, unspecified (principal); R21 Rash and other nonspecific skin eruption; R10.10 Upper abdominal pain, unspecified; Z72.0 Tobacco use; J44.9 Chronic obstructive pulmonary disease, unspecified
CPT/HCPCS: 74022; 80053; 80320; 80324; 80345; 80346; 80349; 80353; 80358; 80361; 81001; 82150; 83690; 83992; 85025; 94640; 96374; 99285; J1885

== ENCOUNTER 2018-03-12 20:31 | Emergency (ER) | payer MEDICAID ==
[2018-03-12 20:31] VITALS: BMI 25.8
[2018-03-12 21:18] VITALS: BP 128/74; PULSE 82; RESP 20; TEMP 98; O2SAT 97
--- NOTE | 2018-03-12 21:55 | C.PDOC ---
History Of Present Illness 47 y/o female with multiple medical problems comes to ed s/p falling off her bed on to her back 2 hours ago.; pt c/o left upper back pain and left shoulder pain. pt reports she took 2 motrin at home with no improvement. no cp or sob. unclear if she hit her head, admits to drinking alcohol tonight, speaking in clear voice. . Time Seen by Provider: 03/12/18 21:32 Chief Complaint (Nursing): Back Pain History Per: Patient History/Exam Limitations: no limitations Onset/Duration Of Symptoms: Hrs (2) Past Medical History Vital Signs: Last Vital Signs Temp 98 F 03/12/18 21:14 Pulse 82 03/12/18 21:14 Resp 20 03/12/18 21:14 BP 128/74 03/12/18 21:14 Pulse Ox 97 03/17/18 19:00 - Medical History PMH: Anxiety, Bipolar Disorder, COPD (Emphysema), Depression, Emphysema, Fractures (rt foot) Denies: Diabetes, Hepatitis, HIV, HTN, Chronic Kidney Disease, Seizures, Sexually Transmitted Disease Surgical History: Appendectomy (1989) - [facility] Procedures BELOW KNEE AMPUTAT NEC (02/19/15) DETOXIFICATION SERVICES FOR SUBSTANCE ABUSE TREATMENT (06/21/17) DRAINAGE OF LEFT LOWER LEG SKIN, EXTERNAL APPROACH (09/11/16) DRAINAGE OF RIGHT LOWER LEG SKIN, EXTERNAL APPROACH, DIAGN (03/07/17) GROUP SUPERVISOR PAPER COATING FOR SUBSTANCE ABUSE TREATMENT, PSYCHOEDUCATION (08/01/16) GROUP PSYCHOTHERAPY (12/16/15) IMMOBILIZ/WOUND ATTN NEC (10/07/12) INDIV PSYCHOTHERAPY FOR SUBSTANCE ABUSE TREATMENT, SUPPORT (12/21/16) INDIV PSYCHOTHERAPY FOR SUBSTANCE ABUSE, PSYCHOEDUCATION (09/11/16) INDIVIDUAL PSYCHOTHERAPY, SUPPORTIVE (06/21/17) INFLUENZA VACCINATION (05/13/13) NONEXCIS DEBRID OF WOUND, INFECT, OR BURN (05/13/13) PART OSTECT-METATAR/TAR (05/13/13) PARTIAL OSTECTOMY NEC (05/13/13) Family History: States: Unknown Family Hx - Social History Hx Tobacco Use: Yes Hx Alcohol Use: Yes (once a week) Hx Substance Use: No - Immunization History Hx Tetanus Toxoid Vaccination: No Hx Influenza Vaccination: No Hx Pneumococcal Vaccination: Yes ED Course And Treatment O2 Sat by Pulse Oximetry: 97 Medical Decision Making Medical Decision Making: pt with hx substance and alcohol abuse., fell from bed, c/o left shoulder and back pain. pt c/o headache. ?head injury, no signs of head trauma. head ct offered, but pt refuses. pt advised she will need to leave [facility], speaking in clear sentences. walks with steady gait. pt understands risks and consequences of leaving [facility] including , stroke, and permanent disability Disposition - Disposition Disposition: HOME/ ROUTINE Disposition Time: 22:07 Condition: GOOD Additional Instructions: Please follow up with your doctor in 1-=2 days Take off patch in 12 hours. Take Tylenol or Motrin for pain. Return to ER for any worse symptoms. Instructions: Muscle Strain (DC), Leaving Against Medical Advice Forms: [facility] (Syriac), General Discharge Instructions - Clinical Impression Clinical Impression: Fall from bed, initial encounter, Trapezius muscle strain, Left against medical advice
[2018-03-12] MEDS ORDERED: Lidocaine 5% Patch TD ONE (21:58)
[2018-03-13] MEDS ORDERED: Lidocaine 5% Patch TD SCH (10:00)
== END 2018-03-12 22:07 | disposition home or self-care (01) ==
LOC: C.ER 20:31
DX: S46.912A Strain of unspecified muscle, fascia and tendon at shoulder and upper arm level, left arm, initial encounter (principal); W06.XXXA Fall from bed, initial encounter

== ENCOUNTER 2018-03-20 13:35 | Inpatient (IN) | payer MEDICAID ==
[2018-03-20 13:35] VITALS: BMI 25.8
[2018-03-20] MEDS ORDERED: Sodium Chloride 0.9% 1,000 ML IV ONE (14:54)
[2018-03-20] MEDS ORDERED: Sodium Chloride 0.9% 1,000 ML ONE (15:03)
--- NOTE | 2018-03-20 15:21 | RAD ---
Date of service: 03/20/2018 HISTORY: Abdominal pain. COMPARISON: No prior. TECHNIQUE: Chest PA and lateral FINDINGS: LUNGS: Minor linear atelectasis and or scarring changes most conspicuous in the left lung base/CP angle region. PLEURA: No significant pleural effusion identified. No pneumothorax apparent. CARDIOVASCULAR: Normal. OSSEOUS STRUCTURES: No significant abnormalities. VISUALIZED UPPER ABDOMEN: Normal. OTHER FINDINGS: None. IMPRESSION: Minor linear atelectasis and or scarring changes most conspicuous in the left lung base/CP angle region.
--- NOTE | 2018-03-20 15:58 | C.PDOC ---
History Of Present Illness 47 y/o female presents to ED with c/o abdominal pain for 2 days and upper left back associated with vomiting. Patient states initially vomiting was clear, now dark. Patient denies recent travel, fever, diarrhea, chest pain, sob or any other complaints at this time. Time Seen by Provider: 03/20/18 14:24 Chief Complaint (Nursing): GI Problem History Per: Patient History/Exam Limitations: no limitations Onset/Duration Of Symptoms: Days Current Symptoms Are (Timing): Still Present Location Of Pain/Discomfort: Diffuse Past Medical History Reviewed: Historical Data, Nursing Documentation, Vital Signs Vital Signs: Last Vital Signs Temp 97.8 F 03/20/18 17:04 Pulse 75 03/20/18 17:04 Resp 20 03/20/18 17:04 BP 101/66 03/20/18 17:04 Pulse Ox 100 03/20/18 18:36 - Medical History PMH: Anxiety, Bipolar Disorder, COPD (Emphysema), Depression, Emphysema, Fractures (rt foot) Surgical History: Appendectomy (1989) - [facility] Procedures BELOW KNEE AMPUTAT NEC (02/19/15) DETOXIFICATION SERVICES FOR SUBSTANCE ABUSE TREATMENT (06/21/17) DRAINAGE OF LEFT LOWER LEG SKIN, EXTERNAL APPROACH (09/11/16) DRAINAGE OF RIGHT LOWER LEG SKIN, EXTERNAL APPROACH, DIAGN (03/07/17) GROUP CHRISTMAS TREE FARM WORKER FOR SUBSTANCE ABUSE TREATMENT, PSYCHOEDUCATION (08/01/16) GROUP PSYCHOTHERAPY (12/16/15) IMMOBILIZ/WOUND ATTN NEC (10/07/12) INDIV PSYCHOTHERAPY FOR SUBSTANCE ABUSE TREATMENT, SUPPORT (12/21/16) INDIV PSYCHOTHERAPY FOR SUBSTANCE ABUSE, PSYCHOEDUCATION (09/11/16) INDIVIDUAL PSYCHOTHERAPY, SUPPORTIVE (06/21/17) INFLUENZA VACCINATION (05/13/13) NONEXCIS DEBRID OF WOUND, INFECT, OR BURN (05/13/13) PART OSTECT-METATAR/TAR (05/13/13) PARTIAL OSTECTOMY NEC (05/13/13) Family History: States: No Known Family Hx - Social History Hx Tobacco Use: Yes Hx Alcohol Use: Yes (once a week) Hx Substance Use: No - Immunization History Hx Tetanus Toxoid Vaccination: Yes Hx Influenza Vaccination: Yes Hx Pneumococcal Vaccination: Yes Review Of Systems Except As Marked, All Systems Reviewed And Found Negative. Gastrointestinal: Positive for: Vomiting, Abdominal Pain Musculoskeletal: Positive for: Back Pain Physical Exam - Physical Exam Appears: Non-toxic, No Acute Distress Skin: Warm, Dry, No Rash Head: Atraumatic, Normacephalic Eye(s): bilateral: Normal Inspection Oral Mucosa: Moist Cardiovascular: Rhythm Regular Respiratory: Normal Breath Sounds, No Rales, No Rhonchi, No Wheezing Gastrointestinal/Abdominal: Soft, Tenderness (diffuse ), No Guarding, No Rebound Back: No CVA Tenderness, Other (parathoracic tenderness) Neurological/Psych: Oriented x3, Normal Speech, Normal Motor, Normal Sensation ED Course And Treatment - Laboratory Results Result Diagrams: 03/20/18 16:05 03/20/18 16:05 O2 Sat by Pulse Oximetry: 100 (RA) Pulse Ox Interpretation: Normal Medical Decision Making Medical Decision Making: Assessment: Back pain/Abdominal pain 1834 - case s/o Dr. Titus at 1900 pending ultrasound, reevaluation and disposition Disposition - Disposition Disposition Time: 19:00 Condition: FAIR Forms: [facility] (Belizean) - Clinical Impression Clinical Impression: Hypokalemia, Abdominal pain - Scribe Statement The provider has reviewed the documentation as recorded by the Scribe Stephanie Noriega All medical record entries made by the Scribe were at my direction and personally dictated by me. I have reviewed the chart and agree that the record accurately reflects my personal performance of the history, physical exam, medical decision making, and the department course for this patient. I have also personally directed, reviewed, and agree with the discharge instructions and disposition. Addendum Addendum: 03/20/18 18:52 s/o to Dr. Titus at 1900 pending ultrasound, disposition
[2018-03-20 16:26] LABS: BASO % 0.1 % (0.0-2.0); EOS % 0.3 % (0.0-4.0); HEMOGLOBIN 11.5 g/dL (11.0-16.0); LYMPH # 0.4 K/uL (1.0-4.3); LYMPH % 5.4 % (20.0-40.0); MEAN CELL VOLUME 90.6 fL (81.0-99.0); MEAN CORPUSCULAR HEMOGLOBIN 31.6 pg (27.0-31.0); MEAN CORPUSCULAR HGB CONC 34.9 g/dL (33.0-37.0); MEAN PLATELET VOLUME 10.7 fL (7.2-11.7); MONO % 13.1 % (0.0-10.0); NEUT % 81.1 % (50.0-75.0); NRBC % 0.1 % (0.0-2.0); RBC 3.64 Mil/uL (3.80-5.20); RED CELL DISTRIBUTION WIDTH 14.8 % (11.5-14.5); WHITE BLOOD COUNT 7.4 K/uL (4.8-10.8)
[2018-03-20 16:27] LABS: PLATELET COUNT 66 K/uL (130-400)
[2018-03-20 16:48] LABS: ALBUMIN 3.3 g/dL (3.5-5.0); ALT/SGPT 40 U/L (9-52); AST/SGOT 78 U/L (14-36); BLOOD UREA NITROGEN 24 mg/dL (7-17); CALCIUM 8.7 mg/dl (8.6-10.4); GFR NON-AFRICAN AMERICAN > 60; LIPASE 113 U/L (23-300)
[2018-03-20 16:51] LABS: GRANULAR CAST 14 /lpf (0-1); SQUAMOUS EPITHIAL 18 /hpf (0-5); URINE BACTERIA FEW (<OCC); URINE BILIRUBIN NEGATIVE (NEGATIVE); URINE BLOOD 1+ (NEGATIVE); URINE CLARITY Hazy (Clear); URINE COLOR Amber (YELLOW); URINE GLUCOSE (UA) NORMAL (Normal); URINE LEUKOCYTE ESTERASE NEG Leu/uL (Negative); URINE PROTEIN 1+ mg/dL (NEGATIVE)
[2018-03-20 16:59] LABS: BANDS 9 % (0-2); EOSINOPHIL 1 % (0-4); LYMPHOCYTE 10 % (20-40); MONOCYTE 8 % (0-10); NEUTROPHIL 72 % (50-75); TOTAL CELLS COUNTED 100
[2018-03-20 17:01] LABS: PLATELET ESTIMATE DECREASED (NORMAL)
[2018-03-20 17:02] LABS: HYPOCHROMIC SLIGHT; MICROCYTOSIS SLIGHT
[2018-03-20 17:03] LABS: LARGE PLATELETS PRESENT
--- NOTE | 2018-03-20 17:45 | CT ---
PROCEDURE: CT Abdomen and Pelvis without Oral or IV contrast. HISTORY: ABD PAIN COMPARISON: MRCP performed 01/08/18, abdominal ultrasound performed 11/06/17 TECHNIQUE: Contiguous axial images of the abdomen and pelvis. No oral or IV contrast administered. Coronal and Sagittal reformats generated and reviewed. Radiation dose: Total exam DLP = 797.09 mGy-cm. This CT exam was performed using one or more of the following dose reduction techniques: Automated exposure control, adjustment of the mA and/or kV according to patient size, and/or use of iterative reconstruction technique. FINDINGS: There is limited evaluation of the solid organs without the administration of IV contrast. LOWER THORAX: Bibasilar atelectasis. There is no visible pleural effusion or pneumothorax. Moderate hiatal hernia/distal esophageal wall thickening. LIVER: Hepatomegaly. Mildly nodular hepatic contour. GALLBLADDER AND BILE DUCTS: Unremarkable. PANCREAS: Pancreatic tail is not well visualized. The pancreatic duct does not appear dilated. SPLEEN: Splenomegaly. ADRENALS: Unremarkable. KIDNEYS AND URETERS: No hydronephrosis or obstructing renal calculus. BLADDER: The urinary bladder appears unremarkable. REPRODUCTIVE: Uterus is present. The left ovary appears prominent with possible cysts and punctate calcification; suggest pelvic ultrasound for further evaluation. APPENDIX: The appendix is not identified. No secondary signs of acute appendicitis. BOWEL: The stomach is nondistended. Lack of oral contrast limits evaluation for bowel pathology. The bowel loops appear within normal limits of caliber without evidence of intestinal obstruction. Mild constipation. Evidence of proximal duodenal diverticulum. PERITONEUM: No significant free fluid. No definite free air. LYMPH NODES: No bulky lymphadenopathy identified. VASCULATURE: Prominent vessels within left upper quadrant/splenic hilar region raises suspicion for varices. No aortic aneurysm. BONES: No acute osseous abnormality is detected. OTHER FINDINGS: None. IMPRESSION: Hepatic splenomegaly. Nodular hepatic contour. Correlate clinically for cirrhosis. Prominent vessels within the left upper quadrant raises suspicion for varices. Correlate clinically. The left ovary appears prominent with possible cysts and punctate calcification; suggest pelvic ultrasound for further evaluation. Moderate hiatal hernia/distal esophageal wall thickening. Bibasilar atelectasis. Additional findings as above.
[2018-03-20] MEDS ORDERED: Potassium Chloride 20 mEq ER Tab PO STA (19:13)
[2018-03-20] MEDS ORDERED: Potassium Chloride 20 mEq ER Tab PO ONE ×2 (19:18→19:36)
[2018-03-20] MEDS ORDERED: Piperacillin/Tazobact 3.375 gm 100 ML IVPB STA (22:09)
[2018-03-20] MEDS ORDERED: Piperacillin/Tazobact 3.375 gm 100 ML IVPB ONE (22:28)
[2018-03-21] MEDS ORDERED: oxyCODONE 30 mg Immediate Release Tab PO STA (01:01)
[2018-03-21] MEDS ORDERED: Vancomycin 1 GM in Sodium Chloride 0.9% 200 ML IVPB ONE (01:30)
[2018-03-21] MEDS ORDERED: Cefepime IV 1 gm in Dextrose 1 GM/50 ML BAG IVPB SCH (01:30)
[2018-03-21] MEDS: Potassium Chloride 20 mEq ER Tab PO SCH ×2 (01:45→05:30)
[2018-03-21 08:41] LABS: BASO % 0.2 % (0.0-2.0); EOS % 0.5 % (0.0-4.0); HEMOGLOBIN 11.2 g/dL (11.0-16.0); LYMPH # 0.3 K/uL (1.0-4.3); LYMPH % 4.2 % (20.0-40.0); MEAN CELL VOLUME 91.5 fL (81.0-99.0); MEAN CORPUSCULAR HEMOGLOBIN 31.6 pg (27.0-31.0); MEAN CORPUSCULAR HGB CONC 34.5 g/dL (33.0-37.0); MEAN PLATELET VOLUME 11.3 fL (7.2-11.7); MONO # 0.9 K/uL (0.0-0.8); MONO % 13.1 % (0.0-10.0); NEUT # 5.3 K/uL (1.8-7.0); PLATELET COUNT 56 K/uL (130-400); RBC 3.55 Mil/uL (3.80-5.20); WHITE BLOOD COUNT 6.5 K/uL (4.8-10.8)
[2018-03-21 09:08] LABS: ALB/GLOB RATIO 0.8 (1.0-2.1); ALBUMIN 2.8 g/dL (3.5-5.0); ALT/SGPT 36 U/L (9-52); AST/SGOT 43 U/L (14-36); BLOOD UREA NITROGEN 20 mg/dL (7-17); CALCIUM 8.5 mg/dl (8.6-10.4); GFR NON-AFRICAN AMERICAN > 60
[2018-03-21 09:42] LABS: BANDS 11 % (0-2); LYMPHOCYTE 9 % (20-40); MONOCYTE 6 % (0-10); NEUTROPHIL 74 % (50-75); TOTAL CELLS COUNTED 100
[2018-03-21 09:44] LABS: ANISOCYTOSIS SLIGHT; PLATELET ESTIMATE DECREASED (NORMAL)
[2018-03-21] MEDS ORDERED: Enoxaparin 40 mg Syringe SC SCH (10:00)
[2018-03-21] MEDS ORDERED: Pantoprazole 40 mg EC Tab PO SCH (10:00)
[2018-03-21] MEDS ORDERED: Potassium Chloride 20 mEq ER Tab PO SCH (10:00)
[2018-03-21] MEDS: oxyCODONE 30 mg Immediate Release Tab PO PRN ×2 (11:02→17:29)
[2018-03-21] MEDS: Dextrose 5%/0.45% NS 1,000 ML IV SCH ×2 (11:03→20:56)
[2018-03-21] MEDS: Meropenem 1 GM in Sodium Chloride 0.9% 100 ML IVPB SCH ×2 (14:43→20:59)
--- NOTE | 2018-03-21 15:40 | CP.PCM.HP ---
Past Patient History - Infectious Disease Hx of Infectious Diseases: None - Past Medical History & Family History Past Medical History?: Yes - Past Social History Smoking Status: Smoker Currrent Status Unknown - CARDIAC Hx Cardiac Disorders: No - PULMONARY Hx Respiratory Disorders: Yes Hx Chronic Obstructive Pulmonary Disease (COPD): Yes (Emphysema) Hx Emphysema: Yes - NEUROLOGICAL Hx Neurological Disorder: No - HEENT Hx HEENT Problems: No - RENAL Hx Chronic Kidney Disease: No - ENDOCRINE/METABOLIC Hx Endocrine Disorders: No - HEMATOLOGICAL/ONCOLOGICAL Hx Blood Disorders: No Hx Human Immunodeficiency Virus (HIV): No - INTEGUMENTARY Hx Dermatological Problems: No - MUSCULOSKELETAL/RHEUMATOLOGICAL Hx Musculoskeletal Disorders: Yes Hx Falls: No Hx Fractures: Yes (rt foot) - GASTROINTESTINAL Hx Gastrointestinal Disorders: Yes Hx Liver Failure: Yes Other/Comment: Cirrhosis of the Liver - GENITOURINARY/GYNECOLOGICAL Hx Genitourinary Disorders: No Hx Sexually Transmitted Disorders: No - PSYCHIATRIC Hx Psychophysiologic Disorder: Yes Hx Anxiety: Yes Hx Bipolar Disorder: Yes Hx Depression: Yes Hx Substance Use: No - SURGICAL HISTORY Hx Surgeries: Yes Hx Appendectomy: Yes (1989) Hx Orthopedic Surgery: Yes (rt. foot fracture;left BKA) - ANESTHESIA Hx Anesthesia: Yes Hx Anesthesia Reactions: No Hx Malignant Hyperthermia: No Meds Allergies/Adverse Reactions: Allergies Allergy/AdvReac Type Severity Reaction Status Date / Time No Known Allergies Allergy Verified 03/20/18 13:44 Physical Exam - Constitutional Appears: Well - Head Exam Head Exam: ATRAUMATIC, NORMAL INSPECTION, NORMOCEPHALIC - Eye Exam Eye Exam: EOMI, Normal appearance, PERRL Pupil Exam: NORMAL ACCOMODATION, PERRL - ENT Exam ENT Exam: Mucous Membranes Moist, Normal Exam - Neck Exam Neck exam: Positive for: Normal Inspection - Respiratory Exam Respiratory Exam: Decreased Breath Sounds - Cardiovascular Exam Cardiovascular Exam: REGULAR RHYTHM, +S1, +S2 - GI/Abdominal Exam GI & Abdominal Exam: Diminished Bowel Sounds, Soft - Rectal Exam Rectal Exam: Deferred Results - Vital Signs Recent Vital Signs: Last Vital Signs Temp 98.3 F 03/21/18 08:00 Pulse 84 03/21/18 08:00 Resp 20 03/21/18 08:00 BP 108/69 03/21/18 08:00 Pulse Ox 96 03/21/18 08:00 - Labs Result Diagrams: 03/21/18 08:23 03/21/18 08:23 Labs: Laboratory Results - last 24 hr 03/20/18 03/20/18 03/20/18 16:01 16:05 16:05 WBC 7.4 RBC 3.64 L Hgb 11.5 Hct 33.0 L MCV 90.6 MCH 31.6 H MCHC 34.9 RDW 14.8 H Plt Count 66 L D MPV 10.7 Neut % (Auto) 81.1 H Lymph % (Auto) 5.4 L Titus % (Auto) 13.1 H Eos % (Auto) 0.3 Baso % (Auto) 0.1 Neut # (Auto) 6.0 Lymph # (Auto) 0.4 L Titus # (Auto) 1.0 H Eos # (Auto) 0.0 Baso # (Auto) 0.0 Neutrophils % (Manual) 72 Band Neutrophils % 9 H Lymphocytes % (Manual) 10 L Monocytes % (Manual) 8 Eosinophils % (Manual) 1 Platelet Estimate Decreased L Large Platelets Present Hypochromasia (manual) Slight Anisocytosis (manual) Microcytosis (manual) Slight Sodium 139 Potassium 2.9 L Chloride 103 Carbon Dioxide 24 Anion Gap 15 BUN 24 H Creatinine 0.9 Est GFR ( Amer) > 60 Est GFR (Non-Af Amer) > 60 Random Glucose 151 H Calcium 8.7 Phosphorus Magnesium Total Bilirubin 1.1 AST 78 H ALT 40 Alkaline Phosphatase 76 Troponin I < 0.0120 Total Protein 6.8 Albumin 3.3 L Globulin 3.4 Albumin/Globulin Ratio 1.0 Lipase 113 Urine Color Lakshmi Urine Clarity Hazy Urine pH 5.0 Ur Specific [place] 1.026 Urine Protein 1+ H Urine Glucose (UA) Normal Urine Ketones Negative Urine Blood 1+ H Urine Nitrate Negative Urine Bilirubin Negative Urine Urobilinogen 2.0 H Ur Leukocyte Esterase Neg Urine WBC (Auto) 31 H Urine RBC (Auto) 6 H Ur Squamous Epith Cells 18 H Urine Bacteria Few H Hyaline Casts 11-20 H Granular Casts (Auto) 14 Alcohol, Quantitative < 10 03/21/18 03/21/18 08:23 08:23 WBC 6.5 RBC 3.55 L Hgb 11.2 Hct 32.5 L MCV 91.5 MCH 31.6 H MCHC 34.5 RDW 15.0 H Plt Count 56 L MPV 11.3 Neut % (Auto) 82.0 H Lymph % (Auto) 4.2 L Titus % (Auto) 13.1 H Eos % (Auto) 0.5 Baso % (Auto) 0.2 Neut # (Auto) 5.3 Lymph # (Auto) 0.3 L Titus # (Auto) 0.9 H Eos # (Auto) 0.0 Baso # (Auto) 0.0 Neutrophils % (Manual) 74 Band Neutrophils % 11 H* Lymphocytes % (Manual) 9 L Monocytes % (Manual) 6 Eosinophils % (Manual) Platelet Estimate Decreased L Large Platelets Hypochromasia (manual) Anisocytosis (manual) Slight Microcytosis (manual) Sodium 138 Potassium 4.5 Chloride 105 Carbon Dioxide 24 Anion Gap 13 BUN 20 H Creatinine 0.8 Est GFR ( Amer) > 60 Est GFR (Non-Af Amer) > 60 Random Glucose 125 H Calcium 8.5 L Phosphorus 2.1 L Magnesium 1.6 Total Bilirubin 1.8 H AST 43 H D ALT 36 Alkaline Phosphatase 88 Troponin I Total Protein 6.2 L Albumin 2.8 L Globulin 3.4 Albumin/Globulin Ratio 0.8 L Lipase Urine Color Urine Clarity Urine pH Ur Specific [place] Urine Protein Urine Glucose (UA) Urine Ketones Urine Blood Urine Nitrate Urine Bilirubin Urine Urobilinogen Ur Leukocyte Esterase Urine WBC (Auto) Urine RBC (Auto) Ur Squamous Epith Cells Urine Bacteria Hyaline Casts Granular Casts (Auto) Alcohol, Quantitative
--- NOTE | 2018-03-21 16:08 | US ---
Date of service: 03/20/2018 HISTORY: left ovarian cyst COMPARISON: Abdomen pelvis CT without contrast 03/20/2018. TECHNIQUE: Transabdominal and transvaginal pelvic ultrasound was performed with longitudinal and transverse images submitted for interpretation. FINDINGS: UTERUS: Measures 7.2 x 3.4 x 4.8 cm. Normal in size and appearance, retroverted. No fibroid or other mass lesion seen. ENDOMETRIUM: Measures 3.0 mm in diameter. Unremarkable. CERVIX: No cervical abnormality identified. RIGHT OVARY: Measures 2.2 x 1.2 x 2.2 cm. No solid mass. Normal flow. LEFT OVARY: Measures 2.0 x 1.0 x 2.5 cm. No solid mass. Normal flow. FREE FLUID: Likely physiologic minimal volume of fluid in the cul-de-sac and left adnexal compartment. OTHER FINDINGS: None. IMPRESSION: No evidence of cystic or solid ovarian mass bilaterally. Trace cul-de-sac fluid may be physiologic given its minimal volume as well as the left adnexal compartment. Unremarkable uterus, endometrium and cervix. No suspicious left adnexal findings despite potential cyst suggested by abdomen pelvis CT 03/20/2018. Concordant preliminary report from [facility], 03/20/2018.
[2018-03-22] MEDS: oxyCODONE 30 mg Immediate Release Tab PO PRN ×3 (01:43→18:36)
[2018-03-22] MEDS: Meropenem 1 GM in Sodium Chloride 0.9% 100 ML IVPB SCH ×4 (06:13→21:06)
[2018-03-22] MEDS: Dextrose 5%/0.45% NS 1,000 ML IV SCH ×2 (11:41→21:05)
--- NOTE | 2018-03-22 12:11 | CP.PCM.CON ---
History of Present Illness - History of Present Illness History of Present Illness: dictated Past Patient History - Infectious Disease Hx of Infectious Diseases: None - Past Medical History & Family History Past Medical History?: Yes - Past Social History Smoking Status: Smoker Currrent Status Unknown - CARDIAC Hx Cardiac Disorders: No - PULMONARY Hx Respiratory Disorders: Yes Hx Chronic Obstructive Pulmonary Disease (COPD): Yes (Emphysema) Hx Emphysema: Yes - NEUROLOGICAL Hx Neurological Disorder: No - HEENT Hx HEENT Problems: No - RENAL Hx Chronic Kidney Disease: No - ENDOCRINE/METABOLIC Hx Endocrine Disorders: No - HEMATOLOGICAL/ONCOLOGICAL Hx Blood Disorders: No Hx Human Immunodeficiency Virus (HIV): No - INTEGUMENTARY Hx Dermatological Problems: No - MUSCULOSKELETAL/RHEUMATOLOGICAL Hx Musculoskeletal Disorders: Yes Hx Falls: No Hx Fractures: Yes (rt foot) - GASTROINTESTINAL Hx Gastrointestinal Disorders: Yes Hx Liver Failure: Yes Other/Comment: Cirrhosis of the Liver - GENITOURINARY/GYNECOLOGICAL Hx Genitourinary Disorders: No Hx Sexually Transmitted Disorders: No - PSYCHIATRIC Hx Psychophysiologic Disorder: Yes Hx Anxiety: Yes Hx Bipolar Disorder: Yes Hx Depression: Yes Hx Substance Use: No - SURGICAL HISTORY Hx Surgeries: Yes Hx Appendectomy: Yes (1989) Hx Orthopedic Surgery: Yes (rt. foot fracture;left BKA) - ANESTHESIA Hx Anesthesia: Yes Hx Anesthesia Reactions: No Hx Malignant Hyperthermia: No Meds Allergies/Adverse Reactions: Allergies Allergy/AdvReac Type Severity Reaction Status Date / Time No Known Allergies Allergy Verified 03/20/18 13:44 - Medications Medications: Current Medications Acetaminophen (Tylenol 325mg Tab) 650 mg PO Q6 PRN PRN Reason: Fever >100.4 F Last Admin: 03/22/18 07:49 Dose: 650 mg Clonazepam (Klonopin) 2 mg PO TID [facility] Last Admin: 03/22/18 11:40 Dose: 2 mg Gabapentin (Neurontin) 300 mg PO TID [facility] Last Admin: 03/22/18 11:41 Dose: 300 mg Dextrose/Sodium Chloride (Dextrose 5%/0.45% Ns 1000 Ml) 1,000 mls @ 80 mls/hr IV .[id number] [facility] Last Admin: 03/22/18 11:41 Dose: Not Given Meropenem 1 gm/ Sodium (Chloride) 100 mls @ 100 mls/hr IVPB Q8H [facility] PRN Reason: Protocol Last Admin: 03/22/18 06:13 Dose: Not Given Oxycodone HCl (Oxycodone Immediate Release Tab) 30 mg PO Q6H PRN PRN Reason: Pain, moderate (4-7) Last Admin: 03/22/18 11:39 Dose: 30 mg Pantoprazole Sodium (Protonix Inj) 40 mg IVP DAILY [facility] Last Admin: 03/22/18 11:41 Dose: Not Given Sertraline HCl (Zoloft) 50 mg PO DAILY [facility] Last Admin: 03/22/18 11:40 Dose: 50 mg Results - Vital Signs Recent Vital Signs: Last Vital Signs Temp 98.7 F 03/22/18 05:45 Pulse 91 H 03/22/18 00:00 Resp 20 03/22/18 00:00 BP 101/64 03/22/18 00:00 Pulse Ox 96 03/22/18 00:00 - Labs Result Diagrams: 03/21/18 08:23 03/21/18 08:23
--- NOTE | 2018-03-22 13:21 | CP.PCM.PN ---
Subjective - Date & Time of Evaluation Date of Evaluation: 03/22/18 Time of Evaluation: 07:15 - Subjective Subjective: clinically same Objective - Vital Signs/Intake and Output Vital Signs (last 24 hours): Temp Pulse Resp BP Pulse Ox 98.7 F 91 H 20 101/64 96 03/22/18 05:45 03/22/18 00:00 03/22/18 00:00 03/22/18 00:00 03/22/18 00:00 Intake and Output: 03/22/18 03/22/18 06:59 18:59 Intake Total 1390 Output Total 600 Balance 790 - Medications Medications: Current Medications Acetaminophen (Tylenol 325mg Tab) 650 mg PO Q6 PRN PRN Reason: Fever >100.4 F Last Admin: 03/22/18 07:49 Dose: 650 mg Clonazepam (Klonopin) 2 mg PO TID [facility] Last Admin: 03/22/18 11:40 Dose: 2 mg Gabapentin (Neurontin) 300 mg PO TID [facility] Last Admin: 03/22/18 11:41 Dose: 300 mg Dextrose/Sodium Chloride (Dextrose 5%/0.45% Ns 1000 Ml) 1,000 mls @ 80 mls/hr IV .[id number] [facility] Last Admin: 03/22/18 11:41 Dose: Not Given Meropenem 1 gm/ Sodium (Chloride) 100 mls @ 100 mls/hr IVPB Q8H [facility] PRN Reason: Protocol Last Admin: 03/22/18 06:13 Dose: Not Given Oxycodone HCl (Oxycodone Immediate Release Tab) 30 mg PO Q6H PRN PRN Reason: Pain, moderate (4-7) Last Admin: 03/22/18 11:39 Dose: 30 mg Pantoprazole Sodium (Protonix Inj) 40 mg IVP DAILY [facility] Last Admin: 03/22/18 11:41 Dose: Not Given Sertraline HCl (Zoloft) 50 mg PO DAILY [facility] Last Admin: 03/22/18 11:40 Dose: 50 mg - Labs Labs: 03/21/18 08:23 03/21/18 08:23 - Constitutional Appears: Well - Head Exam Head Exam: ATRAUMATIC, NORMAL INSPECTION, NORMOCEPHALIC - Eye Exam Eye Exam: EOMI, Normal appearance, PERRL Pupil Exam: NORMAL ACCOMODATION, PERRL - ENT Exam ENT Exam: Mucous Membranes Moist, Normal Exam - Neck Exam Neck Exam: Full ROM, Normal Inspection. absent: Lymphadenopathy - Respiratory Exam Respiratory Exam: Decreased Breath Sounds - Cardiovascular Exam Cardiovascular Exam: REGULAR RHYTHM, +S1, +S2 - GI/Abdominal Exam GI & Abdominal Exam: Soft, Diminished Bowel Sounds - Rectal Exam Rectal Exam: Deferred
--- NOTE | 2018-03-22 16:19 | US ---
Date of service: 03/22/2018 PROCEDURE: Ultrasound of the Kidneys HISTORY: left flank pain COMPARISON: Noncontrast abdomen pelvis CT 03/20/2018.. TECHNIQUE: Sonogram of the kidneys. FINDINGS: RIGHT KIDNEY: Measures: 9.8 x 4.1 x 4.5 cm. Normal in size, contour and echogenicity. No stone, solid mass lesion or hydronephrosis visualized. LEFT KIDNEY: Measures: 10.0 x 4.3 x 4.6 cm. Normal in size, contour and echogenicity. No stone, solid mass lesion or hydronephrosis visualized. OTHER FINDINGS: None. IMPRESSION: Unremarkable renal sonogram.
[2018-03-23] MEDS: oxyCODONE 30 mg Immediate Release Tab PO PRN ×3 (00:24→14:11)
[2018-03-23] MEDS: Meropenem 1 GM in Sodium Chloride 0.9% 100 ML IVPB SCH ×3 (05:17→22:57)
[2018-03-23 06:34] LABS: BASO % 0.2 % (0.0-2.0); EOS # 0.1 K/uL (0.0-0.7); EOS % 0.8 % (0.0-4.0); HEMOGLOBIN 10.8 g/dL (11.0-16.0); LYMPH # 0.4 K/uL (1.0-4.3); LYMPH % 6.5 % (20.0-40.0); MEAN CORPUSCULAR HEMOGLOBIN 31.6 pg (27.0-31.0); MEAN CORPUSCULAR HGB CONC 35.1 g/dL (33.0-37.0); MEAN PLATELET VOLUME 10.8 fL (7.2-11.7); MONO # 0.8 K/uL (0.0-0.8); MONO % 11.6 % (0.0-10.0); NEUT # 5.5 K/uL (1.8-7.0); NEUT % 80.9 % (50.0-75.0); PLATELET COUNT 75 K/uL (130-400); RBC 3.42 Mil/uL (3.80-5.20); RED CELL DISTRIBUTION WIDTH 14.6 % (11.5-14.5); WHITE BLOOD COUNT 6.8 K/uL (4.8-10.8)
[2018-03-23 06:49] LABS: ALB/GLOB RATIO 0.9 (1.0-2.1); ALT/SGPT 73 U/L (9-52); AST/SGOT 65 U/L (14-36); BLOOD UREA NITROGEN 12 mg/dL (7-17); CALCIUM 8.8 mg/dl (8.6-10.4); GFR NON-AFRICAN AMERICAN > 60
--- NOTE | 2018-03-23 07:53 | CON ---
Copied To: Gerri Dickson MD Attending MD: Gerri Dickson MD DATE: 03/22/2018 INFECTIOUS DISEASE CONSULT Requested by Dr. Юлия Harrison. This was of Dr. Anders but I am covering him. HISTORY OF PRESENT ILLNESS: This is a 47-year-old female. She comes in with abdominal pain for 2 days and also complains of pain in her left back; and she has been vomiting, and she says she vomited a lot. She said it was blackish in color and was also having fevers. She has a UTI. She denies any recent fevers. No diarrhea, but she has had fevers here, and she also has poor IV access. Right now, has no lines, and will need probably a midline or a PICC line; and the patient was on IV fluids and came in with hypokalemia. She has problems with upper abdominal pain and vomiting. PAST MEDICAL HISTORY: Her past medical history is significant for excessive drinking in the past but not recently, bipolar disorder, COPD, depression, emphysema, and fractures of right foot. She had a right BKA, and she has a drying sore right on top of her right knee but looks to be partially dry and not draining anything and has no signs of cellulitis at this time. SURGICAL HISTORY: Significant for appendicectomy and and right BKA. BKA was done in 02/19/2015, and she had before that lot of problems with the legs. FAMILY HISTORY: Unknown. SOCIAL HISTORY: She does smoke. She also drinks alcohol once a week but used to drink before a lot she says and denies any drug abuse. She did come in with vomiting, abdominal pain, back pain, and had fevers here, and has not had a bowel movement since she came in. She said she vomited blackish vomiting. MEDICATIONS: She is on Tylenol, Klonopin. She is on D5 half, Neurontin, meropenem, oxycodone for pain, Protonix. She is on sertraline and Zoloft. She was initially on Maxipime 1 g which was given in the ER. She has complains of severe back pain. She says my back has ran out . PHYSICAL EXAMINATION: VITAL SIGNS: I find her temperature was 100.8 before, T-max now is 98, pulse is 91, blood pressure 101/64, respirations are 20. These are last recorded. HEENT: Head is atraumatic, normocephalic. Pupils are reacting to light, and tongue is dry. She does have whitish to her lip, she is so dry. NECK: Supple. JVP is flat. LUNGS: Clear. No crackles or rales present. Chest wall is symmetrical. HEART: S1, S2 regular. ABDOMEN: Soft, nontender. No guarding, no rigidity present. She does have a left CVA tenderness. No guarding, no rigidity. EXTREMITIES: Right BKA stump looks unremarkable, but there is an ulcer on the knee area which is also dry skin. No drainage. No cellulitis, but poor healing, has a scar. Left leg is unremarkable at this time. Labs are noted. Labs show white count, she came with 7.4, hemoglobin 11.2, hematocrit 33, platelet count is 66 now; and there are no repeat labs from today, but her bands were 11 yesterday when they called me and lymphocytes are 9. Sodium 138, potassium 4.5. She came with a potassium of 2.9, glucose is 125, total albumin is 1.8, AST is 43, troponin was negative. UA shows protein 1+, 1+ blood, and showed wbc 31, bacteria few, she did give history of dysuria. Wbc is 31, so she does have a UTI going on, and clinically, I would say she has pyelonephritis, and she had a CT scan done of abdomen and pelvis. Transvaginal ultrasound was done and that shows no evidence of cystic or solid ovarian mass. Trace cul-de-sac fluid given his minimal volume and unremarkable uterus, endometrium, and cervix. No suspicious left adnexal findings despite potential cyst suggested by abdominal CT and also had abdominal and a pelvic CT done which was hepatic splenomegaly, nodular hepatic contour, correlate clinically for cirrhosis, prominent vessels within the left upper quadrant raises suspicion for varices. The left ovarian appears with possible cyst which we already reconfirmed is not present. Moderate hiatal hernia, distal esophageal wall thickening, bibasilar atelectasis, so she may have some cirrhosis and esophageal varices, and she did say she had a vomiting which was black. She did have fevers. She has left CVA tenderness but was not mentioned on the CAT scan. Urine was discarded with multiple species. Blood culture x2 is negative. So at this time, I would repeat the UA and urine C and S, and she will also need a line for antibiotics to be given as she has no IV access right now, and she is dry and dehydrated, and clinically it looks like left hydronephrosis, and we will follow. Gerri Dickson MD
[2018-03-23 08:48] LABS: BANDS 9 % (0-2); BASOPHIL 1 % (0-2); LYMPHOCYTE 7 % (20-40); MONOCYTE 14 % (0-10); NEUTROPHIL 69 % (50-75); PLATELET ESTIMATE DECREASED (NORMAL); TOTAL CELLS COUNTED 100
[2018-03-23] MEDS: Dextrose 5%/0.45% NS 1,000 ML IV SCH ×3 (10:31→22:59)
--- NOTE | 2018-03-23 10:57 | RAD ---
Date of service: 03/23/2018 PROCEDURE: CHEST RADIOGRAPH, 1 VIEW HISTORY: verify right PICC COMPARISON: Chest radiograph dated 03/20/2018. FINDINGS: LUNGS: Bibasilar atelectasis. PLEURA: No pneumothorax or pleural fluid seen. CARDIOVASCULAR: Normal. OSSEOUS STRUCTURES: Unchanged. VISUALIZED UPPER ABDOMEN: Normal. OTHER FINDINGS: Right upper extremity PICC with catheter tip at the cavoatrial junction. IMPRESSION: New right upper extremity PICC in satisfactory position. Bibasilar atelectasis.
--- NOTE | 2018-03-23 11:26 | CARD ---
APPROVED REPORT Date of service: 03/20/2018 EKG Measurement Heart [id number] <Conclusion> Normal sinus rhythm Low voltage QRS Borderline ECG
[2018-03-23 12:46] LABS: SQUAMOUS EPITHIAL 16 /hpf (0-5); URINE BILIRUBIN NEGATIVE (NEGATIVE); URINE BLOOD 1+ (NEGATIVE); URINE CLARITY Hazy (Clear); URINE COLOR Amber (YELLOW); URINE GLUCOSE (UA) NORMAL (Normal); URINE LEUKOCYTE ESTERASE NEG Leu/uL (Negative); URINE PROTEIN NEGATIVE (NEGATIVE)
--- NOTE | 2018-03-23 19:43 | CP.PCM.PN ---
Subjective - Date & Time of Evaluation Date of Evaluation: 03/23/18 Time of Evaluation: 07:30 - Subjective Subjective: clinically same Objective - Vital Signs/Intake and Output Vital Signs (last 24 hours): Temp Pulse Resp BP Pulse Ox 98 F 79 20 135/79 96 03/23/18 15:00 03/23/18 15:00 03/23/18 15:00 03/23/18 15:00 03/23/18 15:00 Intake and Output: 03/23/18 03/24/18 18:59 06:59 Intake Total 400 Balance 400 - Medications Medications: Current Medications Clonazepam (Klonopin) 2 mg PO TID [facility] Last Admin: 03/23/18 17:09 Dose: 2 mg Gabapentin (Neurontin) 300 mg PO TID [facility] Last Admin: 03/23/18 17:09 Dose: 300 mg Dextrose/Sodium Chloride (Dextrose 5%/0.45% Ns 1000 Ml) 1,000 mls @ 80 mls/hr IV .[id number] [facility] Last Admin: 03/23/18 14:13 Dose: 80 mls/hr Meropenem 1 gm/ Sodium (Chloride) 100 mls @ 100 mls/hr IVPB Q8H [facility] PRN Reason: Protocol Last Admin: 03/23/18 14:03 Dose: 100 mls/hr Oxycodone HCl (Oxycodone Immediate Release Tab) 30 mg PO Q6H PRN PRN Reason: Pain, moderate (4-7) Last Admin: 03/23/18 14:11 Dose: 30 mg Pantoprazole Sodium (Protonix Inj) 40 mg IVP DAILY [facility] Last Admin: 03/23/18 09:05 Dose: Not Given Sertraline HCl (Zoloft) 50 mg PO DAILY [facility] Last Admin: 03/23/18 09:05 Dose: 50 mg - Labs Labs: 03/23/18 06:26 03/23/18 06:26 - Constitutional Appears: Well - Head Exam Head Exam: ATRAUMATIC, NORMAL INSPECTION, NORMOCEPHALIC - Eye Exam Eye Exam: EOMI, Normal appearance, PERRL Pupil Exam: NORMAL ACCOMODATION, PERRL - ENT Exam ENT Exam: Mucous Membranes Moist, Normal Exam - Neck Exam Neck Exam: Full ROM, Normal Inspection. absent: Lymphadenopathy - Respiratory Exam Respiratory Exam: Decreased Breath Sounds - Cardiovascular Exam Cardiovascular Exam: REGULAR RHYTHM, +S1, +S2 - GI/Abdominal Exam GI & Abdominal Exam: Soft, Diminished Bowel Sounds - Rectal Exam Rectal Exam: Deferred
--- NOTE | 2018-03-23 20:40 | CP.PCM.PN ---
Subjective - Date & Time of Evaluation Date of Evaluation: 03/23/18 Time of Evaluation: 15:00 - Subjective Subjective: dictated Objective - Vital Signs/Intake and Output Vital Signs (last 24 hours): Temp Pulse Resp BP Pulse Ox 98 F 79 20 135/79 96 03/23/18 15:00 03/23/18 15:00 03/23/18 15:00 03/23/18 15:00 03/23/18 15:00 Intake and Output: 03/23/18 03/24/18 18:59 06:59 Intake Total 400 Balance 400 - Medications Medications: Current Medications Clonazepam (Klonopin) 2 mg PO TID [facility] Last Admin: 03/23/18 17:09 Dose: 2 mg Gabapentin (Neurontin) 300 mg PO TID [facility] Last Admin: 03/23/18 17:09 Dose: 300 mg Dextrose/Sodium Chloride (Dextrose 5%/0.45% Ns 1000 Ml) 1,000 mls @ 80 mls/hr IV .[id number] [facility] Last Admin: 03/23/18 14:13 Dose: 80 mls/hr Meropenem 1 gm/ Sodium (Chloride) 100 mls @ 100 mls/hr IVPB Q8H [facility] PRN Reason: Protocol Last Admin: 03/23/18 14:03 Dose: 100 mls/hr Oxycodone HCl (Oxycodone Immediate Release Tab) 30 mg PO Q6H PRN PRN Reason: Pain, moderate (4-7) Last Admin: 03/23/18 14:11 Dose: 30 mg Pantoprazole Sodium (Protonix Inj) 40 mg IVP DAILY [facility] Last Admin: 03/23/18 09:05 Dose: Not Given Sertraline HCl (Zoloft) 50 mg PO DAILY [facility] Last Admin: 03/23/18 09:05 Dose: 50 mg - Labs Labs: 03/23/18 06:26 03/23/18 06:26
[2018-03-24] MEDS: oxyCODONE 30 mg Immediate Release Tab PO PRN ×4 (00:13→23:04)
--- NOTE | 2018-03-24 00:41 | PN ---
Copied To: Gerri Dickson MD Attending MD: Gerri Dickson MD DATE: 03/23/2018 SUBJECTIVE: The patient was seen today. She was very spacey, probably on pain medications. She still complained of abdominal pain and back pain. There was a urine cup lying there that she says she has to get the pee, but she has not given it again. PHYSICAL EXAMINATION: VITAL SIGNS: T-max was 98.3, pulse 75, blood pressure 128/83, respirations are 20. HEENT: Head is atraumatic, normocephalic. NECK: Supple. LUNGS: Clear. HEART: S1, S2 are regular. ABDOMEN: Soft. No guarding, no rigidity present. BACK: Left CVA tenderness was noted. EXTREMITIES: Have no edema. LABORATORY DATA: White count is 6.8, hemoglobin 10.8, hematocrit 30.8, and platelet count is 75, remains low. Her bands are 9 today and bands are 9 micro harris. The urine culture showed less than 10,000 multiple species. Blood cultures x2 have been negative. She had a CAT scan of the abdomen and pelvis on 03/20/2018, and there was hepatosplenomegaly, nodular hepatic contour of the cirrhosis of the liver and the left ovary prominent possible cyst, but then this was disputed with the ultrasound. She has a moderate hiatal hernia and esophageal wall thickening, remains with bandemia. She has moderate left CVA tenderness, so I ordered an ultrasound , unremarkable renal sonogram, so it is very unclear why she has bandemia. We will order a procalcitonin level and an echo, but she has abdominal pain. Etiology of her sepsis is unclear at this time. We will continue antibiotics for now and she is on meropenem from 03/21/2018, and vancomycin was given once. Gerri Dickson MD
[2018-03-24] MEDS: Meropenem 1 GM in Sodium Chloride 0.9% 100 ML IVPB SCH ×3 (06:16→21:51)
[2018-03-24 08:34] LABS: BASO % 0.3 % (0.0-2.0); EOS % 0.5 % (0.0-4.0); HEMOGLOBIN 10.7 g/dL (11.0-16.0); LYMPH # 0.4 K/uL (1.0-4.3); LYMPH % 5.2 % (20.0-40.0); MEAN CELL VOLUME 88.5 fL (81.0-99.0); MEAN CORPUSCULAR HEMOGLOBIN 31.3 pg (27.0-31.0); MEAN CORPUSCULAR HGB CONC 35.4 g/dL (33.0-37.0); MEAN PLATELET VOLUME 10.5 fL (7.2-11.7); MONO # 1.1 K/uL (0.0-0.8); MONO % 12.8 % (0.0-10.0); NEUT # 6.9 K/uL (1.8-7.0); NEUT % 81.2 % (50.0-75.0); PLATELET COUNT 90 K/uL (130-400); RBC 3.41 Mil/uL (3.80-5.20); RED CELL DISTRIBUTION WIDTH 14.6 % (11.5-14.5); WHITE BLOOD COUNT 8.4 K/uL (4.8-10.8)
[2018-03-24 09:09] LABS: ALB/GLOB RATIO 0.8 (1.0-2.1); ALBUMIN 2.9 g/dL (3.5-5.0); ALT/SGPT 54 U/L (9-52); AST/SGOT 36 U/L (14-36); BLOOD UREA NITROGEN 10 mg/dL (7-17); CALCIUM 8.4 mg/dl (8.6-10.4); GFR NON-AFRICAN AMERICAN > 60
[2018-03-24] MEDS: Dextrose 5%/0.45% NS 1,000 ML IV SCH ×2 (09:48→12:27)
[2018-03-24 10:03] LABS: BANDS 17 % (0-2); LYMPHOCYTE 6 % (20-40); MONOCYTE 11 % (0-10); MYELOCYTE 2 % (0-0); NEUTROPHIL 63 % (50-75); PLATELET ESTIMATE DECREASED (NORMAL); REACTIVE LYMPHOCYTES 1 % (0-0); TOTAL CELLS COUNTED 100
[2018-03-24 10:57] LABS: SQUAMOUS EPITHIAL 4 /hpf (0-5); URINE BACTERIA RARE (<OCC); URINE BILIRUBIN NEGATIVE (NEGATIVE); URINE BLOOD NEGATIVE (NEGATIVE); URINE CLARITY Clear (Clear); URINE COLOR Yellow (YELLOW); URINE GLUCOSE (UA) NORMAL (Normal); URINE LEUKOCYTE ESTERASE NEG Leu/uL (Negative); URINE PROTEIN NEGATIVE (NEGATIVE)
--- NOTE | 2018-03-24 11:46 | CP.PCM.PN ---
Subjective - Date & Time of Evaluation Date of Evaluation: 03/24/18 Time of Evaluation: 11:30 - Subjective Subjective: dictated Objective - Vital Signs/Intake and Output Vital Signs (last 24 hours): Temp Pulse Resp BP Pulse Ox 100.0 F H 75 20 149/91 H 96 03/24/18 07:00 03/24/18 07:00 03/24/18 07:00 03/24/18 07:00 03/24/18 07:00 - Medications Medications: Current Medications Clonazepam (Klonopin) 2 mg PO TID [facility] Last Admin: 03/24/18 09:48 Dose: 2 mg Gabapentin (Neurontin) 300 mg PO TID [facility] Last Admin: 03/24/18 09:47 Dose: 300 mg Dextrose/Sodium Chloride (Dextrose 5%/0.45% Ns 1000 Ml) 1,000 mls @ 80 mls/hr IV .[id number] [facility] Last Admin: 03/24/18 09:48 Dose: 80 mls/hr Meropenem 1 gm/ Sodium (Chloride) 100 mls @ 100 mls/hr IVPB Q8H [facility] PRN Reason: Protocol Last Admin: 03/24/18 06:16 Dose: 100 mls/hr Oxycodone HCl (Oxycodone Immediate Release Tab) 30 mg PO Q6H PRN PRN Reason: Pain, moderate (4-7) Last Admin: 03/24/18 06:17 Dose: 30 mg Pantoprazole Sodium (Protonix Inj) 40 mg IVP DAILY [facility] Last Admin: 03/24/18 09:48 Dose: 40 mg Sertraline HCl (Zoloft) 50 mg PO DAILY [facility] Last Admin: 03/24/18 09:48 Dose: 50 mg - Labs Labs: 03/24/18 08:16 03/24/18 08:16
[2018-03-24] MEDS: Vancomycin 1 gm/NS 200 ml 1 GM/200 ML BAG IVPB SCH (12:41)
--- NOTE | 2018-03-24 16:04 | CARD ---
APPROVED REPORT Date of service: 03/24/2018 EXAM: Two-dimensional and M-mode echocardiogram with Doppler and color Doppler. Other Information Quality : GoodRhythm : INDICATION Infection:Rule out subacute bacterial endocarditis 2D DIMENSIONS IVSd0.9 (0.7-1.1cm)LVDd5.0 (3.9-5.9cm) PWd0.9 (0.7-1.1cm)LVDs2.9 (2.5-4.0cm) FS (%) 41.9 %LVEF (%)72.6 (>50%) M-Mode DIMENSIONS Left Atrium (MM)3.49 (2.5-4.0cm)IVSd0.91 (0.7-1.1cm) Aortic Root3.35 (2.2-3.7cm)LVDd5.36 (4.0-5.6cm) Aortic Cusp Exc.2.31 (1.5-2.0cm)PWd0.91 (0.7-1.1cm) FS (%) 42 %LVDs3.12 (2.0-3.8cm) LVEF (%)72 (>50%) Mitral Valve MV E Bfgqbuzn59.7cm/sMV A Kxbrwojb68.2cm/sE/A ratio1.0 TDI E/Lateral E'0.0E/Medial E'0.0 Tricuspid Valve TR Peak [id number]/sTR Peak Gr.[id number] LEFT VENTRICLE The left ventricle is normal size. There is normal left ventricular wall thickness. The left ventricular function is normal. The left ventricular ejection fraction is within the normal range. There is normal LV segmental wall motion. The left ventricular diastolic function is normalfor age. RIGHT VENTRICLE The right ventricle is normal size. There is normal right ventricular wall thickness. The right ventricular systolic function is normal. ATRIA The left atrium size is normal. The right atrium size is normal. AORTIC VALVE The aortic valve is normal in structure. No aortic regurgitation is present. There is no aortic valvular stenosis. There is no aortic valvular vegetation. MITRAL VALVE The mitral valve is normal in structure. There is no evidence of mitral valve prolapse. There is no mitral valve stenosis. There is no mitral valve regurgitation noted. TRICUSPID VALVE The tricuspid valve is normal in structure. There is mild tricuspid regurgitation. There is no pulmonary hypertension. PULMONIC VALVE The pulmonary valve is normal in structure. There is trace pulmonic valvular regurgitation. GREAT VESSELS The aortic root is normal in size. The IVC is normal in size PERICARDIAL EFFUSION There is no pericardial effusion. <Conclusion> Normal bi-ventricular function No significant valvular abnormality. No evidence of valvular vegeattion No pericardial effusion.
--- NOTE | 2018-03-24 17:59 | CP.PCM.PN ---
Subjective - Date & Time of Evaluation Date of Evaluation: 03/24/18 Time of Evaluation: 11:45 - Subjective Subjective: clinically same Objective - Vital Signs/Intake and Output Vital Signs (last 24 hours): Temp Pulse Resp BP Pulse Ox 98.3 F 74 20 142/85 96 03/24/18 17:00 03/24/18 17:00 03/24/18 17:00 03/24/18 17:00 03/24/18 17:00 Intake and Output: 03/24/18 03/24/18 06:59 18:59 Intake Total 840 Balance 840 - Medications Medications: Current Medications Clonazepam (Klonopin) 2 mg PO TID [facility] Last Admin: 03/24/18 14:32 Dose: 2 mg Gabapentin (Neurontin) 300 mg PO TID [facility] Last Admin: 03/24/18 14:32 Dose: 300 mg Dextrose/Sodium Chloride (Dextrose 5%/0.45% Ns 1000 Ml) 1,000 mls @ 80 mls/hr IV .[id number] [facility] Last Admin: 03/24/18 12:27 Dose: Not Given Meropenem 1 gm/ Sodium (Chloride) 100 mls @ 100 mls/hr IVPB Q8H [facility] PRN Reason: Protocol Last Admin: 03/24/18 14:32 Dose: 100 mls/hr Vancomycin/Sodium Chloride (Vancomycin 1 Gm/Ns 200 Ml) 1 gm in 200 mls @ 133 mls/hr IVPB Q12H [facility] PRN Reason: Protocol Stop: 03/29/18 12:01 Last Admin: 03/24/18 12:41 Dose: 133 mls/hr Oxycodone HCl (Oxycodone Immediate Release Tab) 30 mg PO Q6H PRN PRN Reason: Pain, moderate (4-7) Last Admin: 03/24/18 12:41 Dose: 30 mg Pantoprazole Sodium (Protonix Inj) 40 mg IVP DAILY [facility] Last Admin: 03/24/18 09:48 Dose: 40 mg Sertraline HCl (Zoloft) 50 mg PO DAILY [facility] Last Admin: 03/24/18 09:48 Dose: 50 mg - Labs Labs: 03/24/18 08:16 03/24/18 08:16
--- NOTE | 2018-03-24 20:01 | PN ---
Copied To: Gerri Dickson MD Attending MD: Gerri Dickson MD DATE: 03/24/2018 SUBJECTIVE: The patient's nurse told me she is having bandemia and she had a low grade temp of 100, pulse is 75, blood pressure 149/91, respirations are 20. She keeps complaining of abdominal pain and back pain, and she states she is not eating, but there was a tray at the bedside, and she appeared to be under sedatives. She complains of leg pain also. 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 T max is 100+, pulse is 75, blood pressure 149/91, respirations are 20. She has been on Merrem since she came in and as there was a suspicion of UTI with pyelonephritis, right now she is complaining of pain in the mid back, lower lumbar area. So, I am going to get an x-ray done. I am not sure where this bandemia is coming from. She is otherwise awake, able to answer some questions, but is not a good historian. She came in with vomiting and was having back pains and had CAT scan done and it did not show much on the abdomen and pelvis, and denies any shortness of breath. No sore throat. Complains of abdominal pain, back pain, and leg pain at this time. PHYSICAL EXAMINATION: HEENT: Head is atraumatic. NECK: Supple. LUNGS: Clear. No crackles or rales present. HEART: S1 and S2 regular. ABDOMEN: Soft and nontender. No guarding. No rigidity present. BACK: She has some pain on lumbar area. We will get x-rays done first. EXTREMITIES: Left leg has a good pulse and is not discolored. No cellulitis noted. LABORATORY DATA: White count is 8.4, hemoglobin 10.7, hematocrit is 30.2, platelet count is 90. Chem: She has 17 bands still and urine culture is better. Right now, we repeated it and micro harris, blood cultures and urine culture actually are pending. We did a procalcitonin level today, which is pending and her chest x-ray shows new right upper extremity PICC line in satisfactory position, so she has a PICC line now as she has poor IV access. Her ultrasound was unremarkable for any hydronephrosis and transvaginal did not show any ovarian cysts and showed no evidence of any ovarian mass or cystic lesion and endometrium unremarkable exam. She also had abdominal and pelvic CT, has hepatosplenomegaly and she has cirrhosis and left upper quadrant raises suspicion for varices. Left ovary appears prominent, all that was by the ultrasound. She does have a hiatal hernia. She may be vomiting from there. ASSESSMENT AND PLAN: We will do a lumbar x-ray for now and see if that is the cause and since she is having fevers, I am going to add empirically vancomycin and we will follow. Gerri Dickson MD
--- NOTE | 2018-03-24 20:12 | PCM.FALL ---
Post Fall Progress Note - Post Fall Fall Date: 03/24/18 Fall Time: 18:50 Description of Fall: Patient was reaching for support further than her arm span while she was on the commode. Mechanical fall onto her left side and buttock. She did not lose consciousness, nor hit her head. Was able to answer questions fully. - Post Fall Exam Vital Sign: Temp Pulse Resp BP Pulse Ox 98.3 F 74 20 142/85 96 03/24/18 17:00 03/24/18 17:00 03/24/18 17:00 03/24/18 17:00 03/24/18 17:00 Skull Exam: Negative for: Scalp wound, Scalp hematoma, Scalp depression, Ridge in skull Eye Exam: Positive for: Pupils equal, Pupils reactive Ear Exam: Negative for: Discharge, Bleeding Nose Exam: Negative for: Discharge, Bleeding Skin Exam: Positive for: Colour (blooming hematoma on the left side. no radiation of pain. growing erythema, edema, warmth.) Mouth Exam: Negative for: Tongue bitten, Teeth dislodge Neck Exam: Negative for: Tenderness, Tingling, Weakness Spinal Exam: Negative for: Tenderness, Tingling, Weakness Chest Exam: Negative for: Difficulty breathing, Tenderness in collar bones, Tenderness in ribs Abdomen Exam: Positive for: Tenderness Pelvic Exam: Negative for: Tenderness, Hematuria Arm Exam: Negative for: Deformity, Alteration in range of movement Leg Exam: Positive for: Deformity (well healed L BKA). Negative for: Alteration in range of movement Impression/Plan: Patient is alert and oriented and able to recall events perfectly. She was recently given her afternoon/early evening medications, including Klonopin and Neurotin. Due to her blooming hematoma, CT A/P without contrast ordered. Will monitor vitals.
[2018-03-25] MEDS: Vancomycin 1 gm/NS 200 ml 1 GM/200 ML BAG IVPB SCH ×2 (01:00→12:18)
[2018-03-25] MEDS: Dextrose 5%/0.45% NS 1,000 ML IV SCH (01:02)
[2018-03-25] MEDS: oxyCODONE 30 mg Immediate Release Tab PO PRN ×4 (04:13→22:04)
[2018-03-25] MEDS: Meropenem 1 GM in Sodium Chloride 0.9% 100 ML IVPB SCH ×3 (05:11→22:05)
--- NOTE | 2018-03-25 10:39 | CT ---
Date of service: 03/24/2018 PROCEDURE: CT Abdomen and Pelvis without intravenous contrast HISTORY: s/p fall, developing hematoma COMPARISON: CT scan of the abdomen and pelvis dated 03/20/2018. TECHNIQUE: Contiguous images were obtained from the domes of the diaphragms to the upper thighs without the administration of intravenous contrast. Oral contrast was not administered. Radiation dose: Total exam DLP = 867.8 mGy-cm. This CT exam was performed using one or more of the following dose reduction techniques: Automated exposure control, adjustment of the mA and/or kV according to patient size, and/or use of iterative reconstruction technique. FINDINGS: LOWER THORAX: Small left pleural effusion. Bibasilar atelectasis. LIVER: Unremarkable. No gross lesion or ductal dilatation. GALLBLADDER AND BILE DUCTS: Unremarkable. PANCREAS: Unremarkable. No gross lesion or ductal dilatation. SPLEEN: Splenomegaly. ADRENALS: Unremarkable. No mass. KIDNEYS AND URETERS: Unremarkable. No hydronephrosis. No solid mass. VASCULATURE: Unremarkable. No aortic aneurysm. BOWEL: Small hiatal hernia. No obstruction. No gross mural thickening. APPENDIX: Findings to suggest acute appendicitis. PERITONEUM: Unremarkable. No free fluid. No free air. LYMPH NODES: Unremarkable. No enlarged lymph nodes. BLADDER: Unremarkable. REPRODUCTIVE: Unremarkable. BONES: No acute fracture. Serpiginous sclerotic densities in the right femoral head without subchondral collapse. OTHER FINDINGS: Left posterior-lateral lower thoracic wall 12.2 x 3.6 cm intramuscular hematoma with punctate locules of gas. Left-sided body wall edema and midline back body wall edema. IMPRESSION: Left posterior lateral lower thoracic wall 12.2 x 3.6 cm intramuscular hematoma with punctate La kilos of gas within the collection. No evidence of rib fracture or pneumothorax. Trace left pleural effusion. Left-sided and midline fat body wall edema. Additional stable findings as above.
[2018-03-25 11:34] LABS: BASO % 0.4 % (0.0-2.0); EOS # 0.1 K/uL (0.0-0.7); EOS % 0.9 % (0.0-4.0); HEMOGLOBIN 12.2 g/dL (11.0-16.0); LYMPH # 0.8 K/uL (1.0-4.3); LYMPH % 6.7 % (20.0-40.0); MEAN CELL VOLUME 89.1 fL (81.0-99.0); MEAN CORPUSCULAR HEMOGLOBIN 31.1 pg (27.0-31.0); MEAN CORPUSCULAR HGB CONC 34.9 g/dL (33.0-37.0); MEAN PLATELET VOLUME 9.9 fL (7.2-11.7); MONO # 1.2 K/uL (0.0-0.8); MONO % 10.6 % (0.0-10.0); NEUT # 9.1 K/uL (1.8-7.0); NEUT % 81.4 % (50.0-75.0); NRBC % 0.1 % (0.0-2.0); PLATELET COUNT 147 K/uL (130-400); RBC 3.91 Mil/uL (3.80-5.20); RED CELL DISTRIBUTION WIDTH 14.6 % (11.5-14.5); WHITE BLOOD COUNT 11.2 K/uL (4.8-10.8)
[2018-03-25 11:58] LABS: EOSINOPHIL 1 % (0-4); TOTAL CELLS COUNTED 100
[2018-03-25 12:00] LABS: BANDS 9 % (0-2); LYMPHOCYTE 5 % (20-40); MONOCYTE 9 % (0-10); NEUTROPHIL 76 % (50-75); PLATELET ESTIMATE NORMAL (NORMAL)
[2018-03-25 12:01] LABS: OVALOCYTES SLIGHT
--- NOTE | 2018-03-25 12:29 | RAD ---
Date of service: 03/25/2018 HISTORY: verify right PICC COMPARISON: Chest radiograph dated 03/23/2018. FINDINGS: LUNGS: Patchy left basilar atelectasis. PLEURA: No significant pleural effusion identified, no pneumothorax apparent. CARDIOVASCULAR: Normal. OSSEOUS STRUCTURES: Unchanged. VISUALIZED UPPER ABDOMEN: Normal. OTHER FINDINGS: Right upper extremity PICC with catheter tip at the cavoatrial junction, unchanged. IMPRESSION: Right upper extremity PICC in satisfactory position. No significant interval change.
[2018-03-25 12:38] LABS: ALB/GLOB RATIO 0.8 (1.0-2.1); ALBUMIN 2.9 g/dL (3.5-5.0); ALT/SGPT 51 U/L (9-52); AST/SGOT 41 U/L (14-36); BLOOD UREA NITROGEN 10 mg/dL (7-17); GFR NON-AFRICAN AMERICAN > 60
--- NOTE | 2018-03-25 17:49 | CP.PCM.PN ---
Subjective - Date & Time of Evaluation Date of Evaluation: 03/25/18 Time of Evaluation: 08:00 - Subjective Subjective: clinically same Objective - Vital Signs/Intake and Output Vital Signs (last 24 hours): Temp Pulse Resp BP Pulse Ox 97.9 F 74 20 147/94 H 94 L 03/25/18 16:00 03/25/18 16:00 03/25/18 16:00 03/25/18 16:00 03/25/18 16:00 Intake and Output: 03/25/18 03/25/18 06:59 18:59 Intake Total 200 Balance 200 - Medications Medications: Current Medications Clonazepam (Klonopin) 2 mg PO TID [facility] Last Admin: 03/25/18 17:25 Dose: 2 mg Gabapentin (Neurontin) 300 mg PO HS [facility] Meropenem 1 gm/ Sodium (Chloride) 100 mls @ 100 mls/hr IVPB Q8H [facility] PRN Reason: Protocol Last Admin: 03/25/18 13:58 Dose: 100 mls/hr Vancomycin/Sodium Chloride (Vancomycin 1 Gm/Ns 200 Ml) 1 gm in 200 mls @ 133 mls/hr IVPB Q12H [facility] PRN Reason: Protocol Stop: 03/29/18 12:01 Last Admin: 03/25/18 12:18 Dose: Not Given Ketorolac Tromethamine (Toradol) 30 mg IVP Q6 PRN PRN Reason: Pain, severe (8-10) Last Admin: 03/25/18 13:55 Dose: 30 mg Ondansetron HCl (Zofran Inj) 4 mg IVP Q8H PRN PRN Reason: Nausea/Vomiting Last Admin: 03/25/18 17:25 Dose: 4 mg Oxycodone HCl (Oxycodone Immediate Release Tab) 30 mg PO Q6H PRN PRN Reason: Pain, moderate (4-7) Last Admin: 03/25/18 16:16 Dose: 30 mg Pantoprazole Sodium (Protonix Ec Tab) 40 mg PO DAILY [facility] Sertraline HCl (Zoloft) 50 mg PO DAILY [facility] Last Admin: 03/25/18 10:01 Dose: 50 mg - Labs Labs: 03/25/18 11:18 03/25/18 11:18 - Constitutional Appears: Well - Head Exam Head Exam: ATRAUMATIC, NORMAL INSPECTION, NORMOCEPHALIC - Eye Exam Eye Exam: EOMI, Normal appearance, PERRL Pupil Exam: NORMAL ACCOMODATION, PERRL - ENT Exam ENT Exam: Mucous Membranes Moist, Normal Exam - Neck Exam Neck Exam: Full ROM, Normal Inspection. absent: Lymphadenopathy - Respiratory Exam Respiratory Exam: Decreased Breath Sounds - Cardiovascular Exam Cardiovascular Exam: REGULAR RHYTHM, +S1, +S2 - GI/Abdominal Exam GI & Abdominal Exam: Soft, Diminished Bowel Sounds - Rectal Exam Rectal Exam: Deferred
--- NOTE | 2018-03-25 18:38 | CP.PCM.PN ---
Subjective - Date & Time of Evaluation Date of Evaluation: 03/25/18 Time of Evaluation: 09:35 - Subjective Subjective: Medicine progress note for Dr. Harrison's service Patient is a 47 year old female who presented to the ER on 03/20 with complaint of abdominal and upper back pain. She states that she had dysuria on 02/25/18 and saw her PMD who prescribed her a 7 day course of antibiotics for UTI which she completed. She states the dysuria went away but then came back which prompted her presentation to the ER. Patient has history of right BKA and has wound at site of prosthesis. ID was consulted due to bandemia. Objective - Vital Signs/Intake and Output Vital Signs (last 24 hours): Temp Pulse Resp BP Pulse Ox 97.9 F 74 20 147/94 H 94 L 03/25/18 16:00 03/25/18 16:00 03/25/18 16:00 03/25/18 16:00 03/25/18 16:00 Intake and Output: 03/25/18 03/25/18 06:59 18:59 Intake Total 200 Balance 200 - Medications Medications: Current Medications Clonazepam (Klonopin) 2 mg PO TID [facility] Last Admin: 03/25/18 17:25 Dose: 2 mg Gabapentin (Neurontin) 300 mg PO HS [facility] Meropenem 1 gm/ Sodium (Chloride) 100 mls @ 100 mls/hr IVPB Q8H [facility] PRN Reason: Protocol Last Admin: 03/25/18 13:58 Dose: 100 mls/hr Vancomycin/Sodium Chloride (Vancomycin 1 Gm/Ns 200 Ml) 1 gm in 200 mls @ 133 mls/hr IVPB Q12H [facility] PRN Reason: Protocol Stop: 03/29/18 12:01 Last Admin: 03/25/18 12:18 Dose: Not Given Ketorolac Tromethamine (Toradol) 30 mg IVP Q6 PRN PRN Reason: Pain, severe (8-10) Last Admin: 03/25/18 13:55 Dose: 30 mg Ondansetron HCl (Zofran Inj) 4 mg IVP Q8H PRN PRN Reason: Nausea/Vomiting Last Admin: 03/25/18 17:25 Dose: 4 mg Oxycodone HCl (Oxycodone Immediate Release Tab) 30 mg PO Q6H PRN PRN Reason: Pain, moderate (4-7) Last Admin: 03/25/18 16:16 Dose: 30 mg Pantoprazole Sodium (Protonix Ec Tab) 40 mg PO DAILY [facility] Sertraline HCl (Zoloft) 50 mg PO DAILY [facility] Last Admin: 03/25/18 10:01 Dose: 50 mg - Labs Labs: 03/25/18 11:18 03/25/18 11:18 - Constitutional Appears: No Acute Distress, Chronically Ill - Head Exam Head Exam: ATRAUMATIC - Eye Exam Eye Exam: EOMI - ENT Exam ENT Exam: Mucous Membranes Moist - Respiratory Exam Respiratory Exam: Clear to Ausculation Bilateral, NORMAL BREATHING PATTERN - Cardiovascular Exam Cardiovascular Exam: +S1, +S2 - GI/Abdominal Exam GI & Abdominal Exam: Soft, Normal Bowel Sounds. absent: Tenderness - Extremities Exam Additional comments: right BKA - Neurological Exam Neurological Exam: Alert, Awake - Skin Skin Exam: Warm Assessment and Plan - Assessment and Plan (Free Text) Assessment: Bandemia unclear source. initially thought to be from urine however culture negative. Tmax was 102.7 on 03/20, patient had fever with temp 100.8 on 03/22, elevated temp of 100.0 on 03/24 continue vancomycin 1g Q12h, started 03/24 continue meropenem 1g IVPB q8h started 03/21 Dr. Dickson, ID, consulted, help appreciated 03/24: blood and urine cultures negative 03/24: UA negative for leukocyte esterase, WBC. 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 contusion and hematoma left lower lateral chest (see full report) Neuropathy decreased gabapentin from 300mg TID to 300mg HS as patient states she takes it inconsistently throughout the day at home and the medication was making her more drowsy Chronic pain continue home medication oxycodone 30mg PO q6h toradol 30mg IVP q6h prn Depression continue zoloft 50mg PO daily Prophylactic measure All management as per Dr. Harrison
[2018-03-26] MEDS: Vancomycin 1 gm/NS 200 ml 1 GM/200 ML BAG IVPB SCH ×2 (01:06→13:48)
[2018-03-26] MEDS: oxyCODONE 30 mg Immediate Release Tab PO PRN ×3 (04:04→17:29)
[2018-03-26] MEDS: Meropenem 1 GM in Sodium Chloride 0.9% 100 ML IVPB SCH ×2 (05:30→14:54)
--- NOTE | 2018-03-26 08:20 | CP.PCM.PN ---
Subjective - Date & Time of Evaluation Date of Evaluation: 03/26/18 Time of Evaluation: 08:00 - Subjective Subjective: Medicine progress note for Dr. Harrison's service 47 year old female who presented to the ER on 03/20 with complaint of abdominal and upper back pain. Patient states she continues to have middle to lower back pain radiating to her left side of her abdomen. She states she feel nauseated and previously vomited 2 days prior. She denies chest pain, shortness of breath , fever or chills. She states she has not had a bowel movement in a week and continues to feel constipated. Objective - Vital Signs/Intake and Output Vital Signs (last 24 hours): Temp Pulse Resp BP Pulse Ox 98.1 F 70 20 121/81 95 03/26/18 07:34 03/26/18 07:34 03/26/18 07:34 03/26/18 07:34 03/26/18 07:34 - Medications Medications: Current Medications Clonazepam (Klonopin) 2 mg PO TID [facility] Last Admin: 03/25/18 17:25 Dose: 2 mg Gabapentin (Neurontin) 300 mg PO HS [facility] Last Admin: 03/25/18 22:04 Dose: 300 mg Meropenem 1 gm/ Sodium (Chloride) 100 mls @ 100 mls/hr IVPB Q8H [facility] PRN Reason: Protocol Last Admin: 03/26/18 05:30 Dose: 100 mls/hr Vancomycin/Sodium Chloride (Vancomycin 1 Gm/Ns 200 Ml) 1 gm in 200 mls @ 133 mls/hr IVPB Q12H [facility] PRN Reason: Protocol Stop: 03/29/18 12:01 Last Admin: 03/26/18 01:06 Dose: 133 mls/hr Ketorolac Tromethamine (Toradol) 30 mg IVP Q6 PRN PRN Reason: Pain, severe (8-10) Last Admin: 03/26/18 05:29 Dose: 30 mg Ondansetron HCl (Zofran Inj) 4 mg IVP Q8H PRN PRN Reason: Nausea/Vomiting Last Admin: 03/25/18 17:25 Dose: 4 mg Oxycodone HCl (Oxycodone Immediate Release Tab) 30 mg PO Q6H PRN PRN Reason: Pain, moderate (4-7) Last Admin: 03/26/18 04:04 Dose: 30 mg Pantoprazole Sodium (Protonix Ec Tab) 40 mg PO DAILY [facility] Potassium Chloride (K-Dur 20 Meq Er Tab) 20 meq PO DAILY [facility] Sertraline HCl (Zoloft) 50 mg PO DAILY [facility] Last Admin: 03/25/18 10:01 Dose: 50 mg - Labs Labs: 03/25/18 11:18 03/25/18 11:18 - Constitutional Appears: No Acute Distress - Head Exam Head Exam: ATRAUMATIC, NORMAL INSPECTION - Eye Exam Eye Exam: EOMI, Normal appearance - ENT Exam ENT Exam: Mucous Membranes Moist - Respiratory Exam Respiratory Exam: Clear to Ausculation Bilateral, NORMAL BREATHING PATTERN - Cardiovascular Exam Cardiovascular Exam: REGULAR RHYTHM, +S1, +S2 - GI/Abdominal Exam GI & Abdominal Exam: Soft, Normal Bowel Sounds. absent: Distended, Firm, Guarding, Tenderness - Extremities Exam Additional comments: right BKA - Neurological Exam Neurological Exam: Alert, Awake, Oriented x3 - Psychiatric Exam Psychiatric exam: Anxious - Skin Skin Exam: Normal Color Assessment and Plan - Assessment and Plan (Free Text) Assessment: Bandemia unclear source. initially thought to be from urine however culture negative. Tmax was 102.7 on 03/20, patient had fever with temp 100.8 on 03/22, elevated temp of 100.0 on 03/24 continue vancomycin 1g Q12h, started 03/24 - discontinued 03/26/18 continue meropenem 1g IVPB q8h started 03/21 - discontinued 03/26/18 Dr. Dickson, ID, consulted, help appreciated - spoke with Dr. Dickson to stop IV antibiotics and start Augmentin 87mg po bid for 7 days 03/24: blood and urine cultures negative 03/24: UA negative for leukocyte esterase, WBC. +rare bacteria 03/20: urine culture with less than 10,000 cfu/mL, probable contamination lumbar xray: No vertebral body fracture. 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 contusion and hematoma left lower lateral chest (see full report) Neuropathy decreased gabapentin from 300mg TID to 300mg HS as patient states she takes it inconsistently throughout the day at home and the medication was making her more drowsy Chronic pain continue home medication oxycodone 30mg PO q6h toradol 30mg IVP q6h prn Depression continue zoloft 50mg PO daily Prophylactic measure Florastor 250mg daily DVT risk: 2; Lovenox 40sc daily All management as per Dr. Hunter Hardy PGY-2
[2018-03-26 09:42] LABS: BASO % 0.4 % (0.0-2.0); EOS # 0.1 K/uL (0.0-0.7); HEMOGLOBIN 11.1 g/dL (11.0-16.0); MONO # 0.8 K/uL (0.0-0.8); WHITE BLOOD COUNT 10.8 K/uL (4.8-10.8)
[2018-03-26 09:55] LABS: EOS % 0.8 % (0.0-4.0); LYMPH # 0.7 K/uL (1.0-4.3); LYMPH % 6.4 % (20.0-40.0); MEAN CELL VOLUME 89.2 fL (81.0-99.0); MEAN CORPUSCULAR HEMOGLOBIN 31.1 pg (27.0-31.0); MEAN CORPUSCULAR HGB CONC 34.8 g/dL (33.0-37.0); MEAN PLATELET VOLUME 9.8 fL (7.2-11.7); MONO % 7.6 % (0.0-10.0); NEUT # 9.2 K/uL (1.8-7.0); NEUT % 84.8 % (50.0-75.0); PLATELET COUNT 126 K/uL (130-400); RBC 3.58 Mil/uL (3.80-5.20); RED CELL DISTRIBUTION WIDTH 14.3 % (11.5-14.5)
[2018-03-26 10:00] LABS: ALB/GLOB RATIO 0.8 (1.0-2.1); ALBUMIN 2.6 g/dL (3.5-5.0); ALT/SGPT 48 U/L (9-52); AST/SGOT 41 U/L (14-36); BLOOD UREA NITROGEN 13 mg/dL (7-17); CALCIUM 7.8 mg/dl (8.6-10.4); GFR NON-AFRICAN AMERICAN > 60
[2018-03-26 10:19] LABS: BANDS 1 % (0-2); EOSINOPHIL 1 % (0-4); LYMPHOCYTE 6 % (20-40); MONOCYTE 6 % (0-10); NEUTROPHIL 86 % (50-75); TOTAL CELLS COUNTED 100
[2018-03-26 10:21] LABS: PLATELET ESTIMATE NORMAL (NORMAL)
[2018-03-26 10:22] LABS: HYPOCHROMIC SLIGHT; POLYCHROMIC SLIGHT
[2018-03-26] MEDS: Pantoprazole 40 mg EC Tab PO SCH (10:24)
[2018-03-26] MEDS: Potassium Chloride 20 mEq ER Tab PO SCH (10:24)
--- NOTE | 2018-03-26 12:08 | CP.PCM.PN ---
Subjective - Date & Time of Evaluation Date of Evaluation: 03/26/18 Time of Evaluation: 11:00 - Subjective Subjective: dictated Objective - Vital Signs/Intake and Output Vital Signs (last 24 hours): Temp Pulse Resp BP Pulse Ox 98.1 F 70 20 121/81 95 03/26/18 07:34 03/26/18 07:34 03/26/18 07:34 03/26/18 07:34 03/26/18 07:34 - Medications Medications: Current Medications Clonazepam (Klonopin) 2 mg PO TID [facility] Last Admin: 03/26/18 10:24 Dose: 2 mg Gabapentin (Neurontin) 300 mg PO HS [facility] Last Admin: 03/25/18 22:04 Dose: 300 mg Meropenem 1 gm/ Sodium (Chloride) 100 mls @ 100 mls/hr IVPB Q8H [facility] PRN Reason: Protocol Last Admin: 03/26/18 05:30 Dose: 100 mls/hr Vancomycin/Sodium Chloride (Vancomycin 1 Gm/Ns 200 Ml) 1 gm in 200 mls @ 133 mls/hr IVPB Q12H [facility] PRN Reason: Protocol Stop: 03/29/18 12:01 Last Admin: 03/26/18 01:06 Dose: 133 mls/hr Ketorolac Tromethamine (Toradol) 30 mg IVP Q6 PRN PRN Reason: Pain, severe (8-10) Last Admin: 03/26/18 05:29 Dose: 30 mg Ondansetron HCl (Zofran Inj) 4 mg IVP Q8H PRN PRN Reason: Nausea/Vomiting Last Admin: 03/25/18 17:25 Dose: 4 mg Oxycodone HCl (Oxycodone Immediate Release Tab) 30 mg PO Q6H PRN PRN Reason: Pain, moderate (4-7) Last Admin: 03/26/18 10:24 Dose: 30 mg Pantoprazole Sodium (Protonix Ec Tab) 40 mg PO DAILY [facility] Last Admin: 03/26/18 10:24 Dose: 40 mg Potassium Chloride (K-Dur 20 Meq Er Tab) 20 meq PO DAILY [facility] Last Admin: 03/26/18 10:24 Dose: 20 meq Sertraline HCl (Zoloft) 50 mg PO DAILY [facility] Last Admin: 03/26/18 10:24 Dose: 50 mg - Labs Labs: 03/26/18 09:27 03/26/18 09:27
--- NOTE | 2018-03-26 13:07 | RAD ---
Date of service: 03/24/2018 PROCEDURE: HISTORY: Back pain COMPARISON: None TECHNIQUE: Three views FINDINGS: No lumbar fracture. T12 is considered with rudimentary ribs. Minimal Schmorl's node like indentations of L3-L4 and minimally at L5 on the lateral view are noted. L5-S1 posterior disc space narrowing. AP spinal canal appear shallow on lateral view at all lumbar levels. -can be seen with spinal stenosis. Correlate clinically Stool retention. IMPRESSION: No vertebral body fracture. Or lytic lesion Other findings as above.
--- NOTE | 2018-03-26 15:36 | PN ---
Copied To: Gerri Dickson MD Attending MD: Gerri Dickson MD DATE: 03/26/2018 SUBJECTIVE: The patient is awake and alert. She still complains of pain in the back and she underwent a new CAT scan yesterday and had placed on vancomycin and she is on meropenem. PHYSICAL EXAMINATION: VITAL SIGNS: T-max is 98.1, pulse 70, blood pressure 121/81, respirations are 20. GENERAL: She has no more nausea or vomiting. HEENT: Head is atraumatic, normocephalic. NECK: Supple. LUNGS: Clear. HEART: S1 and S2 is regular. ABDOMEN: Soft. There is redness over the left flank and she does give history of fall now. EXTREMITIES: Have no edema. LABORATORY DATA: Labs are noted. Labs show white count is 10.8, hemoglobin 11.1, hematocrit 32, platelet count is 126 and now bands are 1, segs are 86. ASSESSMENT AND PLAN: She is on vancomycin and meropenem at this time and she had abdominal CT on 03/24/[address] has not mentioned anything about this hematoma and now we see that on the lateral thoracic wall 12.2 x 3.6 cm intramuscular hematoma with punctate locules of gas, left-sided body wall edema and midline back body wall edema is noted, so that may be infected hematoma because she did have a lot of fever and bandemia and now all the cultures are negative except urine, which had pyuria and came out with multiple species on admission and plan is to continue these antibiotics for now and we will follow as the patient had fevers until yesterday and she is finally getting to be afebrile. Gerri Dickson MD
[2018-03-26] MEDS ORDERED: Amoxicillin-Clav 875-125 mg Tab PO SCH (16:30)
--- NOTE | 2018-03-26 19:19 | CP.PCM.PN ---
Subjective - Date & Time of Evaluation Date of Evaluation: 03/26/18 Time of Evaluation: 08:45 - Subjective Subjective: clinically same Objective - Vital Signs/Intake and Output Vital Signs (last 24 hours): Temp Pulse Resp BP Pulse Ox 97.3 F L 68 18 103/65 94 L 03/26/18 15:59 03/26/18 15:59 03/26/18 15:59 03/26/18 15:59 03/26/18 15:59 - Medications Medications: Current Medications Amoxicillin/Clavulanate Potassium (Augmentin 875 Mg-125 Mg Tab) 1 tab PO Q12H COUNTS [facility]CLUDE 234 BEDS AT THE [facility] PRN Reason: Protocol Stop: 04/01/18 22:00 Last Admin: 03/26/18 17:29 Dose: 1 tab Clonazepam (Klonopin) 2 mg PO TID COUNTS INCLUDE 234 BEDS AT THE [facility] Last Admin: 03/26/18 17:29 Dose: 2 mg Enoxaparin Sodium (Lovenox) 40 mg SC ONCE ONE Stop: 03/27/18 16:23 Enoxaparin Sodium (Lovenox) 40 mg SC DAILY [facility]S INCLUDE 234 BEDS AT THE [facility] Gabapentin (Neurontin) 300 mg PO HS [facility]S [facility]CLUDE 234 BEDS AT THE [facility] Last Admin: 03/25/18 22:04 Dose: 300 mg Ketorolac Tromethamine (Toradol) 30 mg IVP Q6 PRN PRN Reason: Pain, severe (8-10) Last Admin: 03/26/18 13:43 Dose: 30 mg Lactulose (Enulose) 20 gm PO BID COUNTS INCLUDE 234 BEDS AT THE [facility] Last Admin: 03/26/18 17:30 Dose: 20 gm Ondansetron HCl (Zofran Inj) 4 mg IVP Q8H PRN PRN Reason: Nausea/Vomiting Last Admin: 03/25/18 17:25 Dose: 4 mg Oxycodone HCl (Oxycodone Immediate Release Tab) 30 mg PO Q6H PRN PRN Reason: Pain, moderate (4-7) Last Admin: 03/26/18 17:29 Dose: 30 mg Pantoprazole Sodium (Protonix Ec Tab) 40 mg PO DAILY [facility]CLUDE 234 BEDS AT THE [facility] Last Admin: 03/26/18 10:24 Dose: 40 mg Potassium Chloride (K-Dur 20 Meq Er Tab) 20 meq PO DAILY [facility]CLUDE 234 BEDS AT THE [facility] Last Admin: 03/26/18 10:24 Dose: 20 meq Saccharomyces Boulardii (Florastor) 250 mg PO DAILY [facility]S [facility]CLUDE 234 BEDS AT THE [facility] Sertraline HCl (Zoloft) 50 mg PO DAILY [facility] Last Admin: 03/26/18 10:24 Dose: 50 mg - Labs Labs: 03/26/18 09:27 03/26/18 09:27 - Constitutional Appears: Well - Head Exam Head Exam: ATRAUMATIC, NORMAL INSPECTION, NORMOCEPHALIC - Eye Exam Eye Exam: EOMI, Normal appearance, PERRL Pupil Exam: NORMAL ACCOMODATION, PERRL - ENT Exam ENT Exam: Mucous Membranes Moist, Normal Exam - Neck Exam Neck Exam: Full ROM, Normal Inspection. absent: Lymphadenopathy - Respiratory Exam Respiratory Exam: Decreased Breath Sounds - Cardiovascular Exam Cardiovascular Exam: REGULAR RHYTHM, +S1, +S2 - GI/Abdominal Exam GI & Abdominal Exam: Soft, Diminished Bowel Sounds - Rectal Exam Rectal Exam: Deferred
[2018-03-27] MEDS: oxyCODONE 30 mg Immediate Release Tab PO PRN (00:45)
[2018-03-27 07:08] LABS: BASO % 0.3 % (0.0-2.0); EOS # 0.1 K/uL (0.0-0.7); EOS % 0.7 % (0.0-4.0); HEMOGLOBIN 10.5 g/dL (11.0-16.0); LYMPH # 0.5 K/uL (1.0-4.3); LYMPH % 4.9 % (20.0-40.0); MEAN CELL VOLUME 89.9 fL (81.0-99.0); MEAN CORPUSCULAR HEMOGLOBIN 31.2 pg (27.0-31.0); MEAN CORPUSCULAR HGB CONC 34.7 g/dL (33.0-37.0); MEAN PLATELET VOLUME 9.5 fL (7.2-11.7); MONO # 0.4 K/uL (0.0-0.8); MONO % 4.4 % (0.0-10.0); NEUT # 8.7 K/uL (1.8-7.0); NEUT % 89.7 % (50.0-75.0); NRBC % 0.1 % (0.0-2.0); PLATELET COUNT 121 K/uL (130-400); RBC 3.36 Mil/uL (3.80-5.20); RED CELL DISTRIBUTION WIDTH 14.6 % (11.5-14.5); WHITE BLOOD COUNT 9.7 K/uL (4.8-10.8)
[2018-03-27 07:31] LABS: ALB/GLOB RATIO 0.7 (1.0-2.1); ALBUMIN 2.5 g/dL (3.5-5.0); ALT/SGPT 49 U/L (9-52); AST/SGOT 45 U/L (14-36); BLOOD UREA NITROGEN 12 mg/dL (7-17); GFR NON-AFRICAN AMERICAN > 60
[2018-03-27 07:56] VITALS: BP 109/63; PULSE 67; RESP 20; TEMP 97.8; O2SAT 94
[2018-03-27] MEDS: Pantoprazole 40 mg EC Tab PO SCH (09:15)
[2018-03-27] MEDS ORDERED: Potassium Chloride 20 mEq ER Tab PO SCH (10:00)
[2018-03-27] MEDS ORDERED: Amoxicillin-Clav 875-125 mg Tab PO SCH (10:00)
[2018-03-27] MEDS ORDERED: Enoxaparin 40 mg Syringe SC SCH (10:00)
[2018-03-27] MEDS ORDERED: Saccharomyces Boulardi 250 mg Cap PO SCH (10:00)
[2018-03-27 10:17] LABS: BANDS 2 % (0-2); EOSINOPHIL 3 % (0-4); TOTAL CELLS COUNTED 100
[2018-03-27 10:18] LABS: LYMPHOCYTE 5 % (20-40); MONOCYTE 5 % (0-10); NEUTROPHIL 85 % (50-75); PLATELET ESTIMATE SLIGHTLY DECREASED (NORMAL)
[2018-03-27 10:19] LABS: LARGE PLATELETS PRESENT
[2018-03-27] MEDS ORDERED: Bisacodyl 5mg EC Tab PO ONE ×2 (10:55→12:15)
--- NOTE | 2018-03-27 11:01 | CP.PCM.PN ---
Subjective - Date & Time of Evaluation Date of Evaluation: 03/27/18 Time of Evaluation: 08:00 - Subjective Subjective: Medicine progress note for Dr. Harrison's service 47 year old female who presented to the ER on 03/20 with complaint of abdominal and upper back pain. Patient states she is feeling much better today. She denies abdominal pain, chest pain, shortness of breath, nausea, vomiting, fever or chills. Objective - Vital Signs/Intake and Output Vital Signs (last 24 hours): Temp Pulse Resp BP Pulse Ox 97.8 F 67 20 109/63 94 L 03/27/18 07:00 03/27/18 07:00 03/27/18 07:00 03/27/18 07:00 03/27/18 07:00 - Medications Medications: Current Medications Amoxicillin/Clavulanate Potassium (Augmentin 875 Mg-125 Mg Tab) 1 tab PO Q12 [facility] PRN Reason: Protocol Last Admin: 03/27/18 09:14 Dose: 1 tab Clonazepam (Klonopin) 2 mg PO TID [facility] Last Admin: 03/27/18 09:15 Dose: 2 mg Enoxaparin Sodium (Lovenox) 40 mg SC DAILY [facility] Last Admin: 03/27/18 09:38 Dose: 40 mg Gabapentin (Neurontin) 300 mg PO HS [facility] Last Admin: 03/26/18 21:00 Dose: Not Given Ketorolac Tromethamine (Toradol) 30 mg IVP Q6 PRN PRN Reason: Pain, severe (8-10) Last Admin: 03/27/18 09:21 Dose: 30 mg Lactulose (Enulose) 20 gm PO BID [facility] Last Admin: 03/27/18 09:14 Dose: 20 gm Ondansetron HCl (Zofran Inj) 4 mg IVP Q8H PRN PRN Reason: Nausea/Vomiting Last Admin: 03/27/18 00:45 Dose: 4 mg Oxycodone HCl (Oxycodone Immediate Release Tab) 30 mg PO Q6H PRN PRN Reason: Pain, moderate (4-7) Last Admin: 03/27/18 00:45 Dose: 30 mg Pantoprazole Sodium (Protonix Ec Tab) 40 mg PO DAILY [facility] Last Admin: 03/27/18 09:15 Dose: 40 mg Potassium Chloride (K-Dur 20 Meq Er Tab) 20 meq PO DAILY [facility] Last Admin: 03/26/18 10:24 Dose: 20 meq Saccharomyces Boulardii (Florastor) 250 mg PO DAILY [facility] Last Admin: 03/27/18 09:15 Dose: 250 mg Sertraline HCl (Zoloft) 50 mg PO DAILY [facility] Last Admin: 03/27/18 09:15 Dose: 50 mg - Labs Labs: 03/27/18 07:05 03/27/18 07:05 - Constitutional Appears: Non-toxic, No Acute Distress - Head Exam Head Exam: ATRAUMATIC, NORMAL INSPECTION - Eye Exam Eye Exam: EOMI, Normal appearance - ENT Exam ENT Exam: Mucous Membranes Moist - Respiratory Exam Respiratory Exam: Clear to Ausculation Bilateral, NORMAL BREATHING PATTERN - Cardiovascular Exam Cardiovascular Exam: REGULAR RHYTHM, +S1, +S2 - GI/Abdominal Exam GI & Abdominal Exam: Soft, Normal Bowel Sounds. absent: Tenderness - Extremities Exam Extremities Exam: absent: Pedal Edema Additional comments: right bka - Neurological Exam Neurological Exam: Alert, Awake, Oriented x3 - Psychiatric Exam Psychiatric exam: Normal Affect - Skin Skin Exam: Normal Color Assessment and Plan - Assessment and Plan (Free Text) Assessment: Bandemia resolved afebrile for 48 hours WBC trending down 11.2 --> 10.8 --> 9.7 unclear source. initially thought to be from urine however culture negative. Tmax was 102.7 on 03/20, patient had fever with temp 100.8 on 03/22, elevated temp of 100.0 on 03/24 continue vancomycin 1g Q12h, started 03/24 - discontinued 03/26/18 continue meropenem 1g IVPB q8h started 03/21 - discontinued 03/26/18 Dr. Dickson, ID, consulted, help appreciated - spoke with Dr. Dickson to stop IV antibiotics and continue Augmentin 87mg po bid for a total of 7 days 03/24: blood and urine cultures negative 03/24: UA negative for leukocyte esterase, WBC. +rare bacteria 03/20: urine culture with less than 10,000 cfu/mL, probable contamination Imaging: * Chest xray: Minor linear atelectasis and or scarring changes most conspicuous in the left lung base/CP angle region. * CT abd/pelvis (03/20/18) : Hepatic splenomegaly. Nodular hepatic contour. Correlate clinically for cirrhosis. Prominent vessels within the left upper quadrant raises suspicion for varices. Correlate clinically. The left ovary appears prominent with possible cysts and punctate calcification; suggest pelvic ultrasound for further evaluation. Moderate hiatal hernia/distal esophageal wall thickening. Bibasilar atelectasis. * Renal US: Unremarkable renal sonogram. * CT abd/pelvis (03/24/18): Left posterior lateral lower thoracic wall 12.2 x 3.6 cm intramuscular hematoma with punctate La kilos of gas within the collection. No evidence of rib fracture or pneumothorax. Trace left pleural effusion. Left-sided and midline fat body wall edema. S/P Fall patient had mechanical fall on 03/24- no head injury per patient and commercial lending relationship manager physician who examined patient patient had CT of chest done after fall to evaluate left side of ribs where patient fell CT chest: possible nondisplaced rib fracture. contusion and hematoma left lower lateral chest (see full report) Lumbar xray: No vertebral body fracture. Or lytic lesion Neuropathy decreased gabapentin from 300mg TID to 300mg HS as patient states she takes it inconsistently throughout the day at home and the medication was making her more drowsy Chronic pain continue home medication oxycodone 30mg PO q6h toradol 30mg IVP q6h prn Depression continue zoloft 50mg PO daily Prophylactic measure Florastor 250mg daily DVT risk: 2; Lovenox 40sc daily All management as per Dr. Hunter Hardy PGY-2
[2018-03-27] MEDS: Potassium Chloride 20 mEq ER Tab PO SCH (12:20)
[2018-03-27] MEDS ORDERED: Enoxaparin 40 mg Syringe SC ONE (16:22)
== END 2018-03-27 14:25 | disposition home or self-care (01) | DRG 398 ==
LOC: C.ER 13:35 → C.9E 22:08 → C.3T 03-21 00:03 → C.5S 03-23 13:50
PROVIDERS: ADMIT Internal Medicine Nephrology; ATTEND Internal Medicine Nephrology
DX: D72.825 Bandemia (principal); E87.6 Hypokalemia; J43.9 Emphysema, unspecified; K74.60 Unspecified cirrhosis of liver; Z89.511 Acquired absence of right leg below knee; F17.200 Nicotine dependence, unspecified, uncomplicated; W18.30XA Fall on same level, unspecified, initial encounter; G62.9 Polyneuropathy, unspecified; G89.29 Other chronic pain; F32.9 Major depressive disorder, single episode, unspecified; S20.222A Contusion of left back wall of thorax, initial encounter

== ENCOUNTER 2018-09-17 12:15 | Outpatient (CLI) | payer MEDICAID | END 2018-09-17 12:16 | disposition home or self-care (01) | LOC: C.PAT 12:15 | DX: L97.209 Non-pressure chronic ulcer of unspecified calf with unspecified severity (principal) ==

== ENCOUNTER 2018-10-07 10:44 | Emergency (ER) | payer MEDICAID ==
[2018-10-07 10:45] VITALS: BMI 29.0
[2018-10-07 10:54] VITALS: BP 110/72; PULSE 77; RESP 18; TEMP 97.9; O2SAT 99
--- NOTE | 2018-10-07 11:19 | C.PDOC ---
History Of Present Illness 48 year old female presents to ED with complaint of redness, swelling , and pus coming from her left lower extremity for the past 4 day. Patient has a fever of 103. Patient also has an open wound to her right knee that she obtained from a fall 1 year ago. Patient has a past surgical history of BKA to her right leg that was done 10 years ago after an accident. Patient's surgeon was Dr. Carias. She states she was supposed to see for her open wound, but wasn't able to schedule an appointment. Patient denies chills, diaphoresis, numbness, and weakness. Time Seen by Provider: 10/07/18 10:57 Chief Complaint (Nursing): Lower Extremity Problem/Injury History Per: Patient History/Exam Limitations: no limitations Onset/Duration Of Symptoms: Days (4) Current Symptoms Are (Timing): Still Present Severity: Mild Past Medical History Reviewed: Historical Data, Nursing Documentation, Vital Signs Vital Signs: Last Vital Signs Temp 97.9 F 10/07/18 10:51 Pulse 77 10/07/18 10:51 Resp 18 10/07/18 10:51 BP 110/72 10/07/18 10:51 Pulse Ox 99 10/07/18 10:51 - Medical History PMH: Anxiety, Bipolar Disorder, COPD, Depression, Emphysema, Gall Bladder Disease Denies: Diabetes, Hepatitis, Chronic Kidney Disease Surgical History: Appendectomy Other Surgeries: BKA - [facility] Procedures BELOW KNEE AMPUTAT NEC (02/19/15) DETOXIFICATION SERVICES FOR SUBSTANCE ABUSE TREATMENT (06/21/17) DRAINAGE OF LEFT LOWER LEG SKIN, EXTERNAL APPROACH (09/11/16) DRAINAGE OF RIGHT LOWER LEG SKIN, EXTERNAL APPROACH, DIAGN (03/07/17) GROUP BURR BENCH OPERATOR FOR SUBSTANCE ABUSE TREATMENT, PSYCHOEDUCATION (08/01/16) GROUP PSYCHOTHERAPY (12/16/15) IMMOBILIZ/WOUND ATTN NEC (10/07/12) INDIV PSYCHOTHERAPY FOR SUBSTANCE ABUSE TREATMENT, SUPPORT (12/21/16) INDIV PSYCHOTHERAPY FOR SUBSTANCE ABUSE, PSYCHOEDUCATION (09/11/16) INDIVIDUAL PSYCHOTHERAPY, SUPPORTIVE (06/21/17) INFLUENZA VACCINATION (05/13/13) INSERTION OF INFUSION DEV INTO SUP VENA CAVA, PERC APPROACH (03/20/18) NONEXCIS DEBRID OF WOUND, INFECT, OR BURN (05/13/13) PART OSTECT-METATAR/TAR (05/13/13) PARTIAL OSTECTOMY NEC (05/13/13) Family History: States: Unknown Family Hx - Social History Hx Tobacco Use: Yes Hx Alcohol Use: Yes Hx Substance Use: No - Immunization History Hx Tetanus Toxoid Vaccination: No Hx Influenza Vaccination: Yes Hx Pneumococcal Vaccination: Yes Review Of Systems Constitutional: Positive for: Fever. Negative for: Chills, Sweats, Weakness Cardiovascular: Negative for: Chest Pain Respiratory: Negative for: Shortness of Breath Musculoskeletal: Positive for: Leg Pain (swelling, redness, and purulent discharge ), Other (open wound to the right knee) Skin: Positive for: Other (skin sores left lower leg). Negative for: Rash Neurological: Negative for: Weakness, Numbness, Dizziness Physical Exam - Physical Exam Appears: Non-toxic, No Acute Distress Skin: Normal Color, Warm, Dry Head: Atraumatic, Normacephalic Neck: Normal ROM, Supple Chest: Symmetrical Cardiovascular: Rhythm Regular Respiratory: Normal Breath Sounds Gastrointestinal/Abdominal: Normal Exam Extremity: Normal ROM, Other (ulcers to the left lower leg, erythematous, right BKA with non healing wound right knee) Extremity: Bilateral: Normal ROM Pulses: Left Dorsalis Pedis: Normal, Right Dorsalis Pedis: Normal Neurological/Psych: Oriented x3, Normal Speech, Normal Cognition Gait: Other (prosthesis right lower leg) ED Course And Treatment - Laboratory Results Result Diagrams: 10/07/18 11:53 10/07/18 11:53 O2 Sat by Pulse Oximetry: 99 (in RA) Medical Decision Making Medical Decision Making: Impression: 48 year old female presents to ED with complaint of redness, swelling , and pus coming from her left lower extremity Plan: Labs ordered with blood culture and UA Disposition Counseled Patient/Family Regarding: Studies Performed, Diagnosis, Need For Foll owup, Rx Given - Disposition Referrals: Foreign Carias Jr., MD [Staff Provider] - Disposition: HOME/ ROUTINE Disposition Time: 13:15 Condition: GOOD Additional Instructions: Follow up with your PMD for further evaluation Return to ED if any increase symptoms Prescriptions: Sulfamethoxazole/Trimethoprim [Bactrim DS 800 mg-160 mg] 1 tab PO BID #14 tab Instructions: Cellulitis and Erysipelas (Skin Infections) Forms: [employer] (Iranian) - POA Present On Arrival: None - Clinical Impression Clinical Impression: Skin ulcer, Cellulitis - PA / SAMPLES AND REPAIRS PREPARER / Resident Statement MD/DO has reviewed & agrees with the documentation as recorded. (Kassy Navarro) - Scribe Statement The provider has reviewed the documentation as recorded by the Scribe (Kassy Navarro) All medical record entries made by the Scribe were at my direction and personally dictated by me. I have reviewed the chart and agree that the record accurately reflects my personal performance of the history, physical exam, medical decision making, and the department course for this patient. I have also personally directed, reviewed, and agree with the discharge instructions and disposition.
[2018-10-07 12:03] LABS: BASO % 0.5 % (0.0-2.0); EOS # 0.2 K/uL (0.0-0.7); EOS % 3.3 % (0.0-4.0); HEMOGLOBIN 12.2 g/dL (11.0-16.0); LYMPH # 1.3 K/uL (1.0-4.3); LYMPH % 26.7 % (20.0-40.0); MEAN CELL VOLUME 92.5 fL (81.0-99.0); MEAN CORPUSCULAR HEMOGLOBIN 31.1 pg (27.0-31.0); MEAN CORPUSCULAR HGB CONC 33.6 g/dL (33.0-37.0); MEAN PLATELET VOLUME 9.9 fL (7.2-11.7); MONO # 0.3 K/uL (0.0-0.8); NEUT % 62.5 % (50.0-75.0); RBC 3.93 Mil/uL (3.80-5.20); RED CELL DISTRIBUTION WIDTH 13.6 % (11.5-14.5); WHITE BLOOD COUNT 4.7 K/uL (4.8-10.8)
[2018-10-07 12:15] LABS: ALB/GLOB RATIO 1.2 (1.0-2.1); ALT/SGPT 24 U/L (9-52); AST/SGOT 31 U/L (14-36); BLOOD UREA NITROGEN 18 mg/dL (7-17); CALCIUM 8.8 mg/dl (8.6-10.4); GFR NON-AFRICAN AMERICAN > 60
[2018-10-07] MEDS ORDERED: Tmp-Smz 800 mg-160 mg DS Tab PO STA (12:21)
[2018-10-07] MEDS ORDERED: Tmp-Smz 800 mg-160 mg DS Tab ONE (12:34)
== END 2018-10-07 13:13 | disposition home or self-care (01) ==
LOC: C.ER 10:44
DX: L98.499 Non-pressure chronic ulcer of skin of other sites with unspecified severity (principal); L03.116 Cellulitis of left lower limb

== ENCOUNTER 2018-10-12 05:58 | Observation (INO) | payer MEDICAID ==
[2018-09-17 12:52] VITALS: BMI 29.0
[2018-10-12] MEDS ORDERED: Midazolam 2 MG/2 ML VIAL ONE (07:05)
[2018-10-12] MEDS ORDERED: Propofol 10 mg/ml Inj (20 ML) ONE (07:05)
[2018-10-12] MEDS ORDERED: Lidocaine Hydrochloride 0 ML INJ ONE (07:36)
[2018-10-12] MEDS: ceFAZolin IV 2 gm in Dextrose 2 GM/50 ML BAG IVPB ONE ×2 (08:12→08:25)
[2018-10-12] MEDS ORDERED: Lidocaine/Epinephrine 1% 1:100000 10 ML IJ ONE (08:47)
--- NOTE | 2018-10-12 09:38 | PCM.SURG1 ---
Surgeon's Initial Post Op Note - Surgeon's Notes Surgeon: Dr. Carias Manager Company: Dr. Fernandez, PGY 1, Keith Nichole MS 3 Type of Anesthesia: General Endo Anesthesia Administered By: Dr. Ellis Pre-Operative Diagnosis: right patella nonhealing wound Operative Findings: right patella nonhealing wound Post-Operative Diagnosis: same Operation Performed: scar tissue and wound excision/debridement, closure of wound Specimen/Specimens Removed: wound tissue Estimated Blood Loss: EBL {In ML}: 50 Blood Products Given: N/A Drains Used: No Drains Post-Op Condition: Good Date of Surgery/Procedure: 10/12/18 Time of Surgery/Procedure: 08:00
[2018-10-12] MEDS: HYDROmorphone 0.5 mg/0.5 ml ISec IVP PRN ×3 (09:50→11:06)
[2018-10-12] MEDS ORDERED: HYDROmorphone 0.5 mg/0.5 ml ISec IVP ONE (09:50)
--- NOTE | 2018-10-12 10:03 | CP.PCM.HP ---
History of Present Illness - History of Present Illness History of Present Illness: General surgery h&P for Dr. Carias Patient is a Past Patient History - Infectious Disease Hx of Infectious Diseases: None - Past Medical History & Family History Past Medical History?: Yes - Past Social History Smoking Status: Light Smoker < 10 Cigarettes Daily - CARDIAC Hx Circulatory Problems: Yes (right leg compartment syndrom) - PULMONARY Hx Respiratory Disorders: Yes Hx Chronic Obstructive Pulmonary Disease (COPD): Yes Hx Emphysema: Yes Hx Tuberculosis: No - NEUROLOGICAL Hx Neurological Disorder: No - HEENT Hx HEENT Problems: No - RENAL Hx Chronic Kidney Disease: No - ENDOCRINE/METABOLIC Hx Endocrine Disorders: No - HEMATOLOGICAL/ONCOLOGICAL Hx Blood Disorders: No Hx Cirrhosis: Yes Hx Hepatitis C: Yes (treated) - INTEGUMENTARY Hx Dermatological Problems: Yes (ulcer right stump) - MUSCULOSKELETAL/RHEUMATOLOGICAL Hx Musculoskeletal Disorders: Yes Hx Back Pain: Yes (Herniated Disc) Hx Herniated Disk: Yes (lumbar) Hx Osteomyelitis: Yes Other/Comment: right AKA amputation with prosthesis - GASTROINTESTINAL Hx Gastrointestinal Disorders: Yes Hx Gall Bladder Disease: Yes Hx Liver Failure: Yes - GENITOURINARY/GYNECOLOGICAL Hx Genitourinary Disorders: No - PSYCHIATRIC Hx Psychophysiologic Disorder: Yes Hx Anxiety: Yes Hx Bipolar Disorder: Yes Hx Depression: Yes Hx Substance Use: No Other/Comment: ETOH Abuse: 4-24oz beers/daylast may 2018. Drug Abuse: Hx of heroin and cocaine abuse last may 2018 - SURGICAL HISTORY Hx Surgeries: Yes Hx Amputation: Yes (RIGHT BTK) Hx Appendectomy: Yes Hx Section: Yes (X1) Hx Orthopedic Surgery: Yes (rt. foot fracture;left BKA) Hx Tubal Ligation: Yes Other/Comment: h/o picc line for antibiotics - ANESTHESIA Hx Anesthesia: Yes Hx Anesthesia Reactions: No Hx Malignant Hyperthermia: No Has any member of the family had a problem w/ anesthesia?: No Meds Allergies/Adverse Reactions: Allergies Allergy/AdvReac Type Severity Reaction Status Date / Time No Known Allergies Allergy Verified 10/07/18 10:55 Results - Vital Signs Recent Vital Signs: Last Vital Signs Temp 98 F 10/12/18 06:08 Pulse 56 L 10/12/18 06:08 Resp 18 10/12/18 06:08 BP 124/81 10/12/18 06:08 Pulse Ox 99 10/12/18 06:08
[2018-10-12] MEDS ORDERED: Oxycodone/Acetaminophen 5/325 mg Tab PO PRN (11:30)
[2018-10-12] MEDS ORDERED: oxyCODONE 5 mg Immediate Release Tab PO PRN (16:10)
--- NOTE | 2018-10-12 20:32 | OP ---
PROCEDURE DATE: 10/12/2018 PREOPERATIVE DIAGNOSIS: Non-healing ulcer, right below-knee prosthesis wound. SURGEON: Foreign Carias Jr., MD. CONTRACTING EXECUTIVE: Resident. ANESTHESIOLOGIST: Mr. Coelho. DESCRIPTION OF PROCEDURE: The patient is a 48-year-old woman with previously right below-knee amputation, has developed an ulcer over the patella. This has been treated as an outpatient in the office over 6 weeks without improvement. The recommendation now is that to be excised and a primary closure be carried out. The area was removed. After standard skin prep, washing, taking culture, we then made an incision directly over the area, excised ____ tissues and approximated this with a 2 layered closure. Blood loss for the procedure was 50 mL. Hemostasis obtained. Marcaine was also injected. We had a clean closure without any tension and I think this will help us in heal this area quite well. Foreign Carias Jr., MD
[2018-10-13 03:27] VITALS: RESP 20
[2018-10-13 08:03] VITALS: BP 124/82; PULSE 66; TEMP 98; O2SAT 98
--- NOTE | 2018-10-13 08:11 | CP.PCM.PN ---
Subjective - Date & Time of Evaluation Date of Evaluation: 10/13/18 Time of Evaluation: 08:05 - Subjective Subjective: Surgical Progress Note for Dr. Carias Patient seen and examined at bedside. She is status post right patellar wound closure and excision. She states she has pain at the site of surgery. She denies fevers,chills, chest pain, headache, dizziness, nausea, vomiting, diarrhea, abdominal pain, urinary complaints. Objective - Vital Signs/Intake and Output Vital Signs (last 24 hours): Temp Pulse Resp BP Pulse Ox 98.0 F 66 20 124/82 98 10/13/18 07:00 10/13/18 07:00 10/13/18 07:00 10/13/18 07:00 10/13/18 07:00 Intake and Output: 10/13/18 10/13/18 06:59 18:59 Intake Total 500 Balance 500 - Medications Medications: Current Medications Acetaminophen (Tylenol 325mg Tab) 650 mg PO Q6 PRN PRN Reason: Pain, moderate (4-7) Clonazepam (Klonopin) 2 mg PO TID PRN PRN Reason: Anxiety Famotidine (Pepcid) 20 mg PO DAILY [facility] Last Admin: 10/12/18 17:00 Dose: 20 mg Gabapentin (Neurontin) 600 mg PO TID [facility] Last Admin: 10/12/18 16:59 Dose: 600 mg Hydromorphone HCl (Dilaudid) 2 mg IVP Q4H PRN PRN Reason: pain scale 7-10 Last Admin: 10/13/18 06:18 Dose: 2 mg Ondansetron HCl (Zofran Tab) 4 mg PO Q4 PRN PRN Reason: Nausea/Vomiting Oxycodone HCl (Oxycodone Immediate Release Tab) 5 mg PO Q6 PRN PRN Reason: Pain, severe (8-10) Last Admin: 10/12/18 16:59 Dose: 5 mg - Constitutional Appears: Well, No Acute Distress - Head Exam Head Exam: ATRAUMATIC, NORMAL INSPECTION - Eye Exam Eye Exam: EOMI, PERRL - ENT Exam ENT Exam: Mucous Membranes Moist - Neck Exam Neck Exam: Full ROM. absent: Tenderness - Respiratory Exam Respiratory Exam: Clear to Ausculation Bilateral, NORMAL BREATHING PATTERN. absent: Rales, Rhonchi, Wheezes, Respiratory Distress, Stridor - Cardiovascular Exam Cardiovascular Exam: REGULAR RHYTHM, +S1, +S2 - GI/Abdominal Exam GI & Abdominal Exam: Soft, Normal Bowel Sounds. absent: Tenderness - Extremities Exam Additional comments: Right BKA, patellar surgical site dressing clean, dry, intact - Neurological Exam Neurological Exam: Alert, Awake, Oriented x3 Assessment and Plan - Assessment and Plan (Free Text) Assessment: 48 year old female who is POD1 right patella wound excision and debridement. Plan: Pain management Oxycodone 5mg Q6 PRN Dilaudid 2mg IV Q4 PRN Zofran 4mg Q4 Continue to monitor María Elena Verduzco, PGY1
== END 2018-10-13 12:56 | disposition home or self-care (01) ==
LOC: C.SDS 05:58 → C.9S 09:42 → C.6T 14:38 → C.5E 17:07 → C.6T 17:47
PROVIDERS: ADMIT Surgery Vascular Surgery; ATTEND Surgery Vascular Surgery
DX: L97.818 Non-pressure chronic ulcer of other part of right lower leg with other specified severity (principal)
CPT/HCPCS: 11043; 87070; 88305; 97116; 97162; 97530; G0378; G8978; G8979; J0690; J1170; J2250; J2704; J3010

== ENCOUNTER 2018-11-12 00:12 | Observation (INO) | payer MEDICAID ==
[2018-11-12 00:12] VITALS: BMI 29.0
--- NOTE | 2018-11-12 00:42 | C.PDOC ---
History Of Present Illness 48 year old female presents to the ED requesting detox for heroin and alcohol abuse. 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 Patient denies SI/HI, hallucinations, injury, fall, trauma. Chief Complaint (Nursing): Medical Clearance History Per: Patient History/Exam Limitations: intoxication Onset/Duration Of Symptoms: Hrs Current Symptoms Are (Timing): Still Present Recent travel outside of the [place]: No Additional History Per: Patient Past Medical History Reviewed: Historical Data, Nursing Documentation, Vital Signs Vital Signs: Last Vital Signs Temp 98.4 F 11/12/18 00:20 Pulse 77 11/12/18 00:20 Resp 20 11/12/18 00:20 BP 127/85 11/12/18 00:20 Pulse Ox 96 11/12/18 00:20 - Medical History PMH: Anxiety, Bipolar Disorder, COPD, Depression, Emphysema, Gall Bladder Disease Denies: Diabetes, Hepatitis, Chronic Kidney Disease Surgical History: Appendectomy - [facility] BELOW KNEE AMPUTAT NEC (02/19/15) DETOXIFICATION SERVICES FOR SUBSTANCE ABUSE TREATMENT (06/21/17) DRAINAGE OF LEFT LOWER LEG SKIN, EXTERNAL APPROACH (09/11/16) DRAINAGE OF RIGHT LOWER LEG SKIN, EXTERNAL APPROACH, DIAGN (03/07/17) GROUP RUNNER OUT FOR SUBSTANCE ABUSE TREATMENT, PSYCHOEDUCATION (08/01/16) GROUP PSYCHOTHERAPY (12/16/15) IMMOBILIZ/WOUND ATTN NEC (10/07/12) INDIV PSYCHOTHERAPY FOR SUBSTANCE ABUSE TREATMENT, SUPPORT (12/21/16) INDIV PSYCHOTHERAPY FOR SUBSTANCE ABUSE, PSYCHOEDUCATION (09/11/16) INDIVIDUAL PSYCHOTHERAPY, SUPPORTIVE (06/21/17) INFLUENZA VACCINATION (05/13/13) INSERTION OF INFUSION DEV INTO SUP VENA CAVA, PERC APPROACH (03/20/18) NONEXCIS DEBRID OF WOUND, INFECT, OR BURN (05/13/13) PART OSTECT-METATAR/TAR (05/13/13) PARTIAL OSTECTOMY NEC (05/13/13) Family History: States: Unknown Family Hx - Social History Hx Tobacco Use: Yes Hx Alcohol Use: Yes Hx Substance Use: No - Immunization History Hx Tetanus Toxoid Vaccination: No Hx Influenza Vaccination: Yes Hx Pneumococcal Vaccination: Yes Review Of Systems Constitutional: Negative for: Fever, Chills Cardiovascular: Negative for: Chest Pain Respiratory: Negative for: Shortness of Breath Gastrointestinal: Negative for: Nausea, Vomiting, Abdominal Pain Skin: Negative for: Rash Psych: Negative for: Depression, Suicidal ideation Physical Exam - Physical Exam Appears: Non-toxic, No Acute Distress Skin: Normal Color, Warm, Dry Head: Atraumatic, Normacephalic Eye(s): bilateral: Normal Inspection Oral Mucosa: Moist Neck: Normal ROM, Supple Chest: Symmetrical Cardiovascular: Rhythm Regular Respiratory: Normal Breath Sounds, No Rales, No Rhonchi, No Wheezing Gastrointestinal/Abdominal: Soft, No Tenderness, No Distention Extremity: Normal ROM Neurological/Psych: Oriented x3, Normal Speech, Normal Cognition Gait: Steady ED Course And Treatment - Laboratory Results Result Diagrams: 11/12/18 00:52 11/12/18 00:52 O2 Sat by Pulse Oximetry: 96 (ON RA) Pulse Ox Interpretation: Normal Medical Decision Making Medical Decision Making: Plan: * Labs * UA Disposition Discussed With : Liat Cadet Doctor Will See Patient In The: Hospital Counseled Patient/Family Regarding: Diagnosis - Disposition Disposition: HOSPITALIZED Disposition Time: 04:30 Condition: STABLE Forms: [facility] (Japanese) - POA Present On Arrival: None - Clinical Impression Clinical Impression: Alcohol abuse, Opioid abuse - Scribe Statement The provider has reviewed the documentation as recorded by the Scribe Reyes Ignacio All medical record entries made by the Scribe were at my direction and personally dictated by me. I have reviewed the chart and agree that the record accurately reflects my personal performance of the history, physical exam, medical decision making, and the department course for this patient. I have also personally directed, reviewed, and agree with the discharge instructions and disposition.
[2018-11-12 00:59] LABS: SQUAMOUS EPITHIAL 1 /hpf (0-5); URINE BILIRUBIN NEGATIVE (NEGATIVE); URINE BLOOD NEGATIVE (NEGATIVE); URINE CLARITY Clear (Clear); URINE COLOR Yellow (YELLOW); URINE GLUCOSE (UA) NORMAL (Normal); URINE LEUKOCYTE ESTERASE NEG Leu/uL (Negative); URINE PROTEIN NEGATIVE (NEGATIVE); URINE UROBILINOGEN NORMAL mg/dL (0.2-1.0)
[2018-11-12 01:00] LABS: BASO % 0.4 % (0.0-2.0); EOS # 0.1 K/uL (0.0-0.7); EOS % 3.9 % (0.0-4.0); LYMPH # 0.8 K/uL (1.0-4.3); MEAN CELL VOLUME 90.6 fL (81.0-99.0); MEAN CORPUSCULAR HEMOGLOBIN 31.2 pg (27.0-31.0); MEAN CORPUSCULAR HGB CONC 34.4 g/dL (33.0-37.0); MEAN PLATELET VOLUME 9.8 fL (7.2-11.7); MONO # 0.2 K/uL (0.0-0.8); MONO % 8.3 % (0.0-10.0); NEUT # 1.7 K/uL (1.8-7.0); NEUT % 59.4 % (50.0-75.0); RBC 3.52 Mil/uL (3.80-5.20); RED CELL DISTRIBUTION WIDTH 13.8 % (11.5-14.5); WHITE BLOOD COUNT 2.8 K/uL (4.8-10.8)
[2018-11-12 01:02] LABS: HCG,QUALITATIVE URINE NEGATIVE (NEGATIVE)
[2018-11-12 01:14] LABS: ALB/GLOB RATIO 1.3 (1.0-2.1); ALBUMIN 3.9 g/dL (3.5-5.0); ALT/SGPT 24 U/L (9-52); AST/SGOT 47 U/L (14-36); BLOOD UREA NITROGEN 8 mg/dL (7-17); CALCIUM 8.7 mg/dl (8.6-10.4); GFR NON-AFRICAN AMERICAN > 60
[2018-11-12 01:20] LABS: BARBITURATES, UR NEGATIVE (NEGATIVE); BENZODIAZEPINES, UR NEGATIVE (NEGATIVE); PHENCYCLIDINE, UR NEGATIVE (NEGATIVE)
[2018-11-12 01:44] LABS: OPIATES, UR POSITIVE (NEGATIVE)
--- NOTE | 2018-11-12 05:55 | PCM.BM ---
Treatment Plan Problems - Problems identified on initial assessmt Chronic low self esteem Date Initiated: 11/12/18 Time Initiated: 05:00 Assessment reference: NA Status: Active Hopelessness Date Initiated: 11/12/18 Time Initiated: 05:00 Assessment reference: NA Status: Active Low motivation to change Date Initiated: 11/12/18 Time Initiated: 05:00 Assessment reference: NA Status: Active Treatment assets and liabiliti Patient Assests: cooperative, ADL independent, cognitively intact Patient Liabilities: substance abuse - Milieu Protocol Maintain good personal hygiene: daily Encourage regular showers, daily Remind patient to perform daily oral care, daily Assist patient to perform ADL's Maintain personal safety: every shift Educate patient to report safety concerns to staff, every shift Monitor environment for contraband/sharps Medication safety: Monitor for expected outcome, potential side effects: every shift, Assess barriers to learning: every shift, Assess readiness for medication education: every shift
--- NOTE | 2018-11-12 09:52 | PCM.PSYCH ---
Initial Psychiatric Evaluation - Initial Psychiatric Evaluation Type of Admission: Voluntary Legal Status: Capacity History of Present Illness and Precipitating Events: She is a 48 y/o WF, single with 2 adult children, on disability, lives with her BF. Alcohol - few shots Heroin - 2 bags Past Psychiatric History - Past Psychiatric History Pertinent Medical Hx (Current Medical&Sleep Prob, Allergies): Allergies Allergy/AdvReac Type Severity Reaction Status Date / Time No Known Allergies Allergy Verified 10/07/18 10:55 No Known Home Med 11/12/18
[2018-11-12] MEDS: Multiple Vitamins Tab PO SCH (12:25)
[2018-11-12] MEDS ORDERED: Aluminum Hydroxide/Magnesium Hydroxide Susp (30 mL) PO PRN (12:26)
[2018-11-13 06:11] VITALS: RESP 18
--- NOTE | 2018-11-13 08:25 | PCM.PYCHDC ---
Mental Status Examination - Mental Status Examination Orientation: Person Discharge Summary - Discharge Note Consultations:: List each consultation separately and include: 1. Reason for request. 2. Findings. 3. Follow-up Summary of Hospital Course include:: 1. Description of specific treatment plan utilized for patients during their course of treatmen. 2. Summarize the time- course for resolution of acute symptoms and/or regressed behaviors. 3. Describe issues identified and worked on during hospitalization. 4. Describe medication utilized. 5. Describe medical problems identified and treated. 6. Reassessment of suicide risk Summary of Hospital Course: The pt was in OBS status and she asked for d/c today as she did not want to wait for withdrawals. She did not have any significant wdw. She was reluctant to stop her klonopins (2 mg TID!!) and Oxycodones (also high dose) anyway. Risks discussed. Slow outpt taper of klonopin and getting on Subx maintenance discussed. She understood but it is unlikely she will just do it right away. She is fixated on her "need" to use these meds/ Her hides them b/c she overuses frequently. - Final Diagnosis (DSM 5) Condition upon Discharge: STABLE Disposition: HOME/ ROUTINE Prescriptions/Medication Reconciliation: Escitalopram [Lexapro] 10 mg PO DAILY #30 tab hydrOXYzine HCl [Atarax] 50 mg PO DAILY PRN #30 tab PRN Reason: Anxiety traZODone [Desyrel] 100 mg PO HS #30 tab
[2018-11-13] MEDS: Multiple Vitamins Tab PO SCH (09:16)
[2018-11-13 09:45] VITALS: BP 112/65; PULSE 84; TEMP 98.9; O2SAT 96
== END 2018-11-13 11:12 | disposition home or self-care (01) ==
LOC: C.ER 00:12 → C.7D 04:30
PROVIDERS: ADMIT Psychiatry & Neurology Psychiatry; ATTEND Psychiatry & Neurology Psychiatry
DX: F11.10 Opioid abuse, uncomplicated (principal); F31.9 Bipolar disorder, unspecified; J43.9 Emphysema, unspecified; Z87.891 Personal history of nicotine dependence; F10.10 Alcohol abuse, uncomplicated
CPT/HCPCS: 80053; 80320; 80324; 80345; 80346; 80349; 80353; 80358; 80361; 81001; 83735; 83992; 84100; 84703; 85025; 99284; G0378